=== PATIENT | male | born 1950 | race Two or more races ===

== ENCOUNTER 2020-04-25 06:27 | Inpatient (IN) | payer MEDICARE, MEDICAID ==
[~2020-04-25] VITALS: Ht 190.5 cm; Wt 82.2 kg
[2020-04-25 11:10] VITALS: BP 116/70
--- NOTE | 2020-04-25 11:10 | NUR ---
NURSE NOTES: Patient is direct admit from [place], Admitted to room 203-2 via gurney. Awake, alert and oriented x4, Mostly [place] speaking. on room air , saturation 97%, no acute distress/SOB noted. Able to make needs known, Denied pain, nausea or vomiting at this time. bus driver/monitor placed, Patient has an IV on left FA 20G patent and intact. Belonging list done, Valuables sent to Hospital safe. Patient has left lower back kalpana (Hemangioma), Picture taken, will upload. Oriented to room, call lights and visiting hours. Bed in low position and locked, Call light within reach, Encouraged to use call light when needed. Will contact MD for admission orders.
[2020-04-25] MEDS ORDERED: PANTOPRAZOLE SO40 MG ORAL (12:10)
[2020-04-25] MEDS ORDERED: FUROSEMIDE40 MG ORAL (12:10)
[2020-04-25] MEDS ORDERED: FOSAMAX70 MG ORAL (12:10)
[2020-04-25] MEDS ORDERED: METFORMIN HCL500 M1 ORAL (12:10)
[2020-04-25] MEDS ORDERED: FLOMAX0.4 MG ORAL (12:10)
[2020-04-25] MEDS ORDERED: CELLCEPT500 MG ORAL (12:10)
[2020-04-25] MEDS ORDERED: SPIRONOLACTONE100 MG ORAL (12:10)
[2020-04-25] MEDS ORDERED: MEDROL4 MG ORAL (12:10)
[2020-04-25] MEDS ORDERED: VITAMIN D210 MCG PO (12:10)
--- NOTE | 2020-04-25 12:25 | Consultation ---
History of Present Illness General Date patient seen: Apr 25, 2020 Present Illness HPI This is a very pleasant 69-year-old male who presented to outside facility complaining of 2 days abdominal pain with associated nausea and emesis. Patient was transferred to [facility] for care and management and work-up. Surgery was called to evaluate. Patient was seen patient was evaluated chart was reviewed. Patient states that he began having epigastric right upper quad abdominal pain approximately 2 days ago and while at home had associated nausea and emesis. pain cramping 6 out of 10 currently improved with narcotic pain medication. No significant prior episodes. Was diagnosed with acute cholecystitis outside facility pending reports. Medication History Scheduled Alendronate Sodium* (Fosamax*), 70 MG ORAL ONCE A WEEK, (Reported) Ergocalciferol (Vitamin D2) (Vitamin D2), 1.25 MG PO ONCE A WEEK, (Reported) Furosemide* (Lasix*), 40 MG ORAL EVERY OTHER DAY, (Reported) Metformin Hcl* (Metformin Hcl*), 500 MG ORAL DAILY, (Reported) Methylprednisolone* (Medrol*), 4 MG ORAL DAILY, (Reported) Mycophenolate Mofetil (Cellcept), 1,500 MG ORAL TWICE A DAY, (Reported) Pantoprazole* (Pantoprazole*), 40 MG ORAL DAILY, (Reported) Spironolactone* (Spironolactone*), 50 MG ORAL TWICE A DAY, (Reported) Tamsulosin HCl (Flomax), 0.4 MG ORAL DAILY, (Reported) Patient History History Provided By: Patient Healthcare decision maker Resuscitation status Advanced Directive on File Past Medical/Surgical History Past Medical/Surgical History: (1) Cholecystitis, acute Review of Systems Review of Symptoms General ROS: no weight loss or fever Psychological ROS: no depression or mood changes, no memory loss Ophthalmic ROS: no visual changes or eye irritation ENT ROS: no nasal congestion, hearing loss, dizziness Allergy and Immunology ROS: no allergic symptoms or urticaria Hematological and Lymphatic ROS: no swollen glands, unusual bleeding or bruising Endocrine ROS: no polyuria, polydipsia, weight changes, temperature intolerance Respiratory ROS: no cough, shortness of breath, or wheezing Cardiovascular ROS: no chest pain or dyspnea on exertion Gastrointestinal ROS: +abdominal pain, --bright red blood in stool. Musculoskeletal ROS: no myalgias or arthralgias Neurological ROS: no TIA or stroke symptoms Dermatological ROS: no new or changing skin lesions, rashes or pruritis Physical Exam Physical Exam General appearance: alert, cooperative, no distress, appears stated age Head: Normocephalic, without obvious abnormality, atraumatic Eyes: conjunctivae/corneas clear. PERRL, EOM's intact. Fundi benign Throat: Lips, mucosa, and tongue normal. Teeth and gums normal Neck: supple, symmetrical, trachea midline, no adenopathy, thyroid: not enlarged, symmetric, no tenderness/mass/nodules, no carotid bruit and no JVD Lungs: clear to auscultation bilaterally Heart: regular rate and rhythm, S1, S2 normal, no murmur, click, rub or gallop Abdomen: soft, non-tender. Bowel sounds normal. No masses, no organomegaly Extremities: extremities normal, atraumatic, no cyanosis or edema Pulses: 2+ and symmetric Skin: Skin color, texture, turgor normal. No rashes or lesions Neurologic: Grossly normal Assessment/Plan Problem List: (1) Cholecystitis, acute Assessment & Plan: 69-year-old male with acute cholecystitis diagnosed outside facility. Currently afebrile hemodynamic stable and improved with narcotic pain medication. On examination mild discomfort in the right upper quadrant. States he still feels the cramping but blunted with the medications. Currently no nausea or vomiting. Still pending reports have been looking to obtain. Okay for clear liquid diets given stable and patient is hungry IV fluids IV antibiotics Ultrasound ordered Labs ordered Will follow with recommendations as labs and imaging available. May potentially need cholecystectomy will monitor Thank you for let me participate in patient's care ICD Codes: K81.0 - Acute cholecystitis SNOMED: [id number] Wil Morse Apr 25, 2020 12:25
[2020-04-25] MEDS ORDERED: Milk of Magnesia 30ml Ud ORAL PRN (12:30)
[2020-04-25] MEDS ORDERED: Mylanta II UD 30ml ORAL PRN (12:30)
[2020-04-25] MEDS ORDERED: Morphine Sulfate 2mg/ml Inj(IV/IM USE ONLY) IVP PRN ×2 (12:30)
[2020-04-25] MEDS ORDERED: LORazepam 1mg tab ORAL PRN (12:30)
[2020-04-25] MEDS ORDERED: Morphine Sulfate 4mg/ml Inj (IV USE ONLY) IVP PRN (12:30)
[2020-04-25 13:09] LABS: MEAN CORPUSCULAR VOLUME 87 FL (80-99); PLATELET COUNT 163 K/UL (150-450); RED BLOOD COUNT 5.05 M/UL (4.70-6.10); RED CELL DISTRIBUTION WIDTH 15.7 % (11.6-14.8); WHITE BLOOD COUNT 12.1 K/UL (4.8-10.8)
[2020-04-25 13:23] LABS: ALANINE AMINOTRANSFERASE 279 U/L (12-78); ALBUMIN 3.4 G/DL (3.4-5.0); ALBUMIN/GLOBULIN RATIO 1.3 (1.0-2.7); ALKALINE PHOSPHATASE 130 U/L (46-116); ANION GAP 5 mmol/L (5-15); ASPARTATE AMINO TRANSFERASE 153 U/L (15-37); BILIRUBIN,TOTAL 1.8 MG/DL (0.2-1.0); BLOOD UREA NITROGEN 15 mg/dL (7-18); CALCIUM 9.3 MG/DL (8.5-10.1); CARBON DIOXIDE 31 MMOL/L (21-32); CHLORIDE 100 MMOL/L (98-107); CHOLESTEROL 150 MG/DL (< 200); CREATININE 1.2 MG/DL (0.55-1.30); HDL CHOLESTEROL 26 MG/DL (40-60); POTASSIUM 4.5 MMOL/L (3.5-5.1); SODIUM 136 MMOL/L (136-145); TRIGLYCERIDES 179 MG/DL (30-150)
[2020-04-25 13:49] LABS: BILIRUBIN,DIRECT 1.1 MG/DL (0.0-0.3)
[2020-04-25] MEDS ORDERED: Zosyn 3.375gm in NS 110ml IVPB ONE (14:00)
--- NOTE | 2020-04-25 14:12 | Diagnostic Imaging Report ---
EXAM: US Abdomen Complete CLINICAL HISTORY: ABD PAIN TECHNIQUE: Real-time ultrasound of the abdomen with image documentation. COMPARISON: None FINDINGS: Liver: Liver measures 13.3 cm. No focal lesion. No intrahepatic bile duct dilation. Gallbladder: Gallstone or sludge ball measuring up to 2.5 cm. Nonspecific mild prominence of the gallbladder wall. Sonographic Jean's sign is not reported. Common bile duct: Normal common bile duct measuring 2.6 mm. No stones. No dilation. Pancreas: Visualized portions of the pancreas are grossly unremarkable. Kidneys: Right kidney measures 11.0 cm in length. No hydronephrosis or stone. Left kidney measures 10.2 cm in length. No hydronephrosis or stone. Spleen: Spleen measures 12.1 cm. No focal lesion. Aorta: Visualized portions of the aorta are grossly unremarkable. Inferior vena cava: Visualized portions of the IVC are grossly unremarkable. Other vasculature: Patent main portal vein with normal directional flow. IMPRESSION: Gallstone or sludge ball measuring up to 2.5 cm. Nonspecific mild prominence of the gallbladder wall. Sonographic Jean's sign is not reported.
[2020-04-25] MEDS ORDERED: Hydrocortisone 100mg Inj IV SCH ×2 (14:15→16:15)
--- NOTE | 2020-04-25 15:41 | Consultation ---
History of Present Illness General Date patient seen: Apr 25, 2020 Present Illness HPI 69 years old male with hx of polymyositis on immune suppressive therapy with steroids and Celcept, COPD, BPH and hx of recent cholecystitis recently which was treated conservatively at [facility] .presented again to [facility] with same symptoms and he is transferred to [facility] [place]. Allergies: Coded Allergies: LEVOFLOXACIN (Unverified Allergy, Mild, Redness, 04/25/20) Medication History Scheduled Alendronate Sodium* (Fosamax*), 70 MG ORAL ONCE A WEEK, (Reported) Ergocalciferol (Vitamin D2) (Vitamin D2), 1.25 MG PO ONCE A WEEK, (Reported) Furosemide* (Lasix*), 40 MG ORAL EVERY OTHER DAY, (Reported) Metformin Hcl* (Metformin Hcl*), 500 MG ORAL DAILY, (Reported) Methylprednisolone* (Medrol*), 4 MG ORAL DAILY, (Reported) Mycophenolate Mofetil (Cellcept), 1,500 MG ORAL TWICE A DAY, (Reported) Pantoprazole* (Pantoprazole*), 40 MG ORAL DAILY, (Reported) Spironolactone* (Spironolactone*), 50 MG ORAL TWICE A DAY, (Reported) Tamsulosin HCl (Flomax), 0.4 MG ORAL DAILY, (Reported) Patient History Healthcare decision maker Resuscitation status Advanced Directive on File Past Medical/Surgical History Past Medical/Surgical History: (1) Diabetes mellitus (2) COPD (chronic obstructive pulmonary disease) (3) BPH (benign prostatic hyperplasia) (4) Pulmonary fibrosis Review of Systems All Other Systems: negative except mentioned in HPI Physical Exam General Appearance: WD/WN, no apparent distress Lines, tubes and drains: peripheral HEENT: normocephalic, atraumatic, anicteric Neck: non-tender, normal alignment, supple Respiratory/Chest: chest wall non-tender, lungs clear, normal breath sounds, no respiratory distress Cardiovascular/Chest: normal peripheral pulses, normal rate Abdomen: normal bowel sounds, soft Genitourinary/Rectal: normal genital exam, normal rectal exam Last 24 Hour Vital Signs Date Time Temp Pulse Resp B/P (MAP) Pulse Ox O2 Delivery O2 Flow Rate FiO2 04/25/20 12:22 Room Air 04/25/20 12:00 107 04/25/20 11:10 98.0 102 20 116/70 (85) 97 Laboratory Tests Test 04/25/20 13:00 White Blood Count 12.1 K/UL (4.8-10.8) H Red Blood Count 5.05 M/UL (4.70-6.10) Hemoglobin 14.0 G/DL (14.2-18.0) L Hematocrit 44.0 % (42.0-52.0) Mean Corpuscular Volume 87 FL (80-99) Mean Corpuscular Hemoglobin 27.7 PG (27.0-31.0) Mean Corpuscular Hemoglobin Concent 31.9 G/DL (32.0-36.0) L Red Cell Distribution Width 15.7 % (11.6-14.8) H Platelet Count 163 K/UL (150-450) Mean Platelet Volume 7.3 FL (6.5-10.1) Neutrophils (%) (Auto) % (45.0-75.0) Lymphocytes (%) (Auto) % (20.0-45.0) Monocytes (%) (Auto) % (1.0-10.0) Eosinophils (%) (Auto) % (0.0-3.0) Basophils (%) (Auto) % (0.0-2.0) Differential Total Cells Counted 100 Neutrophils % (Manual) 83 % (45-75) H Lymphocytes % (Manual) 10 % (20-45) L Monocytes % (Manual) 7 % (1-10) Eosinophils % (Manual) 0 % (0-3) Basophils % (Manual) 0 % (0-2) Band Neutrophils 0 % (0-8) Platelet Estimate Adequate Platelet Morphology Normal Red Blood Cell Morphology Normal Prothrombin Time 10.9 SEC (9.30-11.50) Prothromb Time International Ratio 1.0 (0.9-1.1) Activated Partial Thromboplast Time 26 SEC (23-33) Sodium Level 136 MMOL/L (136-145) Potassium Level 4.5 MMOL/L (3.5-5.1) Chloride Level 100 MMOL/L (98-107) Carbon Dioxide Level 31 MMOL/L (21-32) Anion Gap 5 mmol/L (5-15) Blood Urea Nitrogen 15 mg/dL (7-18) Creatinine 1.2 MG/DL (0.55-1.30) Estimat Glomerular Filtration Rate > 60 mL/min (>60) Glucose Level 105 MG/DL (74-106) Hemoglobin A1c 6.7 % (4.3-6.0) H Calcium Level 9.3 MG/DL (8.5-10.1) Total Bilirubin 1.8 MG/DL (0.2-1.0) H Direct Bilirubin 1.1 MG/DL (0.0-0.3) H Aspartate Amino Transf (AST/SGOT) 153 U/L (15-37) H Alanine Aminotransferase (ALT/SGPT) 279 U/L (12-78) H Alkaline Phosphatase 130 U/L (46-116) H Total Protein 6.0 G/DL (6.4-8.2) L Albumin 3.4 G/DL (3.4-5.0) Globulin 2.6 g/dL Albumin/Globulin Ratio 1.3 (1.0-2.7) Triglycerides Level 179 MG/DL (30-150) H Cholesterol Level 150 MG/DL (< 200) LDL Cholesterol 92 mg/dL (<100) HDL Cholesterol 26 MG/DL (40-60) L Cholesterol/HDL Ratio 5.8 (3.3-4.4) H Height (Feet): 6 Height (Inches): 3.00 Weight (Pounds): 169 Medications Current Medications Medications (Trade) Dose Ordered Sig/Renetta Route PRN Reason Start Time Stop Time Status Last Admin Dose Admin Acetaminophen (Tylenol) 650 mg Q4H PRN ORAL Temp >100.5 04/25/20 12:30 05/25/20 12:29 Al Hydroxide/Mg Hydroxide (Mylanta II) 30 ml Q6H PRN ORAL dyspepsia 04/25/20 12:30 05/25/20 12:29 Dextrose (Dextrose 50%) 25 ml Q30M PRN IV Hypoglycemia 04/25/20 12:30 07/24/20 12:29 Dextrose (Dextrose 50%) 50 ml Q30M PRN IV Hypoglycemia 04/25/20 12:30 07/24/20 12:29 Diphenhydramine HCl (Benadryl) 25 mg Q6H PRN ORAL Itching/Pruritis 04/25/20 12:30 05/25/20 12:29 Famotidine (Pepcid I.v.) 20 mg Q12HR IVP 04/25/20 21:00 05/25/20 20:59 Insulin Aspart (NovoLOG) BEFORE MEALS AND HS SUBQ 04/25/20 16:30 07/24/20 16:29 Lorazepam (Ativan) 1 mg Q4H PRN ORAL For Anxiety 04/25/20 12:30 05/02/20 12:29 Magnesium Hydroxide (Mom) 30 ml HSPRN PRN ORAL Constipation 04/25/20 12:30 05/25/20 12:29 Morphine Sulfate (Morphine Sulfate) 1 mg EVERY 3 HOURS PRN IVP Mild Pain (Pain Scale 1-3) 04/25/20 12:30 05/02/20 12:29 Morphine Sulfate (Morphine Sulfate) 2 mg EVERY 3 HOURS PRN IVP Moderate Pain (Pain Scale 4-6) 04/25/20 12:30 05/02/20 12:29 Morphine Sulfate (Morphine Sulfate) 4 mg EVERY 3 HOURS PRN IVP Severe Pain (Pain Scale 7-10) 04/25/20 12:30 05/02/20 12:29 Ondansetron HCl (Zofran) 4 mg Q6H PRN IVP Nausea & Vomiting 04/25/20 12:30 05/25/20 12:29 Piperacillin Sod/ Tazobactam Sod 3.375 gm/Sodium Chloride 110 ml @ 27.5 mls/hr EVERY 8 HOURS IVPB 04/25/20 22:00 04/30/20 21:59 Piperacillin Sod/ Tazobactam Sod 3.375 gm/Sodium Chloride 110 ml @ 27.5 mls/hr ONCE ONCE IVPB 04/25/20 14:00 04/25/20 17:59 04/25/20 14:37 Sodium Chloride 1,000 ml @ 75 mls/hr [id number] IVLG 04/25/20 13:30 05/25/20 13:29 04/25/20 13:44 Tamsulosin HCl (Flomax) 0.4 mg DAILY ORAL 04/26/20 09:00 05/26/20 08:59 Temazepam (Restoril) 15 mg HSPRN PRN ORAL Insomnia 04/25/20 21:00 05/02/20 20:59 Assessment/Plan Problem List: (1) Cholecystitis, acute ICD Codes: K81.0 - Acute cholecystitis SNOMED: 17440091 (2) Polymyositis ICD Codes: M33.20 - Polymyositis, organ involvement unspecified SNOMED: 51544354 (3) Immunosuppressed status ICD Codes: D89.9 - Disorder involving the immune mechanism, unspecified SNOMED: 56253288 (4) Pulmonary fibrosis ICD Codes: J84.10 - Pulmonary fibrosis, unspecified SNOMED: 38315464 (5) COPD (chronic obstructive pulmonary disease) ICD Codes: J44.9 - Chronic obstructive pulmonary disease, unspecified SNOMED: 63330433 (6) BPH (benign prostatic hyperplasia) ICD Codes: N40.0 - Benign prostatic hyperplasia without lower urinary tract symptoms SNOMED: 690645119 (7) Diabetes mellitus ICD Codes: E11.9 - Type 2 diabetes mellitus without complications SNOMED: 13752939 Assessment/Plan: NPO iv fluids iv abx symptomatic treatment sliding scale Rheumatology consult to evaluate pt's polymyositis. dvt prophylaxis cardiology to clear for surgery. Rudi Kitchen MD Apr 25, 2020 15:41
[2020-04-25 15:59] LABS: CREATINE KINASE 22 U/L (26-308)
[2020-04-25 16:00] VITALS: BP 95/63
[2020-04-25] MEDS: NovoLOG Insulin Flexpen SUBQ SCH ×2 (16:30→20:37)
--- NOTE | 2020-04-25 16:43 | History & Physical ---
History and Physical History & Physicial Dictated for Int Med Dr Ramos no. [id number]. Cirilo Tan MD Apr 25, 2020 16:43
--- NOTE | 2020-04-25 18:00 | History and Physical Report ---
DATE OF ADMISSION: 04/25/2020 CHIEF COMPLAINT: The patient is a 69-year-old male who presents with a chief complaint of epigastric pain, nausea, vomiting. HISTORY OF PRESENT ILLNESS: The patient was admitted to [facility] approximately three weeks ago. The patient was told that he had cholelithiasis and acute cholecystitis. The patient was treated with antibiotics at that time. The surgeon refused to perform cholecystectomy because the patient is a poor surgical risk. The patient presented again to [facility] on April 24, 2020. A CT scan of the abdomen revealed acute cholecystitis. The patient is transferred to [facility] for higher level of care. The patient admitted with cholecystitis and epigastric pain. REVIEW OF SYSTEMS: CONSTITUTIONAL: The patient denies weight loss or weight gain. The patient denies fevers or chills. HEENT: The patient denies ear or throat pain. The patient denies headache. CARDIOVASCULAR: The patient denies palpitations or chest pain. CHEST: The patient denies wheeze or shortness of breath. ABDOMINAL: The patient complains of epigastric pain as above. The patient complains of nausea vomiting. The patient denies diarrhea or constipation. GENITOURINARY: The patient denies dysuria or increased frequency of urination. NEUROMUSCULAR: The patient denies seizures or generalized weakness. PAST MEDICAL HISTORY: Significant for: 1. Diabetes type 2. 2. Pulmonary fibrosis. 3. Osteoporosis. 4. Benign prostatic hypertrophy. 5. Cholecystitis diagnosed one month ago as above. PAST SURGICAL HISTORY: Significant for: 1. Sigmoidectomy secondary to diverticulitis approximately 10 years ago. 2. Umbilical hernia repair approximately 8 years ago. 3. Esophagogastroduodenoscopy on April 22, 2020 which revealed candidiasis and esophagitis. CURRENT MEDICATIONS: 1. Fosamax 70 mg p.o. q. weekly. 2. Vitamin D2 10 mcg p.o. q weekly. 3. Fosamax. 4. Lasix 40 mg p.o. every other day. 5. Metformin 500 mg p.o. daily. 6. Medrol 4 mg p.o. daily. 7. CellCept 1500 mg p.o. twice daily. 8. Protonix 40 mg p.o. daily. 9. Spironolactone 50 mg p.o. twice daily. 10. Flomax 0.4 mg p.o. daily. ALLERGIES: To Levaquin. SOCIAL HISTORY: The patient is and lives with his family. The patient denies tobacco use. The patient denies alcohol use having quit drinking 10 years previously. PHYSICAL EXAMINATION: VITAL SIGNS: Temperature 98, respirations 20, pulse 102, blood pressure 116/70. GENERAL: The patient is well-developed and well-nourished male, in no apparent distress. HEENT: Eyes, pupils are equal and responsive to light and accommodation. Extraocular movements are intact. NECK: Supple without lymphadenopathy. CHEST: Lungs are clear to auscultation bilaterally without wheezes or rales. CARDIOVASCULAR: Regular rhythm and rate. S1 and S2 are normal without murmurs, rubs, or gallops. ABDOMEN: Soft, nondistended with decreased bowel sounds. There is pain to palpation in the epigastric region. There is no rebound or guarding noted. EXTREMITIES: Negative for clubbing, cyanosis, or edema. RECTAL/GENITAL: Not performed. NEUROLOGIC: Cranial nerves II to XII intact without focal deficits. Motor strength is 5/5 bilaterally. Deep tendon reflexes are 2+ plantar. LABORATORY AND DIAGNOSTIC DATA: Sodium 135, potassium 4.8, chloride , CO2 27, BUN 15, creatinine 1.2, glucose 223. AST elevated 249, alkaline phosphatase elevated 137, total bilirubin elevated at 4.70, ALT elevated at 323. WBC elevated at 17.6, hemoglobin 14.8, hematocrit 45.5, platelets 226,000. A CT scan of the abdomen from [facility] revealed distended gallbladder with indistinctness of the gallbladder wall consistent with acute cholecystitis. ASSESSMENT: This is a 69-year-old male. 1. Acute cholecystitis. 2. Elevated liver function tests. 3. Epigastric pain. 4. Diabetes type 2. 5. Pulmonary fibrosis. 6. Osteoporosis. 7. Benign prostatic hypertrophy. TREATMENT: 1. Cholecystitis/elevated liver function tests. A Surgery consultation has been obtained with Dr. Wil Morse. The patient may require emergent surgery secondary to acute cholecystitis. We will follow recommendations of Surgery. 2. Epigastric pain. This is secondary to cholecystitis. 3. Diabetes type 2. Continue metformin as above. A NovoLog sliding scale has been instituted. 4. Pulmonary fibrosis. A Pulmonary consultation has been obtained with Dr. Rudi Kitchen. 5. Osteoporosis. Continue Fosamax as above. 6. Benign prostatic hypertrophy. Continue Flomax as above. Cirilo Tan M.D. DR: Donal JOB#: [id number] CC:
--- NOTE | 2020-04-25 19:30 | NUR ---
NURSE NOTES: Received report from KHRIS Betancourt. Patient is asleep, alert and oriented x 3. On clear liquid diet, instructed and amenable. cardiac monitor is in placed, shows sinus tachycardia. IV site is on left forearm G-20, running fluid of Normal saline @ 75cc/hour that is patent and intact. On room air with no desaturation nor SOB reported. Safety measures are in placed, bed in lowest and locked position, side rails up x 2. Call light button and bedside table within reach, instructed to call for any assistance needed. Will continue plan of care.
--- NOTE | 2020-04-25 19:30 | NUR ---
HAND-OFF: Report given to Johanne/KHRIS. Patient in stable condition, endorsed plan of care.
[2020-04-25 20:00] VITALS: BP 102/70
[2020-04-25] MEDS: Piperacillin/Tazobactam 3.375 GM in NS 110 ML IVPB SCH (21:57)
[2020-04-26] VITALS: BP 109/65
[2020-04-26 04:00] VITALS: BP 101/53
[2020-04-26 04:19] LABS: BASOPHILS % (AUTO) 0.4 % (0.0-2.0); EOSINOPHILS % (AUTO) 0.2 % (0.0-3.0); HEMATOCRIT 39.2 % (42.0-52.0); HEMOGLOBIN 12.7 G/DL (14.2-18.0); LYMPHOCYTES % (AUTO) 8.7 % (20.0-45.0); MEAN CORPUSCULAR VOLUME 87 FL (80-99); MONOCYTES % (AUTO) 6.3 % (1.0-10.0); NEUTROPHILS % (AUTO) 84.3 % (45.0-75.0); PLATELET COUNT 165 K/UL (150-450); RED BLOOD COUNT 4.53 M/UL (4.70-6.10); RED CELL DISTRIBUTION WIDTH 15.2 % (11.6-14.8); WHITE BLOOD COUNT 7.6 K/UL (4.8-10.8)
[2020-04-26 04:33] LABS: CREATINE KINASE 19 U/L (26-308); LACTATE DEHYDROGENASE 112 U/L (81-234)
[2020-04-26 04:40] LABS: ALANINE AMINOTRANSFERASE 192 U/L (12-78); ALBUMIN 2.8 G/DL (3.4-5.0); ALBUMIN/GLOBULIN RATIO 1.1 (1.0-2.7); ALKALINE PHOSPHATASE 106 U/L (46-116); ANION GAP 4 mmol/L (5-15); ASPARTATE AMINO TRANSFERASE 79 U/L (15-37); BILIRUBIN,TOTAL 1.1 MG/DL (0.2-1.0); BLOOD UREA NITROGEN 12 mg/dL (7-18); CALCIUM 8.2 MG/DL (8.5-10.1); CARBON DIOXIDE 30 MMOL/L (21-32); CHLORIDE 107 MMOL/L (98-107); PHOSPHORUS 3.6 MG/DL (2.5-4.9); POTASSIUM 4.3 MMOL/L (3.5-5.1); SODIUM 140 MMOL/L (136-145)
[2020-04-26 05:21] LABS: BILIRUBIN,DIRECT 0.5 MG/DL (0.0-0.3)
[2020-04-26] MEDS: NovoLOG Insulin Flexpen SUBQ SCH ×4 (06:26→20:30)
[2020-04-26] MEDS: Piperacillin/Tazobactam 3.375 GM in NS 110 ML IVPB SCH ×3 (06:26→20:58)
--- NOTE | 2020-04-26 07:16 | NUR ---
NURSE NOTES: pt in bed alert and oriented x4. pt on monitoring engineer no signs of cardiac or respiratory distress at this moment. Bed is locked and in lowest position. Call light within reach. rails up x2 for safety. pt reports no pain. Will continue to monitor pt.
--- NOTE | 2020-04-26 07:18 | NUR ---
HAND-OFF: Report given to KHRIS Dia. Patient is on bed, awake in stable condition. Plan of care endorsed.
[2020-04-26 08:00] VITALS: BP 108/69
--- NOTE | 2020-04-26 08:43 | NUR ---
RADIOLOGY DEPT., CHEST X-RAY DONE.-P.DYE
[2020-04-26] MEDS: Tamsulosin 0.4mg cap ORAL SCH (09:04)
--- NOTE | 2020-04-26 11:09 | NUR ---
NURSE NOTES: per doctor Barbosa, pt will have surgery tomorrow. When pt given option to have surgery or not, pt elected to have surgery. Also ask doctor Barbosa to call daughter to give updates. She wants to be notified on any plans procedures or surgery that pt may have.
--- NOTE | 2020-04-26 11:30 | Consultation ---
DATE OF CONSULTATION: 04/26/2020 CONSULTING PHYSICIAN: Petey Marquez MD. REFERRING PHYSICIAN: Cirilo Tan MD. CHIEF COMPLAINT: Abdominal pain. HISTORY OF PRESENT ILLNESS: A very pleasant 69-year-old male presented to the hospital with main complaint of epigastric abdominal pain associated with nausea. Since admission, the patient had abdominal ultrasound which showed evidence of over 2 cm gallbladder sludge or stone. No dilated common bile duct. The patient's pain apparently today is much better. The patient was also seen by Surgery and has been evaluated for possible cholecystectomy. PAST MEDICAL HISTORY: 1. Diabetes type 2. 2. Pulmonary fibrosis. 3. Osteoporosis. 4. BPH. 5. Cholecystitis, according to the patient about a month ago. MEDICATIONS: Please see medication reconciliation list. ALLERGIES: Levaquin. PAST SURGICAL HISTORY: 1. Partial sigmoidectomy secondary to diverticulosis over 10 years ago. 2. Umbilical hernia repair. 3. Also history of recent EGD showing Sharmin esophagitis. SOCIAL HISTORY: The patient denies any tobacco usage. Denies any alcohol or drug abuse. REVIEW OF SYSTEMS: A 10-point review of systems was performed and pertinent positives in HPI. PHYSICAL EXAMINATION: VITAL SIGNS: Temperature 98.1, pulse rate 70, blood pressure 101/53, and respirations 19. HEENT: Normocephalic and atraumatic. Sclerae are anicteric. NECK: Supple. No evidence of obvious lymphadenopathy. CARDIOVASCULAR: Regular rate and rhythm. Plus S1-S2. LUNGS: Clear to auscultation bilaterally. ABDOMEN: Positive bowel sounds. Soft. Minimal tenderness to palpation in the epigastric area. No rebound. No guarding. No peritoneal sign. EXTREMITIES: No cyanosis, no clubbing, no edema. ASSESSMENT AND PLAN: This is a 69-year-old male with recent diagnosis of Sharmin esophagitis, multiple prior abdominal surgeries, admitted to the hospital with epigastric abdominal pain, which seems to be resolving. Liver enzymes are elevated about mainly transaminitis. Alkaline phosphatase has been normal. Common bile duct per ultrasound has been normal. I doubt the patient needs an ERCP at this time. Recommend following surgical recommendation for possible cholecystectomy. Continue on PPI, advance diet, and we will follow. I want to thank Dr. Tan for this kind referral. Petey Jose Juan Marquez DR: AMY JOB#: [id number] CC:
--- NOTE | 2020-04-26 11:38 | Surgery Progress Note ---
Surgery Progress Note Subjective Additional Comments feels a bit better no n/v leukocytosis resolving lfts elevated US noted Objective Last 24 Hour Vital Signs Date Time Temp Pulse Resp B/P (MAP) Pulse Ox O2 Delivery O2 Flow Rate FiO2 04/26/20 04:00 98.1 70 19 101/53 (69) 96 04/26/20 04:00 68 04/26/20 00:00 94 04/26/20 00:00 98.5 82 20 109/65 (80) 98 04/25/20 21:00 Room Air 04/25/20 20:00 84 04/25/20 20:00 98.9 88 19 102/70 (81) 96 04/25/20 17:46 99.9 04/25/20 16:00 101.5 99 20 95/63 (74) 98 04/25/20 12:22 Room Air 04/25/20 12:00 107 I&O Intake and Output 04/25/20 04/26/20 19:00 07:00 Intake Total 575 ml 1100 ml Output Total 1000 ml 1350 ml Balance -425 ml -250 ml Intake Oral 500 ml 650 ml IV Total 75 ml 450 ml Output Urine Total 1000 ml 1350 ml # Voids 3 5 Cardiovascular: RSR Respiratory: clear Abdomen: soft, flat, non-tender, present bowel sounds Extremities: no edema, no tenderness, no cyanosis Laboratory Tests Test 04/25/20 13:00 04/25/20 16:39 04/26/20 03:14 White Blood Count 12.1 K/UL (4.8-10.8) H 7.6 K/UL (4.8-10.8) Red Blood Count 5.05 M/UL (4.70-6.10) 4.53 M/UL (4.70-6.10) L Hemoglobin 14.0 G/DL (14.2-18.0) L 12.7 G/DL (14.2-18.0) L Hematocrit 44.0 % (42.0-52.0) 39.2 % (42.0-52.0) L Mean Corpuscular Volume 87 FL (80-99) 87 FL (80-99) Mean Corpuscular Hemoglobin 27.7 PG (27.0-31.0) 28.0 PG (27.0-31.0) Mean Corpuscular Hemoglobin Concent 31.9 G/DL (32.0-36.0) L 32.3 G/DL (32.0-36.0) Red Cell Distribution Width 15.7 % (11.6-14.8) H 15.2 % (11.6-14.8) H Platelet Count 163 K/UL (150-450) 165 K/UL (150-450) Mean Platelet Volume 7.3 FL (6.5-10.1) 7.2 FL (6.5-10.1) Neutrophils (%) (Auto) % (45.0-75.0) 84.3 % (45.0-75.0) H Lymphocytes (%) (Auto) % (20.0-45.0) 8.7 % (20.0-45.0) L Monocytes (%) (Auto) % (1.0-10.0) 6.3 % (1.0-10.0) Eosinophils (%) (Auto) % (0.0-3.0) 0.2 % (0.0-3.0) Basophils (%) (Auto) % (0.0-2.0) 0.4 % (0.0-2.0) Differential Total Cells Counted 100 Neutrophils % (Manual) 83 % (45-75) H Lymphocytes % (Manual) 10 % (20-45) L Monocytes % (Manual) 7 % (1-10) Eosinophils % (Manual) 0 % (0-3) Basophils % (Manual) 0 % (0-2) Band Neutrophils 0 % (0-8) Platelet Estimate Adequate Platelet Morphology Normal Red Blood Cell Morphology Normal Prothrombin Time 10.9 SEC (9.30-11.50) Prothromb Time International Ratio 1.0 (0.9-1.1) Activated Partial Thromboplast Time 26 SEC (23-33) Sodium Level 136 MMOL/L (136-145) 140 MMOL/L (136-145) Potassium Level 4.5 MMOL/L (3.5-5.1) 4.3 MMOL/L (3.5-5.1) Chloride Level 100 MMOL/L (98-107) 107 MMOL/L (98-107) Carbon Dioxide Level 31 MMOL/L (21-32) 30 MMOL/L (21-32) Anion Gap 5 mmol/L (5-15) 4 mmol/L (5-15) L Blood Urea Nitrogen 15 mg/dL (7-18) 12 mg/dL (7-18) Creatinine 1.2 MG/DL (0.55-1.30) 1.0 MG/DL (0.55-1.30) Estimat Glomerular Filtration Rate > 60 mL/min (>60) > 60 mL/min (>60) Glucose Level 105 MG/DL (74-106) 130 MG/DL (74-106) H Hemoglobin A1c 6.7 % (4.3-6.0) H Calcium Level 9.3 MG/DL (8.5-10.1) 8.2 MG/DL (8.5-10.1) L Total Bilirubin 1.8 MG/DL (0.2-1.0) H 1.1 MG/DL (0.2-1.0) H Direct Bilirubin 1.1 MG/DL (0.0-0.3) H 0.5 MG/DL (0.0-0.3) H Aspartate Amino Transf (AST/SGOT) 153 U/L (15-37) H 79 U/L (15-37) H Alanine Aminotransferase (ALT/SGPT) 279 U/L (12-78) H 192 U/L (12-78) H Alkaline Phosphatase 130 U/L (46-116) H 106 U/L (46-116) Total Creatine Kinase 22 U/L (26-308) L 19 U/L (26-308) L Total Protein 6.0 G/DL (6.4-8.2) L 5.4 G/DL (6.4-8.2) L Albumin 3.4 G/DL (3.4-5.0) 2.8 G/DL (3.4-5.0) L Globulin 2.6 g/dL 2.6 g/dL Albumin/Globulin Ratio 1.3 (1.0-2.7) 1.1 (1.0-2.7) Triglycerides Level 179 MG/DL (30-150) H Cholesterol Level 150 MG/DL (< 200) LDL Cholesterol 92 mg/dL (<100) HDL Cholesterol 26 MG/DL (40-60) L Cholesterol/HDL Ratio 5.8 (3.3-4.4) H Rheumatoid Factor Screen <10.0 IU/mL (0.0-13.9) Anti-Nuclear Antibody Screen Pending POC Whole Blood Glucose Pending Erythrocyte Sedimentation Rate 20 MM/HR (0-20) Phosphorus Level 3.6 MG/DL (2.5-4.9) Magnesium Level 2.0 MG/DL (1.8-2.4) Lactate Dehydrogenase 112 U/L (81-234) C-Reactive Protein, Quantitative 8.2 mg/dL (0.00-0.90) H Aldolase Pending Plan Problems: (1) Cholecystitis, acute Assessment & Plan: 69-year-old male with acute cholecystitis diagnosed outside facility. Currently afebrile hemodynamic stable and improved with narcotic pain medication. On examination mild discomfort in the right upper quadrant. States he still feels the cramping but blunted with the medications. Currently no nausea or vomiting. Still pending reports have been looking to obtain. Okay for clear liquid diets given stable and patient is hungry IV fluids IV antibiotics Ultrasound ordered Labs ordered Will follow with recommendations as labs and imaging available. May potentially need cholecystectomy will monitor Thank you for let me participate in patient's care discussed care plan with patient. discussed lab findings and US findings. dx cholecystitis acute after discussing surgical vs non surgical options with patient he has elected to proceed with cholecystectomy which is indicated and recommended npo p mn iv fluids consent thank you called daughter multiple times but no answer. will cont to relay patients decision with family as requested Wil Morse Apr 26, 2020 11:38
--- NOTE | 2020-04-26 11:38 | Pre-Procedure Note/Attestation ---
Pre-Procedure Note/Attestation Complete Prior to Procedure Procedure Narrative: laparoscopic cholecystectomy possible open Indications for Procedure Pre-Operative Diagnosis: acute cholecystitis Attestation I attest that I discussed the nature of the procedure; its benefits; risks and complications; and alternatives (and the risks and benefits of such alternatives ), prior to the procedure, with the patient (or the patient's legal financial sales representative). I attest that, if there was a reasonable possibility of needing a blood transfusion, the patient (or the patient's legal financial sales representative) was given the [facility] standardized written summary, pursuant to the [place] Blood Safety Act ([place] Health and Safety Code # 1645, as amended). I attest that I re-evaluated the patient just prior to the surgery and that there has been no change in the patient's H&P, except as documented below: Wil Morse Apr 26, 2020 11:38
[2020-04-26 12:00] VITALS: BP 108/70
--- NOTE | 2020-04-26 12:13 | Diagnostic Imaging Report ---
Indication: Reason For Exam: PREOP Technique: Single AP view of the chest. Comparison: None. Findings: The cardiomediastinal silhouette is within normal limits when accounting for projection and technique. There is elevation of the right hemidiaphragm.. Streaky bibasilar airspace opacities are noted. No pneumothorax or pleural effusion. Osseous structures demonstrate no acute abnormality. IMPRESSION: Streaky bibasilar airspace opacities which likely represent subsegmental atelectasis but pneumonia should be excluded clinically.
--- NOTE | 2020-04-26 12:14 | Pulmonology Progress Note ---
Subjective ROS Limited/Unobtainable: No Allergies: Coded Allergies: LEVOFLOXACIN (Unverified Allergy, Mild, Redness, 04/25/20) Objective Last 24 Hour Vital Signs Date Time Temp Pulse Resp B/P (MAP) Pulse Ox O2 Delivery O2 Flow Rate FiO2 04/26/20 09:00 Room Air 04/26/20 08:00 98.4 70 20 108/69 (82) 97 04/26/20 04:00 98.1 70 19 101/53 (69) 96 04/26/20 04:00 68 04/26/20 00:00 94 04/26/20 00:00 98.5 82 20 109/65 (80) 98 04/25/20 21:00 Room Air 04/25/20 20:00 84 04/25/20 20:00 98.9 88 19 102/70 (81) 96 04/25/20 17:46 99.9 04/25/20 16:00 101.5 99 20 95/63 (74) 98 04/25/20 12:22 Room Air Intake and Output 04/25/20 04/26/20 19:00 07:00 Intake Total 575 ml 1100 ml Output Total 1000 ml 1350 ml Balance -425 ml -250 ml Intake Oral 500 ml 650 ml IV Total 75 ml 450 ml Output Urine Total 1000 ml 1350 ml # Voids 3 5 General Appearance: no acute distress HEENT: normocephalic, atraumatic, anicteric Respiratory: chest wall non-tender, lungs clear, normal breath sounds Cardiovascular: normal peripheral pulses, normal rate, regular rhythm Abdomen: normal bowel sounds, soft, non tender, no organomegaly Genitourinary: normal external genitalia Extremities: no cyanosis Skin: no rash Neurologic: dip painter II-XII grossly normal Laboratory Tests 04/25/20 13:00: White Blood Count 12.1H, Red Blood Count 5.05, Hemoglobin 14.0L, Hematocrit 44.0 , Mean Corpuscular Volume 87, Mean Corpuscular Hemoglobin 27.7, Mean Corpuscular Hemoglobin Concent 31.9L, Red Cell Distribution Width 15.7H, Platelet Count 163, Mean Platelet Volume 7.3, Neutrophils (%) (Auto) , Lymphocytes (%) (Auto) , Monocytes (%) (Auto) , Eosinophils (%) (Auto) , Basophils (%) (Auto) , Differential Total Cells Counted 100, Neutrophils % ( Manual) 83H, Lymphocytes % (Manual) 10L, Monocytes % (Manual) 7, Eosinophils % ( Manual) 0, Basophils % (Manual) 0, Band Neutrophils 0, Platelet Estimate Adequate, Platelet Morphology Normal, Red Blood Cell Morphology Normal, Prothrombin Time 10.9, Prothromb Time International Ratio 1.0, Activated Partial Thromboplast Time 26, Sodium Level 136, Potassium Level 4.5, Chloride Level 100, Carbon Dioxide Level 31, Anion Gap 5, Blood Urea Nitrogen 15, Creatinine 1.2, Estimat Glomerular Filtration Rate > 60, Glucose Level 105, Hemoglobin A1c 6.7H, Calcium Level 9.3, Total Bilirubin 1.8H, Direct Bilirubin 1.1H, Aspartate Amino Transf (AST/SGOT) 153H, Alanine Aminotransferase (ALT/SGPT ) 279H, Alkaline Phosphatase 130H, Total Creatine Kinase 22L, Total Protein 6.0L , Albumin 3.4, Globulin 2.6, Albumin/Globulin Ratio 1.3, Triglycerides Level 179H, Cholesterol Level 150, LDL Cholesterol 92, HDL Cholesterol 26L, Cholesterol/HDL Ratio 5.8H, Rheumatoid Factor Screen <10.0, Anti-Nuclear Antibody Screen [Pending] 04/25/20 16:39: POC Whole Blood Glucose [Pending] 04/26/20 03:14: White Blood Count 7.6, Red Blood Count 4.53L, Hemoglobin 12.7L, Hematocrit 39.2L , Mean Corpuscular Volume 87, Mean Corpuscular Hemoglobin 28.0, Mean Corpuscular Hemoglobin Concent 32.3, Red Cell Distribution Width 15.2H, Platelet Count 165, Mean Platelet Volume 7.2, Neutrophils (%) (Auto) 84.3H, Lymphocytes (%) (Auto) 8.7L, Monocytes (%) (Auto) 6.3, Eosinophils (%) (Auto) 0.2, Basophils (%) (Auto) 0.4, Sodium Level 140, Potassium Level 4.3, Chloride Level 107, Carbon Dioxide Level 30, Anion Gap 4L, Blood Urea Nitrogen 12, Creatinine 1.0, Estimat Glomerular Filtration Rate > 60, Glucose Level 130H, Calcium Level 8.2L, Total Bilirubin 1.1H, Direct Bilirubin 0.5H, Aspartate Amino Transf (AST/SGOT) 79H, Alanine Aminotransferase (ALT/SGPT) 192H, Alkaline Phosphatase 106, Total Creatine Kinase 19L, Total Protein 5.4L, Albumin 2.8L, Globulin 2.6, Albumin/Globulin Ratio 1.1, Erythrocyte Sedimentation Rate 20, Phosphorus Level 3.6, Magnesium Level 2.0, Lactate Dehydrogenase 112, C- Reactive Protein, Quantitative 8.2H, Aldolase [Pending] Current Medications Medications (Trade) Dose Ordered Sig/Renetta Route PRN Reason Start Time Stop Time Status Last Admin Dose Admin Acetaminophen (Tylenol) 650 mg Q4H PRN ORAL Temp >100.5 04/25/20 12:30 05/25/20 12:29 04/25/20 17:16 Al Hydroxide/Mg Hydroxide (Mylanta II) 30 ml Q6H PRN ORAL dyspepsia 04/25/20 12:30 05/25/20 12:29 Dextrose (Dextrose 50%) 25 ml Q30M PRN IV Hypoglycemia 04/25/20 12:30 07/24/20 12:29 Dextrose (Dextrose 50%) 50 ml Q30M PRN IV Hypoglycemia 04/25/20 12:30 07/24/20 12:29 Diphenhydramine HCl (Benadryl) 25 mg Q6H PRN ORAL Itching/Pruritis 04/25/20 12:30 05/25/20 12:29 Famotidine (Pepcid I.v.) 20 mg Q12HR IVP 04/25/20 21:00 05/25/20 20:59 04/26/20 09:04 Insulin Aspart (NovoLOG) BEFORE MEALS AND HS SUBQ 04/25/20 16:30 07/24/20 16:29 04/25/20 20:37 Lorazepam (Ativan) 1 mg Q4H PRN ORAL For Anxiety 04/25/20 12:30 05/02/20 12:29 Magnesium Hydroxide (Mom) 30 ml HSPRN PRN ORAL Constipation 04/25/20 12:30 05/25/20 12:29 Morphine Sulfate (Morphine Sulfate) 1 mg EVERY 3 HOURS PRN IVP Mild Pain (Pain Scale 1-3) 04/25/20 12:30 05/02/20 12:29 Morphine Sulfate (Morphine Sulfate) 2 mg EVERY 3 HOURS PRN IVP Moderate Pain (Pain Scale 4-6) 04/25/20 12:30 05/02/20 12:29 Morphine Sulfate (Morphine Sulfate) 4 mg EVERY 3 HOURS PRN IVP Severe Pain (Pain Scale 7-10) 04/25/20 12:30 05/02/20 12:29 Ondansetron HCl (Zofran) 4 mg Q6H PRN IVP Nausea & Vomiting 04/25/20 12:30 05/25/20 12:29 Piperacillin Sod/ Tazobactam Sod 3.375 gm/Sodium Chloride 110 ml @ 27.5 mls/hr EVERY 8 HOURS IVPB 04/25/20 22:00 04/30/20 21:59 04/26/20 06:26 Sodium Chloride 1,000 ml @ 75 mls/hr [id number] IVLG 04/25/20 13:30 05/25/20 13:29 04/26/20 03:43 Tamsulosin HCl (Flomax) 0.4 mg DAILY ORAL 04/26/20 09:00 05/26/20 08:59 04/26/20 09:04 Temazepam (Restoril) 15 mg HSPRN PRN ORAL Insomnia 04/25/20 21:00 05/02/20 20:59 Assessment/Plan Problems: (1) Cholecystitis, acute (2) Polymyositis (3) Immunosuppressed status (4) Pulmonary fibrosis (5) COPD (chronic obstructive pulmonary disease) (6) BPH (benign prostatic hyperplasia) (7) Diabetes mellitus Assessment/Plan scheduled for surgery in am. NPO iv fluids iv abx symptomatic treatment sliding scale Rheumatology consult to evaluate pt's polymyositis. dvt prophylaxis cardiology to clear for surgery. ( Dr Lugo informed) Rudi Kitchen MD Apr 26, 2020 12:14
--- NOTE | 2020-04-26 12:40 | NUR ---
NURSE NOTES: pt very upset and is threatening to call administration and his daughter to complain about his late lunch. lunch accidentally was taken back to cafeteria. Tray was reordered 2 times until it finally arrived to the unit. once food came to unit and given to pt. he was complaining less.
--- NOTE | 2020-04-26 14:13 | NUR ---
NURSE NOTES: pt has been complaining and is very upset because he said he has been swabbed so many times. Pt was explained that earlier swabs were for MRSA and VRE, however, he states that the test were from [facility] and that we don't know what we are doing. Pt was educated on all test that have been done for him. Finally pt accepted to be swab but was pulling away from swab so there is no guarantees how accurate test results will be.
--- NOTE | 2020-04-26 14:34 | NUR ---
CASE MANAGEMENT:REVIEW 69 YR OLD MALE TRANSFERRED FROM [facility] ER CC: EPIGASTRIC PAIN, NAUSEA AND VOMITING SI: ACUTE CHOLECYSTITIS ELEVATED LIVER FUNCTION 101.5 99 20 95/63 98% ON RA H/H-12.7/39.2 TBILI+1.1 DBILI+0.5 IS:IV SOLUCORTEF IV ZOSYN IVF@75/HR : TO TELEMETRY PLAN; ABD US SURGICAL CONSULT COVID SWAB
[2020-04-26 16:00] VITALS: BP 92/56
--- NOTE | 2020-04-26 16:15 | Consultation ---
DATE OF CONSULTATION: 04/25/2020 RHEUMATOLOGICAL CONSULTATION CONSULTING PHYSICIAN: Eliza Callahan M.D. REASON FOR CONSULTATION: I was asked by Dr. Ramos to assist this 69-year-old patient who was transferred to this hospital from Hospital for the purpose of cholecystitis. On admission, it appears the patient had no history of polymyositis and Rheumatology consult was called. The patient is seen in his bedroom. He is awake, alert, afebrile, hemodynamically stable, and able to respond appropriately most of the question. His history of polymyositis now lasts more than 8 years. The disease is progressively chronic and he had been seen by a automotive light mechanic at a frequency of every 2 months in the past 3 years. He received medication that he does not recall the name; however, in the last 5 years, the patient did not take any medication for the polymyositis and the polymyositis did not give him any limitation in his activities of daily living. PAST MEDICAL HISTORY: The patient underwent 18 years ago abdominal surgery of the right lower quadrant, he does not recall what was the cause of the surgery, but it was not appendicitis. Medically, the patient claimed that he does not take any medications. His medications now include Benadryl, famotidine, sliding scale regular insulin with insulin aspart, Ativan, morphine sulfate injection, ondansetron 4 mg. He is on Zosyn 3.325 g IV piggyback q.6h., tamsulosin 0.4 mg daily, and temazepam 50 mg daily. FAMILY HISTORY: Cannot be obtained by the patient who is reluctant to give any information regarding his parents, brother, and sister. However, he does have 7 children, all of them in good health. None of them have connective tissue disease. SOCIAL HISTORY: He is . He was born in [place] and has been in [place] for many years. 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 HABITS: The patient smoked 1 pack a day for more than 10 years, but he discontinued smoking 10 years ago. He denies drinking and denies use of illicit drugs. REVIEW OF SYSTEMS: CARDIOVASCULAR: The patient denies any chest pain, shortness of breath, palpitations, or dizziness. PULMONARY: The patient had pulmonary fibrosis for many years and he had lived with it with [id number] limitation in walking distance and ability to perform intense activity. However, he walks without assisting device. His appetite is moderate. He does have frequent dysphagia and dyspepsia that are well controlled by famotidine and Mylanta. His bowel movements are normal. GENITOURINARY: The patient denies any dysuria, frequency, incontinence, or nocturia. He does take tamsulosin now for more than 3 years. He does not consider that he has any urinary problem and his nocturia is 1 to 2. JOINTS: The patient denies any pain, swelling, stiffness, cold extremities, photosensitivity, dry eyes, or alopecia. CENTRAL NERVOUS SYSTEM: His sleep is of good quality. He has no numbness, tingling, seizure disorder, and has no headaches. PHYSICAL EXAMINATION: VITAL SIGNS: Blood pressure is 95/63, his pulse is 99, respirations of 20, and temperature is 99.9. HEENT: Eyes were normal. Pupils were round, equal, and reactive to light. Sclerae were white. Conjunctivae were pink. Extraocular movements were normal. Temporal arteries were palpable bilaterally with no bilateral temporal wasting. Visual parra to confrontation were normal and neglect sign was negative. ENT, mucous membranes were not dehydrated. Auditory canals were clear and tympanic membranes could not be visualized. Nasal cavity was not congested. Nasal septum was intact. Soft palate was free of ulcerations. Pharynx was clear from exudate or tonsillar hypertrophy. Uvula sabra to phonation. Tongue was moist, midline, and normally papillated. NECK: Supple. There was no goiter. No mass. No lymphadenopathy. There was no JVD. No bruits. Carotid upstroke was 2+. LUNGS: Revealed decreased breath sounds in both lung parra. HEART: PMI was in fourth left intercostal space, midclavicular line. There was normal S1 and normal S2. No murmur. No arrhythmia. No S3. No S4. No pericardial rub. ABDOMEN: Soft, nontender without organomegaly. There were normal bowel sounds without bruits. There is tenderness on deep palpation to the right upper quadrant without guarding. No rebound tenderness. Bowel sounds are normal. EXTREMITIES: No cyanosis, no clubbing, and no edema. Extremities were warm. RHEUMATOLOGICAL EXAMINATION: several classic features related to the diagnosis. However, the patient does not have sign and does not have any eruption. He does have facial erythema. He does have photosensitivity with and he does not have . He is able to raise his arm horizontally to 90 degrees, however, he declined muscle strength examination . LABORATORY AND DIAGNOSTIC DATA: Hemoglobin is 14.0, hematocrit 44.0 with MCV of 87, WBC of 12.1, and platelets 163,000. His BUN and creatinine 16 and 1.2 respectively. Sodium is 136, potassium 4.5, chloride 102, CO2 is 31. His bilirubin is 1.8. His SGOT and SGPT are 153 and 279. His alkaline phosphatase is 130. His albumin is 3.4, total protein is 6.0. His cholesterol is 150. His LDL is 90. His blood sugar is 105. His abdominal ultrasound, his gallbladder has sludge. There was thickening of the gallbladder wall. Jean sign was not . No pericholecystic fluid. measured detected. IMPRESSION AND PLAN: The patient had a history of polymyositis. It is 5 years that he has not taken any medication. His muscle appeared to be wasted, especially proximal muscle in both arms and both thighs. However, current condition of the patient and polymyositis does not exclude the possibility of surgery secondary to heart function level of the patient. I will order some inflammatory markers and for this patient. Thank you Dr. Ramos for allowing me to participate in the care of this patient. Eliza Callahan M.D. DR: DHARMESH JOB#: [id number] CC:
--- NOTE | 2020-04-26 18:31 | Internal Med Progress Note ---
Subjective Date of Service: Apr 26, 2020 Physician Name Cirilo Tan Attending Physician Jose Ramos MD Current Medications Medications (Trade) Dose Ordered Sig/Renetta Route PRN Reason Start Time Stop Time Status Last Admin Dose Admin Acetaminophen (Tylenol) 650 mg Q4H PRN ORAL Temp >100.5 04/25/20 12:30 05/25/20 12:29 04/25/20 17:16 Al Hydroxide/Mg Hydroxide (Mylanta II) 30 ml Q6H PRN ORAL dyspepsia 04/25/20 12:30 05/25/20 12:29 Dextrose (Dextrose 50%) 25 ml Q30M PRN IV Hypoglycemia 04/25/20 12:30 07/24/20 12:29 Dextrose (Dextrose 50%) 50 ml Q30M PRN IV Hypoglycemia 04/25/20 12:30 07/24/20 12:29 Diphenhydramine HCl (Benadryl) 25 mg Q6H PRN ORAL Itching/Pruritis 04/25/20 12:30 05/25/20 12:29 Famotidine (Pepcid I.v.) 20 mg Q12HR IVP 04/25/20 21:00 05/25/20 20:59 04/26/20 09:04 Insulin Aspart (NovoLOG) BEFORE MEALS AND HS SUBQ 04/25/20 16:30 07/24/20 16:29 04/25/20 20:37 Lorazepam (Ativan) 1 mg Q4H PRN ORAL For Anxiety 04/25/20 12:30 05/02/20 12:29 Magnesium Hydroxide (Mom) 30 ml HSPRN PRN ORAL Constipation 04/25/20 12:30 05/25/20 12:29 Morphine Sulfate (Morphine Sulfate) 1 mg EVERY 3 HOURS PRN IVP Mild Pain (Pain Scale 1-3) 04/25/20 12:30 05/02/20 12:29 Morphine Sulfate (Morphine Sulfate) 2 mg EVERY 3 HOURS PRN IVP Moderate Pain (Pain Scale 4-6) 04/25/20 12:30 05/02/20 12:29 Morphine Sulfate (Morphine Sulfate) 4 mg EVERY 3 HOURS PRN IVP Severe Pain (Pain Scale 7-10) 04/25/20 12:30 05/02/20 12:29 Ondansetron HCl (Zofran) 4 mg Q6H PRN IVP Nausea & Vomiting 04/25/20 12:30 05/25/20 12:29 Piperacillin Sod/ Tazobactam Sod 3.375 gm/Sodium Chloride 110 ml @ 27.5 mls/hr EVERY 8 HOURS IVPB 04/25/20 22:00 04/30/20 21:59 04/26/20 15:52 Sodium Chloride 1,000 ml @ 75 mls/hr [id number] IVLG 04/25/20 13:30 05/25/20 13:29 04/26/20 15:54 Tamsulosin HCl (Flomax) 0.4 mg DAILY ORAL 04/26/20 09:00 05/26/20 08:59 04/26/20 09:04 Temazepam (Restoril) 15 mg HSPRN PRN ORAL Insomnia 04/25/20 21:00 05/02/20 20:59 Allergies: Coded Allergies: LEVOFLOXACIN (Unverified Allergy, Mild, Redness, 04/25/20) ROS Limited/Unobtainable: No Constitutional: Reports: no symptoms HEENT: Reports: no symptoms Cardiovascular: Reports: no symptoms Respiratory: Reports: no symptoms Gastrointestinal/Abdominal: Reports: no symptoms Genitourinary: Reports: no symptoms Neurologic/Psychiatric: Reports: no symptoms Subjective 69 YO M admitted with epigastric pain and elevated liver function tests. Now cholelithiasis. Cover for Int Jerad-Dr Ramos Objective Last Vital Signs Date Time Temp Pulse Resp B/P (MAP) Pulse Ox O2 Delivery O2 Flow Rate FiO2 04/26/20 16:00 87 04/26/20 16:00 98.6 20 92/56 (68) 100 04/26/20 09:00 Room Air Laboratory Tests Test 04/26/20 03:14 04/26/20 12:21 White Blood Count 7.6 K/UL (4.8-10.8) Red Blood Count 4.53 M/UL (4.70-6.10) L Hemoglobin 12.7 G/DL (14.2-18.0) L Hematocrit 39.2 % (42.0-52.0) L Mean Corpuscular Volume 87 FL (80-99) Mean Corpuscular Hemoglobin 28.0 PG (27.0-31.0) Mean Corpuscular Hemoglobin Concent 32.3 G/DL (32.0-36.0) Red Cell Distribution Width 15.2 % (11.6-14.8) H Platelet Count 165 K/UL (150-450) Mean Platelet Volume 7.2 FL (6.5-10.1) Neutrophils (%) (Auto) 84.3 % (45.0-75.0) H Lymphocytes (%) (Auto) 8.7 % (20.0-45.0) L Monocytes (%) (Auto) 6.3 % (1.0-10.0) Eosinophils (%) (Auto) 0.2 % (0.0-3.0) Basophils (%) (Auto) 0.4 % (0.0-2.0) Erythrocyte Sedimentation Rate 20 MM/HR (0-20) Sodium Level 140 MMOL/L (136-145) Potassium Level 4.3 MMOL/L (3.5-5.1) Chloride Level 107 MMOL/L (98-107) Carbon Dioxide Level 30 MMOL/L (21-32) Anion Gap 4 mmol/L (5-15) L Blood Urea Nitrogen 12 mg/dL (7-18) Creatinine 1.0 MG/DL (0.55-1.30) Estimat Glomerular Filtration Rate > 60 mL/min (>60) Glucose Level 130 MG/DL (74-106) H Calcium Level 8.2 MG/DL (8.5-10.1) L Phosphorus Level 3.6 MG/DL (2.5-4.9) Magnesium Level 2.0 MG/DL (1.8-2.4) Total Bilirubin 1.1 MG/DL (0.2-1.0) H Direct Bilirubin 0.5 MG/DL (0.0-0.3) H Aspartate Amino Transf (AST/SGOT) 79 U/L (15-37) H Alanine Aminotransferase (ALT/SGPT) 192 U/L (12-78) H Alkaline Phosphatase 106 U/L (46-116) Lactate Dehydrogenase 112 U/L (81-234) Total Creatine Kinase 19 U/L (26-308) L C-Reactive Protein, Quantitative 8.2 mg/dL (0.00-0.90) H Total Protein 5.4 G/DL (6.4-8.2) L Albumin 2.8 G/DL (3.4-5.0) L Globulin 2.6 g/dL Albumin/Globulin Ratio 1.1 (1.0-2.7) Aldolase Pending POC Whole Blood Glucose Pending Microbiology Date/Time Source Procedure Growth Status 04/26/20 14:22 Nasopharynx SARS-CoV-2 RdRp Gene Assay - Final Complete Intake and Output 04/25/20 04/26/20 19:00 07:00 Intake Total 575 ml 1100 ml Output Total 1000 ml 1350 ml Balance -425 ml -250 ml Intake Oral 500 ml 650 ml IV Total 75 ml 450 ml Output Urine Total 1000 ml 1350 ml # Voids 3 5 Objective PHYSICAL EXAMINATION: GENERAL: The patient is well-developed and well-nourished male, in no apparent distress. HEENT: Eyes, pupils are equal and responsive to light and accommodation. Extraocular movements are intact. NECK: Supple without lymphadenopathy. CHEST: Lungs are clear to auscultation bilaterally without wheezes or rales. CARDIOVASCULAR: Regular rhythm and rate. S1 and S2 are normal without murmurs, rubs, or gallops. ABDOMEN: Soft, nondistended with decreased bowel sounds. There is pain to palpation in the epigastric region. There is no rebound or guarding noted. EXTREMITIES: Negative for clubbing, cyanosis, or edema. RECTAL/GENITAL: Not performed. NEUROLOGIC: Cranial nerves II to XII intact without focal deficits. Motor strength is 5/5 bilaterally. Deep tendon reflexes are 2+ plantar. Assessment/Plan Assessment/Plan ASSESSMENT: This is a 69-year-old male. 1. Acute cholecystitis. 2. Elevated liver function tests. 3. Epigastric pain. 4. Diabetes type 2. 5. Pulmonary fibrosis. 6. Osteoporosis. 7. Benign prostatic hypertrophy. 8. H/O polymyositis TREATMENT: 1. Cholecystitis/elevated liver function tests. A Surgery consultation has been obtained with Dr. Wil Morse. The patient is scheduled for laparoscopic cholecystectomy 04/27/20 We will follow recommendations of Surgery. 2. Epigastric pain. This is secondary to cholecystitis. 3. Diabetes type 2. Continue metformin as above. A NovoLog sliding scale has been instituted. 4. Pulmonary fibrosis. A Pulmonary consultation has been obtained with Dr. Rudi Kitchen. 5. Osteoporosis. Continue Fosamax as above. 6. Benign prostatic hypertrophy. Continue Flomax as above. 7. See rheumatology note= Dr Kincaid. Cirilo Tan MD Apr 26, 2020 18:31
--- NOTE | 2020-04-26 18:43 | NUR ---
NURSE NOTES: measured pt's L calf 12.5 R calf 11.5. Pt states her calfs have been always fat and they are not hurting.
--- NOTE | 2020-04-26 19:39 | NUR ---
HAND-OFF: Report given to Joseph/rn, pt in stable condition. Endorsed plan of care.
--- NOTE | 2020-04-26 19:41 | NUR ---
NURSE NOTES: Received patient report from KHRIS Dia. Patient shows no signs of distress or pain at the time. Patient is in bed awake watching television. AOx4. Patient aware of procedure getting done tomorrow and that he will be NPO at midnight. IV intact and patent. There are no signs of infiltration or bleeding at the time. Bed is in the lowest position, call light within reach, side rails up x3. Will continue to monitor.
[2020-04-26 20:00] VITALS: BP 99/64
[2020-04-27] VITALS (15 sets, daily range): BP systolic 96–130; BP diastolic 61–95
[2020-04-27] MEDS: Piperacillin/Tazobactam 3.375 GM in NS 110 ML IVPB SCH ×3 (06:03→22:15)
[2020-04-27] MEDS: NovoLOG Insulin Flexpen SUBQ SCH ×4 (06:22→20:51)
--- NOTE | 2020-04-27 06:42 | Anethesia Preoperative Eval ---
Anesthesia Pre-op PMH/ROS General Date of Evaluation: Apr 27, 2020 Time of Evaluation: 06:01 Anesthesiologist: Guanaco ASA Score: ASA 3 Mallampati Score Class I : Soft palate, uvula, fauces, pillars visible Class II: Soft palate, uvula, fauces visible Class III: Soft palate, base of uvula visible Class IV: Only hard plate visible Mallampati Classification: Class II Surgeon: Lito Diagnosis: Abd Pain Surgical Procedure: Laparoscopic Cholecystectomy Anesthesia History: none Family History: no anesthesia problems Allergies: Coded Allergies: LEVOFLOXACIN (Unverified Allergy, Mild, Redness, 04/25/20) Medications: see eMAR Patient NPO?: Yes Past Medical History Pulmonary: Reports: other - Pulmonary Fibrosis Gastrointestinal/Genitourinary: Reports: other - BPH Endocrine: Reports: DM Musculoskeletal/Integumentary: Reports: OA, other - Weakness PM Narrative: 1. Diabetes type 2. 2. Pulmonary fibrosis. 3. Osteoporosis. 4. Benign prostatic hypertrophy. 5. Cholecystitis diagnosed one month ago as above. Anesthesia Pre-op Phys. Exam Physician Exam Last Vital Signs Date Time Temp Pulse Resp B/P (MAP) Pulse Ox O2 Delivery O2 Flow Rate FiO2 04/27/20 04:00 81 04/27/20 04:00 96.8 20 110/68 (82) 96 04/26/20 21:00 Room Air Constitutional: NAD Neurologic: CN 2-12 intact Cardiovascular: RRR Respiratory: CTA Gastrointestinal: S/NT/ND Airway Exam Mallampati Score: Class II MO: full ROM: limited Teeth: missing, intact Anesthesia Pre-op A/P Labs Labs Test 04/25/20 13:00 04/25/20 16:39 04/26/20 03:14 04/26/20 12:21 White Blood Count 12.1 K/UL (4.8-10.8) 7.6 K/UL (4.8-10.8) Red Blood Count 5.05 M/UL (4.70-6.10) 4.53 M/UL (4.70-6.10) Hemoglobin 14.0 G/DL (14.2-18.0) 12.7 G/DL (14.2-18.0) Hematocrit 44.0 % (42.0-52.0) 39.2 % (42.0-52.0) Mean Corpuscular Volume 87 FL (80-99) 87 FL (80-99) Mean Corpuscular Hemoglobin 27.7 PG (27.0-31.0) 28.0 PG (27.0-31.0) Mean Corpuscular Hemoglobin Concent 31.9 G/DL (32.0-36.0) 32.3 G/DL (32.0-36.0) Red Cell Distribution Width 15.7 % (11.6-14.8) 15.2 % (11.6-14.8) Platelet Count 163 K/UL (150-450) 165 K/UL (150-450) Mean Platelet Volume 7.3 FL (6.5-10.1) 7.2 FL (6.5-10.1) Neutrophils (%) (Auto) % (45.0-75.0) 84.3 % (45.0-75.0) Lymphocytes (%) (Auto) % (20.0-45.0) 8.7 % (20.0-45.0) Monocytes (%) (Auto) % (1.0-10.0) 6.3 % (1.0-10.0) Eosinophils (%) (Auto) % (0.0-3.0) 0.2 % (0.0-3.0) Basophils (%) (Auto) % (0.0-2.0) 0.4 % (0.0-2.0) Differential Total Cells Counted 100 Neutrophils % (Manual) 83 % (45-75) Lymphocytes % (Manual) 10 % (20-45) Monocytes % (Manual) 7 % (1-10) Eosinophils % (Manual) 0 % (0-3) Basophils % (Manual) 0 % (0-2) Band Neutrophils 0 % (0-8) Platelet Estimate Adequate Platelet Morphology Normal Red Blood Cell Morphology Normal Prothrombin Time 10.9 SEC (9.30-11.50) Prothromb Time International Ratio 1.0 (0.9-1.1) Activated Partial Thromboplast Time 26 SEC (23-33) Sodium Level 136 MMOL/L (136-145) 140 MMOL/L (136-145) Potassium Level 4.5 MMOL/L (3.5-5.1) 4.3 MMOL/L (3.5-5.1) Chloride Level 100 MMOL/L (98-107) 107 MMOL/L (98-107) Carbon Dioxide Level 31 MMOL/L (21-32) 30 MMOL/L (21-32) Anion Gap 5 mmol/L (5-15) 4 mmol/L (5-15) Blood Urea Nitrogen 15 mg/dL (7-18) 12 mg/dL (7-18) Creatinine 1.2 MG/DL (0.55-1.30) 1.0 MG/DL (0.55-1.30) Estimat Glomerular Filtration Rate > 60 mL/min (>60) > 60 mL/min (>60) Glucose Level 105 MG/DL (74-106) 130 MG/DL (74-106) Hemoglobin A1c 6.7 % (4.3-6.0) Calcium Level 9.3 MG/DL (8.5-10.1) 8.2 MG/DL (8.5-10.1) Total Bilirubin 1.8 MG/DL (0.2-1.0) 1.1 MG/DL (0.2-1.0) Direct Bilirubin 1.1 MG/DL (0.0-0.3) 0.5 MG/DL (0.0-0.3) Aspartate Amino Transf (AST/SGOT) 153 U/L (15-37) 79 U/L (15-37) Alanine Aminotransferase (ALT/SGPT) 279 U/L (12-78) 192 U/L (12-78) Alkaline Phosphatase 130 U/L (46-116) 106 U/L (46-116) Total Creatine Kinase 22 U/L (26-308) 19 U/L (26-308) Total Protein 6.0 G/DL (6.4-8.2) 5.4 G/DL (6.4-8.2) Albumin 3.4 G/DL (3.4-5.0) 2.8 G/DL (3.4-5.0) Globulin 2.6 g/dL 2.6 g/dL Albumin/Globulin Ratio 1.3 (1.0-2.7) 1.1 (1.0-2.7) Triglycerides Level 179 MG/DL (30-150) Cholesterol Level 150 MG/DL (< 200) LDL Cholesterol 92 mg/dL (<100) HDL Cholesterol 26 MG/DL (40-60) Cholesterol/HDL Ratio 5.8 (3.3-4.4) Rheumatoid Factor Screen <10.0 IU/mL (0.0-13.9) Erythrocyte Sedimentation Rate 20 MM/HR (0-20) Phosphorus Level 3.6 MG/DL (2.5-4.9) Magnesium Level 2.0 MG/DL (1.8-2.4) Lactate Dehydrogenase 112 U/L (81-234) C-Reactive Protein, Quantitative 8.2 mg/dL (0.00-0.90) Test 04/27/20 05:45 POC Whole Blood Glucose 78 MG/DL (74-106) Chemistry Test 04/26/20 12:21 04/27/20 05:45 POC Whole Blood Glucose Pending 78 MG/DL (74-106) Risk Assessment & Plan Assessment: ASA 3 Plan: GA Status Change Before Surgery: No Pre-Antibiotics Drug: Epifanio Schmidt MD Apr 27, 2020 06:42
--- NOTE | 2020-04-27 07:22 | NUR ---
HAND-OFF: Report given to KHRIS Dia. Patient shows no signs of distress or pain at the time. Endorsed plan of care.
[2020-04-27 07:34] LABS: BASOPHILS % (AUTO) 0.8 % (0.0-2.0); EOSINOPHILS % (AUTO) 1.4 % (0.0-3.0); HEMOGLOBIN 12.7 G/DL (14.2-18.0); LYMPHOCYTES % (AUTO) 18.8 % (20.0-45.0); MEAN CORPUSCULAR VOLUME 87 FL (80-99); MONOCYTES % (AUTO) 9.9 % (1.0-10.0); NEUTROPHILS % (AUTO) 69.1 % (45.0-75.0); PLATELET COUNT 148 K/UL (150-450); RED BLOOD COUNT 4.58 M/UL (4.70-6.10); RED CELL DISTRIBUTION WIDTH 15.4 % (11.6-14.8); WHITE BLOOD COUNT 5.7 K/UL (4.8-10.8)
--- NOTE | 2020-04-27 07:45 | NUR ---
NURSE NOTES: pt npo. AOx4. pt ready for surgery. Pt on supervisor tunnel heading. No signs of cardiac or respiratory distress. Blood glucose is 70. Bed locked and in lowest position. Call light within reach. pt Iv intact and able to flush. Will continue to monitor pt.
[2020-04-27 08:02] LABS: ALANINE AMINOTRANSFERASE 141 U/L (12-78); ALBUMIN 2.7 G/DL (3.4-5.0); ALKALINE PHOSPHATASE 82 U/L (46-116); ANION GAP 4 mmol/L (5-15); ASPARTATE AMINO TRANSFERASE 50 U/L (15-37); BILIRUBIN,TOTAL 0.6 MG/DL (0.2-1.0); BLOOD UREA NITROGEN 8 mg/dL (7-18); CALCIUM 8.4 MG/DL (8.5-10.1); CARBON DIOXIDE 29 MMOL/L (21-32); CHLORIDE 107 MMOL/L (98-107); CREATININE 1.1 MG/DL (0.55-1.30); POTASSIUM 4.2 MMOL/L (3.5-5.1); SODIUM 140 MMOL/L (136-145)
[2020-04-27 08:26] LABS: AMYLASE 40 U/L (25-115)
--- NOTE | 2020-04-27 08:54 | NUR ---
NURSE NOTES: made Haylee/rn aware that pt BS is now 70. Pt has been NPO since midnight.
[2020-04-27] MEDS: Tamsulosin 0.4mg cap ORAL SCH (09:00)
--- NOTE | 2020-04-27 09:00 | NUR ---
CASE MANAGEMENT: 04/27/20 IS: TO SURGERY: LAP MARKIE IV ZOSYN Q8HRS IVF@75/HR : TELEMETRY STATUS
[2020-04-27] MEDS ORDERED: NeoSporin Gu Irrig 1ml Amp IRRIG ONE (09:13)
[2020-04-27] MEDS ORDERED: Bacitracin 50000 Units Vial ONE (09:13)
--- NOTE | 2020-04-27 09:34 | General Progress Note ---
Assessment/Plan Problem List: (1) Pulmonary fibrosis ICD Codes: J84.10 - Pulmonary fibrosis, unspecified SNOMED: 63578499 (2) Polymyositis ICD Codes: M33.20 - Polymyositis, organ involvement unspecified SNOMED: 65630792 (3) BPH (benign prostatic hyperplasia) ICD Codes: N40.0 - Benign prostatic hyperplasia without lower urinary tract symptoms SNOMED: 078717210 (4) COPD (chronic obstructive pulmonary disease) ICD Codes: J44.9 - Chronic obstructive pulmonary disease, unspecified SNOMED: 60664064 (5) Diabetes mellitus ICD Codes: E11.9 - Type 2 diabetes mellitus without complications SNOMED: 11260959 (6) Cholecystitis, acute ICD Codes: K81.0 - Acute cholecystitis SNOMED: 48892332 Assessment/Plan: going for cholecystectomy will fu post op Subjective ROS Limited/Unobtainable: Yes Allergies: Coded Allergies: LEVOFLOXACIN (Unverified Allergy, Mild, Redness, 04/25/20) Objective Last 24 Hour Vital Signs Date Time Temp Pulse Resp B/P (MAP) Pulse Ox O2 Delivery O2 Flow Rate FiO2 04/27/20 08:31 Room Air 04/27/20 08:00 97.7 62 19 112/71 (85) 96 04/27/20 07:40 74 04/27/20 04:00 81 04/27/20 04:00 96.8 74 20 110/68 (82) 96 04/27/20 00:00 98.1 75 18 102/61 (75) 96 04/27/20 00:00 86 04/26/20 21:00 Room Air 04/26/20 20:00 98.1 85 19 99/64 (76) 96 04/26/20 20:00 83 04/26/20 16:00 87 04/26/20 16:00 98.6 88 20 92/56 (68) 100 04/26/20 12:00 79 04/26/20 12:00 98.6 81 20 108/70 (83) 99 Intake and Output 04/26/20 04/27/20 19:00 07:00 Intake Total 360 ml Balance 360 ml Intake Oral 360 ml # Voids 3 1 Laboratory Tests 04/26/20 12:21: POC Whole Blood Glucose [Pending] 04/27/20 05:45: POC Whole Blood Glucose 78 04/27/20 05:48: White Blood Count 5.7, Red Blood Count 4.58L, Hemoglobin 12.7L, Hematocrit 40.0L , Mean Corpuscular Volume 87, Mean Corpuscular Hemoglobin 27.8, Mean Corpuscular Hemoglobin Concent 31.8L, Red Cell Distribution Width 15.4H, Platelet Count 148L, Mean Platelet Volume 8.1, Neutrophils (%) (Auto) 69.1, Lymphocytes (%) (Auto) 18.8L, Monocytes (%) (Auto) 9.9, Eosinophils (%) (Auto) 1.4, Basophils (%) (Auto) 0.8, Prothrombin Time 10.7, Prothromb Time International Ratio 1.0, Activated Partial Thromboplast Time 27, Sodium Level 140, Potassium Level 4.2, Chloride Level 107, Carbon Dioxide Level 29, Anion Gap 4L, Blood Urea Nitrogen 8, Creatinine 1.1, Estimat Glomerular Filtration Rate > 60, Glucose Level 75, Calcium Level 8.4L, Total Bilirubin 0.6, Aspartate Amino Transf (AST/SGOT) 50H, Alanine Aminotransferase (ALT/SGPT) 141H, Alkaline Phosphatase 82, Total Protein 5.1L, Albumin 2.7L, Globulin 2.4, Amylase Level 40 , Lipase 143 Height (Feet): 6 Height (Inches): 3.00 Weight (Pounds): 169 General Appearance: alert EENT: normal ENT inspection Neck: supple Cardiovascular: normal rate Respiratory/Chest: decreased breath sounds Abdomen: normal bowel sounds, non tender, soft Extremities: non-tender Petey Marquez MD Apr 27, 2020 09:34
[2020-04-27] MEDS ORDERED: Rocuronium Bromide 50mg/5ml Inj IV ONE ×2 (09:51→11:31)
[2020-04-27] MEDS ORDERED: Iothalamate Meglumine 60% 30ML INJ ONE (09:55)
[2020-04-27] MEDS ORDERED: fentaNYL 100 mcg/2 mL IV ONE ×3 (09:59→12:50)
[2020-04-27] MEDS ORDERED: Midazolam 2mg/2ml Inj ONE (09:59)
[2020-04-27] MEDS ORDERED: LR 1000ml ONE (10:00)
[2020-04-27] MEDS ORDERED: NS Irrig 1000ml ONE (10:00)
[2020-04-27] MEDS ORDERED: Glycopyrrolate 0.2mg/ml 1ml Vial ONE (10:00)
[2020-04-27] MEDS ORDERED: Neostigmine 1mg/ml 10ml Inj ONE (10:00)
[2020-04-27] MEDS ORDERED: Sterile Water Irrig 1000ml IRRIG ONE (10:00)
--- NOTE | 2020-04-27 11:51 | Pulmonology Progress Note ---
Subjective ROS Limited/Unobtainable: Yes Interval Events: no new complains Allergies: Coded Allergies: LEVOFLOXACIN (Unverified Allergy, Mild, Redness, 04/25/20) Objective Last 24 Hour Vital Signs Date Time Temp Pulse Resp B/P (MAP) Pulse Ox O2 Delivery O2 Flow Rate FiO2 04/27/20 08:31 Room Air 04/27/20 08:00 97.7 62 19 112/71 (85) 96 04/27/20 07:40 74 04/27/20 04:00 81 04/27/20 04:00 96.8 74 20 110/68 (82) 96 04/27/20 00:00 98.1 75 18 102/61 (75) 96 04/27/20 00:00 86 04/26/20 21:00 Room Air 04/26/20 20:00 98.1 85 19 99/64 (76) 96 04/26/20 20:00 83 04/26/20 16:00 87 04/26/20 16:00 98.6 88 20 92/56 (68) 100 04/26/20 12:00 79 04/26/20 12:00 98.6 81 20 108/70 (83) 99 Intake and Output 04/26/20 04/27/20 19:00 07:00 Intake Total 360 ml Balance 360 ml Intake Oral 360 ml # Voids 3 1 General Appearance: no acute distress HEENT: normocephalic, atraumatic, anicteric Respiratory: chest wall non-tender, lungs clear, normal breath sounds Cardiovascular: normal peripheral pulses, normal rate, regular rhythm Abdomen: normal bowel sounds, soft, non tender, no organomegaly Genitourinary: normal external genitalia Extremities: no cyanosis Skin: no rash Neurologic: guest service agent II-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 Complete 04/25/20 14:00 Rectum VRE Culture - Final NO VANCOMYCIN RESISTANT ENTEROCOCCUS ... Complete Laboratory Tests 04/26/20 12:21: POC Whole Blood Glucose [Pending] 04/27/20 05:45: POC Whole Blood Glucose 78 04/27/20 05:48: White Blood Count 5.7, Red Blood Count 4.58L, Hemoglobin 12.7L, Hematocrit 40.0L , Mean Corpuscular Volume 87, Mean Corpuscular Hemoglobin 27.8, Mean Corpuscular Hemoglobin Concent 31.8L, Red Cell Distribution Width 15.4H, Platelet Count 148L, Mean Platelet Volume 8.1, Neutrophils (%) (Auto) 69.1, Lymphocytes (%) (Auto) 18.8L, Monocytes (%) (Auto) 9.9, Eosinophils (%) (Auto) 1.4, Basophils (%) (Auto) 0.8, Prothrombin Time 10.7, Prothromb Time International Ratio 1.0, Activated Partial Thromboplast Time 27, Sodium Level 140, Potassium Level 4.2, Chloride Level 107, Carbon Dioxide Level 29, Anion Gap 4L, Blood Urea Nitrogen 8, Creatinine 1.1, Estimat Glomerular Filtration Rate > 60, Glucose Level 75, Calcium Level 8.4L, Total Bilirubin 0.6, Aspartate Amino Transf (AST/SGOT) 50H, Alanine Aminotransferase (ALT/SGPT) 141H, Alkaline Phosphatase 82, Total Protein 5.1L, Albumin 2.7L, Globulin 2.4, Amylase Level 40 , Lipase 143 Current Medications Medications (Trade) Dose Ordered Sig/Renetta Route PRN Reason Start Time Stop Time Status Last Admin Dose Admin Acetaminophen (Tylenol) 650 mg Q4H PRN ORAL Temp >100.5 04/25/20 12:30 05/25/20 12:29 04/25/20 17:16 Al Hydroxide/Mg Hydroxide (Mylanta II) 30 ml Q6H PRN ORAL dyspepsia 04/25/20 12:30 05/25/20 12:29 Dextrose (Dextrose 50%) 25 ml Q30M PRN IV Hypoglycemia 04/25/20 12:30 07/24/20 12:29 Dextrose (Dextrose 50%) 50 ml Q30M PRN IV Hypoglycemia 04/25/20 12:30 07/24/20 12:29 Diphenhydramine HCl (Benadryl) 25 mg Q6H PRN ORAL Itching/Pruritis 04/25/20 12:30 05/25/20 12:29 Famotidine (Pepcid I.v.) 20 mg Q12HR IVP 04/25/20 21:00 05/25/20 20:59 04/26/20 20:34 Insulin Aspart (NovoLOG) BEFORE MEALS AND HS SUBQ 04/25/20 16:30 07/24/20 16:29 04/25/20 20:37 Lorazepam (Ativan) 1 mg Q4H PRN ORAL For Anxiety 04/25/20 12:30 05/02/20 12:29 Magnesium Hydroxide (Mom) 30 ml HSPRN PRN ORAL Constipation 04/25/20 12:30 05/25/20 12:29 Morphine Sulfate (Morphine Sulfate) 1 mg EVERY 3 HOURS PRN IVP Mild Pain (Pain Scale 1-3) 04/25/20 12:30 05/02/20 12:29 Morphine Sulfate (Morphine Sulfate) 2 mg EVERY 3 HOURS PRN IVP Moderate Pain (Pain Scale 4-6) 04/25/20 12:30 05/02/20 12:29 Morphine Sulfate (Morphine Sulfate) 4 mg EVERY 3 HOURS PRN IVP Severe Pain (Pain Scale 7-10) 04/25/20 12:30 05/02/20 12:29 Ondansetron HCl (Zofran) 4 mg Q6H PRN IVP Nausea & Vomiting 04/25/20 12:30 05/25/20 12:29 Piperacillin Sod/ Tazobactam Sod 3.375 gm/Sodium Chloride 110 ml @ 27.5 mls/hr EVERY 8 HOURS IVPB 04/25/20 22:00 04/30/20 21:59 04/27/20 06:03 Sodium Chloride 1,000 ml @ 75 mls/hr [id number] IVLG 04/25/20 13:30 05/25/20 13:29 04/27/20 06:03 Tamsulosin HCl (Flomax) 0.4 mg DAILY ORAL 04/26/20 09:00 05/26/20 08:59 04/26/20 09:04 Temazepam (Restoril) 15 mg HSPRN PRN ORAL Insomnia 04/25/20 21:00 05/02/20 20:59 Assessment/Plan Problems: (1) Cholecystitis, acute (2) Polymyositis (3) Immunosuppressed status (4) Pulmonary fibrosis (5) COPD (chronic obstructive pulmonary disease) (6) BPH (benign prostatic hyperplasia) (7) Diabetes mellitus Assessment/Plan tolerated surgery yesterday pain management f/u pathology report inflammatory markers are partially pending start diet as per GI iv fluids iv abx symptomatic treatment sliding scale dvt prophylaxis Rudi Kitchen MD Apr 27, 2020 11:51
[2020-04-27] MEDS ORDERED: Metoclopramide 10mg/2ml Inj ONE (12:14)
[2020-04-27] MEDS ORDERED: Phenylephrine 10mg/ml Vial ONE (12:14)
[2020-04-27] MEDS ORDERED: Lidocaine 1% MPF 10mg/ml 5ml ONE (12:14)
--- NOTE | 2020-04-27 13:16 | Immediate Post-Op Evaluation ---
Immediate Post-Op Evalulation Immediate Post-Op Evalulation Procedure: open cholecystectomy Date of Evaluation: Apr 27, 2020 Time of Evaluation: 13:16 IV Fluids: 1000 Estimated Blood Loss: 250 Blood Pressure Systolic: 101 Blood Pressure Diastolic: 64 Pulse Rate: 100 Respiratory Rate: 14 O2 Sat by Pulse Oximetry: 99 Temperature (Fahrenheit): 97.5 Nausea: No Vomiting: No Patient Status: awake, reacts, patent Hydration Status: adequate Drug: zosyn Given Within 1 Hr of Incision: Yes Noa Coto CRNA Apr 27, 2020 13:16
[2020-04-27] MEDS ORDERED: Metoclopramide 10mg/2ml Inj IVP PRN (13:30)
[2020-04-27] MEDS ORDERED: fentaNYL 100 mcg/2 mL IV PRN (13:30)
[2020-04-27] MEDS ORDERED: Hydromorphone 0.5mg/0.5ml inj ONE (13:37)
[2020-04-27] MEDS: Hydromorphone 0.5mg/0.5ml inj IVP PRN ×2 (13:40→14:01)
--- NOTE | 2020-04-27 13:50 | Brief Operative Note ---
Immediate Post Operative Note Operative Note Pre-op Diagnosis: acute cholecystitis Procedure: lap converted to open nelda extensive open lysis of adhesions Post-op Diagnosis: same as pre-op Surgeon: gianni morse md Anesthesiologist: cade mendoza Anesthesia: general, local Specimen: yes Complications: none Condition: stable Fluids: see records Estimated Blood Loss: volume - 250 Implant(s) used?: No Gianni Morse Apr 27, 2020 13:50
[2020-04-27] MEDS ORDERED: Morphine Sulfate 4mg/ml Inj (IV USE ONLY) IVP PRN ×2 (14:00)
[2020-04-27] MEDS ORDERED: Milk of Magnesia 30ml Ud ORAL PRN (14:00)
[2020-04-27] MEDS ORDERED: Morphine Sulfate 2mg/ml Inj(IV/IM USE ONLY) IVP PRN ×3 (14:00)
--- NOTE | 2020-04-27 15:24 | NUR ---
NURSE NOTES: pt was brought to unit in stable condition. He has no complains of pain. Food is at bed side and he will eat it later. Bed is locked and in lowest position. Call light within reach. Iv is patent and running NS.
--- NOTE | 2020-04-27 15:44 | NUR ---
NURSE NOTES: 1400, Zosyn given in OR by another nurse. Notified pharmacy
--- NOTE | 2020-04-27 15:52 | 48 Hour Post Anesthesia Eval ---
Post Anesthesia Evaluation Procedure: open cholecystectomy Date of Evaluation: Apr 27, 2020 Time of Evaluation: 15:52 Blood Pressure Systolic: 154 0: 67 Pulse Rate: 97 Respiratory Rate: 14 O2 Sat by Pulse Oximetry: 97 Airway: patent Nausea: No Vomiting: No Hydration Status: adequate Cardiopulmonary Status: stable Mental Status/LOC: patient returned to baseline Post-Anesthesia Complications: none Follow-up care needed: N/A Noa Coto CRNA Apr 27, 2020 15:52
--- NOTE | 2020-04-27 16:08 | NUR ---
NURSE NOTES: Notified doctor Lito about pt low bp of 96/65 Hr95. Per doctor ok to give morphine because it is very important to take care of his pain. Also order to increase fluids to 150ml now.
[2020-04-27] MEDS: Morphine Sulfate 2mg/ml Inj(IV/IM USE ONLY) IVP PRN ×2 (16:15→20:44)
--- NOTE | 2020-04-27 16:45 | Internal Med Progress Note ---
Subjective Date of Service: Apr 27, 2020 Physician Name Cirilo Tan Attending Physician Jose Ramos MD Current Medications Medications (Trade) Dose Ordered Sig/Renetta Route PRN Reason Start Time Stop Time Status Last Admin Dose Admin Acetaminophen (Tylenol) 650 mg Q4H PRN ORAL FEVER 04/27/20 14:00 05/27/20 13:59 Acetaminophen (Tylenol) 650 mg Q6H PRN ORAL Mild Pain (Pain Scale 1-3) 04/27/20 14:00 05/27/20 13:59 Al Hydroxide/Mg Hydroxide (Mylanta II) 30 ml Q6H PRN ORAL dyspepsia 04/25/20 12:30 05/25/20 12:29 Al Hydroxide/Mg Hydroxide (Mylanta) 15 ml Q6H PRN ORAL DYSPEPSIA 04/27/20 14:00 05/27/20 13:59 Dextrose (Dextrose 50%) 25 ml Q30M PRN IV Hypoglycemia 04/25/20 12:30 07/24/20 12:29 Dextrose (Dextrose 50%) 50 ml Q30M PRN IV Hypoglycemia 04/25/20 12:30 07/24/20 12:29 Diphenhydramine HCl (Benadryl) 25 mg Q8H PRN ORAL Itching/Pruritis 04/27/20 14:00 05/27/20 13:59 Docusate Sodium (Colace) 100 mg TWICE A DAY ORAL 04/27/20 18:00 05/27/20 17:59 Famotidine (Pepcid I.v.) 20 mg Q12HR IVP 04/25/20 21:00 05/25/20 20:59 04/26/20 20:34 Hydromorphone HCl (Dilaudid) 0.5 mg Q15M PRN IVP Severe Pain (Pain Scale 7-10) 04/27/20 13:45 04/27/20 21:00 04/27/20 14:01 Insulin Aspart (NovoLOG) BEFORE MEALS AND HS SUBQ 04/25/20 16:30 07/24/20 16:29 04/25/20 20:37 Lorazepam (Ativan) 1 mg Q4H PRN ORAL For Anxiety 04/25/20 12:30 05/02/20 12:29 Magnesium Hydroxide (Mom) 30 ml BIDPRN PRN ORAL Constipation 04/27/20 14:00 05/27/20 13:59 Morphine Sulfate (Morphine Sulfate) 1 mg Q4H PRN IVP pain scale 1-3 04/27/20 14:00 05/04/20 13:59 Morphine Sulfate (Morphine Sulfate) 2 mg Q4H PRN IVP pain scale 4-6 04/27/20 14:00 05/04/20 13:59 04/27/20 16:15 Morphine Sulfate (Morphine Sulfate) 4 mg Q4H PRN IVP pain score 7-10 04/27/20 14:00 05/04/20 13:59 Ondansetron HCl (Zofran) 4 mg Q6H PRN IVP Nausea & Vomiting 04/27/20 14:00 05/27/20 13:59 Piperacillin Sod/ Tazobactam Sod 3.375 gm/Sodium Chloride 110 ml @ 27.5 mls/hr EVERY 8 HOURS IVPB 04/25/20 22:00 04/30/20 21:59 04/27/20 06:03 Sodium Chloride 1,000 ml @ 75 mls/hr [id number] IVLG 04/25/20 13:30 05/25/20 13:29 04/27/20 06:03 Tamsulosin HCl (Flomax) 0.4 mg DAILY ORAL 04/26/20 09:00 05/26/20 08:59 04/26/20 09:04 Temazepam (RestoriL) 7.5 mg DAILYPRN PRN ORAL Insomnia 04/27/20 14:00 05/04/20 13:59 Allergies: Coded Allergies: LEVOFLOXACIN (Unverified Allergy, Mild, Redness, 04/25/20) Subjective 69 YO M admitted with epigastric pain and elevated liver function tests. Now cholelithiasis. Cover for Int Med-Dr Ramos. S/P open cholecystectomy 04/27/20 Objective Last Vital Signs Date Time Temp Pulse Resp B/P (MAP) Pulse Ox O2 Delivery O2 Flow Rate FiO2 04/27/20 16:03 97 Nasal Cannula 3.0 32 04/27/20 16:00 98.1 91 17 96/95 (95) Laboratory Tests Test 04/27/20 05:45 04/27/20 05:48 POC Whole Blood Glucose 78 MG/DL (74-106) White Blood Count 5.7 K/UL (4.8-10.8) Red Blood Count 4.58 M/UL (4.70-6.10) L Hemoglobin 12.7 G/DL (14.2-18.0) L Hematocrit 40.0 % (42.0-52.0) L Mean Corpuscular Volume 87 FL (80-99) Mean Corpuscular Hemoglobin 27.8 PG (27.0-31.0) Mean Corpuscular Hemoglobin Concent 31.8 G/DL (32.0-36.0) L Red Cell Distribution Width 15.4 % (11.6-14.8) H Platelet Count 148 K/UL (150-450) L Mean Platelet Volume 8.1 FL (6.5-10.1) Neutrophils (%) (Auto) 69.1 % (45.0-75.0) Lymphocytes (%) (Auto) 18.8 % (20.0-45.0) L Monocytes (%) (Auto) 9.9 % (1.0-10.0) Eosinophils (%) (Auto) 1.4 % (0.0-3.0) Basophils (%) (Auto) 0.8 % (0.0-2.0) Prothrombin Time 10.7 SEC (9.30-11.50) Prothromb Time International Ratio 1.0 (0.9-1.1) Activated Partial Thromboplast Time 27 SEC (23-33) Sodium Level 140 MMOL/L (136-145) Potassium Level 4.2 MMOL/L (3.5-5.1) Chloride Level 107 MMOL/L (98-107) Carbon Dioxide Level 29 MMOL/L (21-32) Anion Gap 4 mmol/L (5-15) L Blood Urea Nitrogen 8 mg/dL (7-18) Creatinine 1.1 MG/DL (0.55-1.30) Estimat Glomerular Filtration Rate > 60 mL/min (>60) Glucose Level 75 MG/DL (74-106) Calcium Level 8.4 MG/DL (8.5-10.1) L Total Bilirubin 0.6 MG/DL (0.2-1.0) Aspartate Amino Transf (AST/SGOT) 50 U/L (15-37) H Alanine Aminotransferase (ALT/SGPT) 141 U/L (12-78) H Alkaline Phosphatase 82 U/L (46-116) Total Protein 5.1 G/DL (6.4-8.2) L Albumin 2.7 G/DL (3.4-5.0) L Globulin 2.4 g/dL Amylase Level 40 U/L (25-115) Lipase 143 U/L (73-393) Microbiology Date/Time Source Procedure Growth Status 04/26/20 14:22 Nasopharynx SARS-CoV-2 RdRp Gene Assay - Final Complete 04/25/20 14:00 Nasal Nares MRSA Culture - Final NO METHICILLIN RESISTANT STAPH AUREUS... Complete 04/25/20 14:00 Rectum VRE Culture - Final NO VANCOMYCIN RESISTANT ENTEROCOCCUS ... Complete Intake and Output 04/26/20 04/27/20 19:00 07:00 Intake Total 360 ml Balance 360 ml Intake Oral 360 ml # Voids 3 1 Objective PHYSICAL EXAMINATION: GENERAL: The patient is well-developed and well-nourished male, in no apparent distress. HEENT: Eyes, pupils are equal and responsive to light and accommodation. Extraocular movements are intact. NECK: Supple without lymphadenopathy. CHEST: Lungs are clear to auscultation bilaterally without wheezes or rales. CARDIOVASCULAR: Regular rhythm and rate. S1 and S2 are normal without murmurs, rubs, or gallops. ABDOMEN: Soft, nondistended with decreased bowel sounds. There is pain to palpation in the epigastric region. There is no rebound or guarding noted. EXTREMITIES: Negative for clubbing, cyanosis, or edema. RECTAL/GENITAL: Not performed. NEUROLOGIC: Cranial nerves II to XII intact without focal deficits. Motor strength is 5/5 bilaterally. Deep tendon reflexes are 2+ plantar. Assessment/Plan Assessment/Plan ASSESSMENT: This is a 69-year-old male. 1. Acute cholecystitis. 2. Elevated liver function tests. 3. Epigastric pain. 4. Diabetes type 2. 5. Pulmonary fibrosis. 6. Osteoporosis. 7. Benign prostatic hypertrophy. 8. H/O polymyositis TREATMENT: 1. Cholecystitis/elevated liver function tests. A Surgery consultation has been obtained with Dr. Wil Morse. The patient is scheduled for S/P open cholecystectomy 04/27/20 We will follow recommendations of Surgery. 2. Epigastric pain. This is secondary to cholecystitis. 3. Diabetes type 2. Continue metformin as above. A NovoLog sliding scale has been instituted. 4. Pulmonary fibrosis. A Pulmonary consultation has been obtained with Dr. Rudi Kitchen. 5. Osteoporosis. Continue Fosamax as above. 6. Benign prostatic hypertrophy. Continue Flomax as above. 7. See rheumatology note= Dr Kincaid. Cirilo Tan MD Apr 27, 2020 16:45
--- NOTE | 2020-04-27 17:28 | Cardiology Progress Note ---
Assessment/Plan Assessment/Plan [id number] ivf ekg pain managment doing well Objective Last 24 Hour Vital Signs Date Time Temp Pulse Resp B/P (MAP) Pulse Ox O2 Delivery O2 Flow Rate FiO2 04/27/20 16:03 97 Nasal Cannula 3.0 32 04/27/20 16:00 98.1 91 17 96/95 (95) 90 04/27/20 15:52 97 14 97 04/27/20 14:40 97.9 92 17 104/67 100 Nasal Cannula 3 04/27/20 14:31 97.8 04/27/20 14:30 94 16 102/64 100 Nasal Cannula 3 04/27/20 14:15 91 15 104/66 100 Nasal Cannula 3 04/27/20 14:00 89 15 104/67 99 Nasal Cannula 3 04/27/20 13:52 88 15 101/63 99 Nasal Cannula 3 04/27/20 13:37 89 16 100/70 98 Simple Mask 6 04/27/20 13:27 93 19 103/71 96 Simple Mask 6 04/27/20 13:17 95 17 101/70 98 Simple Mask 6 04/27/20 13:16 100 14 99 04/27/20 13:12 96 17 99/67 99 Simple Mask 6 04/27/20 13:07 97.5 103 13 106/64 97 Simple Mask 6 04/27/20 08:31 Room Air 04/27/20 08:00 97.7 62 19 112/71 (85) 96 04/27/20 07:40 74 04/27/20 04:00 81 04/27/20 04:00 96.8 74 20 110/68 (82) 96 04/27/20 00:00 98.1 75 18 102/61 (75) 96 04/27/20 00:00 86 04/26/20 21:00 Room Air 04/26/20 20:00 98.1 85 19 99/64 (76) 96 04/26/20 20:00 83 Intake and Output 04/26/20 04/27/20 19:00 07:00 Intake Total 360 ml Balance 360 ml Intake Oral 360 ml # Voids 3 1 Laboratory Tests Test 04/27/20 05:45 04/27/20 05:48 04/27/20 17:24 POC Whole Blood Glucose 78 MG/DL (74-106) 125 MG/DL (74-106) H White Blood Count 5.7 K/UL (4.8-10.8) Red Blood Count 4.58 M/UL (4.70-6.10) L Hemoglobin 12.7 G/DL (14.2-18.0) L Hematocrit 40.0 % (42.0-52.0) L Mean Corpuscular Volume 87 FL (80-99) Mean Corpuscular Hemoglobin 27.8 PG (27.0-31.0) Mean Corpuscular Hemoglobin Concent 31.8 G/DL (32.0-36.0) L Red Cell Distribution Width 15.4 % (11.6-14.8) H Platelet Count 148 K/UL (150-450) L Mean Platelet Volume 8.1 FL (6.5-10.1) Neutrophils (%) (Auto) 69.1 % (45.0-75.0) Lymphocytes (%) (Auto) 18.8 % (20.0-45.0) L Monocytes (%) (Auto) 9.9 % (1.0-10.0) Eosinophils (%) (Auto) 1.4 % (0.0-3.0) Basophils (%) (Auto) 0.8 % (0.0-2.0) Prothrombin Time 10.7 SEC (9.30-11.50) Prothromb Time International Ratio 1.0 (0.9-1.1) Activated Partial Thromboplast Time 27 SEC (23-33) Sodium Level 140 MMOL/L (136-145) Potassium Level 4.2 MMOL/L (3.5-5.1) Chloride Level 107 MMOL/L (98-107) Carbon Dioxide Level 29 MMOL/L (21-32) Anion Gap 4 mmol/L (5-15) L Blood Urea Nitrogen 8 mg/dL (7-18) Creatinine 1.1 MG/DL (0.55-1.30) Estimat Glomerular Filtration Rate > 60 mL/min (>60) Glucose Level 75 MG/DL (74-106) Calcium Level 8.4 MG/DL (8.5-10.1) L Total Bilirubin 0.6 MG/DL (0.2-1.0) Aspartate Amino Transf (AST/SGOT) 50 U/L (15-37) H Alanine Aminotransferase (ALT/SGPT) 141 U/L (12-78) H Alkaline Phosphatase 82 U/L (46-116) Total Protein 5.1 G/DL (6.4-8.2) L Albumin 2.7 G/DL (3.4-5.0) L Globulin 2.4 g/dL Amylase Level 40 U/L (25-115) Lipase 143 U/L (73-393) Microbiology Date/Time Source Procedure Growth Status 04/26/20 14:22 Nasopharynx SARS-CoV-2 RdRp Gene Assay - Final Complete 04/25/20 14:00 Nasal Nares MRSA Culture - Final NO METHICILLIN RESISTANT STAPH AUREUS... Complete 04/25/20 14:00 Rectum VRE Culture - Final NO VANCOMYCIN RESISTANT ENTEROCOCCUS ... Complete Marcial Lugo MD Apr 27, 2020 17:28
[2020-04-27] MEDS: Docusate 100mg cap ORAL SCH (18:27)
--- NOTE | 2020-04-27 19:20 | NUR ---
HAND-OFF: Report given to Joseph/rn, pt resting after surgery. Surgery site is intact. Endorsed plan of care. Monitor BS BP and pain.
--- NOTE | 2020-04-27 19:41 | NUR ---
NURSE NOTES: Received patient report from KHRIS Dia. Patient shows no signs of distress at the time. He is reporting pain on surgery site. Incentive spirometer on bed side. I demonstrated how to do it and encouraged use of spirometer. Patient IV sites are intact and patent. There are no signs of erythema, infiltration, or bleeding at the time. Bed is in the lowest position, call light within reach, side rails up x3. Will continue to monitor.
--- NOTE | 2020-04-27 21:45 | Operative Note - Dictated ---
DATE OF OPERATION: 04/27/2020 PREOPERATIVE DIAGNOSIS: Acute cholecystitis. POSTOPERATIVE DIAGNOSIS: Acute cholecystitis. OPERATION PERFORMED: 1. Laparoscopic converted to open cholecystectomy. 2. Extensive open lysis of adhesions. ATTENDING SURGEON: Wil Morse MD. SDET: None. ANESTHESIOLOGIST: Noa Coto CRNA. ANESTHESIA: General SCOW DERRICK OPERATOR plus local. ESTIMATED BLOOD LOSS: 250 mL. IV FLUIDS: Please see anesthesia records. COMPLICATIONS: None. DRAINS: None. COUNTS: Sponge and needle count correct x2. WOUND CLASSIFICATION: Class 3. IMPLANTS: None. SPECIMENS: Gallbladder sent to pathology for review. ANTIBIOTICS: Patient is on scheduled IV Zosyn. INDICATIONS FOR PROCEDURE: This is a 69-year-old male who presented to [facility] after transferred from outside facility for evaluation of cholecystitis. Patient complaining of worsening right upper quadrant pain associated with nausea and emesis. In speaking to the patient and his daughter extensively over the course of few days, it was identified that patient has been having intermittent episodes of this for some time now that has been worsening and progressively worsening. Patient's daughter states that he was placed on antibiotics at home on p.o. antibiotics and within days of antibiotic therapy completion, he began to have similar symptoms and worsening again. An ultrasound was obtained identifying significant sludge in the thickened gallbladder. On examination, patient was fairly benign, but did notice some discomfort in the right upper quadrant. Labs evaluated, LFTs elevated, leukocytosis. Given all these findings, surgery was indicated and recommended. I had discussion with the patient and his family in regards to care plan. Considerations for continuation of antibiotic therapy and outpatient management versus cholecystectomy. In identifying the significant discomfort, this has been causing the patient's family and repetitive multiple hospital visits and testing being performed to identify any other etiology, they have expressed surgery is strongly desired and they would like to proceed as soon as possible. In discussing the care with the patient, identified the history and his current plan and reviewed all findings with him and discussed the indications for cholecystectomy. He had prior abdominal surgery. We discussed open versus laparoscopic surgery. Consent was obtained. Surgery was scheduled for 04/27/2020. OPERATIVE NOTE: Patient was taken to the operating room and placed on the operating table in supine position with bilateral arms out. All bony prominences well padded. SCDs were placed. Preoperative time-out taken identifying the patient, procedure, operative staff, and surgical staff. General anesthesia was induced and patient was intubated. Antibiotics were given one hour prior to cut time scheduled. The abdomen was clipped, prepped, and draped in standard surgical fashion. An umbilical incision was made using a fresh #11 blade and carried down to the fascia. Fascia was elevated, incised, and entry into the abdomen obtained using open Kraig technique. A 12 mm Kraig trocar was inserted. The abdomen was insufflated to 12 to 15 mmHg. Laparoscope was inserted. Upon insertion of the laparoscope, there were adhesions throughout the abdomen in all quadrants in all areas. Dense adhesions throughout. Some very cautious finger dissection was carried out followed by evaluation with the laparoscope and a window was identified in the right upper mid abdomen where a 5 mm midclavicular port would be standardly placed. A 5 mm trocar was inserted under direct visualization. Using laparoscopic peanuts, gentle dissection was carried out and gentle lysis of adhesions was performed in the right upper quadrant. The liver edge was identified. The omentum and colon were dissected from the anterior abdominal wall and at this time, it was clearly identified that there was inflamed distended gallbladder with significant chronic and acute inflammatory tissue with omental adhesions and bowel adhesions. Given these findings and the significant intraabdominal adhesions throughout the abdomen including the right upper quadrant from left side all way to the right, majority of bowel and omentum being to the perineum, a decision was made to convert to open surgery for the patient's safety and for the remainder of the course of the procedure given the significant distention and inflammatory tissues noted identified around the gallbladder. The abdomen was deflated. Umbilical port trocar site was removed. A right upper quadrant incision was made subcostal approximately 2 fingers below the costal margin from the midline laterally. The incision was carried down through the skin and subcutaneous tissue to the anterior rectus sheath. Anterior rectus sheath was incised and rectus muscle was divided. The posterior rectus sheath was opened. An extensive open lysis of adhesions was then performed mobilizing the colon, omentum, and small bowel away from the right upper quadrant. Gentle dissection was carried out towards the liver. There were significant adhesions around the liver. These were left alone as the liver was being retracted up towards the abdominal wall. Palpation of the gallbladder identified a thickened severely distended acute on chronic inflamed gallbladder. The hepatic flexure was noted abutting as well as omentum. Careful lysis of adhesions and dissection was carried out and gallbladder was dissected free of attached omental and bowel attachments. No complication doing so identified. The gallbladder infundibulum was then identified. Decision made to proceed with a top-down technique. The gallbladder was removed from the liver bed, which was significantly inflamed and nearly intrahepatic. With electrocautery and careful dissection down to the infundibulum, the cystic artery was identified and doubly clipped. Further dissection identified the short cystic duct. The cystic duct was doubly clipped and divided. Gallbladder was taken off the operating table and sent to pathology for review. No entry into the gallbladder was obtained during the dissection and foul-smelling dark sludge and fluid was evacuated. The cystic duct did look obstructed given these findings and no bile was regurgitating into the cystic duct, which was clearly identified. The right upper quadrant was irrigated and suctioned clean. Given the significant inflammatory reaction and dissection necessary, there was a fair amount of bleeding from the liver bed. Hemostasis was obtained with direct pressure and Surgicel as well as electrocautery. Once hemostasis was obtained, the right upper quadrant was irrigated and suctioned clean. Surgicel was placed in the liver bed after hemostasis obtained. Clips were identified and the duct and artery noted to be hemostatic and intact. At this time, we began the conclusion of our procedure. Bowel and omentum were position. The umbilical trocar site was reapproximated using [id number] 0 Vicryl suture followed by the skin using surgical joao. The right upper quadrant subcostal incision was closed in a two-layer fashion beginning with a #1 PDS in the posterior rectus sheath followed by anterior rectus sheath. The wound bed was irrigated and the skin reapproximated using surgical joao. Dressings were applied. Patient tolerated the procedure well, was extubated, and taken to postanesthetic care unit in stable condition. Discussion was held with the patient and the family in regards to operative findings and care plan. Jose Juan Martinez JOB#: [id number] CC:
--- NOTE | 2020-04-27 23:00 | Consultation ---
DATE OF CONSULTATION: 04/27/2020 CARDIOLOGY CONSULTATION CONSULTING PHYSICIAN: Marcial Lugo M.D. REFERRING PHYSICIAN: Rudi Kitchen M.D. REASON FOR CONSULTATION: Postoperative cardiac evaluation post cholecystectomy on an urgent basis. HISTORY OF PRESENT ILLNESS: This is a 69-year-old gentleman who was last seen postoperatively. The patient underwent cholecystectomy today. He has apparently had a problem with cholecystitis previously and has been treated with antibiotics, but because he was transferred to [facility] for further evaluation and possible history of cholecystectomy which he underwent today. He denies any chest pain at the present time. He does have shortness of breath, which is apparently chronic for him and he does not have any PND. Denies any palpitations. Denies any dizziness right now. PAST MEDICAL HISTORY: Positive for history of chronic liver disease, diverticulitis, pulmonary fibrosis, esophagitis and candidiasis based on EGD, umbilical hernia, diabetes mellitus, osteoporosis, and benign prostatic hypertrophy. PRIOR SURGICAL HISTORY: Sigmoid resection for diverticulitis 8 years ago and he had an endoscopy recently. ALLERGIES: He is allergic to Levaquin. SOCIAL HISTORY: Lives with the family. . No tobacco. No alcohol. No drugs. REVIEW OF SYSTEMS: GASTROINTESTINAL: At this time, he complains of abdominal pain at the site of surgery. Denies any nausea or vomiting. He has not had a bowel movement yet. He wants to drink some water. GENITOURINARY: He has a Pollard catheter in place. PULMONARY: He does have cough and shortness of breath. CARDIAC: As mentioned in HPI. PHYSICAL EXAMINATION: GENERAL: Shows to be elderly gentleman, in no respiratory distress. NECK: Supple. No jugular venous distention. LUNGS: He does have crackles noted at the bases. CARDIAC: Regular rate and rhythm. No heaves or thrills. ABDOMEN: Soft, distended, and hypoactive. EXTREMITIES: There is no edema. NEUROLOGIC: He is awake, alert, and responsive. LABORATORY VALUES: He had an echocardiogram performed yesterday. Preliminary report is showing ejection fraction 65% with mild diastolic relaxation abnormalities. No significant valvular pathology was noted. I am not able to find his EKG. Telemetry data shows sinus rhythm and his data that I searched through his chart does not have an old EKG that is available for review at this time. His blood test results; sodium 140, potassium 4.2, chloride 107, bicarb 29, BUN of 8, creatinine 1.1, and glucose of 75. Calcium is 8.4. Bilirubin 0.6. AST 50, ALT 141, and alkaline phosphatase of 82. Total protein is 5.1. Albumin is 2.7. Lipase and amylase 40 and 142 respectively. His chemistry; sodium 140, potassium 3.7, chloride 107, bicarb 30, BUN 12, creatinine 1.1, and glucose of 130. His LFTs were up to about 153 for AST and 279 for ALT, which are now better. Total cholesterol 150, LDL of 92, and HDL of 26. His white count most recently 5.7 down from 12.1, hemoglobin 12.7, and platelet count of 148,000. INR was normal when checked today with a PTT of 30. IMAGING: He had a chest x-ray performed that showed streaky basilar airspace opacities, likely represents subsegmental atelectasis. Pneumonia cannot be excluded. He did have a CT scan at the other hospital that is on 04/24/2020 showed ground-glass opacities in the lung bases in peripheral distribution. No cardiomegaly or pericardial effusion, aortic valve calcification, distended gallbladder without inflammatory changes. Rectosigmoid junction postsurgical changes. ASSESSMENT: 1. Acute cholecystitis, now status post cholecystectomy. 2. Diabetes mellitus, type 2. 3. History of pulmonary fibrosis. 4. Benign prostatic hypertrophy. 5. Osteoporosis. PLAN: This patient was seen in cardiac consultation. The patient appears to be doing relatively well postoperatively. He does not have any chest pain. His blood pressure was okay earlier today. He may need some intravenous fluids if it does drop. His saturation of 97% on 3 liters and he remains afebrile. We will follow the patient along with you. Recommendations as become necessary from cardiac point of view and EKG will be ordered. Marcial Lugo M.D. DR: LINDA JOB#: [id number] CC:
[2020-04-28] VITALS: BP 116/76
[2020-04-28] MEDS: Morphine Sulfate 2mg/ml Inj(IV/IM USE ONLY) IVP PRN ×2 (02:09→06:50)
[2020-04-28 04:00] VITALS: BP 119/77
[2020-04-28] MEDS: Piperacillin/Tazobactam 3.375 GM in NS 110 ML IVPB SCH ×3 (05:55→21:43)
[2020-04-28] MEDS: NovoLOG Insulin Flexpen SUBQ SCH ×3 (06:30→21:00)
[2020-04-28 07:25] LABS: BASOPHILS % (AUTO) 0.3 % (0.0-2.0); EOSINOPHILS % (AUTO) 0.2 % (0.0-3.0); HEMATOCRIT 37.9 % (42.0-52.0); LYMPHOCYTES % (AUTO) 6.8 % (20.0-45.0); MEAN CORPUSCULAR VOLUME 88 FL (80-99); MONOCYTES % (AUTO) 8.1 % (1.0-10.0); NEUTROPHILS % (AUTO) 84.6 % (45.0-75.0); PLATELET COUNT 167 K/UL (150-450); RED BLOOD COUNT 4.31 M/UL (4.70-6.10); RED CELL DISTRIBUTION WIDTH 15.8 % (11.6-14.8); WHITE BLOOD COUNT 11.6 K/UL (4.8-10.8)
[2020-04-28 07:26] LABS: ALANINE AMINOTRANSFERASE 120 U/L (12-78); ALBUMIN 2.6 G/DL (3.4-5.0); ALBUMIN/GLOBULIN RATIO 1.1 (1.0-2.7); ALKALINE PHOSPHATASE 65 U/L (46-116); AMYLASE 28 U/L (25-115); ANION GAP 8 mmol/L (5-15); ASPARTATE AMINO TRANSFERASE 64 U/L (15-37); BILIRUBIN,TOTAL 0.8 MG/DL (0.2-1.0); BLOOD UREA NITROGEN 7 mg/dL (7-18); CALCIUM 7.6 MG/DL (8.5-10.1); CARBON DIOXIDE 24 MMOL/L (21-32); CHLORIDE 104 MMOL/L (98-107); POTASSIUM 4.4 MMOL/L (3.5-5.1); SODIUM 136 MMOL/L (136-145)
--- NOTE | 2020-04-28 07:26 | NUR ---
HAND-OFF: Report given to KHRIS Barron. Patient shows no signs of distress at the time. Endorsed plan of care..
--- NOTE | 2020-04-28 07:40 | NUR ---
NURSE NOTES: Received pt in bed, AAO x 4. Romanian speaking. On RA. c/o of pain on RUQ 05/03 despite pain med pt got 30 min ago. IV on RFA 20g and L hand 20g noted, running NS @ 150 ml/hr and zosyn. Side rails x 2. Bed in the lowest, locked, and alarm on. Call light within reach. Will continue to monitor
--- NOTE | 2020-04-28 07:51 | General Progress Note ---
Assessment/Plan Problem List: (1) Pulmonary fibrosis ICD Codes: J84.10 - Pulmonary fibrosis, unspecified SNOMED: 79999210 (2) Polymyositis ICD Codes: M33.20 - Polymyositis, organ involvement unspecified SNOMED: 20094604 (3) BPH (benign prostatic hyperplasia) ICD Codes: N40.0 - Benign prostatic hyperplasia without lower urinary tract symptoms SNOMED: 828218619 (4) COPD (chronic obstructive pulmonary disease) ICD Codes: J44.9 - Chronic obstructive pulmonary disease, unspecified SNOMED: 32057771 (5) Diabetes mellitus ICD Codes: E11.9 - Type 2 diabetes mellitus without complications SNOMED: 68319264 (6) Cholecystitis, acute ICD Codes: K81.0 - Acute cholecystitis SNOMED: 99033321 Assessment/Plan: s/p open cholecystectomy will fu post op orderes per surg abx pain control Subjective Allergies: Coded Allergies: LEVOFLOXACIN (Unverified Allergy, Mild, Redness, 04/25/20) Objective Last 24 Hour Vital Signs Date Time Temp Pulse Resp B/P (MAP) Pulse Ox O2 Delivery O2 Flow Rate FiO2 04/28/20 04:00 96 04/28/20 04:00 98.4 101 18 119/77 (91) 95 04/28/20 02:39 98.8 04/28/20 00:00 100 04/28/20 00:00 98.8 107 19 116/76 (89) 97 04/27/20 21:00 Nasal Cannula 2.0 04/27/20 20:00 95 04/27/20 20:00 96.6 94 19 130/93 (105) 96 04/27/20 16:03 97 Nasal Cannula 3.0 32 04/27/20 16:00 94 04/27/20 16:00 98.1 91 17 96/95 (95) 90 04/27/20 15:52 97 14 97 04/27/20 14:40 97.9 92 17 104/67 100 Nasal Cannula 3 04/27/20 14:31 97.8 04/27/20 14:30 94 16 102/64 100 Nasal Cannula 3 04/27/20 14:15 91 15 104/66 100 Nasal Cannula 3 04/27/20 14:00 89 15 104/67 99 Nasal Cannula 3 04/27/20 13:52 88 15 101/63 99 Nasal Cannula 3 04/27/20 13:37 89 16 100/70 98 Simple Mask 6 04/27/20 13:27 93 19 103/71 96 Simple Mask 6 04/27/20 13:17 95 17 101/70 98 Simple Mask 6 04/27/20 13:16 100 14 99 04/27/20 13:12 96 17 99/67 99 Simple Mask 6 04/27/20 13:07 97.5 103 13 106/64 97 Simple Mask 6 04/27/20 08:31 Room Air 04/27/20 08:00 97.7 62 19 112/71 (85) 96 Intake and Output 04/27/20 04/28/20 19:00 07:00 Intake Total 1702.5 ml 1393.1 ml Output Total 850 ml Balance 852.5 ml 1393.1 ml Intake Oral 120 ml IV Total 1582.5 ml 1393.1 ml Output Urine Total 600 ml Estimated Blood Loss 250 ml # Voids 2 # Bowel Movements 1 Laboratory Tests 04/27/20 17:24: POC Whole Blood Glucose 125H 04/27/20 20:32: POC Whole Blood Glucose 122H 04/28/20 05:31: POC Whole Blood Glucose 101 04/28/20 05:34: White Blood Count 11.6#H, Red Blood Count 4.31L, Hemoglobin 12.0L, Hematocrit 37.9L, Mean Corpuscular Volume 88, Mean Corpuscular Hemoglobin 27.9, Mean Corpuscular Hemoglobin Concent 31.7L, Red Cell Distribution Width 15.8H, Platelet Count 167, Mean Platelet Volume 7.1, Neutrophils (%) (Auto) 84.6H, Lymphocytes (%) (Auto) 6.8L, Monocytes (%) (Auto) 8.1, Eosinophils (%) (Auto) 0.2, Basophils (%) (Auto) 0.3, Sodium Level 136, Potassium Level 4.4, Chloride Level 104, Carbon Dioxide Level 24, Anion Gap 8, Blood Urea Nitrogen 7, Creatinine 1.0, Estimat Glomerular Filtration Rate > 60, Glucose Level 100, Calcium Level 7.6L, Total Bilirubin 0.8, Aspartate Amino Transf (AST/SGOT) 64H, Alanine Aminotransferase (ALT/SGPT) 120H, Alkaline Phosphatase 65, Total Protein 4.9L, Albumin 2.6L, Globulin 2.3, Albumin/Globulin Ratio 1.1, Amylase Level 28, Lipase 52L Height (Feet): 6 Height (Inches): 3.00 Weight (Pounds): 181 General Appearance: alert EENT: PERRL/EOMI Neck: supple Cardiovascular: normal rate Respiratory/Chest: decreased breath sounds Pelvis: other - post surgical Extremities: non-tender Petey Marquez MD Apr 28, 2020 07:51
[2020-04-28 08:00] VITALS: BP 124/80
[2020-04-28] MEDS: Docusate 100mg cap ORAL SCH ×2 (08:38→17:42)
[2020-04-28] MEDS: Tamsulosin 0.4mg cap ORAL SCH (08:38)
--- NOTE | 2020-04-28 09:07 | Surgery Progress Note ---
Surgery Progress Note Subjective Procedure Performed lap converted to open nelda extensive open lysis of adhesions Symptoms: tolerating diet Additional Comments recovering incisional pain no n/v/f/c labs noted feels distended no flatus or BM Objective Last 24 Hour Vital Signs Date Time Temp Pulse Resp B/P (MAP) Pulse Ox O2 Delivery O2 Flow Rate FiO2 04/28/20 08:10 Nasal Cannula 2.0 04/28/20 08:00 98.1 91 20 124/80 (95) 97 04/28/20 04:00 96 04/28/20 04:00 98.4 101 18 119/77 (91) 95 04/28/20 02:39 98.8 04/28/20 00:00 100 04/28/20 00:00 98.8 107 19 116/76 (89) 97 04/27/20 21:00 Nasal Cannula 2.0 04/27/20 20:00 95 04/27/20 20:00 96.6 94 19 130/93 (105) 96 04/27/20 16:03 97 Nasal Cannula 3.0 32 04/27/20 16:00 94 04/27/20 16:00 98.1 91 17 96/95 (95) 90 04/27/20 15:52 97 14 97 04/27/20 14:40 97.9 92 17 104/67 100 Nasal Cannula 3 04/27/20 14:31 97.8 04/27/20 14:30 94 16 102/64 100 Nasal Cannula 3 04/27/20 14:15 91 15 104/66 100 Nasal Cannula 3 04/27/20 14:00 89 15 104/67 99 Nasal Cannula 3 04/27/20 13:52 88 15 101/63 99 Nasal Cannula 3 04/27/20 13:37 89 16 100/70 98 Simple Mask 6 04/27/20 13:27 93 19 103/71 96 Simple Mask 6 04/27/20 13:17 95 17 101/70 98 Simple Mask 6 04/27/20 13:16 100 14 99 04/27/20 13:12 96 17 99/67 99 Simple Mask 6 04/27/20 13:07 97.5 103 13 106/64 97 Simple Mask 6 I&O Intake and Output 04/27/20 04/28/20 19:00 07:00 Intake Total 1702.5 ml 1393.1 ml Output Total 850 ml Balance 852.5 ml 1393.1 ml Intake Oral 120 ml IV Total 1582.5 ml 1393.1 ml Output Urine Total 600 ml Estimated Blood Loss 250 ml # Voids 2 # Bowel Movements 1 Dressing: dry Wound: clean Cardiovascular: RSR Respiratory: clear, decreased breath sounds Abdomen: soft, distended, tenderness - incisional , decreased bowel sounds Extremities: no edema, no tenderness, no cyanosis Laboratory Tests Test 04/27/20 17:24 04/27/20 20:32 04/28/20 05:31 04/28/20 05:34 POC Whole Blood Glucose 125 MG/DL (74-106) H 122 MG/DL (74-106) H 101 MG/DL (74-106) White Blood Count 11.6 K/UL (4.8-10.8) #H Red Blood Count 4.31 M/UL (4.70-6.10) L Hemoglobin 12.0 G/DL (14.2-18.0) L Hematocrit 37.9 % (42.0-52.0) L Mean Corpuscular Volume 88 FL (80-99) Mean Corpuscular Hemoglobin 27.9 PG (27.0-31.0) Mean Corpuscular Hemoglobin Concent 31.7 G/DL (32.0-36.0) L Red Cell Distribution Width 15.8 % (11.6-14.8) H Platelet Count 167 K/UL (150-450) Mean Platelet Volume 7.1 FL (6.5-10.1) Neutrophils (%) (Auto) 84.6 % (45.0-75.0) H Lymphocytes (%) (Auto) 6.8 % (20.0-45.0) L Monocytes (%) (Auto) 8.1 % (1.0-10.0) Eosinophils (%) (Auto) 0.2 % (0.0-3.0) Basophils (%) (Auto) 0.3 % (0.0-2.0) Sodium Level 136 MMOL/L (136-145) Potassium Level 4.4 MMOL/L (3.5-5.1) Chloride Level 104 MMOL/L (98-107) Carbon Dioxide Level 24 MMOL/L (21-32) Anion Gap 8 mmol/L (5-15) Blood Urea Nitrogen 7 mg/dL (7-18) Creatinine 1.0 MG/DL (0.55-1.30) Estimat Glomerular Filtration Rate > 60 mL/min (>60) Glucose Level 100 MG/DL (74-106) Calcium Level 7.6 MG/DL (8.5-10.1) L Total Bilirubin 0.8 MG/DL (0.2-1.0) Aspartate Amino Transf (AST/SGOT) 64 U/L (15-37) H Alanine Aminotransferase (ALT/SGPT) 120 U/L (12-78) H Alkaline Phosphatase 65 U/L (46-116) Total Protein 4.9 G/DL (6.4-8.2) L Albumin 2.6 G/DL (3.4-5.0) L Globulin 2.3 g/dL Albumin/Globulin Ratio 1.1 (1.0-2.7) Amylase Level 28 U/L (25-115) Lipase 52 U/L (73-393) L Plan Problems: (1) Cholecystitis, acute Assessment & Plan: 69-year-old male with acute cholecystitis diagnosed outside facility. Currently afebrile hemodynamic stable and improved with narcotic pain medication. On examination mild discomfort in the right upper quadrant. States he still feels the cramping but blunted with the medications. Currently no nausea or vomiting. Still pending reports have been looking to obtain. Okay for clear liquid diets given stable and patient is hungry IV fluids IV antibiotics Ultrasound ordered Labs ordered Will follow with recommendations as labs and imaging available. May potentially need cholecystectomy will monitor Thank you for let me participate in patient's care discussed care plan with patient. discussed lab findings and US findings. dx cholecystitis acute after discussing surgical vs non surgical options with patient he has elected to proceed with cholecystectomy which is indicated and recommended npo p mn iv fluids consent thank you called daughter multiple times but no answer. will cont to relay patients decision with family as requested s/p lap converted to open cholecystectomy for acute cholecystitis. distended, inflamed gb recovering incisional pain tolerating clears needs to be ambulatory incentive spirometry cont rx labs Wil Morse Apr 28, 2020 09:07
[2020-04-28] MEDS ORDERED: Hydromorphone 0.5mg/0.5ml inj IVP PRN (09:15)
--- NOTE | 2020-04-28 09:15 | NUR ---
CASE MANAGEMENT:REVIEW 04/27/20 SI: POD #1 S/P LAP MARKIE CONVERTED TO OPEN MARKIE EXTENSIVE OPEN LYSIS OF ADHESIONS 98.1 91 20 124/80 97% ON 2L/NC IS: IVF@100/HR IV ZOSYN Q8HRS IV PEPCID Q12 COLACE PO BID IV DILAUDID Q3HRS PRN : TELEMETRY STATUS DCP: FROM HOME
--- NOTE | 2020-04-28 10:10 | NUR ---
PT EVALUATION NOTE Patient seen for initial evaluation and treatment initiated. Patient presents with generalized weakness and pain s/p cholecystectomy which impairs patient's ability to perform mobility tasks safely. Patient requires min assist for bed mobility and transfers with FWW. Patient able to take several small sideways steps, declined ambulation due to c/o pain and fatigue. Patient will benefit from skilled inpatient PT intervention to increase strength and postural stability for improved level of functional mobility and safety. Recommend discharge home with family assistance once medically cleared by MD. Patient may benefit from use of FWW for ambulation depending on patient's progress. Addendum: 04/28/20 at 1326 by ALVA VELAZQUEZ PT Amended: Links added.
[2020-04-28 12:00] VITALS: BP 118/78
[2020-04-28] MEDS ORDERED: Milk of Magnesia 30ml Ud ORAL PRN (12:00)
--- NOTE | 2020-04-28 12:12 | NUR ---
TRANSFER TO FLOOR: Patient transferred to [facility]. Report given to KHRIS Strickland. Belongings and medications given.
--- NOTE | 2020-04-28 12:15 | NUR ---
NURSE NOTES: Received patient from tele, received transfer report from [facility]. Patient is alert and oriented x4. Re-orientation given about the unit. Noted with 2 surgical dressing on abdomen with C/D/I dressing, no s/s of bleeding. All belongings accounted for. IV is intact, no s/s of infiltration. Skin is intact, IS @ bedside. Will continue plan of care.
--- NOTE | 2020-04-28 12:15 | Internal Med Progress Note ---
Subjective Date of Service: Apr 28, 2020 Physician Name Cirilo Tan Attending Physician Jose Ramos MD Current Medications Medications (Trade) Dose Ordered Sig/Renetta Route PRN Reason Start Time Stop Time Status Last Admin Dose Admin Acetaminophen (Tylenol) 650 mg Q4H PRN ORAL FEVER (T>100.5) 04/28/20 12:00 05/27/20 11:59 Al Hydroxide/Mg Hydroxide (Mylanta II) 30 ml Q6H PRN ORAL dyspepsia 04/28/20 12:30 05/25/20 12:29 Al Hydroxide/Mg Hydroxide (Mylanta) 15 ml Q6H PRN ORAL DYSPEPSIA 04/28/20 14:00 05/27/20 13:59 Dextrose (Dextrose 50%) 25 ml Q30M PRN IV Hypoglycemia 04/28/20 12:00 07/24/20 12:29 Dextrose (Dextrose 50%) 50 ml Q30M PRN IV Hypoglycemia 04/28/20 12:00 07/24/20 12:29 Diphenhydramine HCl (Benadryl) 25 mg Q8H PRN ORAL Itching/Pruritis 04/28/20 12:00 05/27/20 11:59 Docusate Sodium (Colace) 100 mg TWICE A DAY ORAL 04/28/20 18:00 05/27/20 17:59 Famotidine (Pepcid I.v.) 20 mg Q12HR IVP 04/28/20 21:00 05/25/20 20:59 Hydromorphone HCl (Dilaudid) 0.5 mg Q3H PRN IVP For Pain 04/28/20 12:15 05/05/20 09:14 Insulin Aspart (NovoLOG) BEFORE MEALS AND HS SUBQ 04/28/20 16:30 07/24/20 16:29 Lorazepam (Ativan) 1 mg Q4H PRN ORAL For Anxiety 04/28/20 12:00 05/02/20 11:59 Magnesium Hydroxide (Mom) 30 ml BIDPRN PRN ORAL Constipation 04/28/20 12:00 05/27/20 11:59 Ondansetron HCl (Zofran) 4 mg Q6H PRN IVP Nausea & Vomiting 04/28/20 12:00 05/27/20 11:59 Piperacillin Sod/ Tazobactam Sod 3.375 gm/Sodium Chloride 110 ml @ 27.5 mls/hr EVERY 8 HOURS IVPB 04/28/20 14:00 04/30/20 21:59 Sodium Chloride 1,000 ml @ 100 mls/hr Q10H IVLG 04/28/20 12:00 05/28/20 11:59 Tamsulosin HCl (Flomax) 0.4 mg DAILY ORAL 04/29/20 09:00 05/26/20 08:59 Temazepam (RestoriL) 7.5 mg HSPRN PRN ORAL Insomnia 04/28/20 14:00 05/05/20 13:59 Allergies: Coded Allergies: LEVOFLOXACIN (Unverified Allergy, Mild, Redness, 04/25/20) ROS Limited/Unobtainable: No Constitutional: Reports: no symptoms HEENT: Reports: no symptoms Cardiovascular: Reports: no symptoms Respiratory: Reports: no symptoms Gastrointestinal/Abdominal: Reports: no symptoms Genitourinary: Reports: no symptoms Neurologic/Psychiatric: Reports: no symptoms Subjective 69 YO M admitted with epigastric pain and elevated liver function tests. Now cholelithiasis. Cover for Int Med-Dr Ramos. S/P open cholecystectomy 04/27/20 Objective Last Vital Signs Date Time Temp Pulse Resp B/P (MAP) Pulse Ox O2 Delivery O2 Flow Rate FiO2 04/28/20 08:10 Nasal Cannula 2.0 04/28/20 08:00 98.1 91 20 124/80 (95) 97 04/27/20 16:03 32 Laboratory Tests Test 04/27/20 17:24 04/27/20 20:32 04/28/20 05:31 04/28/20 05:34 POC Whole Blood Glucose 125 MG/DL (74-106) H 122 MG/DL (74-106) H 101 MG/DL (74-106) White Blood Count 11.6 K/UL (4.8-10.8) #H Red Blood Count 4.31 M/UL (4.70-6.10) L Hemoglobin 12.0 G/DL (14.2-18.0) L Hematocrit 37.9 % (42.0-52.0) L Mean Corpuscular Volume 88 FL (80-99) Mean Corpuscular Hemoglobin 27.9 PG (27.0-31.0) Mean Corpuscular Hemoglobin Concent 31.7 G/DL (32.0-36.0) L Red Cell Distribution Width 15.8 % (11.6-14.8) H Platelet Count 167 K/UL (150-450) Mean Platelet Volume 7.1 FL (6.5-10.1) Neutrophils (%) (Auto) 84.6 % (45.0-75.0) H Lymphocytes (%) (Auto) 6.8 % (20.0-45.0) L Monocytes (%) (Auto) 8.1 % (1.0-10.0) Eosinophils (%) (Auto) 0.2 % (0.0-3.0) Basophils (%) (Auto) 0.3 % (0.0-2.0) Sodium Level 136 MMOL/L (136-145) Potassium Level 4.4 MMOL/L (3.5-5.1) Chloride Level 104 MMOL/L (98-107) Carbon Dioxide Level 24 MMOL/L (21-32) Anion Gap 8 mmol/L (5-15) Blood Urea Nitrogen 7 mg/dL (7-18) Creatinine 1.0 MG/DL (0.55-1.30) Estimat Glomerular Filtration Rate > 60 mL/min (>60) Glucose Level 100 MG/DL (74-106) Calcium Level 7.6 MG/DL (8.5-10.1) L Total Bilirubin 0.8 MG/DL (0.2-1.0) Aspartate Amino Transf (AST/SGOT) 64 U/L (15-37) H Alanine Aminotransferase (ALT/SGPT) 120 U/L (12-78) H Alkaline Phosphatase 65 U/L (46-116) Total Protein 4.9 G/DL (6.4-8.2) L Albumin 2.6 G/DL (3.4-5.0) L Globulin 2.3 g/dL Albumin/Globulin Ratio 1.1 (1.0-2.7) Amylase Level 28 U/L (25-115) Lipase 52 U/L (73-393) L Test 04/28/20 11:16 POC Whole Blood Glucose 133 MG/DL (74-106) H Microbiology Date/Time Source Procedure Growth Status 04/26/20 14:22 Nasopharynx SARS-CoV-2 RdRp Gene Assay - Final Complete 04/25/20 14:00 Nasal Nares MRSA Culture - Final NO METHICILLIN RESISTANT STAPH AUREUS... Complete 04/25/20 14:00 Rectum VRE Culture - Final NO VANCOMYCIN RESISTANT ENTEROCOCCUS ... Complete Intake and Output 04/27/20 04/28/20 19:00 07:00 Intake Total 1702.5 ml 1393.1 ml Output Total 850 ml Balance 852.5 ml 1393.1 ml Intake Oral 120 ml IV Total 1582.5 ml 1393.1 ml Output Urine Total 600 ml Estimated Blood Loss 250 ml # Voids 2 # Bowel Movements 1 Objective PHYSICAL EXAMINATION: GENERAL: The patient is well-developed and well-nourished male, in no apparent distress. HEENT: Eyes, pupils are equal and responsive to light and accommodation. Extraocular movements are intact. NECK: Supple without lymphadenopathy. CHEST: Lungs are clear to auscultation bilaterally without wheezes or rales. CARDIOVASCULAR: Regular rhythm and rate. S1 and S2 are normal without murmurs, rubs, or gallops. ABDOMEN: Soft, nondistended with decreased bowel sounds. There is pain to palpation in the epigastric region. There is no rebound or guarding noted. EXTREMITIES: Negative for clubbing, cyanosis, or edema. RECTAL/GENITAL: Not performed. NEUROLOGIC: Cranial nerves II to XII intact without focal deficits. Motor strength is 5/5 bilaterally. Deep tendon reflexes are 2+ plantar. Assessment/Plan Assessment/Plan ASSESSMENT: This is a 69-year-old male. 1. Acute cholecystitis. 2. Elevated liver function tests. 3. Epigastric pain. 4. Diabetes type 2. 5. Pulmonary fibrosis. 6. Osteoporosis. 7. Benign prostatic hypertrophy. 8. H/O polymyositis TREATMENT: 1. Cholecystitis/elevated liver function tests. A Surgery consultation has been obtained with Dr. Wil Morse. The patient is scheduled for S/P open cholecystectomy 04/27/20 We will follow recommendations of Surgery. 2. Epigastric pain. This is secondary to cholecystitis. 3. Diabetes type 2. Continue metformin as above. A NovoLog sliding scale has been instituted. 4. Pulmonary fibrosis. A Pulmonary consultation has been obtained with Dr. Rudi Kitchen. 5. Osteoporosis. Continue Fosamax as above. 6. Benign prostatic hypertrophy. Continue Flomax as above. 7. See rheumatology note= Dr Kincaid. Cirilo Tan MD Apr 28, 2020 12:15
[2020-04-28] MEDS ORDERED: Mylanta II UD 30ml ORAL PRN (12:30)
--- NOTE | 2020-04-28 13:05 | Pulmonology Progress Note ---
Subjective ROS Limited/Unobtainable: No Interval Events: no new complains Allergies: Coded Allergies: LEVOFLOXACIN (Unverified Allergy, Mild, Redness, 04/25/20) Objective Last 24 Hour Vital Signs Date Time Temp Pulse Resp B/P (MAP) Pulse Ox O2 Delivery O2 Flow Rate FiO2 04/28/20 08:10 Nasal Cannula 2.0 04/28/20 08:00 98.1 91 20 124/80 (95) 97 04/28/20 08:00 97 04/28/20 04:00 96 04/28/20 04:00 98.4 101 18 119/77 (91) 95 04/28/20 02:39 98.8 04/28/20 00:00 100 04/28/20 00:00 98.8 107 19 116/76 (89) 97 04/27/20 21:00 Nasal Cannula 2.0 04/27/20 20:00 95 04/27/20 20:00 96.6 94 19 130/93 (105) 96 04/27/20 16:03 97 Nasal Cannula 3.0 32 04/27/20 16:00 94 04/27/20 16:00 98.1 91 17 96/95 (95) 90 04/27/20 15:52 97 14 97 04/27/20 14:40 97.9 92 17 104/67 100 Nasal Cannula 3 04/27/20 14:31 97.8 04/27/20 14:30 94 16 102/64 100 Nasal Cannula 3 04/27/20 14:15 91 15 104/66 100 Nasal Cannula 3 04/27/20 14:00 89 15 104/67 99 Nasal Cannula 3 04/27/20 13:52 88 15 101/63 99 Nasal Cannula 3 04/27/20 13:37 89 16 100/70 98 Simple Mask 6 04/27/20 13:27 93 19 103/71 96 Simple Mask 6 04/27/20 13:17 95 17 101/70 98 Simple Mask 6 04/27/20 13:16 100 14 99 04/27/20 13:12 96 17 99/67 99 Simple Mask 6 04/27/20 13:07 97.5 103 13 106/64 97 Simple Mask 6 Intake and Output 04/27/20 04/28/20 19:01 07:01 Intake Total 1702.5 ml 1393.1 ml Output Total 850 ml Balance 852.5 ml 1393.1 ml Intake Oral 120 ml IV Total 1582.5 ml 1393.1 ml Output Urine Total 600 ml Estimated Blood Loss 250 ml # Voids 2 # Bowel Movements 1 General Appearance: no acute distress HEENT: normocephalic, atraumatic, anicteric Respiratory: chest wall non-tender, lungs clear, normal breath sounds Cardiovascular: normal peripheral pulses, normal rate, regular rhythm Abdomen: normal bowel sounds, soft, non tender, no organomegaly Genitourinary: normal external genitalia Extremities: no cyanosis Skin: no rash Neurologic: 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 Complete 04/25/20 14:00 Rectum VRE Culture - Final NO VANCOMYCIN RESISTANT ENTEROCOCCUS ... Complete Laboratory Tests 04/27/20 17:24: POC Whole Blood Glucose 125H 04/27/20 20:32: POC Whole Blood Glucose 122H 04/28/20 05:31: POC Whole Blood Glucose 101 04/28/20 05:34: White Blood Count 11.6#H, Red Blood Count 4.31L, Hemoglobin 12.0L, Hematocrit 37.9L, Mean Corpuscular Volume 88, Mean Corpuscular Hemoglobin 27.9, Mean Corpuscular Hemoglobin Concent 31.7L, Red Cell Distribution Width 15.8H, Platelet Count 167, Mean Platelet Volume 7.1, Neutrophils (%) (Auto) 84.6H, Lymphocytes (%) (Auto) 6.8L, Monocytes (%) (Auto) 8.1, Eosinophils (%) (Auto) 0.2, Basophils (%) (Auto) 0.3, Sodium Level 136, Potassium Level 4.4, Chloride Level 104, Carbon Dioxide Level 24, Anion Gap 8, Blood Urea Nitrogen 7, Creatinine 1.0, Estimat Glomerular Filtration Rate > 60, Glucose Level 100, Calcium Level 7.6L, Total Bilirubin 0.8, Aspartate Amino Transf (AST/SGOT) 64H, Alanine Aminotransferase (ALT/SGPT) 120H, Alkaline Phosphatase 65, Total Protein 4.9L, Albumin 2.6L, Globulin 2.3, Albumin/Globulin Ratio 1.1, Amylase Level 28, Lipase 52L 04/28/20 11:16: POC Whole Blood Glucose 133H Current Medications Medications (Trade) Dose Ordered Sig/Renetta Route PRN Reason Start Time Stop Time Status Last Admin Dose Admin Acetaminophen (Tylenol) 650 mg Q4H PRN ORAL FEVER (T>100.5) 04/28/20 12:00 05/27/20 11:59 Al Hydroxide/Mg Hydroxide (Mylanta II) 30 ml Q6H PRN ORAL dyspepsia 04/28/20 12:30 05/25/20 12:29 Al Hydroxide/Mg Hydroxide (Mylanta) 15 ml Q6H PRN ORAL DYSPEPSIA 04/28/20 14:00 05/27/20 13:59 Dextrose (Dextrose 50%) 25 ml Q30M PRN IV Hypoglycemia 04/28/20 12:00 07/24/20 12:29 Dextrose (Dextrose 50%) 50 ml Q30M PRN IV Hypoglycemia 04/28/20 12:00 07/24/20 12:29 Diphenhydramine HCl (Benadryl) 25 mg Q8H PRN ORAL Itching/Pruritis 04/28/20 12:00 05/27/20 11:59 Docusate Sodium (Colace) 100 mg TWICE A DAY ORAL 04/28/20 18:00 05/27/20 17:59 Famotidine (Pepcid I.v.) 20 mg Q12HR IVP 04/28/20 21:00 05/25/20 20:59 Hydromorphone HCl (Dilaudid) 0.5 mg Q3H PRN IVP For Pain 04/28/20 12:15 05/05/20 09:14 Insulin Aspart (NovoLOG) BEFORE MEALS AND HS SUBQ 04/28/20 16:30 07/24/20 16:29 Lorazepam (Ativan) 1 mg Q4H PRN ORAL For Anxiety 04/28/20 12:00 05/02/20 11:59 Magnesium Hydroxide (Mom) 30 ml BIDPRN PRN ORAL Constipation 04/28/20 12:00 05/27/20 11:59 Ondansetron HCl (Zofran) 4 mg Q6H PRN IVP Nausea & Vomiting 04/28/20 12:00 05/27/20 11:59 Piperacillin Sod/ Tazobactam Sod 3.375 gm/Sodium Chloride 110 ml @ 27.5 mls/hr EVERY 8 HOURS IVPB 04/28/20 14:00 04/30/20 21:59 Sodium Chloride 1,000 ml @ 100 mls/hr Q10H IVLG 04/28/20 12:00 05/28/20 11:59 Tamsulosin HCl (Flomax) 0.4 mg DAILY ORAL 04/29/20 09:00 05/26/20 08:59 Temazepam (RestoriL) 7.5 mg HSPRN PRN ORAL Insomnia 04/28/20 14:00 05/05/20 13:59 Assessment/Plan Problems: (1) Cholecystitis, acute (2) Polymyositis (3) Immunosuppressed status (4) Pulmonary fibrosis (5) COPD (chronic obstructive pulmonary disease) (6) BPH (benign prostatic hyperplasia) (7) Diabetes mellitus Assessment/Plan doing better tolerated surgery the day before yesterday pain management f/u pathology report inflammatory markers are partially pending start diet as per GI iv fluids iv abx symptomatic treatment sliding scale dvt prophylaxis Rudi Kitchen MD Apr 28, 2020 13:05
[2020-04-28] MEDS: Hydromorphone 0.5mg/0.5ml inj IVP PRN ×3 (14:46→21:40)
[2020-04-28 16:00] VITALS: BP 111/69
--- NOTE | 2020-04-28 17:48 | NUR ---
HAND-OFF: Report given to Roshan plan of care. Addendum: 04/28/20 at 1928 by MDAINA CORTÉS RN endorsed
--- NOTE | 2020-04-28 19:37 | NUR ---
NURSE NOTES: Patient in bed, with complaint of moderate pain on surgical area, was medicated for pain prior change of shift. IV access on the left hand. Call light in reach. Bed in lowest, lock engaged and alarm on. Will continue plan of care.
[2020-04-28 20:00] VITALS: BP 103/66
[2020-04-29] VITALS: BP 118/60
[2020-04-29] MEDS: Hydromorphone 0.5mg/0.5ml inj IVP PRN ×7 (01:43→21:02)
[2020-04-29 04:00] VITALS: BP 122/74
[2020-04-29] MEDS: NovoLOG Insulin Flexpen SUBQ SCH ×4 (05:20→21:00)
[2020-04-29] MEDS: Piperacillin/Tazobactam 3.375 GM in NS 110 ML IVPB SCH ×3 (05:23→21:17)
[2020-04-29 06:19] LABS: BASOPHILS % (AUTO) 0.5 % (0.0-2.0); EOSINOPHILS % (AUTO) 0.8 % (0.0-3.0); HEMATOCRIT 36.2 % (42.0-52.0); HEMOGLOBIN 11.6 G/DL (14.2-18.0); LYMPHOCYTES % (AUTO) 8.9 % (20.0-45.0); MEAN CORPUSCULAR VOLUME 87 FL (80-99); MONOCYTES % (AUTO) 8.8 % (1.0-10.0); NEUTROPHILS % (AUTO) 81.1 % (45.0-75.0); PLATELET COUNT 183 K/UL (150-450); RED BLOOD COUNT 4.15 M/UL (4.70-6.10); RED CELL DISTRIBUTION WIDTH 15.8 % (11.6-14.8); WHITE BLOOD COUNT 10.9 K/UL (4.8-10.8)
[2020-04-29 06:35] LABS: ANION GAP 4 mmol/L (5-15); BLOOD UREA NITROGEN 5 mg/dL (7-18); CALCIUM 7.7 MG/DL (8.5-10.1); CARBON DIOXIDE 27 MMOL/L (21-32); CHLORIDE 105 MMOL/L (98-107); CREATININE 0.9 MG/DL (0.55-1.30); POTASSIUM 3.6 MMOL/L (3.5-5.1); SODIUM 136 MMOL/L (136-145)
--- NOTE | 2020-04-29 07:00 | General Progress Note ---
Assessment/Plan Problem List: (1) Pulmonary fibrosis ICD Codes: J84.10 - Pulmonary fibrosis, unspecified SNOMED: 18199452 (2) Polymyositis ICD Codes: M33.20 - Polymyositis, organ involvement unspecified SNOMED: 32964645 (3) BPH (benign prostatic hyperplasia) ICD Codes: N40.0 - Benign prostatic hyperplasia without lower urinary tract symptoms SNOMED: 612148871 (4) COPD (chronic obstructive pulmonary disease) ICD Codes: J44.9 - Chronic obstructive pulmonary disease, unspecified SNOMED: 49175615 (5) Diabetes mellitus ICD Codes: E11.9 - Type 2 diabetes mellitus without complications SNOMED: 35870377 (6) Cholecystitis, acute ICD Codes: K81.0 - Acute cholecystitis SNOMED: 67678136 Assessment/Plan: s/p open cholecystectomy will fu post op orderers per surg abx pain control Subjective ROS Limited/Unobtainable: Yes Allergies: Coded Allergies: LEVOFLOXACIN (Unverified Allergy, Mild, Redness, 04/25/20) Objective Last 24 Hour Vital Signs Date Time Temp Pulse Resp B/P (MAP) Pulse Ox O2 Delivery O2 Flow Rate FiO2 04/29/20 05:41 98.6 04/29/20 04:00 99.0 105 19 122/74 (90) 98 04/29/20 00:00 98.6 84 19 118/60 (79) 98 04/28/20 21:40 98 Nasal Cannula 3.0 32 04/28/20 21:00 Nasal Cannula 2.0 04/28/20 20:00 99.9 92 20 103/66 (78) 99 04/28/20 16:00 97.3 92 18 111/69 (83) 99 04/28/20 12:00 98.1 96 20 118/78 (91) 97 04/28/20 08:10 Nasal Cannula 2.0 04/28/20 08:00 98.1 91 20 124/80 (95) 97 04/28/20 08:00 97 Intake and Output 04/28/20 04/29/20 19:00 07:00 Intake Total 1307.5 ml 1110.0 ml Output Total 800 ml Balance 507.5 ml 1110.0 ml Intake Oral 1080 ml IV Total 227.5 ml 1110.0 ml Output Urine Total 800 ml # Voids 1 Laboratory Tests 04/28/20 11:16: POC Whole Blood Glucose 133H 04/29/20 06:00: White Blood Count 10.9H, Red Blood Count 4.15L, Hemoglobin 11.6L, Hematocrit 36.2L, Mean Corpuscular Volume 87, Mean Corpuscular Hemoglobin 28.0, Mean Corpuscular Hemoglobin Concent 32.1, Red Cell Distribution Width 15.8H, Platelet Count 183, Mean Platelet Volume 6.3L, Neutrophils (%) (Auto) 81.1H, Lymphocytes (%) (Auto) 8.9L, Monocytes (%) (Auto) 8.8, Eosinophils (%) (Auto) 0.8, Basophils (%) (Auto) 0.5, Sodium Level 136, Potassium Level 3.6, Chloride Level 105, Carbon Dioxide Level 27, Anion Gap 4L, Blood Urea Nitrogen 5L, Creatinine 0.9, Estimat Glomerular Filtration Rate > 60, Glucose Level 108H, Calcium Level 7.7L Height (Feet): 6 Height (Inches): 3.00 Weight (Pounds): 181 General Appearance: alert EENT: normal ENT inspection Neck: supple Cardiovascular: normal rate Respiratory/Chest: decreased breath sounds Abdomen: other - post surgical Extremities: non-tender Petey Marquez MD Apr 29, 2020 06:59
--- NOTE | 2020-04-29 07:39 | NUR ---
HAND-OFF: Report given to KHRIS Albarran.
--- NOTE | 2020-04-29 07:40 | NUR ---
NURSE NOTES: Report received from Greg PINEDO. Patient seen on rounds, AxOx4, not in distress, pt c/o pain on abdominal surgical site rated 8/10. Nurse reports last given IV Dilaudid at 0511. Educated pt on next pain med administration at 0811 and patient verbalized understanding. Dressings on lower and mid abdomen are dry and intact with no signs of bleeding, discharge or erythema surrounding site. Abdomen is protuberant and slightly distended. PIV on left hand and right forearm patent and intact. Bed low and locked, siderails up x2, call light placed within reach and instructed to call nurse for assistance. Will continue to monitor.
[2020-04-29 08:00] VITALS: BP 103/59
[2020-04-29] MEDS: Tamsulosin 0.4mg cap ORAL SCH (08:03)
[2020-04-29] MEDS: Docusate 100mg cap ORAL SCH ×2 (08:03→17:28)
[2020-04-29 12:00] VITALS: BP 115/81
--- NOTE | 2020-04-29 14:16 | Pulmonology Progress Note ---
Subjective ROS Limited/Unobtainable: Yes Interval Events: no new complains Allergies: Coded Allergies: LEVOFLOXACIN (Unverified Allergy, Mild, Redness, 04/25/20) Objective Last 24 Hour Vital Signs Date Time Temp Pulse Resp B/P (MAP) Pulse Ox O2 Delivery O2 Flow Rate FiO2 04/29/20 12:00 96.6 103 20 115/81 (92) 94 04/29/20 09:02 96 Nasal Cannula 3.0 32 04/29/20 09:00 Nasal Cannula 2.0 04/29/20 08:00 97.3 110 20 103/59 (74) 95 04/29/20 05:41 98.6 04/29/20 04:00 99.0 105 19 122/74 (90) 98 04/29/20 00:00 98.6 84 19 118/60 (79) 98 04/28/20 21:40 98 Nasal Cannula 3.0 32 04/28/20 21:00 Nasal Cannula 2.0 04/28/20 20:00 99.9 92 20 103/66 (78) 99 04/28/20 16:00 97.3 92 18 111/69 (83) 99 Intake and Output 04/28/20 04/29/20 19:00 07:00 Intake Total 1307.5 ml 1110.0 ml Output Total 800 ml Balance 507.5 ml 1110.0 ml Intake Oral 1080 ml IV Total 227.5 ml 1110.0 ml Output Urine Total 800 ml # Voids 1 General Appearance: no acute distress HEENT: normocephalic, atraumatic, anicteric Respiratory: chest wall non-tender, lungs clear, normal breath sounds Cardiovascular: normal peripheral pulses, normal rate, regular rhythm Abdomen: normal bowel sounds, soft, non tender, no organomegaly Genitourinary: normal external genitalia Extremities: no cyanosis Skin: no rash Neurologic: radiology transporter II-XII grossly normal Microbiology Date/Time Source Procedure Growth Status 04/26/20 14:22 Nasopharynx SARS-CoV-2 RdRp Gene Assay - Final Complete Laboratory Tests 04/28/20 16:44: POC Whole Blood Glucose 109H 04/29/20 06:00: White Blood Count 10.9H, Red Blood Count 4.15L, Hemoglobin 11.6L, Hematocrit 36.2L, Mean Corpuscular Volume 87, Mean Corpuscular Hemoglobin 28.0, Mean Corpuscular Hemoglobin Concent 32.1, Red Cell Distribution Width 15.8H, Platelet Count 183, Mean Platelet Volume 6.3L, Neutrophils (%) (Auto) 81.1H, Lymphocytes (%) (Auto) 8.9L, Monocytes (%) (Auto) 8.8, Eosinophils (%) (Auto) 0.8, Basophils (%) (Auto) 0.5, Sodium Level 136, Potassium Level 3.6, Chloride Level 105, Carbon Dioxide Level 27, Anion Gap 4L, Blood Urea Nitrogen 5L, Creatinine 0.9, Estimat Glomerular Filtration Rate > 60, Glucose Level 108H, Calcium Level 7.7L Current Medications Medications (Trade) Dose Ordered Sig/Renetta Route PRN Reason Start Time Stop Time Status Last Admin Dose Admin Acetaminophen (Tylenol) 650 mg Q4H PRN ORAL FEVER (T>100.5) 04/28/20 12:00 05/27/20 11:59 Al Hydroxide/Mg Hydroxide (Mylanta II) 30 ml Q6H PRN ORAL dyspepsia 04/28/20 12:30 05/25/20 12:29 Al Hydroxide/Mg Hydroxide (Mylanta) 15 ml Q6H PRN ORAL DYSPEPSIA 04/28/20 14:00 05/27/20 13:59 Dextrose (Dextrose 50%) 25 ml Q30M PRN IV Hypoglycemia 04/28/20 12:00 07/24/20 12:29 Dextrose (Dextrose 50%) 50 ml Q30M PRN IV Hypoglycemia 04/28/20 12:00 07/24/20 12:29 Diphenhydramine HCl (Benadryl) 25 mg Q8H PRN ORAL Itching/Pruritis 04/28/20 12:00 05/27/20 11:59 Docusate Sodium (Colace) 100 mg TWICE A DAY ORAL 04/28/20 18:00 05/27/20 17:59 04/29/20 08:03 Famotidine (Pepcid I.v.) 20 mg Q12HR IVP 04/28/20 21:00 05/25/20 20:59 04/29/20 08:02 Hydromorphone HCl (Dilaudid) 0.5 mg Q3H PRN IVP For Pain 04/28/20 12:15 05/05/20 09:14 04/29/20 11:08 Insulin Aspart (NovoLOG) BEFORE MEALS AND HS SUBQ 04/28/20 16:30 07/24/20 16:29 Lorazepam (Ativan) 1 mg Q4H PRN ORAL For Anxiety 04/28/20 12:00 05/02/20 11:59 Magnesium Hydroxide (Mom) 30 ml BIDPRN PRN ORAL Constipation 04/28/20 12:00 05/27/20 11:59 Ondansetron HCl (Zofran) 4 mg Q6H PRN IVP Nausea & Vomiting 04/28/20 12:00 05/27/20 11:59 04/29/20 06:57 Piperacillin Sod/ Tazobactam Sod 3.375 gm/Sodium Chloride 110 ml @ 27.5 mls/hr EVERY 8 HOURS IVPB 04/28/20 14:00 05/02/20 13:59 04/29/20 05:23 Sodium Chloride 1,000 ml @ 100 mls/hr Q10H IVLG 04/28/20 12:00 05/28/20 11:59 04/29/20 05:15 Tamsulosin HCl (Flomax) 0.4 mg DAILY ORAL 04/29/20 09:00 05/26/20 08:59 04/29/20 08:03 Temazepam (RestoriL) 7.5 mg HSPRN PRN ORAL Insomnia 04/28/20 14:00 05/05/20 13:59 Assessment/Plan Problems: (1) Cholecystitis, acute (2) Polymyositis (3) Immunosuppressed status (4) Pulmonary fibrosis (5) COPD (chronic obstructive pulmonary disease) (6) BPH (benign prostatic hyperplasia) (7) Diabetes mellitus Assessment/Plan no new complains doing better tolerated surgery the day before yesterday pain management f/u pathology report inflammatory markers are partially pending start diet as per GI iv fluids iv abx symptomatic treatment sliding scale dvt prophylaxis Rudi Kitchen MD Apr 29, 2020 14:16
--- NOTE | 2020-04-29 15:55 | NUR ---
NURSE NOTES: Daughter notified me that pt was taking the ff home meds: Cellcept 1500mg BID and Medrol 4mg QD for his polymyocitis. Wanted to clarify if medications were being resumed here at hospital. Patient also confirmed that he was taking these medications at home. Dr. Callahan (Rheumatology) made aware, asked to consult covering MD Dr. Jain. Received orders from Dr. Alejandra to resume both medications. Orders noted and carried out. Daughter made aware.
[2020-04-29 16:00] VITALS: BP 152/89
--- NOTE | 2020-04-29 17:25 | Internal Med Progress Note ---
Subjective Date of Service: Apr 29, 2020 Physician Name BritneyCirilo Attending Physician Jose Ramos MD Current Medications Medications (Trade) Dose Ordered Sig/Renetta Route PRN Reason Start Time Stop Time Status Last Admin Dose Admin Acetaminophen (Tylenol) 650 mg Q4H PRN ORAL FEVER (T>100.5) 04/28/20 12:00 05/27/20 11:59 Al Hydroxide/Mg Hydroxide (Mylanta II) 30 ml Q6H PRN ORAL dyspepsia 04/28/20 12:30 05/25/20 12:29 Al Hydroxide/Mg Hydroxide (Mylanta) 15 ml Q6H PRN ORAL DYSPEPSIA 04/28/20 14:00 05/27/20 13:59 Dextrose (Dextrose 50%) 25 ml Q30M PRN IV Hypoglycemia 04/28/20 12:00 07/24/20 12:29 Dextrose (Dextrose 50%) 50 ml Q30M PRN IV Hypoglycemia 04/28/20 12:00 07/24/20 12:29 Diphenhydramine HCl (Benadryl) 25 mg Q8H PRN ORAL Itching/Pruritis 04/28/20 12:00 05/27/20 11:59 Docusate Sodium (Colace) 100 mg TWICE A DAY ORAL 04/28/20 18:00 05/27/20 17:59 04/29/20 08:03 Famotidine (Pepcid I.v.) 20 mg Q12HR IVP 04/28/20 21:00 05/25/20 20:59 04/29/20 08:02 Hydromorphone HCl (Dilaudid) 0.5 mg Q3H PRN IVP For Pain 04/28/20 12:15 05/05/20 09:14 04/29/20 15:12 Insulin Aspart (NovoLOG) BEFORE MEALS AND HS SUBQ 04/28/20 16:30 07/24/20 16:29 Lorazepam (Ativan) 1 mg Q4H PRN ORAL For Anxiety 04/28/20 12:00 05/02/20 11:59 Magnesium Hydroxide (Mom) 30 ml BIDPRN PRN ORAL Constipation 04/28/20 12:00 05/27/20 11:59 Methylprednisolone (Medrol) 4 mg DAILY ORAL 04/29/20 15:15 05/29/20 15:14 04/29/20 15:48 Mycophenolate Mofetil (Cellcept) 1,500 mg TWICE A DAY ORAL 04/29/20 18:00 07/28/20 17:59 Ondansetron HCl (Zofran) 4 mg Q6H PRN IVP Nausea & Vomiting 04/28/20 12:00 05/27/20 11:59 04/29/20 16:03 Piperacillin Sod/ Tazobactam Sod 3.375 gm/Sodium Chloride 110 ml @ 27.5 mls/hr EVERY 8 HOURS IVPB 04/28/20 14:00 05/02/20 13:59 04/29/20 14:00 Sodium Chloride 1,000 ml @ 100 mls/hr Q10H IVLG 04/28/20 12:00 05/28/20 11:59 04/29/20 05:15 Tamsulosin HCl (Flomax) 0.4 mg DAILY ORAL 04/29/20 09:00 05/26/20 08:59 04/29/20 08:03 Temazepam (RestoriL) 7.5 mg HSPRN PRN ORAL Insomnia 04/28/20 14:00 05/05/20 13:59 Allergies: Coded Allergies: LEVOFLOXACIN (Unverified Allergy, Mild, Redness, 04/25/20) ROS Limited/Unobtainable: No Constitutional: Reports: no symptoms HEENT: Reports: no symptoms Cardiovascular: Reports: no symptoms Respiratory: Reports: no symptoms Gastrointestinal/Abdominal: Reports: abdominal pain Genitourinary: Reports: no symptoms Neurologic/Psychiatric: Reports: no symptoms Subjective 69 YO M admitted with epigastric pain and elevated liver function tests. Now cholelithiasis. Cover for Int Med-Dr Ramos. S/P open cholecystectomy 04/27/20 Objective Last Vital Signs Date Time Temp Pulse Resp B/P (MAP) Pulse Ox O2 Delivery O2 Flow Rate FiO2 04/29/20 16:00 96.8 113 20 152/89 (110) 95 04/29/20 09:02 Nasal Cannula 3.0 32 Laboratory Tests Test 04/29/20 06:00 White Blood Count 10.9 K/UL (4.8-10.8) H Red Blood Count 4.15 M/UL (4.70-6.10) L Hemoglobin 11.6 G/DL (14.2-18.0) L Hematocrit 36.2 % (42.0-52.0) L Mean Corpuscular Volume 87 FL (80-99) Mean Corpuscular Hemoglobin 28.0 PG (27.0-31.0) Mean Corpuscular Hemoglobin Concent 32.1 G/DL (32.0-36.0) Red Cell Distribution Width 15.8 % (11.6-14.8) H Platelet Count 183 K/UL (150-450) Mean Platelet Volume 6.3 FL (6.5-10.1) L Neutrophils (%) (Auto) 81.1 % (45.0-75.0) H Lymphocytes (%) (Auto) 8.9 % (20.0-45.0) L Monocytes (%) (Auto) 8.8 % (1.0-10.0) Eosinophils (%) (Auto) 0.8 % (0.0-3.0) Basophils (%) (Auto) 0.5 % (0.0-2.0) Sodium Level 136 MMOL/L (136-145) Potassium Level 3.6 MMOL/L (3.5-5.1) Chloride Level 105 MMOL/L (98-107) Carbon Dioxide Level 27 MMOL/L (21-32) Anion Gap 4 mmol/L (5-15) L Blood Urea Nitrogen 5 mg/dL (7-18) L Creatinine 0.9 MG/DL (0.55-1.30) Estimat Glomerular Filtration Rate > 60 mL/min (>60) Glucose Level 108 MG/DL (74-106) H Calcium Level 7.7 MG/DL (8.5-10.1) L Intake and Output 04/28/20 04/29/20 19:00 07:00 Intake Total 1307.5 ml 1110.0 ml Output Total 800 ml Balance 507.5 ml 1110.0 ml Intake Oral 1080 ml IV Total 227.5 ml 1110.0 ml Output Urine Total 800 ml # Voids 1 Objective PHYSICAL EXAMINATION: GENERAL: The patient is well-developed and well-nourished male, in no apparent distress. HEENT: Eyes, pupils are equal and responsive to light and accommodation. Extraocular movements are intact. NECK: Supple without lymphadenopathy. CHEST: Lungs are clear to auscultation bilaterally without wheezes or rales. CARDIOVASCULAR: Regular rhythm and rate. S1 and S2 are normal without murmurs, rubs, or gallops. ABDOMEN: Soft, nondistended with decreased bowel sounds. There is pain to palpation in the epigastric region. There is no rebound or guarding noted. EXTREMITIES: Negative for clubbing, cyanosis, or edema. RECTAL/GENITAL: Not performed. NEUROLOGIC: Cranial nerves II to XII intact without focal deficits. Motor strength is 5/5 bilaterally. Deep tendon reflexes are 2+ plantar. Assessment/Plan Assessment/Plan ASSESSMENT: This is a 69-year-old male. 1. Acute cholecystitis. 2. Elevated liver function tests. 3. Epigastric pain. 4. Diabetes type 2. 5. Pulmonary fibrosis. 6. Osteoporosis. 7. Benign prostatic hypertrophy. 8. H/O polymyositis TREATMENT: 1. Cholecystitis/elevated liver function tests. A Surgery consultation has been obtained with Dr. Wil Morse. S/P open cholecystectomy 04/27/20 We will follow recommendations of Surgery. 2. Epigastric pain. This is secondary to cholecystitis. 3. Diabetes type 2. Continue metformin as above. A NovoLog sliding scale has been instituted. 4. Pulmonary fibrosis. A Pulmonary consultation has been obtained with Dr. Rudi Kitchen. 5. Osteoporosis. Continue Fosamax as above. 6. Benign prostatic hypertrophy. Continue Flomax as above. 7. See rheumatology note= Dr Kincaid. 8. Tolerating clear liquid diet Cirilo Tan MD Apr 29, 2020 17:25
[2020-04-29] MEDS: Mycophenolate 250mg cap ORAL SCH (17:28)
--- NOTE | 2020-04-29 17:54 | Surgery Progress Note ---
Surgery Progress Note Subjective Procedure Performed lap converted to open nelda extensive open lysis of adhesions Additional Comments still with pain but improving no n/v/f/c Objective Last 24 Hour Vital Signs Date Time Temp Pulse Resp B/P (MAP) Pulse Ox O2 Delivery O2 Flow Rate FiO2 04/29/20 16:00 96.8 113 20 152/89 (110) 95 04/29/20 12:00 96.6 103 20 115/81 (92) 94 04/29/20 09:02 96 Nasal Cannula 3.0 32 04/29/20 09:00 Nasal Cannula 2.0 04/29/20 08:00 97.3 110 20 103/59 (74) 95 04/29/20 05:41 98.6 04/29/20 04:00 99.0 105 19 122/74 (90) 98 04/29/20 00:00 98.6 84 19 118/60 (79) 98 04/28/20 21:40 98 Nasal Cannula 3.0 32 04/28/20 21:00 Nasal Cannula 2.0 04/28/20 20:00 99.9 92 20 103/66 (78) 99 I&O Intake and Output 04/28/20 04/29/20 19:00 07:00 Intake Total 1307.5 ml 1110.0 ml Output Total 800 ml Balance 507.5 ml 1110.0 ml Intake Oral 1080 ml IV Total 227.5 ml 1110.0 ml Output Urine Total 800 ml # Voids 1 Cardiovascular: RSR Respiratory: clear, decreased breath sounds Abdomen: soft, distended, tenderness, present bowel sounds Extremities: no edema, no tenderness, no cyanosis Laboratory Tests Test 04/29/20 06:00 White Blood Count 10.9 K/UL (4.8-10.8) H Red Blood Count 4.15 M/UL (4.70-6.10) L Hemoglobin 11.6 G/DL (14.2-18.0) L Hematocrit 36.2 % (42.0-52.0) L Mean Corpuscular Volume 87 FL (80-99) Mean Corpuscular Hemoglobin 28.0 PG (27.0-31.0) Mean Corpuscular Hemoglobin Concent 32.1 G/DL (32.0-36.0) Red Cell Distribution Width 15.8 % (11.6-14.8) H Platelet Count 183 K/UL (150-450) Mean Platelet Volume 6.3 FL (6.5-10.1) L Neutrophils (%) (Auto) 81.1 % (45.0-75.0) H Lymphocytes (%) (Auto) 8.9 % (20.0-45.0) L Monocytes (%) (Auto) 8.8 % (1.0-10.0) Eosinophils (%) (Auto) 0.8 % (0.0-3.0) Basophils (%) (Auto) 0.5 % (0.0-2.0) Sodium Level 136 MMOL/L (136-145) Potassium Level 3.6 MMOL/L (3.5-5.1) Chloride Level 105 MMOL/L (98-107) Carbon Dioxide Level 27 MMOL/L (21-32) Anion Gap 4 mmol/L (5-15) L Blood Urea Nitrogen 5 mg/dL (7-18) L Creatinine 0.9 MG/DL (0.55-1.30) Estimat Glomerular Filtration Rate > 60 mL/min (>60) Glucose Level 108 MG/DL (74-106) H Calcium Level 7.7 MG/DL (8.5-10.1) L Plan Problems: (1) Cholecystitis, acute Assessment & Plan: 69-year-old male with acute cholecystitis diagnosed outside facility. Currently afebrile hemodynamic stable and improved with narcotic pain medication. On examination mild discomfort in the right upper quadrant. States he still feels the cramping but blunted with the medications. Currently no nausea or vomiting. Still pending reports have been looking to obtain. Okay for clear liquid diets given stable and patient is hungry IV fluids IV antibiotics Ultrasound ordered Labs ordered Will follow with recommendations as labs and imaging available. May potentially need cholecystectomy will monitor Thank you for let me participate in patient's care discussed care plan with patient. discussed lab findings and US findings. dx cholecystitis acute after discussing surgical vs non surgical options with patient he has elected to proceed with cholecystectomy which is indicated and recommended npo p mn iv fluids consent thank you called daughter multiple times but no answer. will cont to relay patients decision with family as requested s/p lap converted to open cholecystectomy for acute cholecystitis. distended, inflamed gb recovering incisional pain tolerating clears needs to be ambulatory incentive spirometry cont rx labs Wil Morse Apr 29, 2020 17:54
--- NOTE | 2020-04-29 19:14 | NUR ---
HAND-OFF: Report given to KHRIS Brown.
--- NOTE | 2020-04-29 19:20 | NUR ---
NURSE NOTES: RECEIVED PATIENT FROM KHRIS PARKER. PATIENT IS AWAKE, AAOX4, SWEDISH SPEAKER, ON NC 2L, NO RESPIRATORY DISTRESS NOTED. PATIENT C/O 10/10 ABDOMEN PAIN. WILL FOLLOW UP WITH PRN PAIN MEDICATION. ABDOMEN IS ROUND, LARGE AND FIRM UPON ASSESSMENT. SURGICAL BRAYDEN NOTED ON UPPER AND LOWER ABDOMEN. SURGICAL SITE OPEN TO AIR, BRAYDEN INTACT AND DRY, NO S/S OF INFECTION. PIV ON LEFT HAND 20G AND RIGHT FA 20G INTACT AND PATENT, LEFT HAND PIV RUNNING NS @100ML/HR. BED IS LOCKED AND LOW, BED ALARMS ACTIVE, SIDE RAILS UPX2, AND CALL LIGHT IS WITHIN REACH. WILL CONTINUE TO MONITOR.
[2020-04-29 20:00] VITALS: BP 126/76
[2020-04-29] MEDS: LORazepam 1mg tab ORAL PRN (22:27)
[2020-04-29] MEDS ORDERED: Morphine Sulfate 2mg/ml Inj(IV/IM USE ONLY) IVP PRN (23:15)
[2020-04-30] VITALS (7 sets, daily range): BP systolic 123–151; BP diastolic 75–96
--- NOTE | 2020-04-30 01:44 | NUR ---
NURSE NOTES: PATIENT HAD AN EPISODE OF NAUSEA AND VOMITING. MODERATE AMOUNT OF EMESIS NOTED. PRN ZOFRAN 4MG GIVEN. PATIENT ALSO C/O 10/10 PAIN IN ABDOMEN. RN CONTACTED DR. SARAH AND RECEIVED NEW ORDERS. PRN MORPHINE 4MG WAS GIVEN. PATIENT IS NOW RESTING IN BED COMFORTABLY. WILL CONTINUE TO MONITOR.
--- NOTE | 2020-04-30 03:05 | NUR ---
HAND-OFF: Report given to KHRIS Perez. Patient is in stable condition. Endorsed POC.
[2020-04-30] MEDS: Piperacillin/Tazobactam 3.375 GM in NS 110 ML IVPB SCH ×3 (05:14→20:21)
[2020-04-30] MEDS: NovoLOG Insulin Flexpen SUBQ SCH ×4 (06:09→20:23)
[2020-04-30 06:28] LABS: HEMOGLOBIN 10.8 G/DL (14.2-18.0); MEAN CORPUSCULAR VOLUME 89 FL (80-99); PLATELET COUNT 191 K/UL (150-450); RED BLOOD COUNT 3.81 M/UL (4.70-6.10); WHITE BLOOD COUNT 14.2 K/UL (4.8-10.8)
[2020-04-30 06:44] LABS: ALANINE AMINOTRANSFERASE 78 U/L (12-78); ALBUMIN 2.2 G/DL (3.4-5.0); ALBUMIN/GLOBULIN RATIO 0.7 (1.0-2.7); ALKALINE PHOSPHATASE 57 U/L (46-116); ANION GAP 8 mmol/L (5-15); ASPARTATE AMINO TRANSFERASE 37 U/L (15-37); BILIRUBIN,TOTAL 0.9 MG/DL (0.2-1.0); BLOOD UREA NITROGEN 7 mg/dL (7-18); CALCIUM 7.6 MG/DL (8.5-10.1); CARBON DIOXIDE 24 MMOL/L (21-32); CHLORIDE 105 MMOL/L (98-107); CREATININE 0.8 MG/DL (0.55-1.30); POTASSIUM 3.6 MMOL/L (3.5-5.1); SODIUM 137 MMOL/L (136-145)
--- NOTE | 2020-04-30 07:24 | NUR ---
NURSE HAND-OFF: Important Events on Shift: Patient Status: Diet: Pending Orders: Pending Results/Labs: Pending MD notification: Latest Vital Signs: Temperature 98.6 , Pulse 102 , B/P 123 /75 , Respiratory Rate 18 , O2 SAT 96 , Nasal Cannula, O2 Flow Rate 2.0 . Vital Sign Comment: Latest Ulrich Fall Score: 35 Fall Risk: Medium Risk Safety Measures: Call light Within Reach, Bed Alarm Zone 1, Side Rails Side Rails x2, Bed position Low and Locked. Fall Precautions: Patient Fall Education Report given to Mendy Dukes.
--- NOTE | 2020-04-30 07:35 | NUR ---
NURSE NOTES: Received report from KHRIS Perez. Patient A&Ox4, mostly Divehi speaking. On nasal cannula 2L/min. IV left hand intact, patent, and infusing IV fluids and IV right forearm patent and saline locked. No signs of distress. Bed in lowest position with call light in reach. Will continue with plan of care.
[2020-04-30] MEDS: Morphine Sulfate 4mg/ml Inj (IV USE ONLY) IVP PRN ×3 (08:00→19:05)
[2020-04-30] MEDS: Mycophenolate 250mg cap ORAL SCH ×2 (08:30→17:48)
[2020-04-30] MEDS: Docusate 100mg cap ORAL SCH ×2 (08:30→17:48)
[2020-04-30] MEDS: Tamsulosin 0.4mg cap ORAL SCH (08:30)
--- NOTE | 2020-04-30 09:26 | General Progress Note ---
Assessment/Plan Problem List: (1) Pulmonary fibrosis ICD Codes: J84.10 - Pulmonary fibrosis, unspecified SNOMED: 44538118 (2) Polymyositis ICD Codes: M33.20 - Polymyositis, organ involvement unspecified SNOMED: 32614250 (3) BPH (benign prostatic hyperplasia) ICD Codes: N40.0 - Benign prostatic hyperplasia without lower urinary tract symptoms SNOMED: 253945404 (4) COPD (chronic obstructive pulmonary disease) ICD Codes: J44.9 - Chronic obstructive pulmonary disease, unspecified SNOMED: 34306688 (5) Diabetes mellitus ICD Codes: E11.9 - Type 2 diabetes mellitus without complications SNOMED: 63366714 (6) Cholecystitis, acute ICD Codes: K81.0 - Acute cholecystitis SNOMED: 12405028 Assessment/Plan: s/p open cholecystectomy will fu post op orderers per surg>>>on clears zofran prn abx pain control Subjective ROS Limited/Unobtainable: Yes Allergies: Coded Allergies: LEVOFLOXACIN (Unverified Allergy, Mild, Redness, 04/25/20) Subjective c/o nausea c/o abd pain Objective Last 24 Hour Vital Signs Date Time Temp Pulse Resp B/P (MAP) Pulse Ox O2 Delivery O2 Flow Rate FiO2 04/30/20 08:47 Nasal Cannula 2.0 04/30/20 08:00 97.0 102 20 135/86 (102) 98 04/30/20 04:00 98.6 102 18 123/75 (91) 96 04/30/20 00:00 98.3 111 20 148/81 (103) 93 04/29/20 21:00 Nasal Cannula 2.0 04/29/20 20:22 97 Nasal Cannula 2.0 28 04/29/20 20:00 98.3 108 20 126/76 (93) 94 04/29/20 16:00 96.8 113 20 152/89 (110) 95 04/29/20 12:00 96.6 103 20 115/81 (92) 94 Intake and Output 04/29/20 04/30/20 19:00 07:00 Intake Total 500 ml 737.5 ml Output Total 300 ml Balance 500 ml 437.5 ml Intake Oral 400 ml IV Total 100 ml 737.5 ml Output Urine Total 300 ml # Voids 2 Laboratory Tests 04/30/20 05:10: White Blood Count 14.2H, Red Blood Count 3.81L, Hemoglobin 10.8L, Hematocrit 34.0L, Mean Corpuscular Volume 89, Mean Corpuscular Hemoglobin 28.2, Mean Corpuscular Hemoglobin Concent 31.6L, Red Cell Distribution Width 16.0H, Platelet Count 191, Mean Platelet Volume 6.8, Neutrophils (%) (Auto) , Lymphocytes (%) (Auto) , Monocytes (%) (Auto) , Eosinophils (%) (Auto) , Basophils (%) (Auto) , Sodium Level 137, Potassium Level 3.6, Chloride Level 105 , Carbon Dioxide Level 24, Anion Gap 8, Blood Urea Nitrogen 7, Creatinine 0.8, Estimat Glomerular Filtration Rate > 60, Glucose Level 126H, Calcium Level 7.6L , Total Bilirubin 0.9, Aspartate Amino Transf (AST/SGOT) 37, Alanine Aminotransferase (ALT/SGPT) 78, Alkaline Phosphatase 57, Total Protein 5.4L, Albumin 2.2L, Globulin 3.2, Albumin/Globulin Ratio 0.7L Height (Feet): 6 Height (Inches): 3.00 Weight (Pounds): 181 General Appearance: alert EENT: normal ENT inspection Neck: supple Cardiovascular: normal rate Respiratory/Chest: decreased breath sounds Abdomen: other - post surgical Extremities: non-tender Petey Marquez MD Apr 30, 2020 09:26
--- NOTE | 2020-04-30 13:47 | Pulmonology Progress Note ---
Subjective ROS Limited/Unobtainable: Yes Interval Events: no new complains Constitutional: Reports: no symptoms HEENT: Repors: no symptoms Respiratory: Reports: no symptoms Allergies: Coded Allergies: LEVOFLOXACIN (Unverified Allergy, Mild, Redness, 04/25/20) Objective Last 24 Hour Vital Signs Date Time Temp Pulse Resp B/P (MAP) Pulse Ox O2 Delivery O2 Flow Rate FiO2 04/30/20 08:47 Nasal Cannula 2.0 04/30/20 08:00 97.0 102 20 135/86 (102) 98 04/30/20 04:00 98.6 102 18 123/75 (91) 96 04/30/20 00:00 98.3 111 20 148/81 (103) 93 04/29/20 21:00 Nasal Cannula 2.0 04/29/20 20:22 97 Nasal Cannula 2.0 28 04/29/20 20:00 98.3 108 20 126/76 (93) 94 04/29/20 16:00 96.8 113 20 152/89 (110) 95 Intake and Output 04/29/20 04/30/20 19:00 07:00 Intake Total 500 ml 737.5 ml Output Total 300 ml Balance 500 ml 437.5 ml Intake Oral 400 ml IV Total 100 ml 737.5 ml Output Urine Total 300 ml # Voids 2 General Appearance: no acute distress HEENT: normocephalic, atraumatic, anicteric Respiratory: chest wall non-tender, lungs clear, normal breath sounds Cardiovascular: normal peripheral pulses, normal rate, regular rhythm Abdomen: normal bowel sounds, soft, non tender, no organomegaly Genitourinary: normal external genitalia Extremities: no cyanosis Skin: no rash 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 grossly normal Laboratory Tests 04/30/20 05:10: White Blood Count 14.2H, Red Blood Count 3.81L, Hemoglobin 10.8L, Hematocrit 34.0L, Mean Corpuscular Volume 89, Mean Corpuscular Hemoglobin 28.2, Mean Corpuscular Hemoglobin Concent 31.6L, Red Cell Distribution Width 16.0H, Platelet Count 191, Mean Platelet Volume 6.8, Neutrophils (%) (Auto) , Lymphocytes (%) (Auto) , Monocytes (%) (Auto) , Eosinophils (%) (Auto) , Basophils (%) (Auto) , Sodium Level 137, Potassium Level 3.6, Chloride Level 105 , Carbon Dioxide Level 24, Anion Gap 8, Blood Urea Nitrogen 7, Creatinine 0.8, Estimat Glomerular Filtration Rate > 60, Glucose Level 126H, Calcium Level 7.6L , Total Bilirubin 0.9, Aspartate Amino Transf (AST/SGOT) 37, Alanine Aminotransferase (ALT/SGPT) 78, Alkaline Phosphatase 57, Total Protein 5.4L, Albumin 2.2L, Globulin 3.2, Albumin/Globulin Ratio 0.7L Current Medications Medications (Trade) Dose Ordered Sig/Renetta Route PRN Reason Start Time Stop Time Status Last Admin Dose Admin Acetaminophen (Tylenol) 650 mg Q4H PRN ORAL FEVER (T>100.5) 04/28/20 12:00 05/27/20 11:59 Al Hydroxide/Mg Hydroxide (Mylanta II) 30 ml Q6H PRN ORAL dyspepsia 04/28/20 12:30 05/25/20 12:29 Al Hydroxide/Mg Hydroxide (Mylanta) 15 ml Q6H PRN ORAL DYSPEPSIA 04/28/20 14:00 05/27/20 13:59 Dextrose (Dextrose 50%) 25 ml Q30M PRN IV Hypoglycemia 04/28/20 12:00 07/24/20 12:29 Dextrose (Dextrose 50%) 50 ml Q30M PRN IV Hypoglycemia 04/28/20 12:00 07/24/20 12:29 Diphenhydramine HCl (Benadryl) 25 mg Q8H PRN ORAL Itching/Pruritis 04/28/20 12:00 05/27/20 11:59 Docusate Sodium (Colace) 100 mg TWICE A DAY ORAL 04/28/20 18:00 05/27/20 17:59 04/30/20 08:30 Famotidine (Pepcid I.v.) 20 mg Q12HR IVP 04/28/20 21:00 05/25/20 20:59 04/30/20 08:30 Hydromorphone HCl (Dilaudid) 0.5 mg Q3H PRN IVP For Pain 04/28/20 12:15 05/05/20 09:14 04/29/20 21:02 Insulin Aspart (NovoLOG) BEFORE MEALS AND HS SUBQ 04/28/20 16:30 07/24/20 16:29 Lorazepam (Ativan) 1 mg Q4H PRN ORAL For Anxiety 04/28/20 12:00 05/02/20 11:59 04/29/20 22:27 Magnesium Hydroxide (Mom) 30 ml BIDPRN PRN ORAL Constipation 04/28/20 12:00 05/27/20 11:59 Methylprednisolone (Medrol) 4 mg DAILY ORAL 04/29/20 15:15 05/29/20 15:14 04/30/20 08:30 Morphine Sulfate (Morphine Sulfate) 2 mg Q4H PRN IVP Moderate Pain (Pain Scale 4-6) 04/29/20 23:15 05/06/20 23:14 Morphine Sulfate (Morphine Sulfate) 4 mg Q4H PRN IVP Severe Pain (Pain Scale 7-10) 04/29/20 23:15 05/06/20 23:14 04/30/20 08:00 Mycophenolate Mofetil (Cellcept) 1,500 mg TWICE A DAY ORAL 04/29/20 18:00 07/28/20 17:59 04/30/20 08:30 Ondansetron HCl (Zofran) 4 mg Q6H PRN IVP Nausea & Vomiting 04/28/20 12:00 05/27/20 11:59 04/29/20 22:27 Piperacillin Sod/ Tazobactam Sod 3.375 gm/Sodium Chloride 110 ml @ 27.5 mls/hr EVERY 8 HOURS IVPB 04/28/20 14:00 05/02/20 13:59 04/30/20 05:14 Sodium Chloride 1,000 ml @ 100 mls/hr Q10H IVLG 04/28/20 12:00 05/28/20 11:59 04/30/20 12:50 Tamsulosin HCl (Flomax) 0.4 mg DAILY ORAL 04/29/20 09:00 05/26/20 08:59 04/30/20 08:30 Temazepam (RestoriL) 7.5 mg HSPRN PRN ORAL Insomnia 04/28/20 14:00 05/05/20 13:59 Assessment/Plan Problems: (1) Cholecystitis, acute (2) Polymyositis (3) Immunosuppressed status (4) Pulmonary fibrosis (5) COPD (chronic obstructive pulmonary disease) (6) BPH (benign prostatic hyperplasia) (7) Diabetes mellitus Assessment/Plan doing better tolerated surgery the day before yesterday pain management f/u pathology report iv fluids iv abx symptomatic treatment sliding scale dvt prophylaxis Rudi Kitchen MD Apr 30, 2020 13:47
--- NOTE | 2020-04-30 14:46 | NUR ---
CASE MANAGEMENT:REVIEW SI;POD #3 OPEN CHOLECYSTITIS 98.6 111 20 151/96 93% 2L NC WBC 14.2 H/H 10.8/34.0 CA 7.6 ALB 2.2 IS;MORPHINE IV MEDROL PO BID FLOMAX PO PEPCID IV Q12 ZOSYN IV Q8 IVF NS @ 100 ML/HR MED SURG STATUS DCP;FROM HOME
--- NOTE | 2020-04-30 15:00 | General Progress Note ---
Progress Note Progress Note doing better today pain improved passing flatus tolerating diet son and at bedside. discussed care plan no n/v/f/c tachy but improving labs noted wound c/d/i -adv diet activity as tolerated d/c planning as improves Wil Morse Apr 30, 2020 15:00
[2020-04-30] MEDS ORDERED: Morphine Sulfate 2mg/ml Inj(IV/IM USE ONLY) IVP PRN (15:15)
--- NOTE | 2020-04-30 19:33 | Internal Med Progress Note ---
Subjective Physician Name Jose Ramos Attending Physician Jose Ramos MD Current Medications Medications (Trade) Dose Ordered Sig/Renetta Route PRN Reason Start Time Stop Time Status Last Admin Dose Admin Acetaminophen (Tylenol) 650 mg Q4H PRN ORAL FEVER (T>100.5) 04/28/20 12:00 05/27/20 11:59 Acetaminophen/ Hydrocodone Bitart ([place] 5/325) 1 tab Q4H PRN ORAL Moderate Pain (Pain Scale 4-6) 04/30/20 15:03 05/07/20 15:02 Al Hydroxide/Mg Hydroxide (Mylanta II) 30 ml Q6H PRN ORAL dyspepsia 04/28/20 12:30 05/25/20 12:29 Al Hydroxide/Mg Hydroxide (Mylanta) 15 ml Q6H PRN ORAL DYSPEPSIA 04/28/20 14:00 05/27/20 13:59 Dextrose (Dextrose 50%) 25 ml Q30M PRN IV Hypoglycemia 04/28/20 12:00 07/24/20 12:29 Dextrose (Dextrose 50%) 50 ml Q30M PRN IV Hypoglycemia 04/28/20 12:00 07/24/20 12:29 Diphenhydramine HCl (Benadryl) 25 mg Q8H PRN ORAL Itching/Pruritis 04/28/20 12:00 05/27/20 11:59 Docusate Sodium (Colace) 100 mg TWICE A DAY ORAL 04/30/20 18:00 05/30/20 17:59 04/30/20 17:48 Famotidine (Pepcid I.v.) 20 mg Q12HR IVP 04/28/20 21:00 05/25/20 20:59 04/30/20 08:30 Hydromorphone HCl (Dilaudid) 0.5 mg Q3H PRN IVP For Pain 04/28/20 12:15 05/05/20 09:14 04/29/20 21:02 Insulin Aspart (NovoLOG) BEFORE MEALS AND HS SUBQ 04/28/20 16:30 07/24/20 16:29 Lorazepam (Ativan) 1 mg Q4H PRN ORAL For Anxiety 04/28/20 12:00 05/02/20 11:59 04/29/20 22:27 Magnesium Hydroxide (Mom) 30 ml BIDPRN PRN ORAL Constipation 04/28/20 12:00 05/27/20 11:59 Methylprednisolone (Medrol) 4 mg DAILY ORAL 04/29/20 15:15 05/29/20 15:14 04/30/20 08:30 Morphine Sulfate (Morphine Sulfate) 2 mg Q4H PRN IVP Moderate Pain (Pain Scale 4-6) 04/30/20 15:15 05/06/20 23:14 Morphine Sulfate (Morphine Sulfate) 4 mg Q4H PRN IVP Severe Pain (Pain Scale 7-10) 04/29/20 23:15 05/06/20 23:14 04/30/20 14:49 Mycophenolate Mofetil (Cellcept) 1,500 mg TWICE A DAY ORAL 04/29/20 18:00 07/28/20 17:59 04/30/20 17:48 Ondansetron HCl (Zofran) 4 mg Q6H PRN IVP Nausea & Vomiting 04/28/20 12:00 05/27/20 11:59 04/29/20 22:27 Piperacillin Sod/ Tazobactam Sod 3.375 gm/Sodium Chloride 110 ml @ 27.5 mls/hr EVERY 8 HOURS IVPB 04/28/20 14:00 05/02/20 13:59 04/30/20 14:48 Tamsulosin HCl (Flomax) 0.4 mg DAILY ORAL 04/29/20 09:00 05/26/20 08:59 04/30/20 08:30 Temazepam (RestoriL) 7.5 mg HSPRN PRN ORAL Insomnia 04/28/20 14:00 05/05/20 13:59 Allergies: Coded Allergies: LEVOFLOXACIN (Unverified Allergy, Mild, Redness, 04/25/20) Subjective alert, awake, responsive, denies any chest pain or shortness of breath, complaining about abdominal distention. elevated WBC: 14.2. Objective Last Vital Signs Date Time Temp Pulse Resp B/P (MAP) Pulse Ox O2 Delivery O2 Flow Rate FiO2 04/30/20 16:00 97.3 101 20 138/86 (103) 98 04/30/20 08:47 Nasal Cannula 2.0 04/29/20 20:22 28 Laboratory Tests Test 04/30/20 05:10 White Blood Count 14.2 K/UL (4.8-10.8) H Red Blood Count 3.81 M/UL (4.70-6.10) L Hemoglobin 10.8 G/DL (14.2-18.0) L Hematocrit 34.0 % (42.0-52.0) L Mean Corpuscular Volume 89 FL (80-99) Mean Corpuscular Hemoglobin 28.2 PG (27.0-31.0) Mean Corpuscular Hemoglobin Concent 31.6 G/DL (32.0-36.0) L Red Cell Distribution Width 16.0 % (11.6-14.8) H Platelet Count 191 K/UL (150-450) Mean Platelet Volume 6.8 FL (6.5-10.1) Neutrophils (%) (Auto) % (45.0-75.0) Lymphocytes (%) (Auto) % (20.0-45.0) Monocytes (%) (Auto) % (1.0-10.0) Eosinophils (%) (Auto) % (0.0-3.0) Basophils (%) (Auto) % (0.0-2.0) Sodium Level 137 MMOL/L (136-145) Potassium Level 3.6 MMOL/L (3.5-5.1) Chloride Level 105 MMOL/L (98-107) Carbon Dioxide Level 24 MMOL/L (21-32) Anion Gap 8 mmol/L (5-15) Blood Urea Nitrogen 7 mg/dL (7-18) Creatinine 0.8 MG/DL (0.55-1.30) Estimat Glomerular Filtration Rate > 60 mL/min (>60) Glucose Level 126 MG/DL (74-106) H Calcium Level 7.6 MG/DL (8.5-10.1) L Total Bilirubin 0.9 MG/DL (0.2-1.0) Aspartate Amino Transf (AST/SGOT) 37 U/L (15-37) Alanine Aminotransferase (ALT/SGPT) 78 U/L (12-78) Alkaline Phosphatase 57 U/L (46-116) Total Protein 5.4 G/DL (6.4-8.2) L Albumin 2.2 G/DL (3.4-5.0) L Globulin 3.2 g/dL Albumin/Globulin Ratio 0.7 (1.0-2.7) L Intake and Output 04/29/20 04/30/20 19:00 07:00 Intake Total 500 ml 737.5 ml Output Total 300 ml Balance 500 ml 437.5 ml Intake Oral 400 ml IV Total 100 ml 737.5 ml Output Urine Total 300 ml # Voids 2 Objective General: No acute distress, awake and alert HEENT: NCAT, sclera anicteric, PERRL, EOMI. Neck: Supple, no significant jugular venous distention, Lungs: Fair inspiratory effort, clear to auscultation bilaterally, no Wheeze or Rales. Heart: Regular rate and rhythm, normal S1/S2, no murmurs/gallops Abdomen: soft, nontender, obesity, abdominal distention with hypoactive bowel sounds. Surgical incision intact. / Rectal: Refused and deferred. Extremities: No Cyanosis , clubbing or edema. Neuro: A&O x 3, Able to move all extremities Skin: warm, no rashes or lesions Psych: Normal mood and affect Assessment/Plan Assessment/Plan ASSESSMENT: This is a 69-year-old male. 1. Acute cholecystitis. 2. Elevated liver function tests. 3. Epigastric pain. 4. Diabetes type 2. 5. Pulmonary fibrosis. 6. Osteoporosis. 7. Benign prostatic hypertrophy. 8. H/O polymyositis TREATMENT: 1. Cholecystitis/elevated liver function tests. A Surgery consultation has been obtained with Dr. Wil Morse. S/P open cholecystectomy 04/27/20 We will follow recommendations of Surgery. 2. Epigastric pain. This is secondary to cholecystitis. 3. Diabetes type 2. Continue metformin as above. A NovoLog sliding scale has been instituted. 4. Pulmonary fibrosis. A Pulmonary consultation has been obtained with Dr. Rudi Kitchen. 5. Osteoporosis. Continue Fosamax as above. 6. Benign prostatic hypertrophy. Continue Flomax as above. 7. See rheumatology note= Dr Kincaid. 8. advance diet as tolerated. antibiotics: Zosyn. Follow-up with laboratory in the morning. Jose Vallejo MD Apr 30, 2020 19:33
--- NOTE | 2020-04-30 19:40 | NUR ---
HAND-OFF: Report given to KHRIS Caba (JoJo). Patient stable, endorsed plan of care.
--- NOTE | 2020-04-30 20:41 | NUR ---
NURSE NOTES: Received patient awake, alert, verbal, Belarusian speaking, resting in bed, comfortable.
[2020-05-01] MEDS: Morphine Sulfate 4mg/ml Inj (IV USE ONLY) IVP PRN ×2 (01:41→05:57)
[2020-05-01] MEDS: LORazepam 1mg tab ORAL PRN (01:41)
[2020-05-01 04:00] VITALS: BP 125/77
[2020-05-01] MEDS: Piperacillin/Tazobactam 3.375 GM in NS 110 ML IVPB SCH ×3 (04:56→21:45)
[2020-05-01] MEDS: NovoLOG Insulin Flexpen SUBQ SCH ×4 (06:14→21:00)
[2020-05-01 06:24] LABS: BASOPHILS % (AUTO) 0.6 % (0.0-2.0); EOSINOPHILS % (AUTO) 1.8 % (0.0-3.0); HEMOGLOBIN 10.7 G/DL (14.2-18.0); LYMPHOCYTES % (AUTO) 8.5 % (20.0-45.0); MEAN CORPUSCULAR VOLUME 87 FL (80-99); MONOCYTES % (AUTO) 6.7 % (1.0-10.0); NEUTROPHILS % (AUTO) 82.5 % (45.0-75.0); PLATELET COUNT 231 K/UL (150-450); RED BLOOD COUNT 3.89 M/UL (4.70-6.10); RED CELL DISTRIBUTION WIDTH 15.6 % (11.6-14.8); WHITE BLOOD COUNT 11.2 K/UL (4.8-10.8)
[2020-05-01 07:04] LABS: ALANINE AMINOTRANSFERASE 75 U/L (12-78); ALBUMIN 2.4 G/DL (3.4-5.0); ALBUMIN/GLOBULIN RATIO 0.6 (1.0-2.7); ALKALINE PHOSPHATASE 68 U/L (46-116); ANION GAP 5 mmol/L (5-15); ASPARTATE AMINO TRANSFERASE 36 U/L (15-37); BILIRUBIN,TOTAL 0.6 MG/DL (0.2-1.0); BLOOD UREA NITROGEN 5 mg/dL (7-18); CALCIUM 8.1 MG/DL (8.5-10.1); CARBON DIOXIDE 29 MMOL/L (21-32); CHLORIDE 106 MMOL/L (98-107); CREATININE 0.9 MG/DL (0.55-1.30); POTASSIUM 3.9 MMOL/L (3.5-5.1); SODIUM 140 MMOL/L (136-145)
--- NOTE | 2020-05-01 07:09 | NUR ---
HAND-OFF: Report given to Yadira Hong RN/ Debbie Angel RN.
[2020-05-01 08:00] VITALS: BP 147/93
--- NOTE | 2020-05-01 08:00 | NUR ---
NURSE NOTES: Report received from KHRIS Novak. Patient seen lying in bed with HOB elevated. Alert, awake, and oriented x4. Greek speaking. No s/sx of SOB/Distress. Incentive spirometer at bedside, encouraged patient to use accordingly. No c/o any pain or gi/gu discomfort at this time. IV site located on L Hand gauge 22 saline lock and R Hand gauge 20 PIV. Both IV sites inplace and intact. Asymptomatic, no s/sx of swelling, warmth, or redness. Post op site seen on RUQ and navel with joao inplace no signs of any redness, swelling or infection noted. Call light placed within reach, bed placed on lowest and locked position. Will continue to monitor.
--- NOTE | 2020-05-01 08:26 | General Progress Note ---
Assessment/Plan Problem List: (1) Pulmonary fibrosis ICD Codes: J84.10 - Pulmonary fibrosis, unspecified SNOMED: 74625786 (2) Polymyositis ICD Codes: M33.20 - Polymyositis, organ involvement unspecified SNOMED: 33908832 (3) BPH (benign prostatic hyperplasia) ICD Codes: N40.0 - Benign prostatic hyperplasia without lower urinary tract symptoms SNOMED: 140351046 (4) COPD (chronic obstructive pulmonary disease) ICD Codes: J44.9 - Chronic obstructive pulmonary disease, unspecified SNOMED: 14041052 (5) Diabetes mellitus ICD Codes: E11.9 - Type 2 diabetes mellitus without complications SNOMED: 38643122 (6) Cholecystitis, acute ICD Codes: K81.0 - Acute cholecystitis SNOMED: 56313231 Assessment/Plan: s/p open cholecystectomy will fu post op orderers per surg zofran prn abx pain control Subjective ROS Limited/Unobtainable: Yes Allergies: Coded Allergies: LEVOFLOXACIN (Unverified Allergy, Mild, Redness, 04/25/20) Subjective c/o nausea c/o abd pain Objective Last 24 Hour Vital Signs Date Time Temp Pulse Resp B/P (MAP) Pulse Ox O2 Delivery O2 Flow Rate FiO2 05/01/20 08:00 98.2 100 20 147/93 (111) 94 05/01/20 06:39 98.2 05/01/20 04:00 98.2 87 18 125/77 (93) 92 04/30/20 21:08 Nasal Cannula 2.0 04/30/20 20:00 97.7 98 18 125/76 (92) 97 04/30/20 16:00 97.3 101 20 138/86 (103) 98 04/30/20 13:58 99 137/84 (101) 04/30/20 12:00 97.5 100 20 151/96 (114) 99 04/30/20 08:47 Nasal Cannula 2.0 Intake and Output 04/30/20 05/01/20 19:00 07:00 Intake Total 725.0 ml Output Total 800 ml Balance -800 ml 725.0 ml Intake Oral 560 ml IV Total 165.0 ml Output Urine Total 800 ml # Voids 4 Laboratory Tests 05/01/20 05:45: White Blood Count 11.2H, Red Blood Count 3.89L, Hemoglobin 10.7L, Hematocrit 34.0L, Mean Corpuscular Volume 87, Mean Corpuscular Hemoglobin 27.6, Mean Corpuscular Hemoglobin Concent 31.6L, Red Cell Distribution Width 15.6H, Platelet Count 231, Mean Platelet Volume 6.5, Neutrophils (%) (Auto) 82.5H, Lymphocytes (%) (Auto) 8.5L, Monocytes (%) (Auto) 6.7, Eosinophils (%) (Auto) 1.8, Basophils (%) (Auto) 0.6, Sodium Level 140, Potassium Level 3.9, Chloride Level 106, Carbon Dioxide Level 29, Anion Gap 5, Blood Urea Nitrogen 5L, Creatinine 0.9, Estimat Glomerular Filtration Rate > 60, Glucose Level 122H, Calcium Level 8.1L, Total Bilirubin 0.6, Aspartate Amino Transf (AST/SGOT) 36, Alanine Aminotransferase (ALT/SGPT) 75, Alkaline Phosphatase 68, Total Protein 6.1L, Albumin 2.4L, Globulin 3.7, Albumin/Globulin Ratio 0.6L Height (Feet): 6 Height (Inches): 3.00 Weight (Pounds): 181 General Appearance: alert EENT: normal ENT inspection Neck: supple Cardiovascular: normal rate Respiratory/Chest: decreased breath sounds Abdomen: normal bowel sounds, non tender, soft Extremities: non-tender Petey Marquez MD May 01, 2020 08:26
--- NOTE | 2020-05-01 08:52 | NUR ---
Spectacle Truer: Patient left unit for ABD xray with stable condition via w/c. IV on right fore arm intact.
--- NOTE | 2020-05-01 09:01 | NUR ---
RADIOLOGY DEPT., ABDOMEN X-RAY DONE.-P.DYE
[2020-05-01] MEDS: Docusate 100mg cap ORAL SCH ×2 (09:09→17:27)
[2020-05-01] MEDS: Mycophenolate 250mg cap ORAL SCH ×2 (09:10→17:27)
[2020-05-01] MEDS: Tamsulosin 0.4mg cap ORAL SCH (09:10)
--- NOTE | 2020-05-01 09:28 | Diagnostic Imaging Report ---
EXAM: XR Abdomen, 1 View CLINICAL HISTORY: CONSTIPATION TECHNIQUE: Frontal supine view of the abdomen/pelvis. COMPARISON: No relevant prior studies available. FINDINGS: Skin joao and surgical clips noted in the right abdomen. Significant increased fecal burden in the right colon. Gaseous distention of remainder of the colon. No sagar small bowel obstruction. Suboptimal evaluation for free air on this supine radiograph. Generalized osteopenia and degenerative changes in the lumbar spine. IMPRESSION: Increased fecal burden in the right colon with gaseous distention of remainder of the colon.
--- NOTE | 2020-05-01 10:48 | Surgery Progress Note ---
Surgery Progress Note Subjective Procedure Performed lap converted to open nelda extensive open lysis of adhesions Additional Comments improving passing flatus ambulatory tolerating diet pain improved wounds c/d/i plan d/c home rx written diet as tolerate outpatient follow up given staple removal in office instructions given thank you Objective Last 24 Hour Vital Signs Date Time Temp Pulse Resp B/P (MAP) Pulse Ox O2 Delivery O2 Flow Rate FiO2 05/01/20 09:00 Nasal Cannula 2.0 05/01/20 08:00 98.2 100 20 147/93 (111) 94 05/01/20 06:39 98.2 05/01/20 04:00 98.2 87 18 125/77 (93) 92 04/30/20 21:08 Nasal Cannula 2.0 04/30/20 20:00 97.7 98 18 125/76 (92) 97 04/30/20 16:00 97.3 101 20 138/86 (103) 98 04/30/20 13:58 99 137/84 (101) 04/30/20 12:00 97.5 100 20 151/96 (114) 99 I&O Intake and Output 04/30/20 05/01/20 19:00 07:00 Intake Total 725.0 ml Output Total 800 ml Balance -800 ml 725.0 ml Intake Oral 560 ml IV Total 165.0 ml Output Urine Total 800 ml # Voids 4 Laboratory Tests Test 05/01/20 05:45 White Blood Count 11.2 K/UL (4.8-10.8) H Red Blood Count 3.89 M/UL (4.70-6.10) L Hemoglobin 10.7 G/DL (14.2-18.0) L Hematocrit 34.0 % (42.0-52.0) L Mean Corpuscular Volume 87 FL (80-99) Mean Corpuscular Hemoglobin 27.6 PG (27.0-31.0) Mean Corpuscular Hemoglobin Concent 31.6 G/DL (32.0-36.0) L Red Cell Distribution Width 15.6 % (11.6-14.8) H Platelet Count 231 K/UL (150-450) Mean Platelet Volume 6.5 FL (6.5-10.1) Neutrophils (%) (Auto) 82.5 % (45.0-75.0) H Lymphocytes (%) (Auto) 8.5 % (20.0-45.0) L Monocytes (%) (Auto) 6.7 % (1.0-10.0) Eosinophils (%) (Auto) 1.8 % (0.0-3.0) Basophils (%) (Auto) 0.6 % (0.0-2.0) Sodium Level 140 MMOL/L (136-145) Potassium Level 3.9 MMOL/L (3.5-5.1) Chloride Level 106 MMOL/L (98-107) Carbon Dioxide Level 29 MMOL/L (21-32) Anion Gap 5 mmol/L (5-15) Blood Urea Nitrogen 5 mg/dL (7-18) L Creatinine 0.9 MG/DL (0.55-1.30) Estimat Glomerular Filtration Rate > 60 mL/min (>60) Glucose Level 122 MG/DL (74-106) H Calcium Level 8.1 MG/DL (8.5-10.1) L Total Bilirubin 0.6 MG/DL (0.2-1.0) Aspartate Amino Transf (AST/SGOT) 36 U/L (15-37) Alanine Aminotransferase (ALT/SGPT) 75 U/L (12-78) Alkaline Phosphatase 68 U/L (46-116) Total Protein 6.1 G/DL (6.4-8.2) L Albumin 2.4 G/DL (3.4-5.0) L Globulin 3.7 g/dL Albumin/Globulin Ratio 0.6 (1.0-2.7) L Plan Problems: (1) Cholecystitis, acute Assessment & Plan: 69-year-old male with acute cholecystitis diagnosed outside facility. Currently afebrile hemodynamic stable and improved with narcotic pain medication. On examination mild discomfort in the right upper quadrant. States he still feels the cramping but blunted with the medications. Currently no nausea or vomiting. Still pending reports have been looking to obtain. Okay for clear liquid diets given stable and patient is hungry IV fluids IV antibiotics Ultrasound ordered Labs ordered Will follow with recommendations as labs and imaging available. May potentially need cholecystectomy will monitor Thank you for let me participate in patient's care discussed care plan with patient. discussed lab findings and US findings. dx cholecystitis acute after discussing surgical vs non surgical options with patient he has elected to proceed with cholecystectomy which is indicated and recommended npo p mn iv fluids consent thank you called daughter multiple times but no answer. will cont to relay patients decision with family as requested s/p lap converted to open cholecystectomy for acute cholecystitis. distended, inflamed gb recovering incisional pain tolerating clears needs to be ambulatory incentive spirometry cont rx labs Wil Morse May 01, 2020 10:48
--- NOTE | 2020-05-01 11:15 | NUR ---
Cut Out Press Operator: New prescription upon discharge available in chart by Dr. morse. f/u appointment on 05/05/20@[address] Morse.
--- NOTE | 2020-05-01 11:39 | NUR ---
NURSE NOTES: patient was cleared for discharge by . notified Dr. Garcia. is aware.
[2020-05-01 12:00] VITALS: BP 137/93
[2020-05-01] MEDS: HYDROcodone/Acetamin 5/325 tab ORAL PRN (12:33)
--- NOTE | 2020-05-01 14:43 | Internal Med Progress Note ---
Subjective Date of Service: May 01, 2020 Physician Name BritneyCirilo Attending Physician Jose Ramos MD Current Medications Medications (Trade) Dose Ordered Sig/Renetta Route PRN Reason Start Time Stop Time Status Last Admin Dose Admin Acetaminophen (Tylenol) 650 mg Q4H PRN ORAL FEVER (T>100.5) 04/28/20 12:00 05/27/20 11:59 Acetaminophen/ Hydrocodone Bitart ([place] 5/325) 1 tab Q4H PRN ORAL Moderate Pain (Pain Scale 4-6) 04/30/20 15:03 05/07/20 15:02 05/01/20 12:33 Al Hydroxide/Mg Hydroxide (Mylanta II) 30 ml Q6H PRN ORAL dyspepsia 04/28/20 12:30 05/25/20 12:29 Al Hydroxide/Mg Hydroxide (Mylanta) 15 ml Q6H PRN ORAL DYSPEPSIA 04/28/20 14:00 05/27/20 13:59 Dextrose (Dextrose 50%) 25 ml Q30M PRN IV Hypoglycemia 04/28/20 12:00 07/24/20 12:29 Dextrose (Dextrose 50%) 50 ml Q30M PRN IV Hypoglycemia 04/28/20 12:00 07/24/20 12:29 Diphenhydramine HCl (Benadryl) 25 mg Q8H PRN ORAL Itching/Pruritis 04/28/20 12:00 05/27/20 11:59 Docusate Sodium (Colace) 100 mg TWICE A DAY ORAL 04/30/20 18:00 05/30/20 17:59 05/01/20 09:09 Insulin Aspart (NovoLOG) BEFORE MEALS AND HS SUBQ 04/28/20 16:30 07/24/20 16:29 04/30/20 20:23 Magnesium Hydroxide (Mom) 30 ml BIDPRN PRN ORAL Constipation 04/28/20 12:00 05/27/20 11:59 05/01/20 09:55 Methylprednisolone (Medrol) 4 mg DAILY ORAL 04/29/20 15:15 05/29/20 15:14 05/01/20 09:09 Mycophenolate Mofetil (Cellcept) 1,500 mg TWICE A DAY ORAL 04/29/20 18:00 07/28/20 17:59 05/01/20 09:10 Ondansetron HCl (Zofran) 4 mg Q6H PRN IVP Nausea & Vomiting 04/28/20 12:00 05/27/20 11:59 04/29/20 22:27 Piperacillin Sod/ Tazobactam Sod 3.375 gm/Sodium Chloride 110 ml @ 27.5 mls/hr EVERY 8 HOURS IVPB 04/28/20 14:00 05/02/20 13:59 05/01/20 13:57 Tamsulosin HCl (Flomax) 0.4 mg DAILY ORAL 04/29/20 09:00 05/26/20 08:59 05/01/20 09:10 Temazepam (RestoriL) 7.5 mg HSPRN PRN ORAL Insomnia 04/28/20 14:00 05/05/20 13:59 Allergies: Coded Allergies: LEVOFLOXACIN (Unverified Allergy, Mild, Redness, 04/25/20) ROS Limited/Unobtainable: No Constitutional: Reports: no symptoms HEENT: Reports: no symptoms Cardiovascular: Reports: no symptoms Respiratory: Reports: no symptoms Gastrointestinal/Abdominal: Reports: no symptoms Genitourinary: Reports: no symptoms Neurologic/Psychiatric: Reports: no symptoms Subjective 69 YO M admitted with epigastric pain and elevated liver function tests. Now cholelithiasis. Cover for Int Med-Dr Ramos. S/P open cholecystectomy 04/27/20 Objective Last Vital Signs Date Time Temp Pulse Resp B/P (MAP) Pulse Ox O2 Delivery O2 Flow Rate FiO2 05/01/20 12:00 96.8 88 22 137/93 (108) 100 05/01/20 09:00 Nasal Cannula 2.0 04/29/20 20:22 28 Laboratory Tests Test 05/01/20 05:45 White Blood Count 11.2 K/UL (4.8-10.8) H Red Blood Count 3.89 M/UL (4.70-6.10) L Hemoglobin 10.7 G/DL (14.2-18.0) L Hematocrit 34.0 % (42.0-52.0) L Mean Corpuscular Volume 87 FL (80-99) Mean Corpuscular Hemoglobin 27.6 PG (27.0-31.0) Mean Corpuscular Hemoglobin Concent 31.6 G/DL (32.0-36.0) L Red Cell Distribution Width 15.6 % (11.6-14.8) H Platelet Count 231 K/UL (150-450) Mean Platelet Volume 6.5 FL (6.5-10.1) Neutrophils (%) (Auto) 82.5 % (45.0-75.0) H Lymphocytes (%) (Auto) 8.5 % (20.0-45.0) L Monocytes (%) (Auto) 6.7 % (1.0-10.0) Eosinophils (%) (Auto) 1.8 % (0.0-3.0) Basophils (%) (Auto) 0.6 % (0.0-2.0) Sodium Level 140 MMOL/L (136-145) Potassium Level 3.9 MMOL/L (3.5-5.1) Chloride Level 106 MMOL/L (98-107) Carbon Dioxide Level 29 MMOL/L (21-32) Anion Gap 5 mmol/L (5-15) Blood Urea Nitrogen 5 mg/dL (7-18) L Creatinine 0.9 MG/DL (0.55-1.30) Estimat Glomerular Filtration Rate > 60 mL/min (>60) Glucose Level 122 MG/DL (74-106) H Calcium Level 8.1 MG/DL (8.5-10.1) L Total Bilirubin 0.6 MG/DL (0.2-1.0) Aspartate Amino Transf (AST/SGOT) 36 U/L (15-37) Alanine Aminotransferase (ALT/SGPT) 75 U/L (12-78) Alkaline Phosphatase 68 U/L (46-116) Total Protein 6.1 G/DL (6.4-8.2) L Albumin 2.4 G/DL (3.4-5.0) L Globulin 3.7 g/dL Albumin/Globulin Ratio 0.6 (1.0-2.7) L Intake and Output 04/30/20 05/01/20 19:00 07:00 Intake Total 725.0 ml Output Total 800 ml Balance -800 ml 725.0 ml Intake Oral 560 ml IV Total 165.0 ml Output Urine Total 800 ml # Voids 4 Objective PHYSICAL EXAMINATION: GENERAL: The patient is well-developed and well-nourished male, in no apparent distress. HEENT: Eyes, pupils are equal and responsive to light and accommodation. Extraocular movements are intact. NECK: Supple without lymphadenopathy. CHEST: Lungs are clear to auscultation bilaterally without wheezes or rales. CARDIOVASCULAR: Regular rhythm and rate. S1 and S2 are normal without murmurs, rubs, or gallops. ABDOMEN: Soft, nondistended with decreased bowel sounds. There is pain to palpation in the epigastric region. There is no rebound or guarding noted. EXTREMITIES: Negative for clubbing, cyanosis, or edema. RECTAL/GENITAL: Not performed. NEUROLOGIC: Cranial nerves II to XII intact without focal deficits. Motor strength is 5/5 bilaterally. Deep tendon reflexes are 2+ plantar. Assessment/Plan Assessment/Plan ASSESSMENT: This is a 69-year-old male. 1. Acute cholecystitis. 2. Elevated liver function tests. 3. Epigastric pain. 4. Diabetes type 2. 5. Pulmonary fibrosis. 6. Osteoporosis. 7. Benign prostatic hypertrophy. 8. H/O polymyositis TREATMENT: 1. Cholecystitis/elevated liver function tests. A Surgery consultation has been obtained with Dr. Wil Morse. S/P open cholecystectomy 04/27/20 We will follow recommendations of Surgery. 2. Epigastric pain. This is secondary to cholecystitis. 3. Diabetes type 2. Continue metformin as above. A NovoLog sliding scale has been instituted. 4. Pulmonary fibrosis. A Pulmonary consultation has been obtained with Dr. Rudi Kitchen. 5. Osteoporosis. Continue Fosamax as above. 6. Benign prostatic hypertrophy. Continue Flomax as above. 7. See rheumatology note= Dr Kincaid. 8. Tolerating regular 9. Discharge home today Cirilo Tan MD May 01, 2020 14:43
--- NOTE | 2020-05-01 15:16 | NUR ---
Cigar Packing Examiner: Patient waked hallway with PT
[2020-05-01 16:00] VITALS: BP 124/80
--- NOTE | 2020-05-01 17:54 | Pulmonology Progress Note ---
Subjective ROS Limited/Unobtainable: No Interval Events: no new complains Constitutional: Reports: no symptoms HEENT: Repors: no symptoms Respiratory: Reports: no symptoms Allergies: Coded Allergies: LEVOFLOXACIN (Unverified Allergy, Mild, Redness, 04/25/20) Objective Last 24 Hour Vital Signs Date Time Temp Pulse Resp B/P (MAP) Pulse Ox O2 Delivery O2 Flow Rate FiO2 05/01/20 16:00 97.9 94 20 124/80 (95) 95 05/01/20 12:00 96.8 88 22 137/93 (108) 100 05/01/20 09:00 Nasal Cannula 2.0 05/01/20 08:00 98.2 100 20 147/93 (111) 94 05/01/20 06:39 98.2 05/01/20 04:00 98.2 87 18 125/77 (93) 92 04/30/20 21:08 Nasal Cannula 2.0 04/30/20 20:00 97.7 98 18 125/76 (92) 97 Intake and Output 04/30/20 05/01/20 19:00 07:00 Intake Total 725.0 ml Output Total 800 ml Balance -800 ml 725.0 ml Intake Oral 560 ml IV Total 165.0 ml Output Urine Total 800 ml # Voids 4 General Appearance: no acute distress HEENT: normocephalic, atraumatic, anicteric Respiratory: chest wall non-tender, lungs clear, normal breath sounds Cardiovascular: normal peripheral pulses, normal rate, regular rhythm Abdomen: normal bowel sounds, soft, non tender, no organomegaly Genitourinary: normal external genitalia Extremities: no cyanosis Skin: no rash Neurologic: claim approver II-XII grossly normal Laboratory Tests 05/01/20 05:45: White Blood Count 11.2H, Red Blood Count 3.89L, Hemoglobin 10.7L, Hematocrit 34.0L, Mean Corpuscular Volume 87, Mean Corpuscular Hemoglobin 27.6, Mean Corpuscular Hemoglobin Concent 31.6L, Red Cell Distribution Width 15.6H, Platelet Count 231, Mean Platelet Volume 6.5, Neutrophils (%) (Auto) 82.5H, Lymphocytes (%) (Auto) 8.5L, Monocytes (%) (Auto) 6.7, Eosinophils (%) (Auto) 1.8, Basophils (%) (Auto) 0.6, Sodium Level 140, Potassium Level 3.9, Chloride Level 106, Carbon Dioxide Level 29, Anion Gap 5, Blood Urea Nitrogen 5L, Creatinine 0.9, Estimat Glomerular Filtration Rate > 60, Glucose Level 122H, Calcium Level 8.1L, Total Bilirubin 0.6, Aspartate Amino Transf (AST/SGOT) 36, Alanine Aminotransferase (ALT/SGPT) 75, Alkaline Phosphatase 68, Total Protein 6.1L, Albumin 2.4L, Globulin 3.7, Albumin/Globulin Ratio 0.6L Current Medications Medications (Trade) Dose Ordered Sig/Renetta Route PRN Reason Start Time Stop Time Status Last Admin Dose Admin Acetaminophen (Tylenol) 650 mg Q4H PRN ORAL FEVER (T>100.5) 04/28/20 12:00 05/27/20 11:59 Acetaminophen/ Hydrocodone Bitart ([place] 5/325) 1 tab Q4H PRN ORAL Moderate Pain (Pain Scale 4-6) 04/30/20 15:03 05/07/20 15:02 05/01/20 12:33 Al Hydroxide/Mg Hydroxide (Mylanta II) 30 ml Q6H PRN ORAL dyspepsia 04/28/20 12:30 05/25/20 12:29 Al Hydroxide/Mg Hydroxide (Mylanta) 15 ml Q6H PRN ORAL DYSPEPSIA 04/28/20 14:00 05/27/20 13:59 Dextrose (Dextrose 50%) 25 ml Q30M PRN IV Hypoglycemia 04/28/20 12:00 07/24/20 12:29 Dextrose (Dextrose 50%) 50 ml Q30M PRN IV Hypoglycemia 04/28/20 12:00 07/24/20 12:29 Diphenhydramine HCl (Benadryl) 25 mg Q8H PRN ORAL Itching/Pruritis 04/28/20 12:00 05/27/20 11:59 Docusate Sodium (Colace) 100 mg TWICE A DAY ORAL 04/30/20 18:00 05/30/20 17:59 05/01/20 17:27 Insulin Aspart (NovoLOG) BEFORE MEALS AND HS SUBQ 04/28/20 16:30 07/24/20 16:29 05/01/20 16:38 Magnesium Hydroxide (Mom) 30 ml BIDPRN PRN ORAL Constipation 04/28/20 12:00 05/27/20 11:59 05/01/20 09:55 Methylprednisolone (Medrol) 4 mg DAILY ORAL 04/29/20 15:15 05/29/20 15:14 05/01/20 09:09 Mycophenolate Mofetil (Cellcept) 1,500 mg TWICE A DAY ORAL 04/29/20 18:00 07/28/20 17:59 05/01/20 17:27 Ondansetron HCl (Zofran) 4 mg Q6H PRN IVP Nausea & Vomiting 04/28/20 12:00 05/27/20 11:59 04/29/20 22:27 Piperacillin Sod/ Tazobactam Sod 3.375 gm/Sodium Chloride 110 ml @ 27.5 mls/hr EVERY 8 HOURS IVPB 04/28/20 14:00 05/02/20 13:59 05/01/20 13:57 Tamsulosin HCl (Flomax) 0.4 mg DAILY ORAL 04/29/20 09:00 05/26/20 08:59 05/01/20 09:10 Temazepam (RestoriL) 7.5 mg HSPRN PRN ORAL Insomnia 04/28/20 14:00 05/05/20 13:59 Assessment/Plan Problems: (1) Cholecystitis, acute (2) Polymyositis (3) Immunosuppressed status (4) Pulmonary fibrosis (5) COPD (chronic obstructive pulmonary disease) (6) BPH (benign prostatic hyperplasia) (7) Diabetes mellitus Assessment/Plan start PT doing better tolerated surgery the day before yesterday pain management f/u pathology report iv fluids iv abx symptomatic treatment sliding scale dvt prophylaxis Rudi Kitchen MD May 01, 2020 17:53
--- NOTE | 2020-05-01 19:15 | NUR ---
NURSE NOTES: Received report from Yadira PINEDO and Debbie PINEDO.
--- NOTE | 2020-05-01 19:23 | NUR ---
NURSE HAND-OFF: Important Events on Shift:clearance for d/c from Dr. Morse, per Dr Kitchen observe safe gait before discharge Patient Status: stable Diet: regular Pending Orders: n/a Pending Results/Labs:n/a Pending MD notification:n/a Latest Vital Signs: Temperature 97.9 , Pulse 94 , B/P 124 /80 , Respiratory Rate 20 , O2 SAT 97 , Nasal Cannula, O2 Flow Rate 2.0 . Vital Sign Comment: stable Latest Ulrich Fall Score: 35 Fall Risk: Medium Risk Safety Measures: Call light Within Reach, Bed Alarm Zone 1, Side Rails Side Rails x2, Bed position Low and Locked. Fall Precautions: Patient Fall Education Report given to KHRIS Summers .
[2020-05-01 20:00] VITALS: BP 129/87
[2020-05-02] VITALS: BP 129/73
[2020-05-02] MEDS: HYDROcodone/Acetamin 5/325 tab ORAL PRN ×3 (00:42→14:07)
[2020-05-02 04:00] VITALS: BP 125/80
--- NOTE | 2020-05-02 06:21 | NUR ---
Pt. remained alert and oriented. Slept at longer intervals. Complained of post op, relieved by prn meds given. On continued ivatb therapy of Zosyn, without a/r noted. Voiding freely. BS checked, within range. Dressing on post op site, dry and intact. Will continue to monitor.
[2020-05-02] MEDS: NovoLOG Insulin Flexpen SUBQ SCH ×4 (06:30→21:00)
[2020-05-02] MEDS: Piperacillin/Tazobactam 3.375 GM in NS 110 ML IVPB SCH ×3 (06:53→21:31)
--- NOTE | 2020-05-02 07:32 | NUR ---
Endorsed to Yadira PINEDO and Debbie PINEDO.
--- NOTE | 2020-05-02 07:44 | NUR ---
Printer Machine: received report from KristopherRN. patient in bed,A&Ox 4, verbally responsive. no respiratory distress noted on 2L via NC. mild discomfort on right abd area. IV on RFA running zosyn. encouraged to use IS while awake. no isolation. need assist with FWW for ambulation. fall risk. yellow socks on. bed in the lowest position and locked. call light within reach. sign on door. will continue to provide plan of care.
[2020-05-02 08:00] VITALS: BP 117/74
[2020-05-02] MEDS: Docusate 100mg cap ORAL SCH ×2 (08:06→18:01)
[2020-05-02] MEDS: Tamsulosin 0.4mg cap ORAL SCH (08:06)
[2020-05-02] MEDS: Mycophenolate 250mg cap ORAL SCH ×2 (08:07→18:02)
--- NOTE | 2020-05-02 08:33 | General Progress Note ---
Assessment/Plan Problem List: (1) Pulmonary fibrosis ICD Codes: J84.10 - Pulmonary fibrosis, unspecified SNOMED: 39133585 (2) Polymyositis ICD Codes: M33.20 - Polymyositis, organ involvement unspecified SNOMED: 95922257 (3) BPH (benign prostatic hyperplasia) ICD Codes: N40.0 - Benign prostatic hyperplasia without lower urinary tract symptoms SNOMED: 086818834 (4) COPD (chronic obstructive pulmonary disease) ICD Codes: J44.9 - Chronic obstructive pulmonary disease, unspecified SNOMED: 09074303 (5) Diabetes mellitus ICD Codes: E11.9 - Type 2 diabetes mellitus without complications SNOMED: 37692630 (6) Cholecystitis, acute ICD Codes: K81.0 - Acute cholecystitis SNOMED: 85499822 Assessment/Plan: s/p open cholecystectomy will fu post op orderers per surg zofran prn abx pain control pend possible dc Subjective ROS Limited/Unobtainable: No Allergies: Coded Allergies: LEVOFLOXACIN (Unverified Allergy, Mild, Redness, 04/25/20) Subjective c/o nausea c/o abd pain Objective Last 24 Hour Vital Signs Date Time Temp Pulse Resp B/P (MAP) Pulse Ox O2 Delivery O2 Flow Rate FiO2 05/02/20 08:00 97.5 87 19 117/74 (88) 99 05/02/20 05:10 97.3 05/02/20 04:05 97.4 05/02/20 04:00 97.5 94 22 125/80 (95) 95 05/02/20 00:00 98.1 82 20 129/73 (91) 96 05/01/20 21:00 Nasal Cannula 2.0 05/01/20 20:00 97.7 98 24 129/87 (101) 100 05/01/20 19:14 97 Nasal Cannula 2.0 28 05/01/20 16:00 97.9 94 20 124/80 (95) 95 05/01/20 12:00 96.8 88 22 137/93 (108) 100 05/01/20 09:00 Nasal Cannula 2.0 Intake and Output 05/01/20 05/02/20 19:00 07:00 Intake Total 1600 ml 470.0 ml Output Total 1300 ml Balance 300 ml 470.0 ml Intake Oral 1600 ml IV Total 110.0 ml Other 360 ml Output Urine Total 1300 ml # Voids 4 Height (Feet): 6 Height (Inches): 3.00 Weight (Pounds): 181 General Appearance: alert EENT: normal ENT inspection Neck: normal alignment Cardiovascular: normal rate Respiratory/Chest: decreased breath sounds Abdomen: hypoactive bowel sounds Extremities: non-tender Petey Marquez MD May 02, 2020 08:33
[2020-05-02 12:00] VITALS: BP 132/73
--- NOTE | 2020-05-02 12:20 | NUR ---
Patient is cleared from PT standpoint recommended to be d/c with front wheel walker. Notified Dr. Imtiaz MD is aware.
--- NOTE | 2020-05-02 12:25 | NUR ---
RD ASSESSMENT & RECOMMENDATIONS SEE CARE ACTIVITY FOR COMPLETE ASSESSMENT DAILY ESTIMATED NEEDS: Needs based on DM, surgery 82kg 25-30 kcals/kg 7545-7227 total kcals 1-1.5 g protein/kg 82-123 g total protein 25-30 mL/kg 5972-6973 total fluid mLs NUTRITION DIAGNOSIS: Altered nutrition related lab values r/t DM as evidenced by A1C 6.7. CURRENT DIET: Now Regular PO DIET RECOMMENDATIONS: CCHO MED/ SOFT DIET ADDITIONAL RECOMMENDATIONS: 1) Bowel regimen 2) Prune juice w/ meals, TID 3) Obtain a standing weight as able 4) Monitor tolerance to diet
--- NOTE | 2020-05-02 15:35 | Internal Med Progress Note ---
Subjective Date of Service: May 02, 2020 Physician Name BritneyCirilo Attending Physician Jose Ramos MD Current Medications Medications (Trade) Dose Ordered Sig/Renetta Route PRN Reason Start Time Stop Time Status Last Admin Dose Admin Acetaminophen (Tylenol) 650 mg Q4H PRN ORAL FEVER (T>100.5) 04/28/20 12:00 05/27/20 11:59 05/02/20 03:35 Acetaminophen (Tylenol) 650 mg Q4H PRN ORAL Mild Pain (Pain Scale 1-3) 05/02/20 14:30 06/01/20 14:29 Acetaminophen/ Hydrocodone Bitart ([place] 5/325) 1 tab Q4H PRN ORAL Moderate Pain (Pain Scale 4-6) 04/30/20 15:03 05/07/20 15:02 05/02/20 14:07 Al Hydroxide/Mg Hydroxide (Mylanta II) 30 ml Q6H PRN ORAL dyspepsia 04/28/20 12:30 05/25/20 12:29 Al Hydroxide/Mg Hydroxide (Mylanta) 15 ml Q6H PRN ORAL DYSPEPSIA 04/28/20 14:00 05/27/20 13:59 Bisacodyl (Dulcolax) 10 mg DAILYPRN PRN RECTAL Constipation 05/02/20 14:30 07/31/20 14:29 05/02/20 15:10 Dextrose (Dextrose 50%) 25 ml Q30M PRN IV Hypoglycemia 04/28/20 12:00 07/24/20 12:29 Dextrose (Dextrose 50%) 50 ml Q30M PRN IV Hypoglycemia 04/28/20 12:00 07/24/20 12:29 Diclofenac Sodium (Voltaren gel) 1 applic QID TOPIC 05/02/20 18:00 07/31/20 17:59 Diphenhydramine HCl (Benadryl) 25 mg Q8H PRN ORAL Itching/Pruritis 04/28/20 12:00 05/27/20 11:59 Docusate Sodium (Colace) 100 mg TWICE A DAY ORAL 04/30/20 18:00 05/30/20 17:59 05/02/20 08:06 Insulin Aspart (NovoLOG) BEFORE MEALS AND HS SUBQ 04/28/20 16:30 07/24/20 16:29 05/01/20 16:38 Magnesium Hydroxide (Mom) 30 ml BIDPRN PRN ORAL Constipation 04/28/20 12:00 05/27/20 11:59 05/01/20 09:55 Methylprednisolone (Medrol) 4 mg DAILY ORAL 04/29/20 15:15 05/29/20 15:14 05/02/20 08:06 Mycophenolate Mofetil (Cellcept) 1,500 mg TWICE A DAY ORAL 04/29/20 18:00 07/28/20 17:59 05/02/20 08:07 Ondansetron HCl (Zofran) 4 mg Q6H PRN IVP Nausea & Vomiting 04/28/20 12:00 05/27/20 11:59 04/29/20 22:27 Piperacillin Sod/ Tazobactam Sod 3.375 gm/Sodium Chloride 110 ml @ 27.5 mls/hr EVERY 8 HOURS IVPB 05/02/20 15:30 05/03/20 15:29 Tamsulosin HCl (Flomax) 0.4 mg DAILY ORAL 04/29/20 09:00 05/26/20 08:59 05/02/20 08:06 Temazepam (RestoriL) 7.5 mg HSPRN PRN ORAL Insomnia 04/28/20 14:00 05/05/20 13:59 Allergies: Coded Allergies: LEVOFLOXACIN (Unverified Allergy, Mild, Redness, 04/25/20) ROS Limited/Unobtainable: No Constitutional: Reports: no symptoms HEENT: Reports: no symptoms Cardiovascular: Reports: no symptoms Respiratory: Reports: no symptoms Gastrointestinal/Abdominal: Reports: abdomen distended, constipated Genitourinary: Reports: no symptoms Neurologic/Psychiatric: Reports: no symptoms Subjective 69 YO M admitted with epigastric pain and elevated liver function tests. Now cholelithiasis. Cover for Int Jerad-Dr Ramos. S/P open cholecystectomy 04/27/20. C/O constipation Objective Last Vital Signs Date Time Temp Pulse Resp B/P (MAP) Pulse Ox O2 Delivery O2 Flow Rate FiO2 05/02/20 12:00 97.2 99 18 132/73 (92) 92 05/02/20 09:00 Nasal Cannula 2.0 05/01/20 19:14 28 Laboratory Tests Test 05/01/20 16:15 05/02/20 06:17 05/02/20 11:35 POC Whole Blood Glucose 155 MG/DL (74-106) H 108 MG/DL (74-106) H 124 MG/DL (74-106) H Intake and Output 05/01/20 05/02/20 19:00 07:00 Intake Total 1600 ml 470.0 ml Output Total 1300 ml Balance 300 ml 470.0 ml Intake Oral 1600 ml IV Total 110.0 ml Other 360 ml Output Urine Total 1300 ml # Voids 4 Objective PHYSICAL EXAMINATION: GENERAL: The patient is well-developed and well-nourished male, in no apparent distress. HEENT: Eyes, pupils are equal and responsive to light and accommodation. Extraocular movements are intact. NECK: Supple without lymphadenopathy. CHEST: Lungs are clear to auscultation bilaterally without wheezes or rales. CARDIOVASCULAR: Regular rhythm and rate. S1 and S2 are normal without murmurs, rubs, or gallops. ABDOMEN: Soft, nondistended with decreased bowel sounds. There is pain to palpation in the epigastric region. There is no rebound or guarding noted. EXTREMITIES: Negative for clubbing, cyanosis, or edema. RECTAL/GENITAL: Not performed. NEUROLOGIC: Cranial nerves II to XII intact without focal deficits. Motor strength is 5/5 bilaterally. Deep tendon reflexes are 2+ plantar. Assessment/Plan Assessment/Plan ASSESSMENT: This is a 69-year-old male. 1. Acute cholecystitis. 2. Elevated liver function tests. 3. Epigastric pain. 4. Diabetes type 2. 5. Pulmonary fibrosis. 6. Osteoporosis. 7. Benign prostatic hypertrophy. 8. H/O polymyositis 9. Constipation TREATMENT: 1. Cholecystitis/elevated liver function tests. A Surgery consultation has been obtained with Dr. Wil Morse. S/P open cholecystectomy 04/27/20 We will follow recommendations of Surgery. 2. Epigastric pain. This is secondary to cholecystitis. 3. Diabetes type 2. Continue metformin as above. A NovoLog sliding scale has been instituted. 4. Pulmonary fibrosis. A Pulmonary consultation has been obtained with Dr. Rudi Kitchen. 5. Osteoporosis. Continue Fosamax as above. 6. Benign prostatic hypertrophy. Continue Flomax as above. 7. See rheumatology note= Dr Kincaid. 8. Tolerating regular 9. Dulcolax suppository Cirilo Tan MD May 02, 2020 15:35
[2020-05-02 16:30] VITALS: BP 138/65
[2020-05-02] MEDS: Diclofenac 1% Gel 100gm TOPIC SCH ×2 (18:02→21:00)
--- NOTE | 2020-05-02 18:52 | Pulmonology Progress Note ---
Subjective ROS Limited/Unobtainable: No Interval Events: no new complains Constitutional: Reports: no symptoms HEENT: Repors: no symptoms Respiratory: Reports: no symptoms Allergies: Coded Allergies: LEVOFLOXACIN (Unverified Allergy, Mild, Redness, 04/25/20) All Systems: reviewed and negative except above Objective Last 24 Hour Vital Signs Date Time Temp Pulse Resp B/P (MAP) Pulse Ox O2 Delivery O2 Flow Rate FiO2 05/02/20 16:30 97.7 84 18 138/65 (89) 100 05/02/20 12:00 97.2 99 18 132/73 (92) 92 05/02/20 09:00 Nasal Cannula 2.0 05/02/20 08:00 97.5 87 19 117/74 (88) 99 05/02/20 05:10 97.3 05/02/20 04:05 97.4 05/02/20 04:00 97.5 94 22 125/80 (95) 95 05/02/20 00:00 98.1 82 20 129/73 (91) 96 05/01/20 21:00 Nasal Cannula 2.0 05/01/20 20:00 97.7 98 24 129/87 (101) 100 05/01/20 19:14 97 Nasal Cannula 2.0 28 Intake and Output 05/01/20 05/02/20 19:00 07:00 Intake Total 1600 ml 470.0 ml Output Total 1300 ml Balance 300 ml 470.0 ml Intake Oral 1600 ml IV Total 110.0 ml Other 360 ml Output Urine Total 1300 ml # Voids 4 General Appearance: no acute distress HEENT: normocephalic, atraumatic, anicteric Respiratory: chest wall non-tender, lungs clear, normal breath sounds Cardiovascular: normal peripheral pulses, normal rate, regular rhythm Abdomen: normal bowel sounds, soft, non tender, no organomegaly Genitourinary: normal external genitalia Extremities: no cyanosis Skin: no rash Neurologic: performance instructor II-XII grossly normal Laboratory Tests 05/02/20 06:17: POC Whole Blood Glucose 108H 05/02/20 11:35: POC Whole Blood Glucose 124H Current Medications Medications (Trade) Dose Ordered Sig/Renetta Route PRN Reason Start Time Stop Time Status Last Admin Dose Admin Acetaminophen (Tylenol) 650 mg Q4H PRN ORAL FEVER (T>100.5) 04/28/20 12:00 05/27/20 11:59 05/02/20 03:35 Acetaminophen (Tylenol) 650 mg Q4H PRN ORAL Mild Pain (Pain Scale 1-3) 05/02/20 14:30 06/01/20 14:29 Acetaminophen/ Hydrocodone Bitart ([place] 5/325) 1 tab Q4H PRN ORAL Moderate Pain (Pain Scale 4-6) 04/30/20 15:03 05/07/20 15:02 05/02/20 14:07 Al Hydroxide/Mg Hydroxide (Mylanta II) 30 ml Q6H PRN ORAL dyspepsia 04/28/20 12:30 05/25/20 12:29 Al Hydroxide/Mg Hydroxide (Mylanta) 15 ml Q6H PRN ORAL DYSPEPSIA 04/28/20 14:00 05/27/20 13:59 Bisacodyl (Dulcolax) 10 mg DAILYPRN PRN RECTAL Constipation 05/02/20 14:30 07/31/20 14:29 05/02/20 15:10 Dextrose (Dextrose 50%) 25 ml Q30M PRN IV Hypoglycemia 04/28/20 12:00 07/24/20 12:29 Dextrose (Dextrose 50%) 50 ml Q30M PRN IV Hypoglycemia 04/28/20 12:00 07/24/20 12:29 Diclofenac Sodium (Voltaren gel) 1 applic QID TOPIC 05/02/20 18:00 07/31/20 17:59 05/02/20 18:02 Diphenhydramine HCl (Benadryl) 25 mg Q8H PRN ORAL Itching/Pruritis 04/28/20 12:00 05/27/20 11:59 Docusate Sodium (Colace) 100 mg TWICE A DAY ORAL 04/30/20 18:00 05/30/20 17:59 05/02/20 18:01 Insulin Aspart (NovoLOG) BEFORE MEALS AND HS SUBQ 04/28/20 16:30 07/24/20 16:29 05/01/20 16:38 Magnesium Hydroxide (Mom) 30 ml BIDPRN PRN ORAL Constipation 04/28/20 12:00 05/27/20 11:59 05/01/20 09:55 Methylprednisolone (Medrol) 4 mg DAILY ORAL 04/29/20 15:15 05/29/20 15:14 05/02/20 08:06 Mycophenolate Mofetil (Cellcept) 1,500 mg TWICE A DAY ORAL 04/29/20 18:00 07/28/20 17:59 05/02/20 18:02 Ondansetron HCl (Zofran) 4 mg Q6H PRN IVP Nausea & Vomiting 04/28/20 12:00 05/27/20 11:59 04/29/20 22:27 Piperacillin Sod/ Tazobactam Sod 3.375 gm/Sodium Chloride 110 ml @ 27.5 mls/hr EVERY 8 HOURS IVPB 05/02/20 15:30 05/03/20 15:29 05/02/20 16:15 Tamsulosin HCl (Flomax) 0.4 mg DAILY ORAL 04/29/20 09:00 05/26/20 08:59 05/02/20 08:06 Temazepam (RestoriL) 7.5 mg HSPRN PRN ORAL Insomnia 04/28/20 14:00 05/05/20 13:59 Assessment/Plan Problems: (1) Cholecystitis, acute (2) Polymyositis (3) Immunosuppressed status (4) Pulmonary fibrosis (5) COPD (chronic obstructive pulmonary disease) (6) BPH (benign prostatic hyperplasia) (7) Diabetes mellitus Assessment/Plan wbc lower constipated today PT note reviewed doing better tolerated surgery the day before yesterday pain management f/u pathology report iv fluids iv abx symptomatic treatment sliding scale dvt prophylaxis Rudi Kitchen MD May 02, 2020 18:52
--- NOTE | 2020-05-02 19:10 | NUR ---
NURSE NOTES: Received pt. from Yadira PINEDO and Debbie PINEDO.
--- NOTE | 2020-05-02 19:22 | NUR ---
NURSE HAND-OFF: Important Events on Shift:clearance from PT to be d/c with front wheel walker Patient Status: stable Diet: regular Pending Orders: n/a Pending Results/Labs:n/a Pending MD notification:n/a Latest Vital Signs: Temperature 97.7 , Pulse 84 , B/P 138 /65 , Respiratory Rate 18 , O2 SAT 100 , Nasal Cannula, O2 Flow Rate 2.0 . Vital Sign Comment: stable Latest Ulrich Fall Score: 35 Fall Risk: Medium Risk Safety Measures: Call light Within Reach, Bed Alarm Zone 1, Side Rails Side Rails x2, Bed position Low and Locked. Fall Precautions: Patient Fall Education Report given to KHRIS Summers.
[2020-05-02 20:00] VITALS: BP 149/90
--- NOTE | 2020-05-02 20:13 | NUR ---
NURSE NOTES: Received pt. up on the side of the bed, with bed in it's lowest position, alarmed and locked. No sob noted. Denies any pain at this time. With dressing in the abdomen, dry and intact. With call light within reach. Will continue to monitor.
[2020-05-03] VITALS: BP 136/75
[2020-05-03] MEDS: HYDROcodone/Acetamin 5/325 tab ORAL PRN ×2 (00:14→09:18)
[2020-05-03 04:00] VITALS: BP 142/77
[2020-05-03] MEDS: Piperacillin/Tazobactam 3.375 GM in NS 110 ML IVPB SCH (05:14)
[2020-05-03] MEDS: NovoLOG Insulin Flexpen SUBQ SCH ×2 (06:25→11:30)
--- NOTE | 2020-05-03 06:52 | General Progress Note ---
Assessment/Plan Problem List: (1) Pulmonary fibrosis ICD Codes: J84.10 - Pulmonary fibrosis, unspecified SNOMED: 04284887 (2) Polymyositis ICD Codes: M33.20 - Polymyositis, organ involvement unspecified SNOMED: 19959633 (3) BPH (benign prostatic hyperplasia) ICD Codes: N40.0 - Benign prostatic hyperplasia without lower urinary tract symptoms SNOMED: 221343428 (4) COPD (chronic obstructive pulmonary disease) ICD Codes: J44.9 - Chronic obstructive pulmonary disease, unspecified SNOMED: 80460659 (5) Diabetes mellitus ICD Codes: E11.9 - Type 2 diabetes mellitus without complications SNOMED: 34787792 (6) Cholecystitis, acute ICD Codes: K81.0 - Acute cholecystitis SNOMED: 25864802 Assessment/Plan: s/p open cholecystectomy will fu post op orderers per surg zofran prn abx pain control add miralax cont colace and dulcolax pend possible dc Subjective ROS Limited/Unobtainable: Yes Allergies: Coded Allergies: LEVOFLOXACIN (Unverified Allergy, Mild, Redness, 04/25/20) Subjective c/o nausea c/o abd pain Objective Last 24 Hour Vital Signs Date Time Temp Pulse Resp B/P (MAP) Pulse Ox O2 Delivery O2 Flow Rate FiO2 05/03/20 04:00 97.7 83 20 142/77 (98) 96 05/03/20 00:44 98.2 05/03/20 00:00 97.7 83 20 136/75 (95) 97 05/02/20 21:00 Nasal Cannula 2.0 05/02/20 20:00 96.3 88 20 149/90 (109) 98 05/02/20 16:30 97.7 84 18 138/65 (89) 100 05/02/20 12:00 97.2 99 18 132/73 (92) 92 05/02/20 09:00 Nasal Cannula 2.0 05/02/20 08:00 97.5 87 19 117/74 (88) 99 Intake and Output 05/02/20 05/03/20 19:00 07:00 Intake Total 895.0 ml 1637.5 ml Output Total 1200 ml Balance 895.0 ml 437.5 ml Intake Oral 840 ml IV Total 55.0 ml 137.5 ml Other 1500 ml Other 1200 ml # Voids 4 5 Laboratory Tests 05/02/20 11:35: POC Whole Blood Glucose 124H Height (Feet): 6 Height (Inches): 3.00 Weight (Pounds): 181 General Appearance: alert EENT: normal ENT inspection Neck: normal alignment Cardiovascular: normal rate Respiratory/Chest: lungs clear Abdomen: hypoactive bowel sounds, tender Extremities: non-tender Petey Marquez MD May 03, 2020 06:52
--- NOTE | 2020-05-03 07:10 | NUR ---
NURSE NOTES: Received report from KHRIS Summers. Pt received lying in semi-cotto's position in hospital bed. AAO x 4, ate all his breakfast, reports having BM last night 05/02/20. On RA in no apparent distress. Uses O2 at 2LPM PRN for comfort with pain. No c/o pain at this time. Pt is continent x 2 with bathroom privileges needing x1 assistance with ambulation to bathroom d/t unsteady gait. Last BS 103, no coverage. R abdomen with joao s/p sx on 04/27. pIV to R hand 20 g. Bed in lowest position, call light within reach. Patient is planned for DC back home today. Will continue POC.
--- NOTE | 2020-05-03 07:20 | NUR ---
HAND-OFF: Report given to Demetri PINEDO.
[2020-05-03 08:00] VITALS: BP 157/78
[2020-05-03 08:37] LABS: BASOPHILS % (AUTO) 0.7 % (0.0-2.0); EOSINOPHILS % (AUTO) 2.3 % (0.0-3.0); HEMATOCRIT 31.1 % (42.0-52.0); LYMPHOCYTES % (AUTO) 12.3 % (20.0-45.0); MEAN CORPUSCULAR VOLUME 87 FL (80-99); MONOCYTES % (AUTO) 6.5 % (1.0-10.0); NEUTROPHILS % (AUTO) 78.2 % (45.0-75.0); PLATELET COUNT 232 K/UL (150-450); RED BLOOD COUNT 3.58 M/UL (4.70-6.10); RED CELL DISTRIBUTION WIDTH 15.4 % (11.6-14.8); WHITE BLOOD COUNT 7.9 K/UL (4.8-10.8)
[2020-05-03] MEDS: Docusate 100mg cap ORAL SCH (08:49)
[2020-05-03] MEDS: Diclofenac 1% Gel 100gm TOPIC SCH ×2 (08:49→13:00)
[2020-05-03] MEDS: Tamsulosin 0.4mg cap ORAL SCH (08:49)
--- NOTE | 2020-05-03 08:50 | NUR ---
NURSE NOTES: S/w pharmacy re 0900 dose of Cellcept. Per Pharmacy, pending delivery. Awaiting delivery of medication for administration.
[2020-05-03 09:20] LABS: ALANINE AMINOTRANSFERASE 50 U/L (12-78); ALBUMIN 2.3 G/DL (3.4-5.0); ALKALINE PHOSPHATASE 56 U/L (46-116); ANION GAP 5 mmol/L (5-15); ASPARTATE AMINO TRANSFERASE 26 U/L (15-37); BILIRUBIN,TOTAL 0.4 MG/DL (0.2-1.0); BLOOD UREA NITROGEN 8 mg/dL (7-18); CALCIUM 8.4 MG/DL (8.5-10.1); CARBON DIOXIDE 33 MMOL/L (21-32); CHLORIDE 105 MMOL/L (98-107); CREATININE 0.7 MG/DL (0.55-1.30); POTASSIUM 3.8 MMOL/L (3.5-5.1); SODIUM 143 MMOL/L (136-145)
--- NOTE | 2020-05-03 11:24 | NUR ---
NURSE NOTES: Pt's daughter, Shell, expressed concern re patient's joao looking like they are coming off and abdominal area. Dr. Morse saw patient and s/w Shell at bedside and provided education on patient's healing process. [place] remain intact per Dr. Morse and recommended in 1 more week. Pt is planned for DC today, FWW order received from Dr. Morse, called CM and LVM re new order for FWW. Awaiting response.
[2020-05-03 12:00] VITALS: BP 135/93
--- NOTE | 2020-05-03 12:04 | NUR ---
DISCHARGE PLANNING REPORT GIVEN TO DR WEIR. INFORMED PATIENT CLEAR FOR DC BY SURGERY. GAVE TO/RB. NOTED AND CARRIED OUT. CHARGE NURSE EDUARDO GUADARRAMA.
--- NOTE | 2020-05-03 13:35 | NUR ---
NURSE NOTES: Pt DC'd to home in stable condition, AAO x 4, ambulatory with use of FWW, DC'd with FWW from [facility].pt is on RA in no apparent distress. Pt has O2 at home which he uses intermittently per dtr. Incisions to abdomen clean and joao are intact. Pt's medication from pharmacy provided back to patient as well as his wallet kept in safe. Reconciled belongings and patient signed belongings list. Rx from Dr. Morse provided to patient along with card with f/u appointment scheduled for 05/05/20 at 1000. pIV removed with site with no s/s of infection. Education provided re disease process and s/s to report to MD i.e. s/s of infection or incision separation by Dr. Morse. Dtr, Shell, at bedside verbalized understanding of instructions provided and explained to patient in [place]. Assisted pt in w/c down to lobby for Shell to provide transportation for patient to go home.
--- NOTE | 2020-05-03 14:17 | Surgery Progress Note ---
Surgery Progress Note Subjective Procedure Performed lap converted to open nelda extensive open lysis of adhesions Additional Comments improved went over care plan upon d/c with daughter at bedside all questions answered anticipate follow up in office for check up and joao removal Objective Last 24 Hour Vital Signs Date Time Temp Pulse Resp B/P (MAP) Pulse Ox O2 Delivery O2 Flow Rate FiO2 05/03/20 12:00 97.9 90 18 135/93 (107) 96 05/03/20 09:00 Nasal Cannula 2.0 05/03/20 08:00 97.2 87 18 157/78 (104) 95 05/03/20 04:00 97.7 83 20 142/77 (98) 96 05/03/20 00:44 98.2 05/03/20 00:00 97.7 83 20 136/75 (95) 97 05/02/20 21:00 Nasal Cannula 2.0 05/02/20 20:00 96.3 88 20 149/90 (109) 98 05/02/20 16:30 97.7 84 18 138/65 (89) 100 I&O Intake and Output 05/02/20 05/03/20 19:00 07:00 Intake Total 895.0 ml 1637.5 ml Output Total 1200 ml Balance 895.0 ml 437.5 ml Intake Oral 840 ml IV Total 55.0 ml 137.5 ml Other 1500 ml Other 1200 ml # Voids 4 5 Laboratory Tests Test 05/03/20 07:20 White Blood Count 7.9 K/UL (4.8-10.8) Red Blood Count 3.58 M/UL (4.70-6.10) L Hemoglobin 10.0 G/DL (14.2-18.0) L Hematocrit 31.1 % (42.0-52.0) L Mean Corpuscular Volume 87 FL (80-99) Mean Corpuscular Hemoglobin 27.9 PG (27.0-31.0) Mean Corpuscular Hemoglobin Concent 32.1 G/DL (32.0-36.0) Red Cell Distribution Width 15.4 % (11.6-14.8) H Platelet Count 232 K/UL (150-450) Mean Platelet Volume 6.1 FL (6.5-10.1) L Neutrophils (%) (Auto) 78.2 % (45.0-75.0) H Lymphocytes (%) (Auto) 12.3 % (20.0-45.0) L Monocytes (%) (Auto) 6.5 % (1.0-10.0) Eosinophils (%) (Auto) 2.3 % (0.0-3.0) Basophils (%) (Auto) 0.7 % (0.0-2.0) Erythrocyte Sedimentation Rate 83 MM/HR (0-20) H Sodium Level 143 MMOL/L (136-145) Potassium Level 3.8 MMOL/L (3.5-5.1) Chloride Level 105 MMOL/L (98-107) Carbon Dioxide Level 33 MMOL/L (21-32) H Anion Gap 5 mmol/L (5-15) Blood Urea Nitrogen 8 mg/dL (7-18) Creatinine 0.7 MG/DL (0.55-1.30) Estimat Glomerular Filtration Rate > 60 mL/min (>60) Glucose Level 96 MG/DL (74-106) Calcium Level 8.4 MG/DL (8.5-10.1) L Phosphorus Level 2.0 MG/DL (2.5-4.9) L Magnesium Level 1.9 MG/DL (1.8-2.4) Total Bilirubin 0.4 MG/DL (0.2-1.0) Aspartate Amino Transf (AST/SGOT) 26 U/L (15-37) Alanine Aminotransferase (ALT/SGPT) 50 U/L (12-78) Alkaline Phosphatase 56 U/L (46-116) C-Reactive Protein, Quantitative 5.4 mg/dL (0.00-0.90) H Total Protein 4.7 G/DL (6.4-8.2) L Albumin 2.3 G/DL (3.4-5.0) L Globulin 2.4 g/dL Albumin/Globulin Ratio 1.0 (1.0-2.7) Plan Problems: (1) Cholecystitis, acute Assessment & Plan: 69-year-old male with acute cholecystitis diagnosed outside facility. Currently afebrile hemodynamic stable and improved with narcotic pain medication. On examination mild discomfort in the right upper quadrant. States he still feels the cramping but blunted with the medications. Currently no nausea or vomiting. Still pending reports have been looking to obtain. Okay for clear liquid diets given stable and patient is hungry IV fluids IV antibiotics Ultrasound ordered Labs ordered Will follow with recommendations as labs and imaging available. May potentially need cholecystectomy will monitor Thank you for let me participate in patient's care discussed care plan with patient. discussed lab findings and US findings. dx cholecystitis acute after discussing surgical vs non surgical options with patient he has elected to proceed with cholecystectomy which is indicated and recommended npo p mn iv fluids consent thank you called daughter multiple times but no answer. will cont to relay patients decision with family as requested s/p lap converted to open cholecystectomy for acute cholecystitis. distended, inflamed gb recovering incisional pain tolerating clears needs to be ambulatory incentive spirometry cont rx labs Wil Morse May 03, 2020 14:17
[2020-05-03] MEDS ORDERED: Miralax 17gm pkt ORAL SCH (21:00)
--- NOTE | 2020-05-04 12:22 | Discharge Summary ---
Discharge Summary Discharge Summary _ DATE OF ADMISSION: 04/25/2020 DATE OF DISCHARGE: 05/03/2020 DISCHARGED BY: Dr. Ramos REASON FOR ADMISSION: 69 years old male with past medical history of polymyositis, on immunosuppressive therapy with steroids and CellCept, diabetes mellitus type 2 , pulmonary fibrosis, BPH, cholecystitis, diagnosed about a month ago, osteoporosis, presented with a complaint of epigastric pain with associated nausea and vomiting. Patient was hospitalized about 3 weeks ago at [facility] and was told that he had cholelithiasis and acute cholecystitis. At that time patient was treated with antibiotics. The surgeon declined to perform cholecystectomy at that time because the patient was a poor surgical candidate. Patient presented again to [facility] on April 24, [address] scan of the abdomen revealed acute cholecystitis . Patient subsequently was transferred to [facility] to higher level of care. Patient admitted with cholecystitis and epigastric pain. CONSULTANTS: fur dyer Dr. Lugo pulmonary Dr. Kitchen GI specialist Dr. Marquez surgery Dr. Morse language asst Dr. Ji [facility]SE: Patient admitted to medical surgical floor. Patient was kept n.p.o. , on IV fluids and empiric antibiotics. Surgeon and GI followed. Inshore Undersea Warfare Officer closely followed given history of pulmonary fibrosis. Pain management was addressed. Antiemetic provided as needed. Abdominal ultrasound revealed gallstones or sludge ball measuring up to 2.5 cm. Mild prominence of the gallbladder wall. Sonographic Jean sign was not reported. Patient has leukocytosis WBC 12.1, elevated LFTs: AST 153 , ALT 279, total bilirubin 1.8, direct bilirubin 1.1 Chest x-ray revealed streaky bibasilar airspace opacity, likely representing subsegmental atelectasis , but pneumonia should be excluded clinically. Supplemental oxygen provided and titrated to keep pulse oximetry above 92% , pulmonary toilet was on standby as needed. Patient initially was on simple mask, but then was able to be weaned down to nasal cannula. Rapid COVID-19 was negative. DVT prophylaxis provided. Echocardiogram revealed preserved ejection fraction of 65% with mild left ventricular hypertrophy. No evidence of pericardial effusion. Right ventricular systolic pressure of 17. CT scan of the chest at another hospital on 04/24 showed ground-glass opacity in the lung bases and peripheral distribution , no cardiomegaly ,no pericardial effusion . Aortic valve calcification and distended gallbladder without inflammatory changes noted. Criminal Investigative Agent seen patient for polymyositis. KYM screen was negative, rheumatoid factor less than 10 . ESR 20 and CRP 8.2. Patient apparently was not taking any medication for the last 5 years. Patient appeared to have muscle wasting , especially proximal muscle in both arms and thighs , however per language asst current condition and polymyositis did not exclude the possibility of surgery. Patient subsequently undergone on 04/27 laparoscopic ,converted to open cholecystectomy with extensive open lysis of adhesion. Patient tolerated procedure well . Pathology report revealed acute and chronic cholecystitis with cholesterolosis, no evidence of malignancy. Preschool Teacher'S Assistant seen patient postoperatively. Patient was doing relatively well postoperatively : no chest pain , blood pressure remained stable Pain management was addressed . Patient initially was kept n.p.o. Supportive care provided. As bowel function returned, patient slowly started on diet and was advanced as tolerated. Antiemetic provided as needed. LFT trended down and returned to normal. Blood sugar was managed with sliding scale of insulin DVT and GI prophylaxis provided Bowel regimen instituted. Flomax continued. Steroids and CellCept continued. Pain was controlled. Patient clinically stabilized and was ready for discharge home with home health services. FINAL DIAGNOSES: Acute cholecystitis Status post laparoscopic, converted to open , cholecystectomy with extensive open lysis of adhesion Polymyositis Immunosuppressed status Elevated LFT Epigastric pain Diabetes mellitus type 2 Pulmonary fibrosis COPD BPH Osteoporosis DISCHARGE MEDICATIONS: See Medication Reconciliation list. DISCHARGE INSTRUCTIONS: Patient was discharged home with home health services. Follow-up with primary care provider in 1 week. I have been assigned to dictate discharge summary for this account. I was not involved in the patient's management. Idania Paul NP May 04, 2020 12:21
== END 2020-05-03 13:57 | disposition home or self-care (01) | DRG 415 ==
LOC: 2E 11:05 → 4E 04-28 11:33
DX: K81.0 Acute cholecystitis (principal); M33.20 Polymyositis, organ involvement unspecified; J84.10 Pulmonary fibrosis, unspecified; E11.9 Type 2 diabetes mellitus without complications; M81.0 Age-related osteoporosis without current pathological fracture; N40.0 Benign prostatic hyperplasia without lower urinary tract symptoms; J44.9 Chronic obstructive pulmonary disease, unspecified; K59.00 Constipation, unspecified; K66.0 Peritoneal adhesions (postprocedural) (postinfection); Z53.31 Laparoscopic surgical procedure converted to open procedure; Z20.828 Contact with and (suspected) exposure to other viral communicable diseases
CPT/HCPCS: 36415; 71045; 74018; 76700; 80048; 80053; 80061; 82085; 82150; 82248; 82550; 82962; 83036; 83615; 83690; 83735; 84100; 85007; 85025; 85610; 85651; 85730; 86039; 86140; 86431; 86850; 86900; 86901; 87081; 93005; 93306; 94003; 94150; J1815; J2250; J2370; J2405; J2710; J2765; J7030; U0002

== ENCOUNTER 2020-05-10 19:29 | Inpatient (IN) | payer MEDICARE, MEDICAID ==
[~2020-05-10] VITALS: Ht 185.4 cm; Wt 83.1 kg
[~2020-05-10 19:29] MED LIST: CELLCEPT500 MG ORAL; FLOMAX0.4 MG ORAL; FOSAMAX70 MG ORAL; FUROSEMIDE40 MG ORAL; MEDROL4 MG ORAL; METFORMIN HCL500 M1 ORAL; PANTOPRAZOLE SO40 MG ORAL; SPIRONOLACTONE100 MG ORAL; VITAMIN D210 MCG PO
[2020-05-10 19:45] VITALS: BP 99/68
--- NOTE | 2020-05-10 19:48 | Emergency Room Report ---
History of Present Illness General Chief Complaint: To Be Triaged Source: Patient, Family Member Present Illness HPI Patient is post cholecystectomy discharge May 03. He did well for several days but over the last 4 days has been having increased abdominal pain. He is been unable to keep down his medications for the last 2 days. He is also had fevers. There is no diarrhea or constipation. No vomiting or blood. He reports the pain as 6/10 is very stoic. The pain is constant nonradiating. No sore throat, chest pain, palpitations, diarrhea, dysuria, shortness of breath , joint pain, rashes, depression, anxiety, visual changes, dizziness, headache. Patient discharge diagnoses: Acute cholecystitis Status post laparoscopic, converted to open , cholecystectomy with extensive open lysis of adhesion Polymyositis Immunosuppressed status Elevated LFT Epigastric pain Diabetes mellitus type 2 Pulmonary fibrosis COPD BPH Osteoporosis Allergies: Coded Allergies: LEVOFLOXACIN (Unverified Allergy, Mild, Redness, 04/25/20) COVID-19 Screening Contact w/high risk pt: No Experienced COVID-19 symptoms?: No Patient History Past Medical History: see triage record Past Surgical History: nelda Social History: Denies: smoking Social History Narrative With his daughter Reviewed Nursing Documentation: PMH: Agreed; PSxH: Agreed Nursing Documentation-PMH Hx Diabetes: Yes Hx Gastrointestinal Problems: Yes Physical Exam Gastrointestinal: guarding, rebound, tenderness, other - RUQ joao Procedures Critical Care Time Critical Care Time Total Critical Care Time: 30 min bedside evaluation and treatment excludes procedures (EKG). Reason for critical care: acute abdomen, immune suppressed, discussion with surgeon Possible complications: hypotension, hypertension, NV, shock, arrhythmias, metabolic acidosis, end organ damage, respiratory failure. Interventions: Fluid resuscitation, antibiotics, analgesia, consultation with surgeon, discussion with family and patient Course: Patient 10 days postoperative open cholecystectomy with abdominal pain and vomiting pain and vomiting. Peritoneal signs present. Fluid resuscitation begun. Antibiotics begun covering abdominal organisms. Hydrocortisone given for possibility of immune suppression chronically taking Medrol. Discussion with family of plan for admission. CT scan reviewed. Discussion with radiologist who suggested perforation. 10. Discussion with surgeon in detail. Repeat evaluation with some improvement but still peritoneal signs. Vital signs stable. Admit to hospital and consideration of either operation for drainage of abscess via interventional radiology. Consultations: nursing staff, EMS, family, surgeon, radiologist Performed by: Dr. Ulloa Tolerated well condition = serious Medical Decision Making Diagnostic Impression: Primary Impression: Abdominal pain Qualified Codes: R10.84 - Generalized abdominal pain Additional Impressions: Postoperative abscess Immunosuppressed status COPD (chronic obstructive pulmonary disease) Qualified Codes: J44.9 - Chronic obstructive pulmonary disease, unspecified Polymyositis Pulmonary fibrosis ER Course Patient post open cholecystectomy with abdominal pain and vomiting. Differential includes retained stone, abscess, perforation, hemorrhage, sepsis amongst others. Patient at high risk as he is taking steroids. Evaluation with EKG, chest x-ray and CT of the abdomen as well as labs. Fluid resuscitation begun and antibiotics ordered. Analgesics ordered in addition. Solu-cortef given as unable to take Medrol. Patient placed on ekg monitor. Discussed plan with family members. EKG no injury. Chest x-ray no free fluid but underlying lung disease present. Labs with leukocytosis. CMP with elevated transaminase and bilirubin. CT scan as below. Discussed with radiologist who suggests that there is a large abscess and and in addition to that there may be free fluid from perforation. Discussed in detail with Dr. Morse. Will assess to see if needs to go to OR or have intervention by interventional radiology. Discussed findings with patient who understands the plan. Patient admitted to the hospital serious condition. Laboratory Tests Test 05/10/20 19:45 05/10/20 20:52 White Blood Count 20.1 K/UL (4.8-10.8) H Red Blood Count 3.87 M/UL (4.70-6.10) L Hemoglobin 11.2 G/DL (14.2-18.0) L Hematocrit 34.0 % (42.0-52.0) L Mean Corpuscular Volume 88 FL (80-99) Mean Corpuscular Hemoglobin 28.8 PG (27.0-31.0) Mean Corpuscular Hemoglobin Concent 32.8 G/DL (32.0-36.0) Red Cell Distribution Width 16.9 % (11.6-14.8) H Platelet Count 397 K/UL (150-450) Mean Platelet Volume 6.7 FL (6.5-10.1) Neutrophils (%) (Auto) 89.1 % (45.0-75.0) H Lymphocytes (%) (Auto) 3.5 % (20.0-45.0) L Monocytes (%) (Auto) 6.4 % (1.0-10.0) Eosinophils (%) (Auto) 0.2 % (0.0-3.0) Basophils (%) (Auto) 0.8 % (0.0-2.0) Prothrombin Time 12.2 SEC (9.30-11.50) H Prothrombin Time INR 1.1 (0.9-1.1) Activated Partial Thromboplast Time 34 SEC (23-33) H Sodium Level 134 MMOL/L (136-145) L Potassium Level 4.0 MMOL/L (3.5-5.1) Chloride Level 99 MMOL/L (98-107) Carbon Dioxide Level 25 MMOL/L (21-32) Anion Gap 10 mmol/L (5-15) Blood Urea Nitrogen 10 mg/dL (7-18) Creatinine 0.9 MG/DL (0.55-1.30) Estimated Glomerular Filtration Rate > 60 mL/min (>60) Glucose Level 139 MG/DL (74-106) H Lactic Acid Level 1.60 mmol/L (0.4-2.0) Calcium Level 8.8 MG/DL (8.5-10.1) Magnesium Level 2.0 MG/DL (1.8-2.4) Total Bilirubin 3.9 MG/DL (0.2-1.0) H Direct Bilirubin 3.3 MG/DL (0.0-0.3) H Aspartate Amino Transferase (AST) 70 U/L (15-37) H Alanine Aminotransferase (ALT) 78 U/L (12-78) Alkaline Phosphatase 172 U/L (46-116) H Total Creatine Kinase 11 U/L (26-308) L Troponin I 0.000 ng/mL (0.000-0.056) Pro-B-Type Natriuretic Peptide 370 pg/mL (0-125) H Total Protein 6.6 G/DL (6.4-8.2) Albumin 2.6 G/DL (3.4-5.0) L Globulin 4.0 g/dL Albumin/Globulin Ratio 0.6 (1.0-2.7) L Lipase 787 U/L (73-393) H Urine Color Yellow Urine Appearance Slightly cloudy Urine pH 6.0 (4.5-8.0) Urine Specific [place] 1.015 (1.005-1.035) Urine Protein Negative (NEGATIVE) Urine Glucose (UA) Negative (NEGATIVE) Urine Ketones Negative (NEGATIVE) Urine Blood Negative (NEGATIVE) Urine Nitrite Negative (NEGATIVE) Urine Bilirubin Negative (NEGATIVE) Urine Urobilinogen Normal MG/DL (0.0-1.0) Urine Leukocyte Esterase Negative (NEGATIVE) EKG Diagnostic Results Rate: tachycardiac Rhythm: NSR ST Segments: no acute changes - [place] deviation/ Rhythm Strip Diag. Results EP Interpretation: yes Rhythm: no PVC's, no ectopy, other - Sinus tachycardia 110 Chest X-Ray Diagnostic Results Chest X-Ray Diagnostic Results : Chest X-Ray Ordered: Yes # of Views/Limited/Complete: 1 View Indication: Other EP Interpretation: Yes Interpretation: no consolidation, no effusion, no pneumothorax, other - fibrosis Impression: Other Electronically Signed by: Electronically signed by Sumeet Ulloa MD CT/MRI/US Diagnostic Results CT/MRI/US Diagnostic Results : Impression 1. Massive gallbladder fossa abscess, potentially representing contained an infected bile leak versus postoperative abscess formation measures 10 x 14 x 9.5 cm. 2. Small pneumoperitoneum anterior to the liver, this is probably due to the recent postoperative setting. Operative staple line across the right upper quadrant. 3. Cholecystectomy with postoperative CBD prominence 1.3 cm, potentially due to reservoir effect. No obstructing lesion seen. 4. If clinically desired, consider MRI abdomen without and with IV contrast as well as with MRCP sequences to further characterize biliary ductal prominence. 5. Central mesentery focal ill-defined 2 cm soft tissue nodularity with adjacent calcification axial series 4 image 81 is of uncertain significance, but could represent scarring from prior operative intervention, sequela of carcinoid metastatic to the mesentery, or tiny focus of mesenteric desmoid. 6. Recommend outpatient dedicated CT chest without IV contrast to further characterize pulmonary findings suggestive of interstitial lung disease, potentially NSIP subtype. 7. Gastric antrum mild wall thickening could be incidental and represent peristalsis or could represent gastritis in the proper context. 8. Scattered nonloculated additional peritoneal fluid seen along the greater curvature of the stomach. 9. Prostatomegaly 5.6 cm transverse. Laboratory Tests Test 05/10/20 19:45 05/10/20 20:52 White Blood Count 20.1 K/UL (4.8-10.8) H Red Blood Count 3.87 M/UL (4.70-6.10) L Hemoglobin 11.2 G/DL (14.2-18.0) L Hematocrit 34.0 % (42.0-52.0) L Mean Corpuscular Volume 88 FL (80-99) Mean Corpuscular Hemoglobin 28.8 PG (27.0-31.0) Mean Corpuscular Hemoglobin Concent 32.8 G/DL (32.0-36.0) Red Cell Distribution Width 16.9 % (11.6-14.8) H Platelet Count 397 K/UL (150-450) Mean Platelet Volume 6.7 FL (6.5-10.1) Neutrophils (%) (Auto) 89.1 % (45.0-75.0) H Lymphocytes (%) (Auto) 3.5 % (20.0-45.0) L Monocytes (%) (Auto) 6.4 % (1.0-10.0) Eosinophils (%) (Auto) 0.2 % (0.0-3.0) Basophils (%) (Auto) 0.8 % (0.0-2.0) Prothrombin Time 12.2 SEC (9.30-11.50) H Prothrombin Time INR 1.1 (0.9-1.1) Activated Partial Thromboplast Time 34 SEC (23-33) H Sodium Level 134 MMOL/L (136-145) L Potassium Level 4.0 MMOL/L (3.5-5.1) Chloride Level 99 MMOL/L (98-107) Carbon Dioxide Level 25 MMOL/L (21-32) Anion Gap 10 mmol/L (5-15) Blood Urea Nitrogen 10 mg/dL (7-18) Creatinine 0.9 MG/DL (0.55-1.30) Estimated Glomerular Filtration Rate > 60 mL/min (>60) Glucose Level 139 MG/DL (74-106) H Lactic Acid Level 1.60 mmol/L (0.4-2.0) Calcium Level 8.8 MG/DL (8.5-10.1) Magnesium Level 2.0 MG/DL (1.8-2.4) Total Bilirubin 3.9 MG/DL (0.2-1.0) H Direct Bilirubin 3.3 MG/DL (0.0-0.3) H Aspartate Amino Transferase (AST) 70 U/L (15-37) H Alanine Aminotransferase (ALT) 78 U/L (12-78) Alkaline Phosphatase 172 U/L (46-116) H Total Creatine Kinase 11 U/L (26-308) L Troponin I 0.000 ng/mL (0.000-0.056) Pro-B-Type Natriuretic Peptide 370 pg/mL (0-125) H Total Protein 6.6 G/DL (6.4-8.2) Albumin 2.6 G/DL (3.4-5.0) L Globulin 4.0 g/dL Albumin/Globulin Ratio 0.6 (1.0-2.7) L Lipase 787 U/L (73-393) H Urine Color Yellow Urine Appearance Slightly cloudy Urine pH 6.0 (4.5-8.0) Urine Specific [place] 1.015 (1.005-1.035) Urine Protein Negative (NEGATIVE) Urine Glucose (UA) Negative (NEGATIVE) Urine Ketones Negative (NEGATIVE) Urine Blood Negative (NEGATIVE) Urine Nitrite Negative (NEGATIVE) Urine Bilirubin Negative (NEGATIVE) Urine Urobilinogen Normal MG/DL (0.0-1.0) Urine Leukocyte Esterase Negative (NEGATIVE) Status: improved Disposition: ADMITTED INPATIENT Condition: Serious Sumeet Ulloa MD May 10, 2020 19:48
[2020-05-10] MEDS ORDERED: DOCUSATE SODIU100 MG ORAL (19:58)
[2020-05-10] MEDS ORDERED: HYDROCODON-ACE1 EA18 PO (19:58)
[2020-05-10] MEDS ORDERED: Morphine Sulfate 4mg/ml Inj (IV USE ONLY) IVP ONE (20:00)
[2020-05-10] MEDS ORDERED: Hydrocortisone 100mg Inj IV ONE (20:00)
[2020-05-10] MEDS ORDERED: Cefepime HCl 2 GM in NS 110 ML IV ONE (20:00)
[2020-05-10] MEDS ORDERED: Omnipaque-300 100ml vial INJ PRN (20:00)
[2020-05-10] MEDS ORDERED: Vancomycin 1 GM in NS 275 ML IV ONE (20:00)
[2020-05-10 20:19] LABS: HEMOGLOBIN 11.2 G/DL (14.2-18.0); MEAN CORPUSCULAR VOLUME 88 FL (80-99); NEUTROPHILS % (AUTO) 89.1 % (45.0-75.0); PLATELET COUNT 397 K/UL (150-450); RED BLOOD COUNT 3.87 M/UL (4.70-6.10); RED CELL DISTRIBUTION WIDTH 16.9 % (11.6-14.8); WHITE BLOOD COUNT 20.1 K/UL (4.8-10.8)
[2020-05-10 20:20] LABS: BASOPHILS % (AUTO) 0.8 % (0.0-2.0); EOSINOPHILS % (AUTO) 0.2 % (0.0-3.0); LYMPHOCYTES % (AUTO) 3.5 % (20.0-45.0); MONOCYTES % (AUTO) 6.4 % (1.0-10.0)
[2020-05-10 20:23] LABS: INR 1.1 (0.9-1.1)
[2020-05-10 20:27] LABS: ANION GAP 10 mmol/L (5-15); BLOOD UREA NITROGEN 10 mg/dL (7-18); CALCIUM 8.8 MG/DL (8.5-10.1); CARBON DIOXIDE 25 MMOL/L (21-32); CHLORIDE 99 MMOL/L (98-107); CREATININE 0.9 MG/DL (0.55-1.30); SODIUM 134 MMOL/L (136-145)
--- NOTE | 2020-05-10 20:28 | Diagnostic Imaging Report ---
EXAM: XR Chest, 1 View CLINICAL HISTORY: ABD PAIN TECHNIQUE: Frontal view of the chest. COMPARISON: 11/25/2019 FINDINGS: Lungs: Low lung volumes with bronchovascular crowding. No consolidation, pleural effusion, or pneumothorax. Pleural space: See above. Heart: Unremarkable. No cardiomegaly. Mediastinum: Unremarkable. Bones/joints: No acute abnormality IMPRESSION: 1. Low lung volumes with bronchovascular crowding. 2. Otherwise no acute cardiopulmonary disease. 3. If there is further concern, recommend additional imaging such as CT.
[2020-05-10 20:40] LABS: ALANINE AMINOTRANSFERASE 78 U/L (12-78); ALBUMIN 2.6 G/DL (3.4-5.0); ALBUMIN/GLOBULIN RATIO 0.6 (1.0-2.7); ALKALINE PHOSPHATASE 172 U/L (46-116); ASPARTATE AMINO TRANSFERASE 70 U/L (15-37); BILIRUBIN,TOTAL 3.9 MG/DL (0.2-1.0); CREATINE KINASE 11 U/L (26-308)
[2020-05-10 20:41] LABS: BILIRUBIN,DIRECT 3.3 MG/DL (0.0-0.3)
[2020-05-10 21:32] LABS: APPEARANCE,URINE SLIGHTLY CLOUDY; COLOR,URINE YELLOW
[2020-05-10 21:41] LABS: BILIRUBIN, URINE NEGATIVE (NEGATIVE); GLUCOSE, URINE (UA) NEGATIVE (NEGATIVE); KETONES,URINE NEGATIVE (NEGATIVE); NITRITE,URINE NEGATIVE (NEGATIVE); PROTEIN,URINE NEGATIVE (NEGATIVE); UROBILINOGEN,URINE NORMAL MG/DL (0.0-1.0)
[2020-05-10 21:42] LABS: LEUKOCYTE ESTERASE ,URINE NEGATIVE (NEGATIVE)
--- NOTE | 2020-05-10 22:28 | Diagnostic Imaging Report ---
EXAM: CT Abdomen and Pelvis With Intravenous Contrast CLINICAL HISTORY: ABD PAIN TECHNIQUE: Axial computed tomography images of the abdomen and pelvis with intravenous contrast. CTDI is 7.3 mGy and DLP is 463 mGy-cm. One or more of the following dose reduction techniques were used: automated exposure control, adjustment of the mA and/or kV according to patient size, use of iterative reconstruction technique. Coronal and sagittal reformatted images were created and reviewed. COMPARISON: Abdomen ultrasound 04/25/2020 FINDINGS: Lung bases: Groundglass ill-defined attenuation and mosaic attenuation in the lung bases more pronounced on the right with clear, distinct subpleural line and traction bronchiectasis in the bases. This is nonspecific but suggests interstitial lung disease such as NSIP. ABDOMEN: Liver: Unremarkable. No mass. Gallbladder and bile ducts: Cholecystectomy with postoperative CBD prominence 1.3 cm, potentially due to reservoir effect. No obstructing lesion seen. Pancreas: Unremarkable. No mass. No ductal dilation. Spleen: Unremarkable. No splenomegaly. Adrenals: Unremarkable. No mass. Kidneys and ureters: Unremarkable. No solid mass. No hydronephrosis. Stomach and bowel: Gastric antrum mild wall thickening could be incidental and represent peristalsis or could represent gastritis in the proper context. Rectal operative findings. Likely benign calcification near the cecum and the mesentery of uncertain significance. No obstruction. PELVIS: Appendix: No findings to suggest acute appendicitis. Bladder: Unremarkable. No mass. Reproductive: Prostatomegaly 5.6 cm transverse. ABDOMEN and PELVIS: Intraperitoneal space: Massive gallbladder fossa abscess, potentially representing contained an infected bile leak versus postoperative abscess formation measures 10 x 14 x 9.5 cm. Small pneumoperitoneum anterior to the liver, this is probably due to the recent postoperative setting. Scattered nonloculated additional peritoneal fluid seen along the greater curvature of the stomach. Central mesentery focal ill-defined 2 cm soft tissue nodularity with adjacent calcification axial series 4 image 81 is of uncertain significance, but could represent scarring from prior operative intervention, sequela of carcinoid metastatic to the mesentery, or tiny focus of mesenteric desmoid. Bones/joints: Bilateral L5 spondylolysis with grade 1 anterolisthesis. No acute fracture. No dislocation. Soft tissues: Operative staple line across the right upper quadrant. Vasculature: Unremarkable. No abdominal aortic aneurysm. Lymph nodes: Unremarkable. No enlarged lymph nodes. IMPRESSION: 1. Massive gallbladder fossa abscess, potentially representing contained an infected bile leak versus postoperative abscess formation measures 10 x 14 x 9.5 cm. 2. Small pneumoperitoneum anterior to the liver, this is probably due to the recent postoperative setting. Operative staple line across the right upper quadrant. 3. Cholecystectomy with postoperative CBD prominence 1.3 cm, potentially due to reservoir effect. No obstructing lesion seen. 4. If clinically desired, consider MRI abdomen without and with IV contrast as well as with MRCP sequences to further characterize biliary ductal prominence. 5. Central mesentery focal ill-defined 2 cm soft tissue nodularity with adjacent calcification axial series 4 image 81 is of uncertain significance, but could represent scarring from prior operative intervention, sequela of carcinoid metastatic to the mesentery, or tiny focus of mesenteric desmoid. 6. Recommend outpatient dedicated CT chest without IV contrast to further characterize pulmonary findings suggestive of interstitial lung disease, potentially NSIP subtype. 7. Gastric antrum mild wall thickening could be incidental and represent peristalsis or could represent gastritis in the proper context. 8. Scattered nonloculated additional peritoneal fluid seen along the greater curvature of the stomach. 9. Prostatomegaly 5.6 cm transverse. <MYCVCSECTION> Communications: 05/10/20 22:17 Call Doctor Regarding Other, called Dr CORNELL on 05/10 22: 17 (-07:00)
[2020-05-10 23:00] VITALS: BP 121/75
[2020-05-11] MEDS ORDERED: Heparin 5000 units/ml inj SUBQ SCH (00:15)
[2020-05-11] MEDS ORDERED: Milk of Magnesia 30ml Ud ORAL PRN (00:15)
[2020-05-11] MEDS ORDERED: Mylanta II UD 30ml ORAL PRN (00:15)
[2020-05-11] MEDS ORDERED: Morphine Sulfate 2mg/ml Inj(IV/IM USE ONLY) IVP PRN (00:15)
[2020-05-11 04:00] VITALS: BP 122/79
[2020-05-11] MEDS: Hydrocortisone 100mg Inj IV SCH ×3 (04:07→20:41)
[2020-05-11] MEDS: NovoLOG Insulin Flexpen SUBQ SCH ×3 (05:50→18:53)
[2020-05-11] MEDS ORDERED: Piperacillin/Tazobactam 3.375 GM in NS 110 ML IVPB SCH (06:00)
[2020-05-11 06:57] LABS: HEMATOCRIT 31.9 % (42.0-52.0); MEAN CORPUSCULAR VOLUME 88 FL (80-99); PLATELET COUNT 358 K/UL (150-450); RED BLOOD COUNT 3.63 M/UL (4.70-6.10); WHITE BLOOD COUNT 17.1 K/UL (4.8-10.8)
[2020-05-11 07:35] LABS: ALANINE AMINOTRANSFERASE 61 U/L (12-78); ALBUMIN 2.2 G/DL (3.4-5.0); ALBUMIN/GLOBULIN RATIO 0.6 (1.0-2.7); ALKALINE PHOSPHATASE 141 U/L (46-116); ANION GAP 10 mmol/L (5-15); ASPARTATE AMINO TRANSFERASE 41 U/L (15-37); BLOOD UREA NITROGEN 10 mg/dL (7-18); CALCIUM 7.7 MG/DL (8.5-10.1); CARBON DIOXIDE 25 MMOL/L (21-32); CHLORIDE 105 MMOL/L (98-107); CREATININE 0.8 MG/DL (0.55-1.30); PHOSPHORUS 2.4 MG/DL (2.5-4.9); POTASSIUM 4.4 MMOL/L (3.5-5.1); SODIUM 140 MMOL/L (136-145)
[2020-05-11 08:00] VITALS: BP 127/71
[2020-05-11 08:17] LABS: INR 1.1 (0.9-1.1)
[2020-05-11] MEDS: Piperacillin/Tazobactam 3.375 GM in NS 110 ML IVPB SCH ×2 (09:21→18:11)
[2020-05-11] MEDS ORDERED: Sodium Bicarbonate 4% 2.4meq/5ml vial IV PRN (09:30)
[2020-05-11] MEDS ORDERED: Lidocaine 1% Plain 30 ml INJ SCH (09:30)
[2020-05-11 12:00] VITALS: BP 106/64
--- NOTE | 2020-05-11 13:05 | Consultation ---
History of Present Illness General Date patient seen: May 11, 2020 Chief Complaint: Abdominal Pain Present Illness HPI 69 years old male with hx of polymyositis NOT on immune suppressive therapy, COPD, BPH and hx of recent cholecystitis underwent cholecystectomy two weeks ago at [place] presented to [facility] with CC of nausea, vomiting, fever. He had a CT of abdomen in [facility] showing abscess in the gall bladder fossa. He is admitted for further evaluation. Allergies: Coded Allergies: LEVOFLOXACIN (Unverified Allergy, Mild, Redness, 04/25/20) Medication History Scheduled Alendronate Sodium* (Fosamax*), 70 MG ORAL ONCE A WEEK, (Reported) Docusate Sodium* (Docusate Sodium*), 100 MG ORAL DAILY, (Reported) Ergocalciferol (Vitamin D2) (Vitamin D2), 1.25 MG PO ONCE A WEEK, (Reported) Furosemide* (Lasix*), 40 MG ORAL EVERY OTHER DAY, (Reported) Metformin Hcl* (Metformin Hcl*), 500 MG ORAL DAILY, (Reported) Methylprednisolone* (Medrol*), 4 MG ORAL DAILY, (Reported) Mycophenolate Mofetil (Cellcept), 1,500 MG ORAL TWICE A DAY, (Reported) Pantoprazole* (Pantoprazole*), 40 MG ORAL DAILY, (Reported) Spironolactone* (Spironolactone*), 50 MG ORAL TWICE A DAY, (Reported) Tamsulosin HCl (Flomax), 0.4 MG ORAL DAILY, (Reported) Miscellaneous Medications Hydrocodone Bit/Acetaminophen (Hydrocodon-Acetaminophen 5-300), 1 EACH PO, ( Reported) Patient History Healthcare decision maker Resuscitation status Advanced Directive on File Past Medical/Surgical History Past Medical/Surgical History: (1) Polymyositis (2) Pulmonary fibrosis (3) BPH (benign prostatic hyperplasia) (4) COPD (chronic obstructive pulmonary disease) (5) Diabetes mellitus (6) Cholecystitis, acute Physical Exam General Appearance: WD/WN, no apparent distress Lines, tubes and drains: peripheral HEENT: normocephalic, atraumatic Neck: non-tender, normal alignment Cardiovascular/Chest: normal peripheral pulses, regularly irregular Genitourinary/Rectal: normal genital exam Extremities: normal range of motion Skin Exam: normal pigmentation 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 Last 24 Hour Vital Signs Date Time Temp Pulse Resp B/P (MAP) Pulse Ox O2 Delivery O2 Flow Rate FiO2 05/11/20 12:00 93 05/11/20 12:00 97.5 92 18 106/64 (78) 98 05/11/20 09:00 Room Air 05/11/20 08:00 97.9 94 20 127/71 (89) 99 05/11/20 08:00 94 05/11/20 04:00 78 05/11/20 04:00 97.5 84 19 122/79 (93) 98 05/11/20 01:23 Room Air 05/10/20 23:34 88 05/10/20 23:00 97.5 94 20 121/75 (90) 98 05/10/20 22:55 98.6 96 24 118/65 96 Room Air 05/10/20 20:29 98.6 05/10/20 19:51 98.6 115 20 94/80 (85) 98 Room Air 05/10/20 19:45 110 22 Room Air 05/10/20 19:45 98.6 110 26 99/68 98 Room Air Intake and Output 05/10/20 05/11/20 19:00 07:00 Intake Total 1908.6 ml Balance 1908.6 ml Intake Oral 0 ml IV Total 1908.6 ml # Voids 3 Laboratory Tests Test 05/10/20 19:45 05/10/20 20:52 05/11/20 06:37 White Blood Count 20.1 K/UL (4.8-10.8) H 17.1 K/UL (4.8-10.8) H Red Blood Count 3.87 M/UL (4.70-6.10) L 3.63 M/UL (4.70-6.10) L Hemoglobin 11.2 G/DL (14.2-18.0) L 10.0 G/DL (14.2-18.0) L Hematocrit 34.0 % (42.0-52.0) L 31.9 % (42.0-52.0) L Mean Corpuscular Volume 88 FL (80-99) 88 FL (80-99) Mean Corpuscular Hemoglobin 28.8 PG (27.0-31.0) 27.6 PG (27.0-31.0) Mean Corpuscular Hemoglobin Concent 32.8 G/DL (32.0-36.0) 31.4 G/DL (32.0-36.0) L Red Cell Distribution Width 16.9 % (11.6-14.8) H 16.0 % (11.6-14.8) H Platelet Count 397 K/UL (150-450) 358 K/UL (150-450) Mean Platelet Volume 6.7 FL (6.5-10.1) 5.9 FL (6.5-10.1) L Neutrophils (%) (Auto) 89.1 % (45.0-75.0) H % (45.0-75.0) Lymphocytes (%) (Auto) 3.5 % (20.0-45.0) L % (20.0-45.0) Monocytes (%) (Auto) 6.4 % (1.0-10.0) % (1.0-10.0) Eosinophils (%) (Auto) 0.2 % (0.0-3.0) % (0.0-3.0) Basophils (%) (Auto) 0.8 % (0.0-2.0) % (0.0-2.0) Prothrombin Time 12.2 SEC (9.30-11.50) H 12.4 SEC (9.30-11.50) H Prothromb Time International Ratio 1.1 (0.9-1.1) 1.1 (0.9-1.1) Activated Partial Thromboplast Time 34 SEC (23-33) H 36 SEC (23-33) H Sodium Level 134 MMOL/L (136-145) L 140 MMOL/L (136-145) Potassium Level 4.0 MMOL/L (3.5-5.1) 4.4 MMOL/L (3.5-5.1) Chloride Level 99 MMOL/L (98-107) 105 MMOL/L (98-107) Carbon Dioxide Level 25 MMOL/L (21-32) 25 MMOL/L (21-32) Anion Gap 10 mmol/L (5-15) 10 mmol/L (5-15) Blood Urea Nitrogen 10 mg/dL (7-18) 10 mg/dL (7-18) Creatinine 0.9 MG/DL (0.55-1.30) 0.8 MG/DL (0.55-1.30) Estimat Glomerular Filtration Rate > 60 mL/min (>60) > 60 mL/min (>60) Glucose Level 139 MG/DL (74-106) H 142 MG/DL (74-106) H Lactic Acid Level 1.60 mmol/L (0.4-2.0) Calcium Level 8.8 MG/DL (8.5-10.1) 7.7 MG/DL (8.5-10.1) L Magnesium Level 2.0 MG/DL (1.8-2.4) 2.1 MG/DL (1.8-2.4) Total Bilirubin 3.9 MG/DL (0.2-1.0) H 1.0 MG/DL (0.2-1.0) Direct Bilirubin 3.3 MG/DL (0.0-0.3) H Aspartate Amino Transf (AST/SGOT) 70 U/L (15-37) H 41 U/L (15-37) H Alanine Aminotransferase (ALT/SGPT) 78 U/L (12-78) 61 U/L (12-78) Alkaline Phosphatase 172 U/L (46-116) H 141 U/L (46-116) H Total Creatine Kinase 11 U/L (26-308) L Troponin I 0.000 ng/mL (0.000-0.056) Pro-B-Type Natriuretic Peptide 370 pg/mL (0-125) H Total Protein 6.6 G/DL (6.4-8.2) 5.9 G/DL (6.4-8.2) L Albumin 2.6 G/DL (3.4-5.0) L 2.2 G/DL (3.4-5.0) L Globulin 4.0 g/dL 3.7 g/dL Albumin/Globulin Ratio 0.6 (1.0-2.7) L 0.6 (1.0-2.7) L Lipase 787 U/L (73-393) H Urine Color Yellow Urine Appearance Slightly cloudy Urine pH 6.0 (4.5-8.0) Urine Specific [place] 1.015 (1.005-1.035) Urine Protein Negative (NEGATIVE) Urine Glucose (UA) Negative (NEGATIVE) Urine Ketones Negative (NEGATIVE) Urine Blood Negative (NEGATIVE) Urine Nitrite Negative (NEGATIVE) Urine Bilirubin Negative (NEGATIVE) Urine Urobilinogen Normal MG/DL (0.0-1.0) Urine Leukocyte Esterase Negative (NEGATIVE) Differential Total Cells Counted 100 Neutrophils % (Manual) 92 % (45-75) H Lymphocytes % (Manual) 4 % (20-45) L Monocytes % (Manual) 4 % (1-10) Eosinophils % (Manual) 0 % (0-3) Basophils % (Manual) 0 % (0-2) Band Neutrophils 0 % (0-8) Platelet Estimate Adequate Platelet Morphology Normal Hypochromasia 1+ Anisocytosis 1+ Phosphorus Level 2.4 MG/DL (2.5-4.9) L Height (Feet): 6 Height (Inches): 1.00 Weight (Pounds): 165 Medications Current Medications Medications (Trade) Dose Ordered Sig/Renetta Route PRN Reason Start Time Stop Time Status Last Admin Dose Admin Acetaminophen (Tylenol) 650 mg Q4H PRN ORAL Temp >100.5 05/11/20 00:15 06/10/20 00:14 Al Hydroxide/Mg Hydroxide (Mylanta II) 30 ml Q6H PRN ORAL dyspepsia 05/11/20 00:15 06/10/20 00:14 Dextrose (Dextrose 50%) 25 ml Q30M PRN IV Hypoglycemia 05/11/20 01:00 08/09/20 00:59 Dextrose (Dextrose 50%) 50 ml Q30M PRN IV Hypoglycemia 05/11/20 01:00 08/09/20 00:59 Diphenhydramine HCl (Benadryl) 25 mg Q6H PRN ORAL Itching/Pruritis 05/11/20 00:15 06/10/20 00:14 Famotidine (Pepcid I.v.) 20 mg Q12H IVP 05/11/20 00:30 06/10/20 00:29 05/11/20 01:09 Hydrocortisone (Solu-CORTEF) 50 mg Q8H IV 05/11/20 04:00 08/09/20 03:59 05/11/20 04:07 Insulin Aspart (NovoLOG) EVERY 6 HOURS SUBQ 05/11/20 06:00 08/09/20 05:59 Iohexol (OMNIPAQUE-300 100ml) 100 ml NOW PRN INJ Radiology Procedure 05/10/20 20:00 05/12/20 19:48 Lidocaine HCl (Xylocaine 1% 30ml) 30 ml ONCE INJ 05/11/20 09:30 05/11/20 23:59 Magnesium Hydroxide (Mom) 30 ml HSPRN PRN ORAL Constipation 05/11/20 00:15 06/10/20 00:14 Morphine Sulfate (Morphine Sulfate) 1 mg Q3H PRN IVP For Pain 05/11/20 00:15 05/18/20 00:14 Morphine Sulfate (Morphine Sulfate) 2 mg Q3H PRN IVP Moderate Pain (Pain Scale 4-6) 05/11/20 00:15 05/18/20 00:14 Morphine Sulfate (Morphine Sulfate) 4 mg Q3H PRN IVP Severe Pain (Pain Scale 7-10) 05/11/20 00:15 05/18/20 00:14 Ondansetron HCl (Zofran) 4 mg Q4H PRN IVP Nausea & Vomiting 05/11/20 00:15 06/10/20 00:14 Piperacillin Sod/ Tazobactam Sod 3.375 gm/Sodium Chloride 110 ml @ 27.5 mls/hr Q8H IVPB 05/11/20 08:00 05/18/20 07:59 05/11/20 09:21 Sodium Bicarbonate (Sodium Bicarbonate 4%) 1 ml NOW PRN IV Radiology Procedure 05/11/20 09:30 05/13/20 09:22 Sodium Chloride 1,000 ml @ 75 mls/hr [id number] IV 05/11/20 00:15 06/10/20 00:14 05/11/20 01:09 Temazepam (Restoril) 15 mg HSPRN PRN ORAL Insomnia 05/11/20 00:15 05/18/20 00:14 Assessment/Plan Problem List: (1) Postoperative abscess ICD Codes: T81.49XA - Infection following a procedure, other surgical site, initial encounter SNOMED: 425238673, 330661410 (2) Abdominal pain ICD Codes: R10.9 - Unspecified abdominal pain SNOMED: 59411357 Qualifiers: Qualified Codes: R10.84 - Generalized abdominal pain (3) COPD (chronic obstructive pulmonary disease) ICD Codes: J44.9 - Chronic obstructive pulmonary disease, unspecified SNOMED: 41577327 (4) Pulmonary fibrosis ICD Codes: J84.10 - Pulmonary fibrosis, unspecified SNOMED: 99593371 (5) Polymyositis ICD Codes: M33.20 - Polymyositis, organ involvement unspecified SNOMED: 66061938 (6) BPH (benign prostatic hyperplasia) ICD Codes: N40.0 - Benign prostatic hyperplasia without lower urinary tract symptoms SNOMED: 429471739 (7) Diabetes mellitus ICD Codes: E11.9 - Type 2 diabetes mellitus without complications SNOMED: 70150602 Assessment/Plan: NPO IV fluids surgical evaluatin check wbc continue abx sliding scale Rudi Kitchen MD May 11, 2020 13:05
--- NOTE | 2020-05-11 14:07 | Consultation ---
History of Present Illness General Date patient seen: May 11, 2020 Reason for Hospitalization: Abdominal Pain Present Illness HPI 69 year old male well known to me from recent admission and surgery s/p lap converted to open nelda for acute on chronic infected cholecystitis. recovered well post op and discharged in stable condition. was doing well at home and I have been keeping in contact with daughter with plans for follow up this coming wed in the office. states he was well the first few days at home but then began to developed discomfort abdominal, nausea, emesis and recent fevers. was taking tylenol without significant improvement. came in for evaluation and noted to have leukocytosis and CT with gallbladder fossa bile leak vs abscess. Allergies: Coded Allergies: LEVOFLOXACIN (Unverified Allergy, Mild, Redness, 04/25/20) COVID-19 Screening Contact w/high risk pt: No Experienced COVID-19 symptoms?: No Medication History Scheduled Alendronate Sodium* (Fosamax*), 70 MG ORAL ONCE A WEEK, (Reported) Docusate Sodium* (Docusate Sodium*), 100 MG ORAL DAILY, (Reported) Ergocalciferol (Vitamin D2) (Vitamin D2), 1.25 MG PO ONCE A WEEK, (Reported) Furosemide* (Lasix*), 40 MG ORAL EVERY OTHER DAY, (Reported) Metformin Hcl* (Metformin Hcl*), 500 MG ORAL DAILY, (Reported) Methylprednisolone* (Medrol*), 4 MG ORAL DAILY, (Reported) Mycophenolate Mofetil (Cellcept), 1,500 MG ORAL TWICE A DAY, (Reported) Pantoprazole* (Pantoprazole*), 40 MG ORAL DAILY, (Reported) Spironolactone* (Spironolactone*), 50 MG ORAL TWICE A DAY, (Reported) Tamsulosin HCl (Flomax), 0.4 MG ORAL DAILY, (Reported) Miscellaneous Medications Hydrocodone Bit/Acetaminophen (Hydrocodon-Acetaminophen 5-300), 1 EACH PO, ( Reported) Patient History History Provided By: Patient, Medical Record, PMD Healthcare decision maker Resuscitation status Advanced Directive on File Past Medical/Surgical History Past Medical/Surgical History: (1) Postoperative abscess (2) Abdominal pain (3) Immunosuppressed status (4) Cholecystitis, acute (5) Diabetes mellitus (6) COPD (chronic obstructive pulmonary disease) (7) BPH (benign prostatic hyperplasia) (8) Pulmonary fibrosis (9) Polymyositis Review of Systems Review of Symptoms General ROS: no weight loss + fever Psychological ROS: no depression or mood changes, no memory loss Ophthalmic ROS: no visual changes or eye irritation ENT ROS: no nasal congestion, hearing loss, dizziness Allergy and Immunology ROS: no allergic symptoms or urticaria Hematological and Lymphatic ROS: no swollen glands, unusual bleeding or bruising Endocrine ROS: no polyuria, polydipsia, weight changes, temperature intolerance Respiratory ROS: no cough, shortness of breath, or wheezing Cardiovascular ROS: no chest pain or dyspnea on exertion Gastrointestinal ROS: ++s abdominal pain,no bright red blood in stool. Musculoskeletal ROS: no myalgias or arthralgias Neurological ROS: no TIA or stroke symptoms Dermatological ROS: no new or changing skin lesions, rashes or pruritis Physical Exam Physical Exam General appearance: alert, cooperative, no distress, appears stated age Head: Normocephalic, without obvious abnormality, atraumatic Eyes: conjunctivae/corneas clear. PERRL, EOM's intact. Fundi benign Throat: Lips, mucosa, and tongue normal. Teeth and gums normal Neck: supple, symmetrical, trachea midline, no adenopathy, thyroid: not enlarged, symmetric, no tenderness/mass/nodules, no carotid bruit and no JVD Lungs: clear to auscultation bilaterally Heart: regular rate and rhythm, S1, S2 normal, no murmur, click, rub or gallop Abdomen: soft, non-tender. Bowel sounds normal. No masses, no organomegaly wound c/d/i with joao in tact Extremities: extremities normal, atraumatic, no cyanosis or edema Pulses: 2+ and symmetric Skin: Skin color, texture, turgor normal. No rashes or lesions Neurologic: Grossly normal Last 24 Hour Vital Signs Date Time Temp Pulse Resp B/P (MAP) Pulse Ox O2 Delivery O2 Flow Rate FiO2 05/11/20 12:00 93 05/11/20 12:00 97.5 92 18 106/64 (78) 98 05/11/20 09:00 Room Air 05/11/20 08:00 97.9 94 20 127/71 (89) 99 05/11/20 08:00 94 05/11/20 04:00 78 05/11/20 04:00 97.5 84 19 122/79 (93) 98 05/11/20 01:23 Room Air 05/10/20 23:34 88 05/10/20 23:00 97.5 94 20 121/75 (90) 98 05/10/20 22:55 98.6 96 24 118/65 96 Room Air 05/10/20 20:29 98.6 05/10/20 19:51 98.6 115 20 94/80 (85) 98 Room Air 05/10/20 19:45 110 22 Room Air 05/10/20 19:45 98.6 110 26 99/68 98 Room Air Intake and Output 05/10/20 05/11/20 19:00 07:00 Intake Total 1908.6 ml Balance 1908.6 ml Intake Oral 0 ml IV Total 1908.6 ml # Voids 3 Laboratory Tests Test 05/10/20 19:45 05/10/20 20:52 05/11/20 06:37 White Blood Count 20.1 K/UL (4.8-10.8) H 17.1 K/UL (4.8-10.8) H Red Blood Count 3.87 M/UL (4.70-6.10) L 3.63 M/UL (4.70-6.10) L Hemoglobin 11.2 G/DL (14.2-18.0) L 10.0 G/DL (14.2-18.0) L Hematocrit 34.0 % (42.0-52.0) L 31.9 % (42.0-52.0) L Mean Corpuscular Volume 88 FL (80-99) 88 FL (80-99) Mean Corpuscular Hemoglobin 28.8 PG (27.0-31.0) 27.6 PG (27.0-31.0) Mean Corpuscular Hemoglobin Concent 32.8 G/DL (32.0-36.0) 31.4 G/DL (32.0-36.0) L Red Cell Distribution Width 16.9 % (11.6-14.8) H 16.0 % (11.6-14.8) H Platelet Count 397 K/UL (150-450) 358 K/UL (150-450) Mean Platelet Volume 6.7 FL (6.5-10.1) 5.9 FL (6.5-10.1) L Neutrophils (%) (Auto) 89.1 % (45.0-75.0) H % (45.0-75.0) Lymphocytes (%) (Auto) 3.5 % (20.0-45.0) L % (20.0-45.0) Monocytes (%) (Auto) 6.4 % (1.0-10.0) % (1.0-10.0) Eosinophils (%) (Auto) 0.2 % (0.0-3.0) % (0.0-3.0) Basophils (%) (Auto) 0.8 % (0.0-2.0) % (0.0-2.0) Prothrombin Time 12.2 SEC (9.30-11.50) H 12.4 SEC (9.30-11.50) H Prothromb Time International Ratio 1.1 (0.9-1.1) 1.1 (0.9-1.1) Activated Partial Thromboplast Time 34 SEC (23-33) H 36 SEC (23-33) H Sodium Level 134 MMOL/L (136-145) L 140 MMOL/L (136-145) Potassium Level 4.0 MMOL/L (3.5-5.1) 4.4 MMOL/L (3.5-5.1) Chloride Level 99 MMOL/L (98-107) 105 MMOL/L (98-107) Carbon Dioxide Level 25 MMOL/L (21-32) 25 MMOL/L (21-32) Anion Gap 10 mmol/L (5-15) 10 mmol/L (5-15) Blood Urea Nitrogen 10 mg/dL (7-18) 10 mg/dL (7-18) Creatinine 0.9 MG/DL (0.55-1.30) 0.8 MG/DL (0.55-1.30) Estimat Glomerular Filtration Rate > 60 mL/min (>60) > 60 mL/min (>60) Glucose Level 139 MG/DL (74-106) H 142 MG/DL (74-106) H Lactic Acid Level 1.60 mmol/L (0.4-2.0) Calcium Level 8.8 MG/DL (8.5-10.1) 7.7 MG/DL (8.5-10.1) L Magnesium Level 2.0 MG/DL (1.8-2.4) 2.1 MG/DL (1.8-2.4) Total Bilirubin 3.9 MG/DL (0.2-1.0) H 1.0 MG/DL (0.2-1.0) Direct Bilirubin 3.3 MG/DL (0.0-0.3) H Aspartate Amino Transf (AST/SGOT) 70 U/L (15-37) H 41 U/L (15-37) H Alanine Aminotransferase (ALT/SGPT) 78 U/L (12-78) 61 U/L (12-78) Alkaline Phosphatase 172 U/L (46-116) H 141 U/L (46-116) H Total Creatine Kinase 11 U/L (26-308) L Troponin I 0.000 ng/mL (0.000-0.056) Pro-B-Type Natriuretic Peptide 370 pg/mL (0-125) H Total Protein 6.6 G/DL (6.4-8.2) 5.9 G/DL (6.4-8.2) L Albumin 2.6 G/DL (3.4-5.0) L 2.2 G/DL (3.4-5.0) L Globulin 4.0 g/dL 3.7 g/dL Albumin/Globulin Ratio 0.6 (1.0-2.7) L 0.6 (1.0-2.7) L Lipase 787 U/L (73-393) H Urine Color Yellow Urine Appearance Slightly cloudy Urine pH 6.0 (4.5-8.0) Urine Specific [place] 1.015 (1.005-1.035) Urine Protein Negative (NEGATIVE) Urine Glucose (UA) Negative (NEGATIVE) Urine Ketones Negative (NEGATIVE) Urine Blood Negative (NEGATIVE) Urine Nitrite Negative (NEGATIVE) Urine Bilirubin Negative (NEGATIVE) Urine Urobilinogen Normal MG/DL (0.0-1.0) Urine Leukocyte Esterase Negative (NEGATIVE) Differential Total Cells Counted 100 Neutrophils % (Manual) 92 % (45-75) H Lymphocytes % (Manual) 4 % (20-45) L Monocytes % (Manual) 4 % (1-10) Eosinophils % (Manual) 0 % (0-3) Basophils % (Manual) 0 % (0-2) Band Neutrophils 0 % (0-8) Platelet Estimate Adequate Platelet Morphology Normal Hypochromasia 1+ Anisocytosis 1+ Phosphorus Level 2.4 MG/DL (2.5-4.9) L Height (Feet): 6 Height (Inches): 1.00 Weight (Pounds): 165 Medications Current Medications Medications (Trade) Dose Ordered Sig/Renetta Route PRN Reason Start Time Stop Time Status Last Admin Dose Admin Acetaminophen (Tylenol) 650 mg Q4H PRN ORAL Temp >100.5 05/11/20 00:15 06/10/20 00:14 Al Hydroxide/Mg Hydroxide (Mylanta II) 30 ml Q6H PRN ORAL dyspepsia 05/11/20 00:15 06/10/20 00:14 Dextrose (Dextrose 50%) 25 ml Q30M PRN IV Hypoglycemia 05/11/20 01:00 08/09/20 00:59 Dextrose (Dextrose 50%) 50 ml Q30M PRN IV Hypoglycemia 05/11/20 01:00 08/09/20 00:59 Diphenhydramine HCl (Benadryl) 25 mg Q6H PRN ORAL Itching/Pruritis 05/11/20 00:15 06/10/20 00:14 Famotidine (Pepcid I.v.) 20 mg Q12H IVP 05/11/20 00:30 06/10/20 00:29 05/11/20 13:54 Hydrocortisone (Solu-CORTEF) 50 mg Q8H IV 05/11/20 04:00 08/09/20 03:59 05/11/20 13:53 Insulin Aspart (NovoLOG) EVERY 6 HOURS SUBQ 05/11/20 06:00 08/09/20 05:59 Iohexol (OMNIPAQUE-300 100ml) 100 ml NOW PRN INJ Radiology Procedure 05/10/20 20:00 05/12/20 19:48 Lidocaine HCl (Xylocaine 1% 30ml) 30 ml ONCE INJ 05/11/20 09:30 05/11/20 23:59 Magnesium Hydroxide (Mom) 30 ml HSPRN PRN ORAL Constipation 05/11/20 00:15 06/10/20 00:14 Morphine Sulfate (Morphine Sulfate) 1 mg Q3H PRN IVP For Pain 05/11/20 00:15 05/18/20 00:14 Morphine Sulfate (Morphine Sulfate) 2 mg Q3H PRN IVP Moderate Pain (Pain Scale 4-6) 05/11/20 00:15 05/18/20 00:14 Morphine Sulfate (Morphine Sulfate) 4 mg Q3H PRN IVP Severe Pain (Pain Scale 7-10) 05/11/20 00:15 05/18/20 00:14 Ondansetron HCl (Zofran) 4 mg Q4H PRN IVP Nausea & Vomiting 05/11/20 00:15 06/10/20 00:14 Piperacillin Sod/ Tazobactam Sod 3.375 gm/Sodium Chloride 110 ml @ 27.5 mls/hr Q8H IVPB 05/11/20 08:00 05/18/20 07:59 05/11/20 09:21 Sodium Bicarbonate (Sodium Bicarbonate 4%) 1 ml NOW PRN IV Radiology Procedure 05/11/20 09:30 05/13/20 09:22 Sodium Chloride 1,000 ml @ 75 mls/hr [id number] IV 05/11/20 00:15 06/10/20 00:14 05/11/20 13:54 Temazepam (Restoril) 15 mg HSPRN PRN ORAL Insomnia 05/11/20 00:15 05/18/20 00:14 Assessment/Plan Problem List: (1) Postoperative abscess Assessment & Plan: 69 M post operative intrabdominal abscess vs bile leak biloma currently afebrile, HD stable exam with wound c/d/i. mild discomfort RUQ leukocytosis trending down on abx t bili nml now npo iv fluids iv abx CT guided drainage of GB fossa fluid collection eval biloma vs abscess. thank you will follow with recs ICD Codes: T81.49XA - Infection following a procedure, other surgical site, initial encounter SNOMED: 697995103, 346405473 (2) Abdominal pain Assessment & Plan: ABDOMEN: Liver: Unremarkable. No mass. Gallbladder and bile ducts: Cholecystectomy with postoperative CBD prominence 1.3 cm, potentially due to reservoir effect. No obstructing lesion seen. Pancreas: Unremarkable. No mass. No ductal dilation. Spleen: Unremarkable. No splenomegaly. Adrenals: Unremarkable. No mass. Kidneys and ureters: Unremarkable. No solid mass. No hydronephrosis. Stomach and bowel: Gastric antrum mild wall thickening could be incidental and represent peristalsis or could represent gastritis in the proper context. Rectal operative findings. Likely benign calcification near the cecum and the mesentery of uncertain significance. No obstruction. PELVIS: Appendix: No findings to suggest acute appendicitis. Bladder: Unremarkable. No mass. Reproductive: Prostatomegaly 5.6 cm transverse. ABDOMEN and PELVIS: Intraperitoneal space: Massive gallbladder fossa abscess, potentially representing contained an infected bile leak versus postoperative abscess formation measures 10 x 14 x 9.5 cm. Small pneumoperitoneum anterior to the liver, this is probably due to the recent postoperative setting. Scattered nonloculated additional peritoneal fluid seen along the greater curvature of the stomach. Central mesentery focal ill-defined 2 cm soft tissue nodularity with adjacent calcification axial series 4 image 81 is of uncertain significance, but could represent scarring from prior operative intervention, sequela of carcinoid metastatic to the mesentery, or tiny focus of mesenteric desmoid. Bones/joints: Bilateral L5 spondylolysis with grade 1 anterolisthesis. No acute fracture. No dislocation. Soft tissues: Operative staple line across the right upper quadrant. Vasculature: Unremarkable. No abdominal aortic aneurysm. Lymph nodes: Unremarkable. No enlarged lymph nodes. IMPRESSION: 1. Massive gallbladder fossa abscess, potentially representing contained an infected bile leak versus postoperative abscess formation measures 10 x 14 x 9.5 cm. 2. Small pneumoperitoneum anterior to the liver, this is probably due to the recent postoperative setting. Operative staple line across the right upper quadrant. 3. Cholecystectomy with postoperative CBD prominence 1.3 cm, potentially due to reservoir effect. No obstructing lesion seen. 4. If clinically desired, consider MRI abdomen without and with IV contrast as well as with MRCP sequences to further characterize biliary ductal prominence. 5. Central mesentery focal ill-defined 2 cm soft tissue nodularity with adjacent calcification axial series 4 image 81 is of uncertain significance, but could represent scarring from prior operative intervention, sequela of carcinoid metastatic to the mesentery, or tiny focus of mesenteric desmoid. 6. Recommend outpatient dedicated CT chest without IV contrast to further characterize pulmonary findings suggestive of interstitial lung disease, potentially NSIP subtype. 7. Gastric antrum mild wall thickening could be incidental and represent peristalsis or could represent gastritis in the proper context. 8. Scattered nonloculated additional peritoneal fluid seen along the greater curvature of the stomach. 9. Prostatomegaly 5.6 cm transverse. ICD Codes: R10.9 - Unspecified abdominal pain SNOMED: 91259903 Qualifiers: Qualified Codes: R10.84 - Generalized abdominal pain (3) Immunosuppressed status ICD Codes: D89.9 - Disorder involving the immune mechanism, unspecified SNOMED: 79791199 (4) Cholecystitis, acute ICD Codes: K81.0 - Acute cholecystitis SNOMED: 92077993 (5) Diabetes mellitus ICD Codes: E11.9 - Type 2 diabetes mellitus without complications SNOMED: 58178839 (6) COPD (chronic obstructive pulmonary disease) ICD Codes: J44.9 - Chronic obstructive pulmonary disease, unspecified SNOMED: 17236606 (7) BPH (benign prostatic hyperplasia) ICD Codes: N40.0 - Benign prostatic hyperplasia without lower urinary tract symptoms SNOMED: 149562129 (8) Pulmonary fibrosis ICD Codes: J84.10 - Pulmonary fibrosis, unspecified SNOMED: 90521790 (9) Polymyositis ICD Codes: M33.20 - Polymyositis, organ involvement unspecified SNOMED: [id number] Wil Morse May 11, 2020 14:06
[2020-05-11 16:00] VITALS: BP 121/67
--- NOTE | 2020-05-11 17:52 | History & Physical ---
History and Physical History & Physicial Dictated for Int Med-Dr Ramos no. [id number] Cirilo Tan MD May 11, 2020 17:51
--- NOTE | 2020-05-11 19:15 | History and Physical Report ---
DATE OF ADMISSION: 05/10/2020 CHIEF COMPLAINT: The patient is a 69-year-old male who presents with a chief complaint of abdominal pain, nausea, and vomiting. HISTORY OF PRESENT ILLNESS: The patient was admitted to [facility] from April 25, 2020 to May 03, 2020. The patient is status post laparoscopic, converted to open cholecystectomy on April 27, 2020. The patient was discharged home on May 03, 2020. The patient presented to emergency room complaining of a 4-day history of increasing abdominal pain. The patient also has had nausea and vomiting for the last two days. The patient denies fevers. The patient denies diarrhea or constipation. The patient is admitted with nausea and vomiting postoperatively to rule out obstruction. REVIEW OF SYSTEMS: CONSTITUTIONAL: The patient denies weight loss or gain. The patient denies fevers or chills. HEENT: The patient denies ear to throat pain. The patient denies headache. CARDIOVASCULAR: The patient denies palpitations or chest pain. CHEST: The patient denies wheeze or shortness of breath. ABDOMEN: The patient complains of nausea and vomiting as above. The patient complains of epigastric pain. The patient denies diarrhea or constipation. GENITOURINARY: The patient denies dysuria or increased frequency of urination. NEUROMUSCULAR: The patient denies seizures or generalized weakness. PAST MEDICAL HISTORY: Significant for: 1. Diabetes type 2. 2. Pulmonary fibrosis. 3. Osteoporosis. 4. Benign prostatic hypertrophy. 5. Cholecystitis as described above. PAST SURGICAL HISTORY: Significant for: 1. Sigmoidectomy secondary to diverticulitis in 2009. 2. Open cholecystectomy on May 03, 2020 at [facility]. 3. Umbilical hernia repair approximately 8 years ago. 4. Esophagogastroduodenoscopy on April 22, 2020. CURRENT MEDICATIONS: 1. Fosamax 70 mg p.o. weekly. 2. Docusate 100 mg p.o. daily. 3. Vitamin D2, 1.25 mg p.o. weekly. 4. Lasix 40 mg p.o. every other day. 5. [place] 5/325 mg 1 tab p.o. q.4h. p.r.n. 6. Metformin 500 mg p.o. daily. 7. Medrol 4 mg p.o. daily. 8. CellCept 1500 mg p.o. twice daily. 9. Pantoprazole 40 mg p.o. daily. 10. Spironolactone 50 mg p.o. twice daily. 11. Tamsulosin 0.4 mg p.o. daily. ALLERGIES: Levaquin. SOCIAL HISTORY: The patient is and lives with his family. The patient denies tobacco use. The patient denies alcohol use having quit drinking 10 years ago. PHYSICAL EXAMINATION: VITAL SIGNS: Temperature 98.6, respirations 22, blood pressure 99/68, pulse 110. GENERAL: The patient is well-developed, well-nourished male, in no apparent distress. HEENT: Eyes, pupils are equal and responsive to light and accommodation. Extraocular movements are intact. NECK: Supple without lymphadenopathy. CHEST: Lungs are clear to auscultation bilaterally without wheezes or rales. CARDIOVASCULAR: Regular rhythm and rate. S1-S2 are normal without murmurs, rubs, or gallops. ABDOMEN: Soft, tender to palpation in the epigastric region, nondistended with decreased bowel sounds. No evidence of hepatosplenomegaly. Currently no rebound or guarding noted. EXTREMITIES: Negative for clubbing, cyanosis, or edema. RECTAL/GENITAL: Not performed. NEUROLOGIC: Cranial nerves II through XII are grossly intact without focal deficits. Motor strength is 5/5 bilaterally. Deep tendon reflexes are 2+, plantar. LABORATORY STUDIES: WBC 28.1, hemoglobin 11.2, hematocrit 34.0, platelets 397,000. Sodium 134, potassium 4.0, chloride 99, CO2 25, BUN 10, creatinine 0.9, glucose 139, total bilirubin 3.9, direct bilirubin 3.3. AST elevated at 70, alk phos elevated at 172, BNP elevated at 370, lipase elevated at 787. CT scan of the abdomen revealed a 10 x 14 x 9.5 cm gallbladder fossa abscess. ASSESSMENT: This is a 69-year-old male. 1. Abdominal pain. 2. Nausea with vomiting. 3. Gallbladder fossa abscess. 4. Postoperative state. 5. Diabetes type 2. 6. Pulmonary fibrosis. 7. Osteoporosis. TREATMENT: 1. Abdominal pain/nausea/vomiting/gallbladder fossa abscess. A general surgery consultation has been obtained with Dr. Morse. The patient has been placed empirically on intravenous Zosyn. The patient may require CT-guided drainage versus open drainage of the abscess. We will follow recommendations of General Surgery. 2. Diabetes type 2. NovoLog sliding scale has been instituted. 3. Pulmonary fibrosis. 4. Osteoporosis. Cirilo Tan M.D. DR: CHACHA JOB#: [id number] CC:
[2020-05-11 20:00] VITALS: BP 121/75
[2020-05-12] VITALS (8 sets, daily range): BP systolic 110–152; BP diastolic 64–97
[2020-05-12] MEDS: Piperacillin/Tazobactam 3.375 GM in NS 110 ML IVPB SCH ×3 (00:41→16:39)
[2020-05-12] MEDS: Hydrocortisone 100mg Inj IV SCH ×3 (03:47→20:00)
[2020-05-12] MEDS: Morphine Sulfate 2mg/ml Inj(IV/IM USE ONLY) IVP PRN (04:04)
[2020-05-12] MEDS: NovoLOG Insulin Flexpen SUBQ SCH ×4 (06:00→18:00)
--- NOTE | 2020-05-12 06:33 | Diagnostic Imaging Report ---
Indication: Abdominal pain, follow-up of abnormal findings demonstrated on recent CT scan Technique: Axial single shot fast spin echo breath hold, coronal single shot fast spin-echo breath hold, axial T2 FRFSE fat-saturated, 2-D thick slab MRCP, axial 2-D FIESTA fat-saturated, axial 3-D dual echo breath-hold, precontrast axial and postcontrast axial and coronal water weighted axial LAVA FLEX images of the abdomen Comparison: Reference made to abdomen on the CT scan dated 05/10/2020 Findings: The gallbladder has been removed. As demonstrated on recent CT scan, there is a large fluid collection within the gallbladder fossa. This measures 8 x 12 x 7.3 cm. Also demonstrated on recent CT scan, this appears to be mostly surrounded by liver parenchyma, but the inferior and anterior borders are not. The lesion demonstrates predominantly fluid signal on all sequences, but there are is some non fluid signal material demonstrated within it, corresponding to what appears to be an area of debris and gas within the collection on CT scan. There is also some debris layering dependently. There is questionably demonstrated a cystic duct remnant. No definite communication of the collection with the biliary tree is demonstrated. There is an extension of the collection which appears to be in proximity with the duodenal wall. There is no definite associated contrast enhancement. Some filling defects seen within the common bile duct may reflect gas bubbles the extrahepatic ducts are dilated, common bile duct measuring up to 12 mm in diameter. No definite downstream obstructive lesion is demonstrated. There is also mild central intrahepatic biliary ductal dilatation. A small amount of free fluid is seen over the dome of the liver and surrounding the upper spleen and the gastric fundus. The pancreatic duct is mildly prominent, otherwise unremarkable. The spleen, adrenals, right kidney are unremarkable. A cyst is seen in the lower pole of the left kidney. The visualized upper pelvic viscera are unremarkable. Impression: 8 x 12 x 7.3 cm fluid collection in the gallbladder fossa, indenting or extending into the liver, also described on recent CT scan. Given history of recent cholecystectomy, most likely a biloma. Gas bubbles are more evident on prior CT scan, could be residual air from the prior surgical exposure or could indicate infection with a gas-forming organism and therefore a superinfected biloma. No definite communication with the biliary tree Extrahepatic ductal dilatation, without definite downstream obstructive lesion, may be related to age and postcholecystectomy state. Filling defects within the downstream common bile duct probably represent gas bubbles or debris, but small calculi as etiology of this finding also possible Small amount of free intraperitoneal fluid, presumably related to the above or residual from prior surgery. Incidental findings as noted
[2020-05-12 07:27] LABS: HEMATOCRIT 32.9 % (42.0-52.0); HEMOGLOBIN 10.4 G/DL (14.2-18.0); MEAN CORPUSCULAR VOLUME 87 FL (80-99); PLATELET COUNT 452 K/UL (150-450); RED BLOOD COUNT 3.78 M/UL (4.70-6.10); RED CELL DISTRIBUTION WIDTH 16.3 % (11.6-14.8); WHITE BLOOD COUNT 18.5 K/UL (4.8-10.8)
[2020-05-12 07:42] LABS: ALANINE AMINOTRANSFERASE 58 U/L (12-78); ALBUMIN 2.4 G/DL (3.4-5.0); ALBUMIN/GLOBULIN RATIO 0.6 (1.0-2.7); ALKALINE PHOSPHATASE 139 U/L (46-116); ANION GAP 9 mmol/L (5-15); ASPARTATE AMINO TRANSFERASE 32 U/L (15-37); BILIRUBIN,TOTAL 1.4 MG/DL (0.2-1.0); BLOOD UREA NITROGEN 11 mg/dL (7-18); CALCIUM 7.9 MG/DL (8.5-10.1); CARBON DIOXIDE 25 MMOL/L (21-32); CHLORIDE 106 MMOL/L (98-107); CREATININE 0.9 MG/DL (0.55-1.30); POTASSIUM 4.1 MMOL/L (3.5-5.1); SODIUM 140 MMOL/L (136-145)
[2020-05-12 07:49] LABS: BILIRUBIN,DIRECT 0.9 MG/DL (0.0-0.3)
[2020-05-12 08:24] LABS: AMYLASE 592 U/L (25-115)
[2020-05-12] MEDS: Morphine Sulfate 4mg/ml Inj (IV USE ONLY) IVP PRN ×2 (08:45→20:01)
--- NOTE | 2020-05-12 12:20 | Internal Med Progress Note ---
Subjective Date of Service: May 12, 2020 Physician Name Cirilo Tan Attending Physician Jose Ramos MD Current Medications Medications (Trade) Dose Ordered Sig/Renetta Route PRN Reason Start Time Stop Time Status Last Admin Dose Admin Acetaminophen (Tylenol) 650 mg Q4H PRN ORAL Temp >100.5 05/11/20 00:15 06/10/20 00:14 Al Hydroxide/Mg Hydroxide (Mylanta II) 30 ml Q6H PRN ORAL dyspepsia 05/11/20 00:15 06/10/20 00:14 Dextrose (Dextrose 50%) 25 ml Q30M PRN IV Hypoglycemia 05/11/20 01:00 08/09/20 00:59 Dextrose (Dextrose 50%) 50 ml Q30M PRN IV Hypoglycemia 05/11/20 01:00 08/09/20 00:59 Diphenhydramine HCl (Benadryl) 25 mg Q6H PRN ORAL Itching/Pruritis 05/11/20 00:15 06/10/20 00:14 Famotidine (Pepcid I.v.) 20 mg Q12H IVP 05/11/20 00:30 06/10/20 00:29 05/12/20 00:40 Hydrocortisone (Solu-CORTEF) 50 mg Q8H IV 05/11/20 04:00 08/09/20 03:59 05/12/20 03:47 Insulin Aspart (NovoLOG) EVERY 6 HOURS SUBQ 05/11/20 06:00 08/09/20 05:59 05/11/20 18:53 Iohexol (OMNIPAQUE-300 100ml) 100 ml NOW PRN INJ Radiology Procedure 05/10/20 20:00 05/12/20 19:48 Magnesium Hydroxide (Mom) 30 ml HSPRN PRN ORAL Constipation 05/11/20 00:15 06/10/20 00:14 Morphine Sulfate (Morphine Sulfate) 1 mg Q3H PRN IVP For Pain 05/11/20 00:15 05/18/20 00:14 Morphine Sulfate (Morphine Sulfate) 2 mg Q3H PRN IVP Moderate Pain (Pain Scale 4-6) 05/11/20 00:15 05/18/20 00:14 05/12/20 04:04 Morphine Sulfate (Morphine Sulfate) 4 mg Q3H PRN IVP Severe Pain (Pain Scale 7-10) 05/11/20 00:15 05/18/20 00:14 05/12/20 08:45 Ondansetron HCl (Zofran) 4 mg Q4H PRN IVP Nausea & Vomiting 05/11/20 00:15 06/10/20 00:14 Piperacillin Sod/ Tazobactam Sod 3.375 gm/Sodium Chloride 110 ml @ 27.5 mls/hr Q8H IVPB 05/11/20 08:00 05/18/20 07:59 05/12/20 08:45 Sodium Bicarbonate (Sodium Bicarbonate 4%) 1 ml NOW PRN IV Radiology Procedure 05/11/20 09:30 05/13/20 09:22 Sodium Chloride 1,000 ml @ 75 mls/hr [id number] IV 05/11/20 00:15 06/10/20 00:14 05/12/20 02:55 Temazepam (Restoril) 15 mg HSPRN PRN ORAL Insomnia 05/11/20 00:15 05/18/20 00:14 Allergies: Coded Allergies: LEVOFLOXACIN (Unverified Allergy, Mild, Redness, 04/25/20) ROS Limited/Unobtainable: No Constitutional: Reports: no symptoms HEENT: Reports: no symptoms Cardiovascular: Reports: no symptoms Respiratory: Reports: no symptoms Gastrointestinal/Abdominal: Reports: abdominal pain, nausea, vomiting Genitourinary: Reports: no symptoms Neurologic/Psychiatric: Reports: no symptoms Subjective 69 YO M admitted with abdominal pain, nausea and vomiting. Now post op abscess and pancreatitis. Covr for Int Jerad-Dr. Ramos Objective Last Vital Signs Date Time Temp Pulse Resp B/P (MAP) Pulse Ox O2 Delivery O2 Flow Rate FiO2 05/12/20 09:00 Room Air 05/12/20 08:00 98.1 90 19 152/89 (110) 98 Laboratory Tests Test 05/12/20 05:53 05/12/20 06:25 POC Whole Blood Glucose 146 MG/DL (74-106) H White Blood Count 18.5 K/UL (4.8-10.8) H Red Blood Count 3.78 M/UL (4.70-6.10) L Hemoglobin 10.4 G/DL (14.2-18.0) L Hematocrit 32.9 % (42.0-52.0) L Mean Corpuscular Volume 87 FL (80-99) Mean Corpuscular Hemoglobin 27.5 PG (27.0-31.0) Mean Corpuscular Hemoglobin Concent 31.6 G/DL (32.0-36.0) L Red Cell Distribution Width 16.3 % (11.6-14.8) H Platelet Count 452 K/UL (150-450) H Mean Platelet Volume 6.7 FL (6.5-10.1) Neutrophils (%) (Auto) % (45.0-75.0) Lymphocytes (%) (Auto) % (20.0-45.0) Monocytes (%) (Auto) % (1.0-10.0) Eosinophils (%) (Auto) % (0.0-3.0) Basophils (%) (Auto) % (0.0-2.0) Differential Total Cells Counted 100 Neutrophils % (Manual) 94 % (45-75) H Lymphocytes % (Manual) 3 % (20-45) L Monocytes % (Manual) 3 % (1-10) Eosinophils % (Manual) 0 % (0-3) Basophils % (Manual) 0 % (0-2) Band Neutrophils 0 % (0-8) Platelet Estimate Increased H Platelet Morphology Normal Hypochromasia 1+ Anisocytosis 1+ Erythrocyte Sedimentation Rate 109 MM/HR (0-20) H Sodium Level 140 MMOL/L (136-145) Potassium Level 4.1 MMOL/L (3.5-5.1) Chloride Level 106 MMOL/L (98-107) Carbon Dioxide Level 25 MMOL/L (21-32) Anion Gap 9 mmol/L (5-15) Blood Urea Nitrogen 11 mg/dL (7-18) Creatinine 0.9 MG/DL (0.55-1.30) Estimat Glomerular Filtration Rate > 60 mL/min (>60) Glucose Level 139 MG/DL (74-106) H Calcium Level 7.9 MG/DL (8.5-10.1) L Total Bilirubin 1.4 MG/DL (0.2-1.0) H Direct Bilirubin 0.9 MG/DL (0.0-0.3) H Aspartate Amino Transf (AST/SGOT) 32 U/L (15-37) Alanine Aminotransferase (ALT/SGPT) 58 U/L (12-78) Alkaline Phosphatase 139 U/L (46-116) H C-Reactive Protein, Quantitative 16.3 mg/dL (0.00-0.90) H Pro-B-Type Natriuretic Peptide 649 pg/mL (0-125) H Total Protein 6.1 G/DL (6.4-8.2) L Albumin 2.4 G/DL (3.4-5.0) L Globulin 3.7 g/dL Albumin/Globulin Ratio 0.6 (1.0-2.7) L Amylase Level 592 U/L (25-115) *H Lipase > 2000 U/L (73-393) H Microbiology Date/Time Source Procedure Growth Status 05/10/20 20:00 Blood Blood Culture - Preliminary NO GROWTH AFTER 24 HOURS Resulted 05/10/20 19:45 Blood Blood Culture - Preliminary NO GROWTH AFTER 24 HOURS Resulted Intake and Output 05/11/20 05/12/20 19:00 07:00 Intake Total 240 ml 200 ml Output Total 450 ml Balance -210 ml 200 ml Intake Oral 240 ml 200 ml Output Urine Total 450 ml Objective PHYSICAL EXAMINATION: GENERAL: The patient is well-developed, well-nourished male, in no apparent distress. HEENT: Eyes, pupils are equal and responsive to light and accommodation. Extraocular movements are intact. NECK: Supple without lymphadenopathy. CHEST: Lungs are clear to auscultation bilaterally without wheezes or rales. CARDIOVASCULAR: Regular rhythm and rate. S1-S2 are normal without murmurs, rubs, or gallops. ABDOMEN: Soft, tender to palpation in the epigastric region, nondistended with decreased bowel sounds. No evidence of hepatosplenomegaly. No rebound or guarding noted. EXTREMITIES: Negative for clubbing, cyanosis, or edema. RECTAL/GENITAL: Not performed. NEUROLOGIC: Cranial nerves II through XII are grossly intact without focal deficits. Motor strength is 5/5 bilaterally. Deep tendon reflexes are 2+, plantar. Assessment/Plan Assessment/Plan ASSESSMENT: This is a 69-year-old male. 1. Abdominal pain. 2. Nausea with vomiting. 3. Gallbladder fossa abscess. 4. Postoperative state. 5. Diabetes type 2. 6. Pulmonary fibrosis. 7. Osteoporosis. 8. Post Operative Abscess 9. Acute pancreatitis TREATMENT: 1. Abdominal pain/nausea/vomiting/gallbladder fossa abscess. A general surgery consultation has been obtained with Dr. Morse. The patient has been placed empirically on intravenous Zosyn. The patient may require CT-guided drainage versus open drainage of the abscess. We will follow recommendations of General Surgery. 2. Diabetes type 2. NovoLog sliding scale has been instituted. 3. Pulmonary fibrosis. 4. Osteoporosis. 5. Pancreatitis-GI=Cirilo Headley MD May 12, 2020 12:20
--- NOTE | 2020-05-12 12:56 | Pulmonology Progress Note ---
Subjective ROS Limited/Unobtainable: No Constitutional: Reports: no symptoms HEENT: Repors: no symptoms Allergies: Coded Allergies: LEVOFLOXACIN (Unverified Allergy, Mild, Redness, 04/25/20) Objective Last 24 Hour Vital Signs Date Time Temp Pulse Resp B/P (MAP) Pulse Ox O2 Delivery O2 Flow Rate FiO2 05/12/20 09:00 Room Air 05/12/20 08:00 98.1 90 19 152/89 (110) 98 05/12/20 08:00 90 05/12/20 04:00 92 05/12/20 04:00 97.6 70 18 116/68 (84) 98 05/12/20 00:00 90 05/12/20 00:00 97.6 82 17 110/64 (79) 99 05/11/20 21:00 Room Air 05/11/20 20:00 82 05/11/20 20:00 98.0 83 18 121/75 (90) 99 05/11/20 16:00 92 05/11/20 16:00 98.0 93 20 121/67 (85) 95 Intake and Output 05/11/20 05/12/20 19:00 07:00 Intake Total 240 ml 200 ml Output Total 450 ml Balance -210 ml 200 ml Intake Oral 240 ml 200 ml Output Urine Total 450 ml General Appearance: WD/WN HEENT: normocephalic, atraumatic Respiratory: chest wall non-tender, lungs clear Cardiovascular: normal peripheral pulses, normal rate Abdomen: normal bowel sounds, soft, non tender Extremities: no cyanosis Skin: no lesions Neurologic: intramural director II-XII grossly normal Microbiology Date/Time Source Procedure Growth Status 05/10/20 20:00 Blood Blood Culture - Preliminary NO GROWTH AFTER 24 HOURS Resulted 05/10/20 19:45 Blood Blood Culture - Preliminary NO GROWTH AFTER 24 HOURS Resulted Laboratory Tests 05/12/20 05:53: POC Whole Blood Glucose 146H 05/12/20 06:25: White Blood Count 18.5H, Red Blood Count 3.78L, Hemoglobin 10.4L, Hematocrit 32.9L, Mean Corpuscular Volume 87, Mean Corpuscular Hemoglobin 27.5, Mean Corpuscular Hemoglobin Concent 31.6L, Red Cell Distribution Width 16.3H, Platelet Count 452H, Mean Platelet Volume 6.7, Neutrophils (%) (Auto) , Lymphocytes (%) (Auto) , Monocytes (%) (Auto) , Eosinophils (%) (Auto) , Basophils (%) (Auto) , Differential Total Cells Counted 100, Neutrophils % ( Manual) 94H, Lymphocytes % (Manual) 3L, Monocytes % (Manual) 3, Eosinophils % ( Manual) 0, Basophils % (Manual) 0, Band Neutrophils 0, Platelet Estimate IncreasedH, Platelet Morphology Normal, Hypochromasia 1+, Anisocytosis 1+, Erythrocyte Sedimentation Rate 109H, Sodium Level 140, Potassium Level 4.1, Chloride Level 106, Carbon Dioxide Level 25, Anion Gap 9, Blood Urea Nitrogen 11 , Creatinine 0.9, Estimat Glomerular Filtration Rate > 60, Glucose Level 139H, Calcium Level 7.9L, Total Bilirubin 1.4H, Direct Bilirubin 0.9H, Aspartate Amino Transf (AST/SGOT) 32, Alanine Aminotransferase (ALT/SGPT) 58, Alkaline Phosphatase 139H, C-Reactive Protein, Quantitative 16.3H, Pro-B-Type Natriuretic Peptide 649H, Total Protein 6.1L, Albumin 2.4L, Globulin 3.7, Albumin/Globulin Ratio 0.6L, Amylase Level 592*H, Lipase > 2000H 05/12/20 12:50: POC Whole Blood Glucose 123H Current Medications Medications (Trade) Dose Ordered Sig/Renetta Route PRN Reason Start Time Stop Time Status Last Admin Dose Admin Acetaminophen (Tylenol) 650 mg Q4H PRN ORAL Temp >100.5 05/11/20 00:15 06/10/20 00:14 Al Hydroxide/Mg Hydroxide (Mylanta II) 30 ml Q6H PRN ORAL dyspepsia 05/11/20 00:15 06/10/20 00:14 Dextrose (Dextrose 50%) 25 ml Q30M PRN IV Hypoglycemia 05/11/20 01:00 08/09/20 00:59 Dextrose (Dextrose 50%) 50 ml Q30M PRN IV Hypoglycemia 05/11/20 01:00 08/09/20 00:59 Diphenhydramine HCl (Benadryl) 25 mg Q6H PRN ORAL Itching/Pruritis 05/11/20 00:15 06/10/20 00:14 Famotidine (Pepcid I.v.) 20 mg Q12H IVP 05/11/20 00:30 06/10/20 00:29 05/12/20 00:40 Hydrocortisone (Solu-CORTEF) 50 mg Q8H IV 05/11/20 04:00 08/09/20 03:59 05/12/20 03:47 Insulin Aspart (NovoLOG) EVERY 6 HOURS SUBQ 05/11/20 06:00 08/09/20 05:59 05/11/20 18:53 Iohexol (OMNIPAQUE-300 100ml) 100 ml NOW PRN INJ Radiology Procedure 05/10/20 20:00 05/12/20 19:48 Magnesium Hydroxide (Mom) 30 ml HSPRN PRN ORAL Constipation 05/11/20 00:15 06/10/20 00:14 Morphine Sulfate (Morphine Sulfate) 1 mg Q3H PRN IVP For Pain 05/11/20 00:15 05/18/20 00:14 Morphine Sulfate (Morphine Sulfate) 2 mg Q3H PRN IVP Moderate Pain (Pain Scale 4-6) 05/11/20 00:15 05/18/20 00:14 05/12/20 04:04 Morphine Sulfate (Morphine Sulfate) 4 mg Q3H PRN IVP Severe Pain (Pain Scale 7-10) 05/11/20 00:15 05/18/20 00:14 05/12/20 08:45 Ondansetron HCl (Zofran) 4 mg Q4H PRN IVP Nausea & Vomiting 05/11/20 00:15 06/10/20 00:14 Piperacillin Sod/ Tazobactam Sod 3.375 gm/Sodium Chloride 110 ml @ 27.5 mls/hr Q8H IVPB 05/11/20 08:00 05/18/20 07:59 05/12/20 08:45 Sodium Bicarbonate (Sodium Bicarbonate 4%) 1 ml NOW PRN IV Radiology Procedure 05/11/20 09:30 05/13/20 09:22 Sodium Chloride 1,000 ml @ 75 mls/hr [id number] IV 05/11/20 00:15 06/10/20 00:14 05/12/20 02:55 Temazepam (Restoril) 15 mg HSPRN PRN ORAL Insomnia 05/11/20 00:15 05/18/20 00:14 Assessment/Plan Problems: (1) Postoperative abscess (2) Abdominal pain (3) COPD (chronic obstructive pulmonary disease) (4) Pulmonary fibrosis (5) Polymyositis (6) BPH (benign prostatic hyperplasia) (7) Diabetes mellitus Assessment/Plan iv abx surgical f/u check cultures respiratory treatment symptomatic treatment Rudi Kitchen MD May 12, 2020 12:56
[2020-05-12] MEDS ORDERED: Lidocaine 1% Plain 30 ml INJ SCH (13:30)
--- NOTE | 2020-05-12 14:51 | Pre-Procedure Note/Attestation ---
Pre-Procedure Note/Attestation Complete Prior to Procedure Planned Procedure: not applicable Procedure Narrative: US guided biloma drainage Indications for Procedure Pre-Operative Diagnosis: biloma Attestation I attest that I discussed the nature of the procedure; its benefits; risks and complications; and alternatives (and the risks and benefits of such alternatives ), prior to the procedure, with the patient (or the patient's legal assistance representative). I attest that, if there was a reasonable possibility of needing a blood transfusion, the patient (or the patient's legal assistance representative) was given the [facility] standardized written summary, pursuant to the Oskar Zak Blood Safety Act ([place] Health and Safety Code # 1645, as amended). I attest that I re-evaluated the patient just prior to the surgery and that there has been no change in the patient's H&P, except as documented below: Irineo Blanc MD May 12, 2020 14:51
--- NOTE | 2020-05-12 14:54 | Brief Operative Note ---
Immediate Post Operative Note Operative Note Pre-op Diagnosis: biloma Procedure: US guided aspiration and drainage Post-op Diagnosis: same as pre-op Surgeon: Floyd Blanc Anesthesia: local Specimen: yes - 150 ml dark cloudy bile Complications: none Condition: stable Fluids: none Drains: other - 8 F pigtail Implant(s) used?: No Irineo Blanc MD May 12, 2020 14:54
--- NOTE | 2020-05-12 16:16 | Surgery Progress Note ---
Surgery Progress Note Subjective Additional Comments drain completed MRI noted. Objective Last 24 Hour Vital Signs Date Time Temp Pulse Resp B/P (MAP) Pulse Ox O2 Delivery O2 Flow Rate FiO2 05/12/20 14:36 89 23 05/12/20 14:02 89 23 05/12/20 12:00 90 05/12/20 12:00 98.2 90 19 130/69 (89) 98 05/12/20 09:00 Room Air 05/12/20 08:00 98.1 90 19 152/89 (110) 98 05/12/20 08:00 90 05/12/20 04:00 92 05/12/20 04:00 97.6 70 18 116/68 (84) 98 05/12/20 00:00 90 05/12/20 00:00 97.6 82 17 110/64 (79) 99 05/11/20 21:00 Room Air 05/11/20 20:00 82 05/11/20 20:00 98.0 83 18 121/75 (90) 99 I&O Intake and Output 05/11/20 05/12/20 19:00 07:00 Intake Total 240 ml 200 ml Output Total 450 ml Balance -210 ml 200 ml Intake Oral 240 ml 200 ml Output Urine Total 450 ml Dressing: dry Wound: clean Cardiovascular: RSR Respiratory: clear Abdomen: soft, non-tender, present bowel sounds, non-distended Extremities: no edema, no tenderness, no cyanosis Laboratory Tests Test 05/12/20 05:53 05/12/20 06:25 05/12/20 12:50 POC Whole Blood Glucose 146 MG/DL (74-106) H 123 MG/DL (74-106) H White Blood Count 18.5 K/UL (4.8-10.8) H Red Blood Count 3.78 M/UL (4.70-6.10) L Hemoglobin 10.4 G/DL (14.2-18.0) L Hematocrit 32.9 % (42.0-52.0) L Mean Corpuscular Volume 87 FL (80-99) Mean Corpuscular Hemoglobin 27.5 PG (27.0-31.0) Mean Corpuscular Hemoglobin Concent 31.6 G/DL (32.0-36.0) L Red Cell Distribution Width 16.3 % (11.6-14.8) H Platelet Count 452 K/UL (150-450) H Mean Platelet Volume 6.7 FL (6.5-10.1) Neutrophils (%) (Auto) % (45.0-75.0) Lymphocytes (%) (Auto) % (20.0-45.0) Monocytes (%) (Auto) % (1.0-10.0) Eosinophils (%) (Auto) % (0.0-3.0) Basophils (%) (Auto) % (0.0-2.0) Differential Total Cells Counted 100 Neutrophils % (Manual) 94 % (45-75) H Lymphocytes % (Manual) 3 % (20-45) L Monocytes % (Manual) 3 % (1-10) Eosinophils % (Manual) 0 % (0-3) Basophils % (Manual) 0 % (0-2) Band Neutrophils 0 % (0-8) Platelet Estimate Increased H Platelet Morphology Normal Hypochromasia 1+ Anisocytosis 1+ Erythrocyte Sedimentation Rate 109 MM/HR (0-20) H Sodium Level 140 MMOL/L (136-145) Potassium Level 4.1 MMOL/L (3.5-5.1) Chloride Level 106 MMOL/L (98-107) Carbon Dioxide Level 25 MMOL/L (21-32) Anion Gap 9 mmol/L (5-15) Blood Urea Nitrogen 11 mg/dL (7-18) Creatinine 0.9 MG/DL (0.55-1.30) Estimat Glomerular Filtration Rate > 60 mL/min (>60) Glucose Level 139 MG/DL (74-106) H Calcium Level 7.9 MG/DL (8.5-10.1) L Total Bilirubin 1.4 MG/DL (0.2-1.0) H Direct Bilirubin 0.9 MG/DL (0.0-0.3) H Aspartate Amino Transf (AST/SGOT) 32 U/L (15-37) Alanine Aminotransferase (ALT/SGPT) 58 U/L (12-78) Alkaline Phosphatase 139 U/L (46-116) H C-Reactive Protein, Quantitative 16.3 mg/dL (0.00-0.90) H Pro-B-Type Natriuretic Peptide 649 pg/mL (0-125) H Total Protein 6.1 G/DL (6.4-8.2) L Albumin 2.4 G/DL (3.4-5.0) L Globulin 3.7 g/dL Albumin/Globulin Ratio 0.6 (1.0-2.7) L Amylase Level 592 U/L (25-115) *H Lipase > 2000 U/L (73-393) H Plan Problems: (1) Postoperative abscess Assessment & Plan: 69 M post operative intrabdominal abscess vs bile leak biloma currently afebrile, HD stable exam with wound c/d/i. mild discomfort RUQ leukocytosis trending down on abx t bili nml now npo iv fluids iv abx CT guided drainage of GB fossa fluid collection eval biloma vs abscess. thank you will follow with recs MRI noted. area of debris with air likely the Surgicel placed in surgery. remaining fluid collection. Drain completed. output seems like liquefactive hematoma? potential superimposed infection? pending micro no sagar pus. no bowel contents. potential debris with bile? cont drain okay for diet discussed with daughter The gallbladder has been removed. As demonstrated on recent CT scan, there is a large fluid collection within the gallbladder fossa. This measures 8 x 12 x 7.3 cm. Also demonstrated on recent CT scan, this appears to be mostly surrounded by liver parenchyma, but the inferior and anterior borders are not. The lesion demonstrates predominantly fluid signal on all sequences, but there are is some non fluid signal material demonstrated within it, corresponding to what appears to be an area of debris and gas within the collection on CT scan. There is also some debris layering dependently. There is questionably demonstrated a cystic duct remnant. No definite communication of the collection with the biliary tree is demonstrated. There is an extension of the collection which appears to be in proximity with the duodenal wall. There is no definite associated contrast enhancement. Some filling defects seen within the common bile duct may reflect gas bubbles the extrahepatic ducts are dilated, common bile duct measuring up to 12 mm in diameter. No definite downstream obstructive lesion is demonstrated. There is also mild central intrahepatic biliary ductal dilatation. A small amount of free fluid is seen over the dome of the liver and surrounding the upper spleen and the gastric fundus. The pancreatic duct is mildly prominent, otherwise unremarkable. The spleen, adrenals, right kidney are unremarkable. A cyst is seen in the lower pole of the left kidney. The visualized upper pelvic viscera are unremarkable. Impression: 8 x 12 x 7.3 cm fluid collection in the gallbladder fossa, indenting or extending into the liver, also described on recent CT scan. Given history of recent cholecystectomy, most likely a biloma. Gas bubbles are more evident on prior CT scan, could be residual air from the prior surgical exposure or could indicate infection with a gas-forming organism and therefore a superinfected biloma. No definite communication with the biliary tree Extrahepatic ductal dilatation, without definite downstream obstructive lesion, may be related to age and postcholecystectomy state. Filling defects within the downstream common bile duct probably represent gas bubbles or debris, but small calculi as etiology of this finding also possible Small amount of free intraperitoneal fluid, presumably related to the above or residual from prior surgery. (2) Abdominal pain Assessment & Plan: ABDOMEN: Liver: Unremarkable. No mass. Gallbladder and bile ducts: Cholecystectomy with postoperative CBD prominence 1.3 cm, potentially due to reservoir effect. No obstructing lesion seen. Pancreas: Unremarkable. No mass. No ductal dilation. Spleen: Unremarkable. No splenomegaly. Adrenals: Unremarkable. No mass. Kidneys and ureters: Unremarkable. No solid mass. No hydronephrosis. Stomach and bowel: Gastric antrum mild wall thickening could be incidental and represent peristalsis or could represent gastritis in the proper context. Rectal operative findings. Likely benign calcification near the cecum and the mesentery of uncertain significance. No obstruction. PELVIS: Appendix: No findings to suggest acute appendicitis. Bladder: Unremarkable. No mass. Reproductive: Prostatomegaly 5.6 cm transverse. ABDOMEN and PELVIS: Intraperitoneal space: Massive gallbladder fossa abscess, potentially representing contained an infected bile leak versus postoperative abscess formation measures 10 x 14 x 9.5 cm. Small pneumoperitoneum anterior to the liver, this is probably due to the recent postoperative setting. Scattered nonloculated additional peritoneal fluid seen along the greater curvature of the stomach. Central mesentery focal ill-defined 2 cm soft tissue nodularity with adjacent calcification axial series 4 image 81 is of uncertain significance, but could represent scarring from prior operative intervention, sequela of carcinoid metastatic to the mesentery, or tiny focus of mesenteric desmoid. Bones/joints: Bilateral L5 spondylolysis with grade 1 anterolisthesis. No acute fracture. No dislocation. Soft tissues: Operative staple line across the right upper quadrant. Vasculature: Unremarkable. No abdominal aortic aneurysm. Lymph nodes: Unremarkable. No enlarged lymph nodes. IMPRESSION: 1. Massive gallbladder fossa abscess, potentially representing contained an infected bile leak versus postoperative abscess formation measures 10 x 14 x 9.5 cm. 2. Small pneumoperitoneum anterior to the liver, this is probably due to the recent postoperative setting. Operative staple line across the right upper quadrant. 3. Cholecystectomy with postoperative CBD prominence 1.3 cm, potentially due to reservoir effect. No obstructing lesion seen. 4. If clinically desired, consider MRI abdomen without and with IV contrast as well as with MRCP sequences to further characterize biliary ductal prominence. 5. Central mesentery focal ill-defined 2 cm soft tissue nodularity with adjacent calcification axial series 4 image 81 is of uncertain significance, but could represent scarring from prior operative intervention, sequela of carcinoid metastatic to the mesentery, or tiny focus of mesenteric desmoid. 6. Recommend outpatient dedicated CT chest without IV contrast to further characterize pulmonary findings suggestive of interstitial lung disease, potentially NSIP subtype. 7. Gastric antrum mild wall thickening could be incidental and represent peristalsis or could represent gastritis in the proper context. 8. Scattered nonloculated additional peritoneal fluid seen along the greater curvature of the stomach. 9. Prostatomegaly 5.6 cm transverse. (3) Immunosuppressed status (4) Cholecystitis, acute (5) Diabetes mellitus (6) COPD (chronic obstructive pulmonary disease) (7) BPH (benign prostatic hyperplasia) (8) Pulmonary fibrosis (9) Polymyositis Wil Morse May 12, 2020 16:16
--- NOTE | 2020-05-12 17:51 | Diagnostic Imaging Report ---
Indication: Fluid collection in the gallbladder fossa in patient status post cholecystectomy Technique: Prior imaging studies reviewed. Informed consent obtained prior to commencement of the procedure. Sterile prepping and draping. Local anesthesia functional lidocaine. Under real-time ultrasound guidance, the gallbladder fossa collection was accessed using 21-gauge needle. Passage 0.018 guidewire, insertion [place] 6 [place] introducer assembly. The dilator and stiffener were removed. 0.035 guidewire is inserted, over which was inserted 8.5 [place] pigtail drainage catheter. Pigtail was formed. Catheter fixed to the skin. A specimen was sent to the lab. Total of 150 mL of cloudy dark bilious appearing material aspirated. The patient tolerated the procedure well, without immediate complication. Comparison: Reference made to MRI abdomen 05/11/2020, CT abdomen pelvis 05/10/2020 Findings: Intraprocedural images document needle and wire placement within the target fluid collection Impression: Successful placement of 8.5 [place] drainage catheter for drainage of gallbladder fossa presumed postoperative biloma
--- NOTE | 2020-05-12 18:00 | Consultation ---
DATE OF CONSULTATION: 05/12/2020 CONSULTING PHYSICIAN: Petey Marquez MD. CHIEF COMPLAINT: Abdominal pain. HISTORY OF PRESENT ILLNESS: This is a 69-year-old male who recently had a cholecystectomy came back to the hospital with abdominal pain. CT and MRI showed evidence of large fluid collection at the gallbladder fossa with common bile duct dilatation. Also, he patient showed evidence of pancreatitis based on laboratories. So, GI consult requested for evaluation. PAST MEDICAL HISTORY: 1. Chronic liver disease. 2. Diverticulitis. 3. Pulmonary fibrosis. 4. History of Sharmin esophagitis. 5. History of umbilical hernia. 6. Diabetes. 7. Osteoporosis. 8. BPH. ALLERGIES: No known drug allergies. MEDICATIONS: Please see medication reconciliation list. SOCIAL HISTORY: Patient denies any tobacco, alcohol, or drug abuse. PAST SURGICAL HISTORY: History of sigmoid resection for diverticulitis many years ago. Also had a cholecystectomy this month in this hospital. REVIEW OF SYSTEMS: A 10-point review of systems was performed and pertinent positives in HPI. PHYSICAL EXAMINATION: VITAL SIGNS: Temperature is 98.1, pulse 90, respirations 19, blood pressure is 152/89. HEENT: Normocephalic, atraumatic. Sclerae anicteric. NECK: Supple. No evidence of obvious lymphadenopathy. CARDIOVASCULAR: Regular rate and rhythm. Plus S1-S2. LUNGS: Decreased breath sounds bilaterally based on supine exam. ABDOMEN: Mildly distended. Bowel sounds are hypoactive and distant. There is tenderness to palpation in the right upper quadrant. EXTREMITIES: No cyanosis, no clubbing, no edema. LABORATORY DATA: White count is 18,000, hemoglobin 10, hematocrit 32, platelets of 452. ASSESSMENT AND PLAN: This is a 69-year-old male with post cholecystectomy, now with fluid collection, questionable abscess, questionable bile leak at the gallbladder fossa in addition with pancreatitis and dilated common bile duct. Plan, after reviewing the chart and imaging studies after discussion with the surgeon, plan is to drain this right upper quadrant fluid. If it is positive, then it is most probably an abscess and needs treatment and drainage. If it is a bile, then we are going to monitor to see if the drainage goes down. Otherwise, the patient might need an ERCP. We will follow closely and make further recommendation as we go along. Petey Jose Juan Marquez DR: DARRELL JOB#: [id number] CC:
[2020-05-13] VITALS: BP 102/60
[2020-05-13] MEDS: Piperacillin/Tazobactam 3.375 GM in NS 110 ML IVPB SCH ×3 (00:06→16:01)
[2020-05-13] MEDS: Morphine Sulfate 4mg/ml Inj (IV USE ONLY) IVP PRN ×2 (00:09→04:14)
[2020-05-13 04:00] VITALS: BP 110/64
[2020-05-13] MEDS: Hydrocortisone 100mg Inj IV SCH ×3 (04:15→20:38)
[2020-05-13] MEDS: NovoLOG Insulin Flexpen SUBQ SCH ×4 (05:29→17:43)
[2020-05-13 07:35] LABS: HEMATOCRIT 28.2 % (42.0-52.0); MEAN CORPUSCULAR VOLUME 87 FL (80-99); PLATELET COUNT 394 K/UL (150-450); RED BLOOD COUNT 3.23 M/UL (4.70-6.10); WHITE BLOOD COUNT 12.4 K/UL (4.8-10.8)
[2020-05-13 07:37] LABS: ALANINE AMINOTRANSFERASE 41 U/L (12-78); ALBUMIN/GLOBULIN RATIO 0.6 (1.0-2.7); ALKALINE PHOSPHATASE 101 U/L (46-116); ANION GAP 8 mmol/L (5-15); ASPARTATE AMINO TRANSFERASE 25 U/L (15-37); BILIRUBIN,TOTAL 0.5 MG/DL (0.2-1.0); BLOOD UREA NITROGEN 8 mg/dL (7-18); CALCIUM 6.9 MG/DL (8.5-10.1); CARBON DIOXIDE 26 MMOL/L (21-32); CHLORIDE 108 MMOL/L (98-107); CREATININE 0.7 MG/DL (0.55-1.30); POTASSIUM 3.5 MMOL/L (3.5-5.1); SODIUM 142 MMOL/L (136-145)
[2020-05-13 08:00] VITALS: BP 118/75
--- NOTE | 2020-05-13 11:00 | General Progress Note ---
Assessment/Plan Assessment/Plan: 1. Chronic liver disease. 2. Diverticulitis. 3. Pulmonary fibrosis. 4. History of Sharmin esophagitis. 5. History of umbilical hernia. 6. Diabetes. 7. Osteoporosis. 8. BPH. 9. RUQ abscess vs biloma s/p drainage d/w surg will order HIDA scan Subjective ROS Limited/Unobtainable: Yes Allergies: Coded Allergies: LEVOFLOXACIN (Unverified Allergy, Mild, Redness, 04/25/20) Objective Last 24 Hour Vital Signs Date Time Temp Pulse Resp B/P (MAP) Pulse Ox O2 Delivery O2 Flow Rate FiO2 05/13/20 08:56 Room Air 05/13/20 08:00 97.7 81 20 118/75 (89) 94 05/13/20 08:00 86 05/13/20 04:00 97.7 81 17 110/64 (79) 94 05/13/20 04:00 80 05/13/20 00:00 97.7 78 18 102/60 (74) 97 05/13/20 00:00 74 05/12/20 21:00 Room Air 05/12/20 20:00 87 05/12/20 20:00 97.9 89 17 112/66 (81) 96 05/12/20 16:00 98.8 86 20 144/88 (106) 97 05/12/20 16:00 86 05/12/20 14:36 89 23 05/12/20 14:02 89 23 05/12/20 12:00 90 05/12/20 12:00 98.2 90 19 130/69 (89) 98 Intake and Output 05/12/20 05/13/20 19:00 07:00 Intake Total 275 ml 1425 ml Output Total 820 ml Balance 275 ml 605 ml Intake Oral 600 ml IV Total 75 ml 825 ml Other 200 ml Output Urine Total 420 ml Drainage Total 400 ml # Voids 3 Laboratory Tests 05/12/20 12:50: POC Whole Blood Glucose 123H 05/12/20 17:04: POC Whole Blood Glucose 128H 05/13/20 00:08: POC Whole Blood Glucose 133H 05/13/20 05:28: POC Whole Blood Glucose 118H 05/13/20 06:15: White Blood Count 12.4H, Red Blood Count 3.23L, Hemoglobin 9.0L, Hematocrit 28.2L, Mean Corpuscular Volume 87, Mean Corpuscular Hemoglobin 27.9, Mean Corpuscular Hemoglobin Concent 31.9L, Red Cell Distribution Width 18.0H, Platelet Count 394, Mean Platelet Volume 6.3L, Neutrophils (%) (Auto) , Lymphocytes (%) (Auto) , Monocytes (%) (Auto) , Eosinophils (%) (Auto) , Basophils (%) (Auto) , Differential Total Cells Counted 100, Neutrophils % ( Manual) 90H, Lymphocytes % (Manual) 9L, Monocytes % (Manual) 1, Eosinophils % ( Manual) 0, Basophils % (Manual) 0, Band Neutrophils 0, Platelet Estimate Adequate, Platelet Morphology Normal, Hypochromasia 1+, Anisocytosis 1+, Sodium Level 142, Potassium Level 3.5, Chloride Level 108H, Carbon Dioxide Level 26, Anion Gap 8, Blood Urea Nitrogen 8, Creatinine 0.7, Estimat Glomerular Filtration Rate > 60, Glucose Level 117H, Calcium Level 6.9L, Total Bilirubin 0.5, Aspartate Amino Transf (AST/SGOT) 25, Alanine Aminotransferase (ALT/SGPT) 41, Alkaline Phosphatase 101, Total Protein 5.1L, Albumin 2.0L, Globulin 3.1, Albumin/Globulin Ratio 0.6L, Amylase Level 37, Lipase 114 Height (Feet): 6 Height (Inches): 1.00 Weight (Pounds): 179 General Appearance: no apparent distress EENT: normal ENT inspection Neck: supple Cardiovascular: normal rate Respiratory/Chest: decreased breath sounds Abdomen: hypoactive bowel sounds Extremities: non-tender Petey Marquez MD May 13, 2020 11:00
--- NOTE | 2020-05-13 11:24 | Pulmonology Progress Note ---
Subjective ROS Limited/Unobtainable: Yes Constitutional: Reports: no symptoms HEENT: Repors: no symptoms Allergies: Coded Allergies: LEVOFLOXACIN (Unverified Allergy, Mild, Redness, 04/25/20) Objective Last 24 Hour Vital Signs Date Time Temp Pulse Resp B/P (MAP) Pulse Ox O2 Delivery O2 Flow Rate FiO2 05/13/20 08:56 Room Air 05/13/20 08:00 97.7 81 20 118/75 (89) 94 05/13/20 08:00 86 05/13/20 04:00 97.7 81 17 110/64 (79) 94 05/13/20 04:00 80 05/13/20 00:00 97.7 78 18 102/60 (74) 97 05/13/20 00:00 74 05/12/20 21:00 Room Air 05/12/20 20:00 87 05/12/20 20:00 97.9 89 17 112/66 (81) 96 05/12/20 16:00 98.8 86 20 144/88 (106) 97 05/12/20 16:00 86 05/12/20 14:36 89 23 05/12/20 14:02 89 23 05/12/20 12:00 90 05/12/20 12:00 98.2 90 19 130/69 (89) 98 Intake and Output 05/12/20 05/13/20 19:00 07:00 Intake Total 275 ml 1425 ml Output Total 820 ml Balance 275 ml 605 ml Intake Oral 600 ml IV Total 75 ml 825 ml Other 200 ml Output Urine Total 420 ml Drainage Total 400 ml # Voids 3 General Appearance: WD/WN HEENT: normocephalic, atraumatic Respiratory: chest wall non-tender, lungs clear Cardiovascular: normal peripheral pulses, normal rate Abdomen: normal bowel sounds, soft, non tender Extremities: no cyanosis Skin: no lesions Neurologic: escalator mechanic II-XII grossly normal Microbiology Date/Time Source Procedure Growth Status 05/10/20 20:00 Blood Blood Culture - Preliminary NO GROWTH AFTER 48 HOURS Resulted 05/10/20 19:45 Blood Blood Culture - Preliminary NO GROWTH AFTER 48 HOURS Resulted 05/10/20 21:56 Nasal Nares MRSA Culture - Final NO METHICILLIN RESISTANT STAPH AUREUS... Complete 05/10/20 21:56 Rectum - Final NO CARBAPENEM-RESISTANT ENTEROBACTERI... Complete 05/10/20 21:56 Rectum VRE Culture - Final Enterococcus Faecalis - Vre Complete Laboratory Tests 05/12/20 12:50: POC Whole Blood Glucose 123H 05/12/20 17:04: POC Whole Blood Glucose 128H 05/13/20 00:08: POC Whole Blood Glucose 133H 05/13/20 05:28: POC Whole Blood Glucose 118H 05/13/20 06:15: White Blood Count 12.4H, Red Blood Count 3.23L, Hemoglobin 9.0L, Hematocrit 28.2L, Mean Corpuscular Volume 87, Mean Corpuscular Hemoglobin 27.9, Mean Corpuscular Hemoglobin Concent 31.9L, Red Cell Distribution Width 18.0H, Platelet Count 394, Mean Platelet Volume 6.3L, Neutrophils (%) (Auto) , Lymphocytes (%) (Auto) , Monocytes (%) (Auto) , Eosinophils (%) (Auto) , Basophils (%) (Auto) , Differential Total Cells Counted 100, Neutrophils % ( Manual) 90H, Lymphocytes % (Manual) 9L, Monocytes % (Manual) 1, Eosinophils % ( Manual) 0, Basophils % (Manual) 0, Band Neutrophils 0, Platelet Estimate Adequate, Platelet Morphology Normal, Hypochromasia 1+, Anisocytosis 1+, Sodium Level 142, Potassium Level 3.5, Chloride Level 108H, Carbon Dioxide Level 26, Anion Gap 8, Blood Urea Nitrogen 8, Creatinine 0.7, Estimat Glomerular Filtration Rate > 60, Glucose Level 117H, Calcium Level 6.9L, Total Bilirubin 0.5, Aspartate Amino Transf (AST/SGOT) 25, Alanine Aminotransferase (ALT/SGPT) 41, Alkaline Phosphatase 101, Total Protein 5.1L, Albumin 2.0L, Globulin 3.1, Albumin/Globulin Ratio 0.6L, Amylase Level 37, Lipase 114 Current Medications Medications (Trade) Dose Ordered Sig/Renetta Route PRN Reason Start Time Stop Time Status Last Admin Dose Admin Acetaminophen (Tylenol) 650 mg Q4H PRN ORAL Temp >100.5 05/11/20 00:15 06/10/20 00:14 Al Hydroxide/Mg Hydroxide (Mylanta II) 30 ml Q6H PRN ORAL dyspepsia 05/11/20 00:15 06/10/20 00:14 Dextrose (Dextrose 50%) 25 ml Q30M PRN IV Hypoglycemia 05/11/20 01:00 08/09/20 00:59 Dextrose (Dextrose 50%) 50 ml Q30M PRN IV Hypoglycemia 05/11/20 01:00 08/09/20 00:59 Diphenhydramine HCl (Benadryl) 25 mg Q6H PRN ORAL Itching/Pruritis 05/11/20 00:15 06/10/20 00:14 Famotidine (Pepcid I.v.) 20 mg Q12H IVP 05/11/20 00:30 06/10/20 00:29 05/13/20 00:13 Hydrocortisone (Solu-CORTEF) 50 mg Q8H IV 05/11/20 04:00 08/09/20 03:59 05/13/20 04:15 Insulin Aspart (NovoLOG) EVERY 6 HOURS SUBQ 05/11/20 06:00 08/09/20 05:59 05/11/20 18:53 Magnesium Hydroxide (Mom) 30 ml HSPRN PRN ORAL Constipation 05/11/20 00:15 06/10/20 00:14 Morphine Sulfate (Morphine Sulfate) 1 mg Q3H PRN IVP For Pain 05/11/20 00:15 05/18/20 00:14 Morphine Sulfate (Morphine Sulfate) 2 mg Q3H PRN IVP Moderate Pain (Pain Scale 4-6) 05/11/20 00:15 05/18/20 00:14 05/12/20 04:04 Morphine Sulfate (Morphine Sulfate) 4 mg Q3H PRN IVP Severe Pain (Pain Scale 7-10) 05/11/20 00:15 05/18/20 00:14 05/13/20 04:14 Ondansetron HCl (Zofran) 4 mg Q4H PRN IVP Nausea & Vomiting 05/11/20 00:15 06/10/20 00:14 Piperacillin Sod/ Tazobactam Sod 3.375 gm/Sodium Chloride 110 ml @ 27.5 mls/hr Q8H IVPB 05/11/20 08:00 05/18/20 07:59 05/13/20 08:06 Sodium Chloride 1,000 ml @ 75 mls/hr [id number] IV 05/11/20 00:15 06/10/20 00:14 05/13/20 06:10 Temazepam (Restoril) 15 mg HSPRN PRN ORAL Insomnia 05/11/20 00:15 05/18/20 00:14 Assessment/Plan Problems: (1) Postoperative abscess (2) Abdominal pain (3) COPD (chronic obstructive pulmonary disease) (4) Pulmonary fibrosis (5) Polymyositis (6) BPH (benign prostatic hyperplasia) (7) Diabetes mellitus Assessment/Plan drained 700 cc from the catheter gallbladder fossa did physical therapy iv abx surgical f/u check cultures respiratory treatment symptomatic treatment Rudi Kitchen MD May 13, 2020 11:24
[2020-05-13 12:00] VITALS: BP 123/76
[2020-05-13] MEDS: Morphine Sulfate 2mg/ml Inj(IV/IM USE ONLY) IVP PRN ×2 (14:08→20:38)
--- NOTE | 2020-05-13 14:27 | Diagnostic Imaging Report ---
EXAM: NM Hepatobiliary w/ delays TECHNIQUE: A HIDA scan is performed using 6.5 mCi of technetium 99 Choletec. Images are obtained dynamically for 60 minutes. CLINICAL HISTORY: Abdominal pain. Status post cholecystectomy. Status post drainage catheter for gallbladder fossa fluid collection. Evaluate for biloma. COMPARISON: None FINDINGS: There is appropriate homogeneous uptake of tracer in the liver. Early activity excreted into the biliary system is noted at 15 minute. There is accumulation of tracer activity noted in the gallbladder fossa starting at 25 minutes with studies subsequent increase in intensity forming a ovoid collection in the gallbladder fossa. Findings consistent with a biloma. IMPRESSION: BILOMA COLLECTION IN THE GALLBLADDER FOSSA .
[2020-05-13 16:00] VITALS: BP 132/84
--- NOTE | 2020-05-13 16:15 | Surgery Progress Note ---
Surgery Progress Note Subjective Additional Comments leukocytosis improved labs noted exam stable comfortable no n/v/f/c good output from drain HIDA ordered and cystic duct leak noted discussed with GI plan for ercp and stent discussed with daughter and patient joao removed Objective Last 24 Hour Vital Signs Date Time Temp Pulse Resp B/P (MAP) Pulse Ox O2 Delivery O2 Flow Rate FiO2 05/13/20 15:00 97.7 05/13/20 12:00 74 05/13/20 12:00 97.7 72 20 123/76 (92) 98 05/13/20 08:56 Room Air 05/13/20 08:00 97.7 81 20 118/75 (89) 94 05/13/20 08:00 86 05/13/20 04:00 97.7 81 17 110/64 (79) 94 05/13/20 04:00 80 05/13/20 00:00 97.7 78 18 102/60 (74) 97 05/13/20 00:00 74 05/12/20 21:00 Room Air 05/12/20 20:00 87 05/12/20 20:00 97.9 89 17 112/66 (81) 96 I&O Intake and Output 05/12/20 05/13/20 19:00 07:00 Intake Total 275 ml 1425 ml Output Total 820 ml Balance 275 ml 605 ml Intake Oral 600 ml IV Total 75 ml 825 ml Other 200 ml Output Urine Total 420 ml Drainage Total 400 ml # Voids 3 Dressing: dry Wound: clean Cardiovascular: RSR Respiratory: clear Abdomen: soft, non-tender, present bowel sounds Extremities: no tenderness, no cyanosis Laboratory Tests Test 05/12/20 17:04 05/13/20 00:08 05/13/20 05:28 05/13/20 06:15 POC Whole Blood Glucose 128 MG/DL (74-106) H 133 MG/DL (74-106) H 118 MG/DL (74-106) H White Blood Count 12.4 K/UL (4.8-10.8) H Red Blood Count 3.23 M/UL (4.70-6.10) L Hemoglobin 9.0 G/DL (14.2-18.0) L Hematocrit 28.2 % (42.0-52.0) L Mean Corpuscular Volume 87 FL (80-99) Mean Corpuscular Hemoglobin 27.9 PG (27.0-31.0) Mean Corpuscular Hemoglobin Concent 31.9 G/DL (32.0-36.0) L Red Cell Distribution Width 18.0 % (11.6-14.8) H Platelet Count 394 K/UL (150-450) Mean Platelet Volume 6.3 FL (6.5-10.1) L Neutrophils (%) (Auto) % (45.0-75.0) Lymphocytes (%) (Auto) % (20.0-45.0) Monocytes (%) (Auto) % (1.0-10.0) Eosinophils (%) (Auto) % (0.0-3.0) Basophils (%) (Auto) % (0.0-2.0) Differential Total Cells Counted 100 Neutrophils % (Manual) 90 % (45-75) H Lymphocytes % (Manual) 9 % (20-45) L Monocytes % (Manual) 1 % (1-10) Eosinophils % (Manual) 0 % (0-3) Basophils % (Manual) 0 % (0-2) Band Neutrophils 0 % (0-8) Platelet Estimate Adequate Platelet Morphology Normal Hypochromasia 1+ Anisocytosis 1+ Sodium Level 142 MMOL/L (136-145) Potassium Level 3.5 MMOL/L (3.5-5.1) Chloride Level 108 MMOL/L (98-107) H Carbon Dioxide Level 26 MMOL/L (21-32) Anion Gap 8 mmol/L (5-15) Blood Urea Nitrogen 8 mg/dL (7-18) Creatinine 0.7 MG/DL (0.55-1.30) Estimat Glomerular Filtration Rate > 60 mL/min (>60) Glucose Level 117 MG/DL (74-106) H Calcium Level 6.9 MG/DL (8.5-10.1) L Total Bilirubin 0.5 MG/DL (0.2-1.0) Aspartate Amino Transf (AST/SGOT) 25 U/L (15-37) Alanine Aminotransferase (ALT/SGPT) 41 U/L (12-78) Alkaline Phosphatase 101 U/L (46-116) Total Protein 5.1 G/DL (6.4-8.2) L Albumin 2.0 G/DL (3.4-5.0) L Globulin 3.1 g/dL Albumin/Globulin Ratio 0.6 (1.0-2.7) L Amylase Level 37 U/L (25-115) Lipase 114 U/L (73-393) Test 05/13/20 16:06 POC Whole Blood Glucose 152 MG/DL (74-106) H Plan Problems: (1) Postoperative abscess Assessment & Plan: 69 M post operative intrabdominal abscess vs bile leak biloma currently afebrile, HD stable exam with wound c/d/i. mild discomfort RUQ leukocytosis trending down on abx t bili nml now npo iv fluids iv abx CT guided drainage of GB fossa fluid collection eval biloma vs abscess. thank you will follow with recs MRI noted. area of debris with air likely the Surgicel placed in surgery. remaining fluid collection. Drain completed. output seems like liquefactive hematoma? potential superimposed infection? pending micro no sagar pus. no bowel contents. potential debris with bile? cont drain okay for diet discussed with daughter The gallbladder has been removed. As demonstrated on recent CT scan, there is a large fluid collection within the gallbladder fossa. This measures 8 x 12 x 7.3 cm. Also demonstrated on recent CT scan, this appears to be mostly surrounded by liver parenchyma, but the inferior and anterior borders are not. The lesion demonstrates predominantly fluid signal on all sequences, but there are is some non fluid signal material demonstrated within it, corresponding to what appears to be an area of debris and gas within the collection on CT scan. There is also some debris layering dependently. There is questionably demonstrated a cystic duct remnant. No definite communication of the collection with the biliary tree is demonstrated. There is an extension of the collection which appears to be in proximity with the duodenal wall. There is no definite associated contrast enhancement. Some filling defects seen within the common bile duct may reflect gas bubbles the extrahepatic ducts are dilated, common bile duct measuring up to 12 mm in diameter. No definite downstream obstructive lesion is demonstrated. There is also mild central intrahepatic biliary ductal dilatation. A small amount of free fluid is seen over the dome of the liver and surrounding the upper spleen and the gastric fundus. The pancreatic duct is mildly prominent, otherwise unremarkable. The spleen, adrenals, right kidney are unremarkable. A cyst is seen in the lower pole of the left kidney. The visualized upper pelvic viscera are unremarkable. Impression: 8 x 12 x 7.3 cm fluid collection in the gallbladder fossa, indenting or extending into the liver, also described on recent CT scan. Given history of recent cholecystectomy, most likely a biloma. Gas bubbles are more evident on prior CT scan, could be residual air from the prior surgical exposure or could indicate infection with a gas-forming organism and therefore a superinfected biloma. No definite communication with the biliary tree Extrahepatic ductal dilatation, without definite downstream obstructive lesion, may be related to age and postcholecystectomy state. Filling defects within the downstream common bile duct probably represent gas bubbles or debris, but small calculi as etiology of this finding also possible Small amount of free intraperitoneal fluid, presumably related to the above or residual from prior surgery. (2) Abdominal pain Assessment & Plan: ABDOMEN: Liver: Unremarkable. No mass. Gallbladder and bile ducts: Cholecystectomy with postoperative CBD prominence 1.3 cm, potentially due to reservoir effect. No obstructing lesion seen. Pancreas: Unremarkable. No mass. No ductal dilation. Spleen: Unremarkable. No splenomegaly. Adrenals: Unremarkable. No mass. Kidneys and ureters: Unremarkable. No solid mass. No hydronephrosis. Stomach and bowel: Gastric antrum mild wall thickening could be incidental and represent peristalsis or could represent gastritis in the proper context. Rectal operative findings. Likely benign calcification near the cecum and the mesentery of uncertain significance. No obstruction. PELVIS: Appendix: No findings to suggest acute appendicitis. Bladder: Unremarkable. No mass. Reproductive: Prostatomegaly 5.6 cm transverse. ABDOMEN and PELVIS: Intraperitoneal space: Massive gallbladder fossa abscess, potentially representing contained an infected bile leak versus postoperative abscess formation measures 10 x 14 x 9.5 cm. Small pneumoperitoneum anterior to the liver, this is probably due to the recent postoperative setting. Scattered nonloculated additional peritoneal fluid seen along the greater curvature of the stomach. Central mesentery focal ill-defined 2 cm soft tissue nodularity with adjacent calcification axial series 4 image 81 is of uncertain significance, but could represent scarring from prior operative intervention, sequela of carcinoid metastatic to the mesentery, or tiny focus of mesenteric desmoid. Bones/joints: Bilateral L5 spondylolysis with grade 1 anterolisthesis. No acute fracture. No dislocation. Soft tissues: Operative staple line across the right upper quadrant. Vasculature: Unremarkable. No abdominal aortic aneurysm. Lymph nodes: Unremarkable. No enlarged lymph nodes. IMPRESSION: 1. Massive gallbladder fossa abscess, potentially representing contained an infected bile leak versus postoperative abscess formation measures 10 x 14 x 9.5 cm. 2. Small pneumoperitoneum anterior to the liver, this is probably due to the recent postoperative setting. Operative staple line across the right upper quadrant. 3. Cholecystectomy with postoperative CBD prominence 1.3 cm, potentially due to reservoir effect. No obstructing lesion seen. 4. If clinically desired, consider MRI abdomen without and with IV contrast as well as with MRCP sequences to further characterize biliary ductal prominence. 5. Central mesentery focal ill-defined 2 cm soft tissue nodularity with adjacent calcification axial series 4 image 81 is of uncertain significance, but could represent scarring from prior operative intervention, sequela of carcinoid metastatic to the mesentery, or tiny focus of mesenteric desmoid. 6. Recommend outpatient dedicated CT chest without IV contrast to further characterize pulmonary findings suggestive of interstitial lung disease, potentially NSIP subtype. 7. Gastric antrum mild wall thickening could be incidental and represent peristalsis or could represent gastritis in the proper context. 8. Scattered nonloculated additional peritoneal fluid seen along the greater curvature of the stomach. 9. Prostatomegaly 5.6 cm transverse. (3) Immunosuppressed status (4) Cholecystitis, acute (5) Diabetes mellitus (6) COPD (chronic obstructive pulmonary disease) (7) BPH (benign prostatic hyperplasia) (8) Pulmonary fibrosis (9) Polymyositis Wil Morse May 13, 2020 16:15
--- NOTE | 2020-05-13 16:55 | Internal Med Progress Note ---
Subjective Date of Service: May 13, 2020 Physician Name Tan,Cirilo Attending Physician Jose Ramos MD Current Medications Medications (Trade) Dose Ordered Sig/Renetta Route PRN Reason Start Time Stop Time Status Last Admin Dose Admin Acetaminophen (Tylenol) 650 mg Q4H PRN ORAL Temp >100.5 05/11/20 00:15 06/10/20 00:14 Al Hydroxide/Mg Hydroxide (Mylanta II) 30 ml Q6H PRN ORAL dyspepsia 05/11/20 00:15 06/10/20 00:14 Dextrose (Dextrose 50%) 25 ml Q30M PRN IV Hypoglycemia 05/11/20 01:00 08/09/20 00:59 Dextrose (Dextrose 50%) 50 ml Q30M PRN IV Hypoglycemia 05/11/20 01:00 08/09/20 00:59 Diphenhydramine HCl (Benadryl) 25 mg Q6H PRN ORAL Itching/Pruritis 05/11/20 00:15 06/10/20 00:14 Famotidine (Pepcid I.v.) 20 mg Q12H IVP 05/11/20 00:30 06/10/20 00:29 05/13/20 14:06 Hydrocortisone (Solu-CORTEF) 50 mg Q8H IV 05/11/20 04:00 08/09/20 03:59 05/13/20 11:48 Insulin Aspart (NovoLOG) EVERY 6 HOURS SUBQ 05/11/20 06:00 08/09/20 05:59 05/11/20 18:53 Magnesium Hydroxide (Mom) 30 ml HSPRN PRN ORAL Constipation 05/11/20 00:15 06/10/20 00:14 Morphine Sulfate (Morphine Sulfate) 1 mg Q3H PRN IVP For Pain 05/11/20 00:15 05/18/20 00:14 Morphine Sulfate (Morphine Sulfate) 2 mg Q3H PRN IVP Moderate Pain (Pain Scale 4-6) 05/11/20 00:15 05/18/20 00:14 05/13/20 14:08 Morphine Sulfate (Morphine Sulfate) 4 mg Q3H PRN IVP Severe Pain (Pain Scale 7-10) 05/11/20 00:15 05/18/20 00:14 05/13/20 04:14 Ondansetron HCl (Zofran) 4 mg Q4H PRN IVP Nausea & Vomiting 05/11/20 00:15 06/10/20 00:14 Piperacillin Sod/ Tazobactam Sod 3.375 gm/Sodium Chloride 110 ml @ 27.5 mls/hr Q8H IVPB 05/11/20 08:00 05/18/20 07:59 05/13/20 16:01 Sodium Chloride 1,000 ml @ 75 mls/hr [id number] IV 05/11/20 00:15 06/10/20 00:14 05/13/20 06:10 Temazepam (Restoril) 15 mg HSPRN PRN ORAL Insomnia 05/11/20 00:15 05/18/20 00:14 Allergies: Coded Allergies: LEVOFLOXACIN (Unverified Allergy, Mild, Redness, 04/25/20) ROS Limited/Unobtainable: No Constitutional: Reports: no symptoms HEENT: Reports: no symptoms Cardiovascular: Reports: no symptoms Respiratory: Reports: no symptoms Gastrointestinal/Abdominal: Reports: abdominal pain Genitourinary: Reports: no symptoms Neurologic/Psychiatric: Reports: no symptoms Subjective 69 YO M admitted with abdominal pain, nausea and vomiting. Now post op cystic duct leak. S/P ultrasound guided drain placement 05/12/20. Await ERCP for stent placement. Cover for Int Jerad-Dr. Ramos Objective Last Vital Signs Date Time Temp Pulse Resp B/P (MAP) Pulse Ox O2 Delivery O2 Flow Rate FiO2 05/13/20 16:00 97.9 72 20 132/84 (100) 98 05/13/20 08:56 Room Air Laboratory Tests Test 05/12/20 17:04 05/13/20 00:08 05/13/20 05:28 05/13/20 06:15 POC Whole Blood Glucose 128 MG/DL (74-106) H 133 MG/DL (74-106) H 118 MG/DL (74-106) H White Blood Count 12.4 K/UL (4.8-10.8) H Red Blood Count 3.23 M/UL (4.70-6.10) L Hemoglobin 9.0 G/DL (14.2-18.0) L Hematocrit 28.2 % (42.0-52.0) L Mean Corpuscular Volume 87 FL (80-99) Mean Corpuscular Hemoglobin 27.9 PG (27.0-31.0) Mean Corpuscular Hemoglobin Concent 31.9 G/DL (32.0-36.0) L Red Cell Distribution Width 18.0 % (11.6-14.8) H Platelet Count 394 K/UL (150-450) Mean Platelet Volume 6.3 FL (6.5-10.1) L Neutrophils (%) (Auto) % (45.0-75.0) Lymphocytes (%) (Auto) % (20.0-45.0) Monocytes (%) (Auto) % (1.0-10.0) Eosinophils (%) (Auto) % (0.0-3.0) Basophils (%) (Auto) % (0.0-2.0) Differential Total Cells Counted 100 Neutrophils % (Manual) 90 % (45-75) H Lymphocytes % (Manual) 9 % (20-45) L Monocytes % (Manual) 1 % (1-10) Eosinophils % (Manual) 0 % (0-3) Basophils % (Manual) 0 % (0-2) Band Neutrophils 0 % (0-8) Platelet Estimate Adequate Platelet Morphology Normal Hypochromasia 1+ Anisocytosis 1+ Sodium Level 142 MMOL/L (136-145) Potassium Level 3.5 MMOL/L (3.5-5.1) Chloride Level 108 MMOL/L (98-107) H Carbon Dioxide Level 26 MMOL/L (21-32) Anion Gap 8 mmol/L (5-15) Blood Urea Nitrogen 8 mg/dL (7-18) Creatinine 0.7 MG/DL (0.55-1.30) Estimat Glomerular Filtration Rate > 60 mL/min (>60) Glucose Level 117 MG/DL (74-106) H Calcium Level 6.9 MG/DL (8.5-10.1) L Total Bilirubin 0.5 MG/DL (0.2-1.0) Aspartate Amino Transf (AST/SGOT) 25 U/L (15-37) Alanine Aminotransferase (ALT/SGPT) 41 U/L (12-78) Alkaline Phosphatase 101 U/L (46-116) Total Protein 5.1 G/DL (6.4-8.2) L Albumin 2.0 G/DL (3.4-5.0) L Globulin 3.1 g/dL Albumin/Globulin Ratio 0.6 (1.0-2.7) L Amylase Level 37 U/L (25-115) Lipase 114 U/L (73-393) Test 05/13/20 16:06 POC Whole Blood Glucose 152 MG/DL (74-106) H Microbiology Date/Time Source Procedure Growth Status 05/10/20 20:00 Blood Blood Culture - Preliminary NO GROWTH AFTER 48 HOURS Resulted 05/10/20 19:45 Blood Blood Culture - Preliminary NO GROWTH AFTER 48 HOURS Resulted 05/10/20 21:56 Nasal Nares MRSA Culture - Final NO METHICILLIN RESISTANT STAPH AUREUS... Complete 05/10/20 21:56 Rectum - Final NO CARBAPENEM-RESISTANT ENTEROBACTERI... Complete 05/10/20 21:56 Rectum VRE Culture - Final Enterococcus Faecalis - Vre Complete Intake and Output 05/12/20 05/13/20 19:00 07:00 Intake Total 275 ml 1425 ml Output Total 820 ml Balance 275 ml 605 ml Intake Oral 600 ml IV Total 75 ml 825 ml Other 200 ml Output Urine Total 420 ml Drainage Total 400 ml # Voids 3 Objective PHYSICAL EXAMINATION: GENERAL: The patient is well-developed, well-nourished male, in no apparent distress. HEENT: Eyes, pupils are equal and responsive to light and accommodation. Extraocular movements are intact. NECK: Supple without lymphadenopathy. CHEST: Lungs are clear to auscultation bilaterally without wheezes or rales. CARDIOVASCULAR: Regular rhythm and rate. S1-S2 are normal without murmurs, rubs, or gallops. ABDOMEN: Soft, tender to palpation in the epigastric region, nondistended with decreased bowel sounds. No evidence of hepatosplenomegaly. No rebound or guarding noted. EXTREMITIES: Negative for clubbing, cyanosis, or edema. RECTAL/GENITAL: Not performed. NEUROLOGIC: Cranial nerves II through XII are grossly intact without focal deficits. Motor strength is 5/5 bilaterally. Deep tendon reflexes are 2+, plantar. Assessment/Plan Assessment/Plan ASSESSMENT: This is a 69-year-old male. 1. Abdominal pain. 2. Nausea with vomiting. 3. Cystic duct leak 4. Postoperative state. 5. Diabetes type 2. 6. Pulmonary fibrosis. 7. Osteoporosis. 8. Post Operative Abscess 9. Acute pancreatitis TREATMENT: 1. Abdominal pain/nausea/vomiting/gallbladder fossa abscess. A general surgery consultation has been obtained with Dr. Morse. The patient has been placed empirically on intravenous Zosyn. The patient may require CT-guided drainage versus open drainage of the abscess. We will follow recommendations of General Surgery. 2. Diabetes type 2. NovoLog sliding scale has been instituted. 3. Pulmonary fibrosis. 4. Osteoporosis. 5. Pancreatitis-GI=Dr Marquez 6. S/P ultrasound guided drain placement 7. Await ERCP Cirilo Tan MD May 13, 2020 16:55
[2020-05-13 20:00] VITALS: BP 125/73
--- NOTE | 2020-05-13 20:05 | Cardiology Progress Note ---
Assessment/Plan Assessment/Plan [id number] Objective Last 24 Hour Vital Signs Date Time Temp Pulse Resp B/P (MAP) Pulse Ox O2 Delivery O2 Flow Rate FiO2 05/13/20 16:00 97.9 72 20 132/84 (100) 98 05/13/20 16:00 63 05/13/20 15:00 97.7 05/13/20 12:00 74 05/13/20 12:00 97.7 72 20 123/76 (92) 98 05/13/20 08:56 Room Air 05/13/20 08:00 97.7 81 20 118/75 (89) 94 05/13/20 08:00 86 05/13/20 04:00 97.7 81 17 110/64 (79) 94 05/13/20 04:00 80 05/13/20 00:00 97.7 78 18 102/60 (74) 97 05/13/20 00:00 74 05/12/20 21:00 Room Air Intake and Output 05/12/20 05/13/20 19:00 07:00 Intake Total 275 ml 1425 ml Output Total 820 ml Balance 275 ml 605 ml Intake Oral 600 ml IV Total 75 ml 825 ml Other 200 ml Output Urine Total 420 ml Drainage Total 400 ml # Voids 3 Laboratory Tests Test 05/13/20 00:08 05/13/20 05:28 05/13/20 06:15 05/13/20 16:06 POC Whole Blood Glucose 133 MG/DL (74-106) H 118 MG/DL (74-106) H 152 MG/DL (74-106) H White Blood Count 12.4 K/UL (4.8-10.8) H Red Blood Count 3.23 M/UL (4.70-6.10) L Hemoglobin 9.0 G/DL (14.2-18.0) L Hematocrit 28.2 % (42.0-52.0) L Mean Corpuscular Volume 87 FL (80-99) Mean Corpuscular Hemoglobin 27.9 PG (27.0-31.0) Mean Corpuscular Hemoglobin Concent 31.9 G/DL (32.0-36.0) L Red Cell Distribution Width 18.0 % (11.6-14.8) H Platelet Count 394 K/UL (150-450) Mean Platelet Volume 6.3 FL (6.5-10.1) L Neutrophils (%) (Auto) % (45.0-75.0) Lymphocytes (%) (Auto) % (20.0-45.0) Monocytes (%) (Auto) % (1.0-10.0) Eosinophils (%) (Auto) % (0.0-3.0) Basophils (%) (Auto) % (0.0-2.0) Differential Total Cells Counted 100 Neutrophils % (Manual) 90 % (45-75) H Lymphocytes % (Manual) 9 % (20-45) L Monocytes % (Manual) 1 % (1-10) Eosinophils % (Manual) 0 % (0-3) Basophils % (Manual) 0 % (0-2) Band Neutrophils 0 % (0-8) Platelet Estimate Adequate Platelet Morphology Normal Hypochromasia 1+ Anisocytosis 1+ Sodium Level 142 MMOL/L (136-145) Potassium Level 3.5 MMOL/L (3.5-5.1) Chloride Level 108 MMOL/L (98-107) H Carbon Dioxide Level 26 MMOL/L (21-32) Anion Gap 8 mmol/L (5-15) Blood Urea Nitrogen 8 mg/dL (7-18) Creatinine 0.7 MG/DL (0.55-1.30) Estimat Glomerular Filtration Rate > 60 mL/min (>60) Glucose Level 117 MG/DL (74-106) H Calcium Level 6.9 MG/DL (8.5-10.1) L Total Bilirubin 0.5 MG/DL (0.2-1.0) Aspartate Amino Transf (AST/SGOT) 25 U/L (15-37) Alanine Aminotransferase (ALT/SGPT) 41 U/L (12-78) Alkaline Phosphatase 101 U/L (46-116) Total Protein 5.1 G/DL (6.4-8.2) L Albumin 2.0 G/DL (3.4-5.0) L Globulin 3.1 g/dL Albumin/Globulin Ratio 0.6 (1.0-2.7) L Amylase Level 37 U/L (25-115) Lipase 114 U/L (73-393) Test 05/13/20 17:38 POC Whole Blood Glucose Pending Microbiology Date/Time Source Procedure Growth Status 05/13/20 16:38 Nasopharynx SARS-CoV-2 RdRp Gene Assay - Final Complete 05/10/20 21:56 Nasal Nares MRSA Culture - Final NO METHICILLIN RESISTANT STAPH AUREUS... Complete 05/10/20 21:56 Rectum - Final NO CARBAPENEM-RESISTANT ENTEROBACTERI... Complete 05/10/20 21:56 Rectum VRE Culture - Final Enterococcus Faecalis - Vre Complete Marcial Lugo MD May 13, 2020 20:05
--- NOTE | 2020-05-13 21:30 | Consultation ---
DATE OF CONSULTATION: 05/13/2020 CARDIOLOGY CONSULTATION CONSULTING PHYSICIAN: Marcial Lugo MD. REFERRING PHYSICIAN: Rudi Kitchen MD. REASON FOR REFERRAL: AV block. HISTORY OF PRESENT ILLNESS: This is an elderly gentleman who is known to me from prior hospitalization. The patient had a cholecystectomy , he tolerated well. Apparently came into the hospital because of pain and was diagnosed with a possible abscess. He has been here in the hospital, been doing relatively well. He is improved. Episode of AV block was documented by one of the telemetry staff and therefore this consultation requested. On questioning, the patient denies any chest pain. Denies any shortness of breath. Denies any PND. Denies any dizziness on standing. Denies any palpitations. No syncope. No near syncope was noted by the patient. PAST MEDICAL HISTORY: Positive for history of cholecystitis status post laparoscopic converted to open cholecystectomy with extensive abdominal lysis of adhesion, history of polymyositis not on immunosuppressive therapy apparently immunosuppressive status, abnormal liver function tests. Has had diabetes mellitus, pulmonary fibrosis, COPD, benign prostatic hypertrophy, osteoporosis, esophagitis, candidiasis, umbilical hernia, benign prostatic hypertrophy, history of chronic liver disease, diverticulitis as well. PAST SURGICAL HISTORY: Resection of diverticulitis approximately 8 years ago, cholecystectomy, endoscopy. ALLERGIES: To Levaquin. SOCIAL HISTORY: Lives with family. . No tobacco. No alcohol. No drugs. REVIEW OF SYSTEMS: GASTROINTESTINAL: Abdominal pain. No nausea or vomiting. No diarrhea or constipation. No black or bloody stools. GENITOURINARY: No discomfort on urination or blood in the urine. PULMONARY: Denies any coughing or wheezing. CONSTITUTIONAL: Denies any fevers or chills or night sweats. He is able to ambulate in the room earlier today. PHYSICAL EXAMINATION: GENERAL: Shows to be elderly gentleman, in no respiratory distress. NECK: Supple. No jugular venous distention. LUNGS: Clear to auscultation and percussion. CARDIAC: Showed regular rate and rhythm. No heaves, thrills, gallops, or rubs are noted. ABDOMEN: Soft, nontender. Positive bowel sounds. There is surgical scar. Drain on the right side. EXTREMITIES: No edema. NEUROLOGICAL: Awake, alert, responsive. LABORATORY DATA: Laboratory values, white count of 12.4 down from 20.1, hemoglobin 9 down from 11.2, and platelet count of 394. Sedimentation rate of 109. Sodium 142, potassium 3.5, chloride 108, bicarb 28, BUN of 8, creatinine 0.7, glucose of 116, blood sugar between 117 to 152, calcium 6.9, and albumin of 2.0. Liver function tests are otherwise unremarkable. Amylase and lipase are normal. Coags, INR 1.1 and PTT of 36. Urinalysis is fairly unremarkable. IMAGING: A HIDA scan was performed today showed a biloma collection in the gallbladder fossa and an MRI of the abdomen was recently performed showing 8 x 12 x 7.3 mL of fluid collection in gallbladder fossa indenting to or extending into the liver. Extrahepatic ductal dilatation being noted. COVID SARS was negative. The patient had an EKG that showed at the time of his admission on 05/10/2020 sinus tachycardia with leftward axis with delayed R-wave progression, left anterior fascicular block, and some nonspecific ST-segment changes. Telemetry shows sinus rhythm. There is a segment that is concerned about AV block. It is actually artifact. I do not see any evidence of heart block. His heart rates are still well preserved. First-degree AV block is not felt to be present nor is second-degree AV block. Telemetry data completely reviewed. No evidence of other abnormalities being noted on the telemetry strips. ASSESSMENT AND PLAN: 1. Gallbladder fossa fluid collection and a possibility of biloma. 2. Bronchiectasis/pulmonary fibrosis. 3. Diabetes mellitus. 4. History of benign prostatic hypertrophy. 5. History of osteoporosis. Dr. Kitchen, this patient was seen in cardiac consultation. AV block is not confirmed on review of the records. Patient is in sinus rhythm with normal QRS duration and normal MT interval. No significant evidence of cardiac symptoms at this time. His blood pressure appears to be relatively normal at 132/84 with heart rate of 63 and temperature 97.9. He will be monitored for few more days, otherwise I see no indication at this time of any further cardiac intervention being necessary. I will follow the patient along with you. Marcial Lugo M.D. DR: IVELISSE/IVELISSE JOB#: [id number] CC:
[2020-05-14] VITALS (10 sets, daily range): BP systolic 124–147; BP diastolic 72–98
[2020-05-14] MEDS: Piperacillin/Tazobactam 3.375 GM in NS 110 ML IVPB SCH ×3 (00:35→16:18)
[2020-05-14] MEDS: Hydrocortisone 100mg Inj IV SCH ×3 (04:11→20:44)
[2020-05-14] MEDS: NovoLOG Insulin Flexpen SUBQ SCH ×4 (06:00→17:44)
[2020-05-14 07:20] LABS: HEMATOCRIT 29.3 % (42.0-52.0); HEMOGLOBIN 9.1 G/DL (14.2-18.0); MEAN CORPUSCULAR VOLUME 87 FL (80-99); PLATELET COUNT 407 K/UL (150-450); RED BLOOD COUNT 3.37 M/UL (4.70-6.10); RED CELL DISTRIBUTION WIDTH 16.5 % (11.6-14.8); WHITE BLOOD COUNT 10.7 K/UL (4.8-10.8)
[2020-05-14 07:37] LABS: ALANINE AMINOTRANSFERASE 36 U/L (12-78); ALBUMIN 1.9 G/DL (3.4-5.0); ALBUMIN/GLOBULIN RATIO 0.6 (1.0-2.7); ALKALINE PHOSPHATASE 102 U/L (46-116); AMYLASE 27 U/L (25-115); ANION GAP 3 mmol/L (5-15); ASPARTATE AMINO TRANSFERASE 22 U/L (15-37); BILIRUBIN,TOTAL 0.5 MG/DL (0.2-1.0); BLOOD UREA NITROGEN 8 mg/dL (7-18); CALCIUM 7.4 MG/DL (8.5-10.1); CARBON DIOXIDE 28 MMOL/L (21-32); CHLORIDE 110 MMOL/L (98-107); CREATININE 0.7 MG/DL (0.55-1.30); PHOSPHORUS 1.6 MG/DL (2.5-4.9); POTASSIUM 4.2 MMOL/L (3.5-5.1); SODIUM 141 MMOL/L (136-145)
[2020-05-14] MEDS ORDERED: Iothalamate Meglumine 60% 30ML INJ ONE ×2 (10:37→12:50)
[2020-05-14] MEDS ORDERED: fentaNYL 100 mcg/2 mL IV ONE (11:15)
[2020-05-14] MEDS ORDERED: Lidocaine 1% MPF 10mg/ml 5ml ONE (11:15)
[2020-05-14] MEDS ORDERED: Midazolam 2mg/2ml Inj ONE (11:15)
--- NOTE | 2020-05-14 12:07 | Pre-Procedure Note/Attestation ---
Pre-Procedure Note/Attestation Complete Prior to Procedure Planned Procedure: not applicable Procedure Narrative: ercp Indications for Procedure Pre-Operative Diagnosis: bile leak Attestation I attest that I discussed the nature of the procedure; its benefits; risks and complications; and alternatives (and the risks and benefits of such alternatives ), prior to the procedure, with the patient (or the patient's legal billing representative). I attest that, if there was a reasonable possibility of needing a blood transfusion, the patient (or the patient's legal billing representative) was given the [facility] standardized written summary, pursuant to the Oskar Barwick Blood Safety Act ([place] Health and Safety Code # 1645, as amended). I attest that I re-evaluated the patient just prior to the surgery and that there has been no change in the patient's H&P, except as documented below: Petey Marquez MD May 14, 2020 12:07
[2020-05-14] MEDS ORDERED: NS 500ML IVPB ONE (12:25)
[2020-05-14] MEDS ORDERED: Succinylcholine 20mg/ml 10ml vial ONE (12:30)
[2020-05-14] MEDS ORDERED: LR 1000ml ONE (12:30)
--- NOTE | 2020-05-14 12:33 | Internal Med Progress Note ---
Subjective Date of Service: May 14, 2020 Physician Name TanCirilo Attending Physician Jose Ramos MD Current Medications Medications (Trade) Dose Ordered Sig/Renetta Route PRN Reason Start Time Stop Time Status Last Admin Dose Admin Acetaminophen (Tylenol) 650 mg Q4H PRN ORAL Temp >100.5 05/11/20 00:15 06/10/20 00:14 Al Hydroxide/Mg Hydroxide (Mylanta II) 30 ml Q6H PRN ORAL dyspepsia 05/11/20 00:15 06/10/20 00:14 Dextrose (Dextrose 50%) 25 ml Q30M PRN IV Hypoglycemia 05/11/20 01:00 08/09/20 00:59 Dextrose (Dextrose 50%) 50 ml Q30M PRN IV Hypoglycemia 05/11/20 01:00 08/09/20 00:59 Diphenhydramine HCl (Benadryl) 25 mg Q6H PRN ORAL Itching/Pruritis 05/11/20 00:15 06/10/20 00:14 Famotidine (Pepcid I.v.) 20 mg Q12H IVP 05/11/20 00:30 06/10/20 00:29 05/14/20 00:35 Hydrocortisone (Solu-CORTEF) 50 mg Q8H IV 05/11/20 04:00 08/09/20 03:59 05/14/20 04:11 Insulin Aspart (NovoLOG) EVERY 6 HOURS SUBQ 05/11/20 06:00 08/09/20 05:59 05/13/20 17:43 Magnesium Hydroxide (Mom) 30 ml HSPRN PRN ORAL Constipation 05/11/20 00:15 06/10/20 00:14 Morphine Sulfate (Morphine Sulfate) 1 mg Q3H PRN IVP For Pain 05/11/20 00:15 05/18/20 00:14 Morphine Sulfate (Morphine Sulfate) 2 mg Q3H PRN IVP Moderate Pain (Pain Scale 4-6) 05/11/20 00:15 05/18/20 00:14 05/13/20 20:38 Morphine Sulfate (Morphine Sulfate) 4 mg Q3H PRN IVP Severe Pain (Pain Scale 7-10) 05/11/20 00:15 05/18/20 00:14 05/13/20 04:14 Ondansetron HCl (Zofran) 4 mg Q4H PRN IVP Nausea & Vomiting 05/11/20 00:15 06/10/20 00:14 Piperacillin Sod/ Tazobactam Sod 3.375 gm/Sodium Chloride 110 ml @ 27.5 mls/hr Q8H IVPB 05/11/20 08:00 05/18/20 07:59 05/14/20 08:26 Sodium Chloride 1,000 ml @ 75 mls/hr [id number] IV 05/11/20 00:15 06/10/20 00:14 05/14/20 08:27 Temazepam (Restoril) 15 mg HSPRN PRN ORAL Insomnia 05/11/20 00:15 05/18/20 00:14 Allergies: Coded Allergies: LEVOFLOXACIN (Unverified Allergy, Mild, Redness, 04/25/20) ROS Limited/Unobtainable: No Constitutional: Reports: no symptoms HEENT: Reports: no symptoms Cardiovascular: Reports: no symptoms Respiratory: Reports: no symptoms Gastrointestinal/Abdominal: Reports: no symptoms Genitourinary: Reports: no symptoms Neurologic/Psychiatric: Reports: no symptoms Subjective 69 YO M admitted with abdominal pain, nausea and vomiting. Now post op cystic duct leak. S/P ultrasound guided drain placement 05/12/20. ERCP for stent placement scheduled today 05/14/20. Cover for [facility] Sdea Ramos Objective Last Vital Signs Date Time Temp Pulse Resp B/P (MAP) Pulse Ox O2 Delivery O2 Flow Rate FiO2 05/14/20 12:00 98.2 82 18 142/72 (95) 96 05/14/20 09:00 Room Air Laboratory Tests Test 05/13/20 16:06 05/13/20 17:38 05/13/20 20:23 05/14/20 06:39 POC Whole Blood Glucose 152 MG/DL (74-106) H Pending 137 MG/DL (74-106) H White Blood Count 10.7 K/UL (4.8-10.8) Red Blood Count 3.37 M/UL (4.70-6.10) L Hemoglobin 9.1 G/DL (14.2-18.0) L Hematocrit 29.3 % (42.0-52.0) L Mean Corpuscular Volume 87 FL (80-99) Mean Corpuscular Hemoglobin 27.1 PG (27.0-31.0) Mean Corpuscular Hemoglobin Concent 31.1 G/DL (32.0-36.0) L Red Cell Distribution Width 16.5 % (11.6-14.8) H Platelet Count 407 K/UL (150-450) Mean Platelet Volume 6.0 FL (6.5-10.1) L Neutrophils (%) (Auto) % (45.0-75.0) Lymphocytes (%) (Auto) % (20.0-45.0) Monocytes (%) (Auto) % (1.0-10.0) Eosinophils (%) (Auto) % (0.0-3.0) Basophils (%) (Auto) % (0.0-2.0) Differential Total Cells Counted 100 Neutrophils % (Manual) 90 % (45-75) H Lymphocytes % (Manual) 9 % (20-45) L Monocytes % (Manual) 0 % (1-10) L Eosinophils % (Manual) 0 % (0-3) Basophils % (Manual) 0 % (0-2) Band Neutrophils 1 % (0-8) Platelet Estimate Adequate Platelet Morphology Normal Hypochromasia 1+ Anisocytosis 1+ Erythrocyte Sedimentation Rate 79 MM/HR (0-20) H Sodium Level 141 MMOL/L (136-145) Potassium Level 4.2 MMOL/L (3.5-5.1) Chloride Level 110 MMOL/L (98-107) H Carbon Dioxide Level 28 MMOL/L (21-32) Anion Gap 3 mmol/L (5-15) L Blood Urea Nitrogen 8 mg/dL (7-18) Creatinine 0.7 MG/DL (0.55-1.30) Estimat Glomerular Filtration Rate > 60 mL/min (>60) Glucose Level 129 MG/DL (74-106) H Calcium Level 7.4 MG/DL (8.5-10.1) L Phosphorus Level 1.6 MG/DL (2.5-4.9) L Magnesium Level 2.5 MG/DL (1.8-2.4) H Total Bilirubin 0.5 MG/DL (0.2-1.0) Aspartate Amino Transf (AST/SGOT) 22 U/L (15-37) Alanine Aminotransferase (ALT/SGPT) 36 U/L (12-78) Alkaline Phosphatase 102 U/L (46-116) C-Reactive Protein, Quantitative 6.1 mg/dL (0.00-0.90) H Total Protein 4.9 G/DL (6.4-8.2) L Albumin 1.9 G/DL (3.4-5.0) L Globulin 3.0 g/dL Albumin/Globulin Ratio 0.6 (1.0-2.7) L Amylase Level 27 U/L (25-115) Lipase 117 U/L (73-393) Microbiology Date/Time Source Procedure Growth Status 05/13/20 16:38 Nasopharynx SARS-CoV-2 RdRp Gene Assay - Final Complete Intake and Output 05/13/20 05/14/20 19:00 07:00 Output Total 450 ml Balance -450 ml Drainage Total 450 ml # Voids 4 3 Objective PHYSICAL EXAMINATION: GENERAL: The patient is well-developed, well-nourished male, in no apparent distress. HEENT: Eyes, pupils are equal and responsive to light and accommodation. Extraocular movements are intact. NECK: Supple without lymphadenopathy. CHEST: Lungs are clear to auscultation bilaterally without wheezes or rales. CARDIOVASCULAR: Regular rhythm and rate. S1-S2 are normal without murmurs, rubs, or gallops. ABDOMEN: Soft, tender to palpation in the epigastric region, nondistended with decreased bowel sounds. No evidence of hepatosplenomegaly. No rebound or guarding noted. EXTREMITIES: Negative for clubbing, cyanosis, or edema. RECTAL/GENITAL: Not performed. NEUROLOGIC: Cranial nerves II through XII are grossly intact without focal deficits. Motor strength is 5/5 bilaterally. Deep tendon reflexes are 2+, plantar. Assessment/Plan Assessment/Plan ASSESSMENT: This is a 69-year-old male. 1. Abdominal pain. 2. Nausea with vomiting. 3. Cystic duct leak 4. Postoperative state. 5. Diabetes type 2. 6. Pulmonary fibrosis. 7. Osteoporosis. 8. Post Operative Abscess 9. Acute pancreatitis TREATMENT: 1. Abdominal pain/nausea/vomiting/gallbladder fossa abscess. A general surgery consultation has been obtained with Dr. Morse. The patient has been placed empirically on intravenous Zosyn. The patient may require CT-guided drainage versus open drainage of the abscess. We will follow recommendations of General Surgery. 2. Diabetes type 2. NovoLog sliding scale has been instituted. 3. Pulmonary fibrosis. 4. Osteoporosis. 5. Pancreatitis-GI=Dr Marquez 6. S/P ultrasound guided drain placement 7. ERCPwith stent placement today 05/14/20 Cirilo Tan MD May 14, 2020 12:33
--- NOTE | 2020-05-14 13:23 | Immediate Post-Op Evaluation ---
Immediate Post-Op Evalulation Immediate Post-Op Evalulation Procedure: ERCP Date of Evaluation: May 14, 2020 Time of Evaluation: 13:22 IV Fluids: 800 Blood Pressure Systolic: 144 Blood Pressure Diastolic: 60 Pulse Rate: 90 Respiratory Rate: 14 O2 Sat by Pulse Oximetry: 100 Temperature (Fahrenheit): 97.6 Nausea: No Vomiting: No Complications none Patient Status: awake, reacts, patent Hydration Status: adequate Drug: none Noa Coto CRNA May 14, 2020 13:23
--- NOTE | 2020-05-14 13:26 | Anethesia Preoperative Eval ---
Anesthesia Pre-op PMH/ROS General Date of Evaluation: May 14, 2020 Time of Evaluation: 12:30 Anesthesiologist: ary ASA Score: ASA 3 Mallampati Score Class I : Soft palate, uvula, fauces, pillars visible Class II: Soft palate, uvula, fauces visible Class III: Soft palate, base of uvula visible Class IV: Only hard plate visible Mallampati Classification: Class II Surgeon: joseph Diagnosis: abscess Surgical Procedure: ERCP Anesthesia History: none Allergies: Coded Allergies: LEVOFLOXACIN (Unverified Allergy, Mild, Redness, 04/25/20) Medications: see eMAR Patient NPO?: Yes NPO Date: May 14, 2020 NPO Time: 00:01 Past Medical History Cardiovascular: Reports: HTN, CAD Pulmonary: Reports: COPD; Denies: asthma, JIMMIE, other Gastrointestinal/Genitourinary: Reports: GERD; Denies: CRI, ESRD, other Neurologic/Psychiatric: Denies: dementia, CVA, depression/anxiety, TIA, other Endocrine: Reports: DM; Denies: hypothyroidism, steroids, other Hematology/Immune: Denies: anemia, DVT, bleeding disorder, other PMH Narrative: (1) Postoperative abscess (2) Abdominal pain (3) COPD (chronic obstructive pulmonary disease) (4) Pulmonary fibrosis (5) Polymyositis (6) BPH (benign prostatic hyperplasia) (7) Diabetes mellitus Anesthesia Pre-op Phys. Exam Physician Exam Last Vital Signs Date Time Temp Pulse Resp B/P (MAP) Pulse Ox O2 Delivery O2 Flow Rate FiO2 05/14/20 12:00 68 05/14/20 12:00 98.2 18 142/72 (95) 96 05/14/20 09:00 Room Air Constitutional: NAD Neurologic: CN 2-12 intact Cardiovascular: RRR Respiratory: CTA Gastrointestinal: S/NT/ND Airway Exam Mallampati Classification 2 Mallampati Score: Class II MO: limited ROM: limited Teeth: missing Dentures: no upper, no lower Anesthesia Pre-op A/P Labs Hematology Test 05/14/20 06:39 White Blood Count 10.7 K/UL (4.8-10.8) Red Blood Count 3.37 M/UL (4.70-6.10) L Hemoglobin 9.1 G/DL (14.2-18.0) L Hematocrit 29.3 % (42.0-52.0) L Mean Corpuscular Volume 87 FL (80-99) Mean Corpuscular Hemoglobin 27.1 PG (27.0-31.0) Mean Corpuscular Hemoglobin Concent 31.1 G/DL (32.0-36.0) L Red Cell Distribution Width 16.5 % (11.6-14.8) H Platelet Count 407 K/UL (150-450) Mean Platelet Volume 6.0 FL (6.5-10.1) L Neutrophils (%) (Auto) % (45.0-75.0) Lymphocytes (%) (Auto) % (20.0-45.0) Monocytes (%) (Auto) % (1.0-10.0) Eosinophils (%) (Auto) % (0.0-3.0) Basophils (%) (Auto) % (0.0-2.0) Differential Total Cells Counted 100 Neutrophils % (Manual) 90 % (45-75) H Lymphocytes % (Manual) 9 % (20-45) L Monocytes % (Manual) 0 % (1-10) L Eosinophils % (Manual) 0 % (0-3) Basophils % (Manual) 0 % (0-2) Band Neutrophils 1 % (0-8) Platelet Estimate Adequate Platelet Morphology Normal Hypochromasia 1+ Anisocytosis 1+ Erythrocyte Sedimentation Rate 79 MM/HR (0-20) H Chemistry Test 05/13/20 16:06 05/13/20 17:38 05/13/20 20:23 05/14/20 06:39 POC Whole Blood Glucose 152 MG/DL (74-106) H Pending 137 MG/DL (74-106) H Sodium Level 141 MMOL/L (136-145) Potassium Level 4.2 MMOL/L (3.5-5.1) Chloride Level 110 MMOL/L (98-107) H Carbon Dioxide Level 28 MMOL/L (21-32) Anion Gap 3 mmol/L (5-15) L Blood Urea Nitrogen 8 mg/dL (7-18) Creatinine 0.7 MG/DL (0.55-1.30) Estimat Glomerular Filtration Rate > 60 mL/min (>60) Glucose Level 129 MG/DL (74-106) H Calcium Level 7.4 MG/DL (8.5-10.1) L Phosphorus Level 1.6 MG/DL (2.5-4.9) L Magnesium Level 2.5 MG/DL (1.8-2.4) H Total Bilirubin 0.5 MG/DL (0.2-1.0) Aspartate Amino Transf (AST/SGOT) 22 U/L (15-37) Alanine Aminotransferase (ALT/SGPT) 36 U/L (12-78) Alkaline Phosphatase 102 U/L (46-116) C-Reactive Protein, Quantitative 6.1 mg/dL (0.00-0.90) H Total Protein 4.9 G/DL (6.4-8.2) L Albumin 1.9 G/DL (3.4-5.0) L Globulin 3.0 g/dL Albumin/Globulin Ratio 0.6 (1.0-2.7) L Amylase Level 27 U/L (25-115) Lipase 117 U/L (73-393) Studies Pre-op Studies: EKG - sr Risk Assessment & Plan Assessment: stable Plan: General Status Change Before Surgery: No Pre-Antibiotics Drug: none Noa Coto [facility] May 14, 2020 13:26
--- NOTE | 2020-05-14 13:35 | Endoscopy Procedure Note ---
Endoscopy Procedure Note General Indication for Procedure: bile leak Procedures Performed: ERCP Operative Findings/Diagnosis: same Specimen: none Pt Tolerated Procedure Well: Yes Estimated Blood Loss: none Anesthesia Anesthesiologist: dave Anesthesia: MAC Inserted Devices Implant(s) used?: No GI Core Measures 50 yrs or older w/o bx or poly: Not Applicable 10yrs. F/U recommended: Not Applicable Petey Marquez MD May 14, 2020 13:35
[2020-05-14] MEDS ORDERED: NS 275ml ONE (14:12)
[2020-05-14] MEDS ORDERED: Tubing IV Secondary IV ONE (14:12)
--- NOTE | 2020-05-14 14:26 | Pulmonology Progress Note ---
Subjective ROS Limited/Unobtainable: No Constitutional: Reports: no symptoms HEENT: Repors: no symptoms Allergies: Coded Allergies: LEVOFLOXACIN (Unverified Allergy, Mild, Redness, 04/25/20) Objective Last 24 Hour Vital Signs Date Time Temp Pulse Resp B/P (MAP) Pulse Ox O2 Delivery O2 Flow Rate FiO2 05/14/20 13:30 87 22 144/93 100 Nasal Cannula 3 05/14/20 13:23 90 14 100 05/14/20 13:20 93 17 147/93 100 Simple Mask 6 05/14/20 13:15 95 19 144/92 100 Simple Mask 6 05/14/20 13:10 97.3 95 26 145/98 100 Simple Mask 6 05/14/20 12:00 68 05/14/20 12:00 98.2 82 18 142/72 (95) 96 05/14/20 09:00 Room Air 05/14/20 08:00 97.5 89 17 133/87 (102) 96 05/14/20 08:00 66 05/14/20 04:00 72 05/14/20 04:00 97.5 76 18 137/84 (101) 98 05/14/20 00:00 69 05/14/20 00:00 97.5 70 18 124/75 (91) 99 05/13/20 21:08 97.9 05/13/20 21:00 Room Air 05/13/20 20:00 68 05/13/20 20:00 97.9 69 20 125/73 (90) 98 05/13/20 16:00 97.9 72 20 132/84 (100) 98 05/13/20 16:00 63 Intake and Output 05/13/20 05/14/20 19:00 07:00 Output Total 450 ml Balance -450 ml Drainage Total 450 ml # Voids 4 3 General Appearance: WD/WN HEENT: normocephalic, atraumatic Respiratory: chest wall non-tender, lungs clear Cardiovascular: normal peripheral pulses, normal rate Abdomen: normal bowel sounds, soft, non tender Extremities: no cyanosis Skin: no lesions Neurologic: handbag operator II-XII grossly normal Microbiology Date/Time Source Procedure Growth Status 05/13/20 16:38 Nasopharynx SARS-CoV-2 RdRp Gene Assay - Final Complete Laboratory Tests 05/13/20 16:06: POC Whole Blood Glucose 152H 05/13/20 17:38: POC Whole Blood Glucose [Pending] 05/13/20 20:23: POC Whole Blood Glucose 137H 05/14/20 06:39: White Blood Count 10.7, Red Blood Count 3.37L, Hemoglobin 9.1L, Hematocrit 29.3L , Mean Corpuscular Volume 87, Mean Corpuscular Hemoglobin 27.1, Mean Corpuscular Hemoglobin Concent 31.1L, Red Cell Distribution Width 16.5H, Platelet Count 407, Mean Platelet Volume 6.0L, Neutrophils (%) (Auto) , Lymphocytes (%) (Auto) , Monocytes (%) (Auto) , Eosinophils (%) (Auto) , Basophils (%) (Auto) , Differential Total Cells Counted 100, Neutrophils % ( Manual) 90H, Lymphocytes % (Manual) 9L, Monocytes % (Manual) 0L, Eosinophils % ( Manual) 0, Basophils % (Manual) 0, Band Neutrophils 1, Platelet Estimate Adequate, Platelet Morphology Normal, Hypochromasia 1+, Anisocytosis 1+, Erythrocyte Sedimentation Rate 79H, Sodium Level 141, Potassium Level 4.2, Chloride Level 110H, Carbon Dioxide Level 28, Anion Gap 3L, Blood Urea Nitrogen 8, Creatinine 0.7, Estimat Glomerular Filtration Rate > 60, Glucose Level 129H, Calcium Level 7.4L, Phosphorus Level 1.6L, Magnesium Level 2.5H, Total Bilirubin 0.5, Aspartate Amino Transf (AST/SGOT) 22, Alanine Aminotransferase ( ALT/SGPT) 36, Alkaline Phosphatase 102, C-Reactive Protein, Quantitative 6.1H, Total Protein 4.9L, Albumin 1.9L, Globulin 3.0, Albumin/Globulin Ratio 0.6L, Amylase Level 27, Lipase 117 Current Medications Medications (Trade) Dose Ordered Sig/Renetta Route PRN Reason Start Time Stop Time Status Last Admin Dose Admin Acetaminophen (Tylenol) 650 mg Q4H PRN ORAL Temp >100.5 05/11/20 00:15 06/10/20 00:14 Al Hydroxide/Mg Hydroxide (Mylanta II) 30 ml Q6H PRN ORAL dyspepsia 05/11/20 00:15 06/10/20 00:14 Dextrose (Dextrose 50%) 25 ml Q30M PRN IV Hypoglycemia 05/11/20 01:00 08/09/20 00:59 Dextrose (Dextrose 50%) 50 ml Q30M PRN IV Hypoglycemia 05/11/20 01:00 08/09/20 00:59 Diphenhydramine HCl (Benadryl) 25 mg Q6H PRN ORAL Itching/Pruritis 05/11/20 00:15 06/10/20 00:14 Famotidine (Pepcid I.v.) 20 mg Q12H IVP 05/11/20 00:30 06/10/20 00:29 05/14/20 00:35 Hydrocortisone (Solu-CORTEF) 50 mg Q8H IV 05/11/20 04:00 08/09/20 03:59 05/14/20 04:11 Insulin Aspart (NovoLOG) EVERY 6 HOURS SUBQ 05/11/20 06:00 08/09/20 05:59 05/13/20 17:43 Magnesium Hydroxide (Mom) 30 ml HSPRN PRN ORAL Constipation 05/11/20 00:15 06/10/20 00:14 Morphine Sulfate (Morphine Sulfate) 1 mg Q3H PRN IVP For Pain 05/11/20 00:15 05/18/20 00:14 Morphine Sulfate (Morphine Sulfate) 2 mg Q3H PRN IVP Moderate Pain (Pain Scale 4-6) 05/11/20 00:15 05/18/20 00:14 05/13/20 20:38 Morphine Sulfate (Morphine Sulfate) 4 mg Q3H PRN IVP Severe Pain (Pain Scale 7-10) 05/11/20 00:15 05/18/20 00:14 05/13/20 04:14 Ondansetron HCl (Zofran) 4 mg Q4H PRN IVP Nausea & Vomiting 05/11/20 00:15 06/10/20 00:14 Piperacillin Sod/ Tazobactam Sod 3.375 gm/Sodium Chloride 110 ml @ 27.5 mls/hr Q8H IVPB 05/11/20 08:00 05/18/20 07:59 05/14/20 08:26 Sodium Chloride 1,000 ml @ 75 mls/hr [id number] IV 05/11/20 00:15 06/10/20 00:14 05/14/20 08:27 Temazepam (Restoril) 15 mg HSPRN PRN ORAL Insomnia 05/11/20 00:15 05/18/20 00:14 Assessment/Plan Problems: (1) Postoperative abscess (2) Abdominal pain (3) COPD (chronic obstructive pulmonary disease) (4) Pulmonary fibrosis (5) Polymyositis (6) BPH (benign prostatic hyperplasia) (7) Diabetes mellitus Assessment/Plan getting better no new complains did physical therapy iv abx surgical f/u check cultures respiratory treatment symptomatic treatment Rudi Kitchen MD May 14, 2020 14:26
--- NOTE | 2020-05-14 14:29 | Surgery Progress Note ---
Surgery Progress Note Subjective Additional Comments no acute events comfortable stable ercp with stent Objective Last 24 Hour Vital Signs Date Time Temp Pulse Resp B/P (MAP) Pulse Ox O2 Delivery O2 Flow Rate FiO2 05/14/20 13:30 87 22 144/93 100 Nasal Cannula 3 05/14/20 13:23 90 14 100 05/14/20 13:20 93 17 147/93 100 Simple Mask 6 05/14/20 13:15 95 19 144/92 100 Simple Mask 6 05/14/20 13:10 97.3 95 26 145/98 100 Simple Mask 6 05/14/20 12:00 68 05/14/20 12:00 98.2 82 18 142/72 (95) 96 05/14/20 09:00 Room Air 05/14/20 08:00 97.5 89 17 133/87 (102) 96 05/14/20 08:00 66 05/14/20 04:00 72 05/14/20 04:00 97.5 76 18 137/84 (101) 98 05/14/20 00:00 69 05/14/20 00:00 97.5 70 18 124/75 (91) 99 05/13/20 21:08 97.9 05/13/20 21:00 Room Air 05/13/20 20:00 68 05/13/20 20:00 97.9 69 20 125/73 (90) 98 05/13/20 16:00 97.9 72 20 132/84 (100) 98 05/13/20 16:00 63 I&O Intake and Output 05/13/20 05/14/20 19:00 07:00 Output Total 450 ml Balance -450 ml Drainage Total 450 ml # Voids 4 3 Drains: other Cardiovascular: RSR Respiratory: clear Abdomen: soft, flat, non-tender, present bowel sounds Extremities: no edema, no tenderness, no cyanosis Laboratory Tests Test 05/13/20 16:06 05/13/20 17:38 05/13/20 20:23 05/14/20 06:39 POC Whole Blood Glucose 152 MG/DL (74-106) H Pending 137 MG/DL (74-106) H White Blood Count 10.7 K/UL (4.8-10.8) Red Blood Count 3.37 M/UL (4.70-6.10) L Hemoglobin 9.1 G/DL (14.2-18.0) L Hematocrit 29.3 % (42.0-52.0) L Mean Corpuscular Volume 87 FL (80-99) Mean Corpuscular Hemoglobin 27.1 PG (27.0-31.0) Mean Corpuscular Hemoglobin Concent 31.1 G/DL (32.0-36.0) L Red Cell Distribution Width 16.5 % (11.6-14.8) H Platelet Count 407 K/UL (150-450) Mean Platelet Volume 6.0 FL (6.5-10.1) L Neutrophils (%) (Auto) % (45.0-75.0) Lymphocytes (%) (Auto) % (20.0-45.0) Monocytes (%) (Auto) % (1.0-10.0) Eosinophils (%) (Auto) % (0.0-3.0) Basophils (%) (Auto) % (0.0-2.0) Differential Total Cells Counted 100 Neutrophils % (Manual) 90 % (45-75) H Lymphocytes % (Manual) 9 % (20-45) L Monocytes % (Manual) 0 % (1-10) L Eosinophils % (Manual) 0 % (0-3) Basophils % (Manual) 0 % (0-2) Band Neutrophils 1 % (0-8) Platelet Estimate Adequate Platelet Morphology Normal Hypochromasia 1+ Anisocytosis 1+ Erythrocyte Sedimentation Rate 79 MM/HR (0-20) H Sodium Level 141 MMOL/L (136-145) Potassium Level 4.2 MMOL/L (3.5-5.1) Chloride Level 110 MMOL/L (98-107) H Carbon Dioxide Level 28 MMOL/L (21-32) Anion Gap 3 mmol/L (5-15) L Blood Urea Nitrogen 8 mg/dL (7-18) Creatinine 0.7 MG/DL (0.55-1.30) Estimat Glomerular Filtration Rate > 60 mL/min (>60) Glucose Level 129 MG/DL (74-106) H Calcium Level 7.4 MG/DL (8.5-10.1) L Phosphorus Level 1.6 MG/DL (2.5-4.9) L Magnesium Level 2.5 MG/DL (1.8-2.4) H Total Bilirubin 0.5 MG/DL (0.2-1.0) Aspartate Amino Transf (AST/SGOT) 22 U/L (15-37) Alanine Aminotransferase (ALT/SGPT) 36 U/L (12-78) Alkaline Phosphatase 102 U/L (46-116) C-Reactive Protein, Quantitative 6.1 mg/dL (0.00-0.90) H Total Protein 4.9 G/DL (6.4-8.2) L Albumin 1.9 G/DL (3.4-5.0) L Globulin 3.0 g/dL Albumin/Globulin Ratio 0.6 (1.0-2.7) L Amylase Level 27 U/L (25-115) Lipase 117 U/L (73-393) Plan Problems: (1) Postoperative abscess Assessment & Plan: 69 M post operative intrabdominal abscess vs bile leak biloma currently afebrile, HD stable exam with wound c/d/i. mild discomfort RUQ leukocytosis trending down on abx t bili nml now npo iv fluids iv abx CT guided drainage of GB fossa fluid collection eval biloma vs abscess. thank you will follow with recs MRI noted. area of debris with air likely the Surgicel placed in surgery. remaining fluid collection. Drain completed. output seems like liquefactive hematoma? potential superimposed infection? pending micro no sagar pus. no bowel contents. potential debris with bile? cont drain okay for diet discussed with daughter ercp with stent [placed leak small will monitor The gallbladder has been removed. As demonstrated on recent CT scan, there is a large fluid collection within the gallbladder fossa. This measures 8 x 12 x 7.3 cm. Also demonstrated on recent CT scan, this appears to be mostly surrounded by liver parenchyma, but the inferior and anterior borders are not. The lesion demonstrates predominantly fluid signal on all sequences, but there are is some non fluid signal material demonstrated within it, corresponding to what appears to be an area of debris and gas within the collection on CT scan. There is also some debris layering dependently. There is questionably demonstrated a cystic duct remnant. No definite communication of the collection with the biliary tree is demonstrated. There is an extension of the collection which appears to be in proximity with the duodenal wall. There is no definite associated contrast enhancement. Some filling defects seen within the common bile duct may reflect gas bubbles the extrahepatic ducts are dilated, common bile duct measuring up to 12 mm in diameter. No definite downstream obstructive lesion is demonstrated. There is also mild central intrahepatic biliary ductal dilatation. A small amount of free fluid is seen over the dome of the liver and surrounding the upper spleen and the gastric fundus. The pancreatic duct is mildly prominent, otherwise unremarkable. The spleen, adrenals, right kidney are unremarkable. A cyst is seen in the lower pole of the left kidney. The visualized upper pelvic viscera are unremarkable. Impression: 8 x 12 x 7.3 cm fluid collection in the gallbladder fossa, indenting or extending into the liver, also described on recent CT scan. Given history of recent cholecystectomy, most likely a biloma. Gas bubbles are more evident on prior CT scan, could be residual air from the prior surgical exposure or could indicate infection with a gas-forming organism and therefore a superinfected biloma. No definite communication with the biliary tree Extrahepatic ductal dilatation, without definite downstream obstructive lesion, may be related to age and postcholecystectomy state. Filling defects within the downstream common bile duct probably represent gas bubbles or debris, but small calculi as etiology of this finding also possible Small amount of free intraperitoneal fluid, presumably related to the above or residual from prior surgery. (2) Abdominal pain Assessment & Plan: ABDOMEN: Liver: Unremarkable. No mass. Gallbladder and bile ducts: Cholecystectomy with postoperative CBD prominence 1.3 cm, potentially due to reservoir effect. No obstructing lesion seen. Pancreas: Unremarkable. No mass. No ductal dilation. Spleen: Unremarkable. No splenomegaly. Adrenals: Unremarkable. No mass. Kidneys and ureters: Unremarkable. No solid mass. No hydronephrosis. Stomach and bowel: Gastric antrum mild wall thickening could be incidental and represent peristalsis or could represent gastritis in the proper context. Rectal operative findings. Likely benign calcification near the cecum and the mesentery of uncertain significance. No obstruction. PELVIS: Appendix: No findings to suggest acute appendicitis. Bladder: Unremarkable. No mass. Reproductive: Prostatomegaly 5.6 cm transverse. ABDOMEN and PELVIS: Intraperitoneal space: Massive gallbladder fossa abscess, potentially representing contained an infected bile leak versus postoperative abscess formation measures 10 x 14 x 9.5 cm. Small pneumoperitoneum anterior to the liver, this is probably due to the recent postoperative setting. Scattered nonloculated additional peritoneal fluid seen along the greater curvature of the stomach. Central mesentery focal ill-defined 2 cm soft tissue nodularity with adjacent calcification axial series 4 image 81 is of uncertain significance, but could represent scarring from prior operative intervention, sequela of carcinoid metastatic to the mesentery, or tiny focus of mesenteric desmoid. Bones/joints: Bilateral L5 spondylolysis with grade 1 anterolisthesis. No acute fracture. No dislocation. Soft tissues: Operative staple line across the right upper quadrant. Vasculature: Unremarkable. No abdominal aortic aneurysm. Lymph nodes: Unremarkable. No enlarged lymph nodes. IMPRESSION: 1. Massive gallbladder fossa abscess, potentially representing contained an infected bile leak versus postoperative abscess formation measures 10 x 14 x 9.5 cm. 2. Small pneumoperitoneum anterior to the liver, this is probably due to the recent postoperative setting. Operative staple line across the right upper quadrant. 3. Cholecystectomy with postoperative CBD prominence 1.3 cm, potentially due to reservoir effect. No obstructing lesion seen. 4. If clinically desired, consider MRI abdomen without and with IV contrast as well as with MRCP sequences to further characterize biliary ductal prominence. 5. Central mesentery focal ill-defined 2 cm soft tissue nodularity with adjacent calcification axial series 4 image 81 is of uncertain significance, but could represent scarring from prior operative intervention, sequela of carcinoid metastatic to the mesentery, or tiny focus of mesenteric desmoid. 6. Recommend outpatient dedicated CT chest without IV contrast to further characterize pulmonary findings suggestive of interstitial lung disease, potentially NSIP subtype. 7. Gastric antrum mild wall thickening could be incidental and represent peristalsis or could represent gastritis in the proper context. 8. Scattered nonloculated additional peritoneal fluid seen along the greater curvature of the stomach. 9. Prostatomegaly 5.6 cm transverse. (3) Immunosuppressed status (4) Cholecystitis, acute (5) Diabetes mellitus (6) COPD (chronic obstructive pulmonary disease) (7) BPH (benign prostatic hyperplasia) (8) Pulmonary fibrosis (9) Polymyositis Wil Morse May 14, 2020 14:29
--- NOTE | 2020-05-14 15:30 | Procedure Note ---
DATE OF PROCEDURE: 05/14/2020 SURGEON: Petey Marquez MD. REFERRING PHYSICIAN: Jose Ramos MD. PROCEDURE: ERCP with sphincterotomy and stent placement. ANESTHESIA: Per [employer], Noa Tarrillion. INSTRUMENT: Olympus adult ERCP scope. INDICATION: Bile leak. REASON FOR PROCEDURE: The procedure, risks, benefits, and possible consequences, including hemorrhage, aspiration, perforation and infection, and alternative treatments, were explained to the patient/legal guardian by Dr. Petey Marquez and the patient/legal guardian understood and accepted these risks. PROCEDURE IN DETAIL: After informed consent was obtained and the patient was adequately sedated, ERCP scope was advanced from mouth into the second portion of duodenum. Using a sphincterotome, common bile duct was cannulated. Initial cholangiogram showed mildly dilated common bile duct. There was a minimum leak at the cystic duct stump. External drainage was seen in the right upper quadrant. Over a guidewire, using a sphincterotome, 90% sphincterotomy was performed. The balloon was used to sweep the duct multiple times and to perform balloon occlusion cholangiogram. Then, over the guidewire, we placed 10-German 7 cm stent in the distal common bile duct. The patient tolerated the procedure very well without any complication. SUMMARY OF FINDINGS: 1. Minimum bile leak at the cystic duct stump. 2. Status post ERCP, sphincterotomy and stent placement. RECOMMENDATIONS: Repeat labs. Start diet when it is okay by Surgery. If the patient's external drainage improves, we will recommend removing the external drainage. The patient will need ERCP in 8 weeks to remove the stent. I want to thank Dr. Jose Ramos for this kind referral. Petey Marquez M.D. DR: AMY JOB#: [id number] CC:
--- NOTE | 2020-05-14 15:36 | 48 Hour Post Anesthesia Eval ---
Post Anesthesia Evaluation Procedure: ERCP Date of Evaluation: May 14, 2020 Time of Evaluation: 15:36 Blood Pressure Systolic: 144 0: 78 Pulse Rate: 75 Respiratory Rate: 14 O2 Sat by Pulse Oximetry: 98 Airway: patent Nausea: No Vomiting: No Hydration Status: adequate Cardiopulmonary Status: stable Mental Status/LOC: patient returned to baseline Post-Anesthesia Complications: none Follow-up care needed: N/A Noa Coto CRNA May 14, 2020 15:36
--- NOTE | 2020-05-14 15:53 | Diagnostic Imaging Report ---
INDICATION: Pain, intraoperative TECHNIQUE: Intraoperative imaging Fluoroscopy time: 173.5 seconds Total dose: 1.55 mGym2 Total number of images: 7 COMPARISON: Reference made to MRCP dated 05/11/2020 FINDINGS: 6 intraoperative images demonstrate opacification of mildly ectatic extra hepatic bile ducts. Subsequent images document deployment of a stone retrieval balloon and placement of a plastic endobiliary stent. A pigtail drainage catheter is seen in the right upper quadrant IMPRESSION: Intraoperative imaging, as described
--- NOTE | 2020-05-14 18:23 | Cardiology Progress Note ---
Assessment/Plan Assessment/Plan 1. Gallbladder fossa fluid collection and a possibility of biloma. 2. Bronchiectasis/pulmonary fibrosis. 3. Diabetes mellitus. 4. History of benign prostatic hypertrophy. 5. History of osteoporosis. Status post ERCP, sphincterotomy and stent placement. tele sinus labs noted doing well abx Subjective Cardiovascular: Denies: chest pain, lightheadedness, palpitations Respiratory: Denies: shortness of breath Gastrointestinal/Abdominal: Denies: abdominal pain Genitourinary: Denies: burning Objective Last 24 Hour Vital Signs Date Time Temp Pulse Resp B/P (MAP) Pulse Ox O2 Delivery O2 Flow Rate FiO2 05/14/20 16:00 97.7 78 20 137/85 (102) 98 05/14/20 15:55 69 05/14/20 15:36 75 14 98 05/14/20 13:30 87 22 144/93 100 Nasal Cannula 3 05/14/20 13:23 90 14 100 05/14/20 13:20 93 17 147/93 100 Simple Mask 6 05/14/20 13:15 95 19 144/92 100 Simple Mask 6 05/14/20 13:10 97.3 95 26 145/98 100 Simple Mask 6 05/14/20 12:00 68 05/14/20 12:00 98.2 82 18 142/72 (95) 96 05/14/20 09:00 Room Air 05/14/20 08:00 97.5 89 17 133/87 (102) 96 05/14/20 08:00 66 05/14/20 04:00 72 05/14/20 04:00 97.5 76 18 137/84 (101) 98 05/14/20 00:00 69 05/14/20 00:00 97.5 70 18 124/75 (91) 99 05/13/20 21:08 97.9 05/13/20 21:00 Room Air 05/13/20 20:00 68 05/13/20 20:00 97.9 69 20 125/73 (90) 98 General Appearance: no apparent distress, alert Neck: supple Cardiovascular: normal rate Respiratory/Chest: lungs clear Abdomen: normal bowel sounds, non tender, soft Extremities: no swelling Intake and Output 05/13/20 05/14/20 19:00 07:00 Output Total 450 ml Balance -450 ml Drainage Total 450 ml # Voids 4 3 Laboratory Tests Test 05/13/20 20:23 05/14/20 06:39 POC Whole Blood Glucose 137 MG/DL (74-106) H White Blood Count 10.7 K/UL (4.8-10.8) Red Blood Count 3.37 M/UL (4.70-6.10) L Hemoglobin 9.1 G/DL (14.2-18.0) L Hematocrit 29.3 % (42.0-52.0) L Mean Corpuscular Volume 87 FL (80-99) Mean Corpuscular Hemoglobin 27.1 PG (27.0-31.0) Mean Corpuscular Hemoglobin Concent 31.1 G/DL (32.0-36.0) L Red Cell Distribution Width 16.5 % (11.6-14.8) H Platelet Count 407 K/UL (150-450) Mean Platelet Volume 6.0 FL (6.5-10.1) L Neutrophils (%) (Auto) % (45.0-75.0) Lymphocytes (%) (Auto) % (20.0-45.0) Monocytes (%) (Auto) % (1.0-10.0) Eosinophils (%) (Auto) % (0.0-3.0) Basophils (%) (Auto) % (0.0-2.0) Differential Total Cells Counted 100 Neutrophils % (Manual) 90 % (45-75) H Lymphocytes % (Manual) 9 % (20-45) L Monocytes % (Manual) 0 % (1-10) L Eosinophils % (Manual) 0 % (0-3) Basophils % (Manual) 0 % (0-2) Band Neutrophils 1 % (0-8) Platelet Estimate Adequate Platelet Morphology Normal Hypochromasia 1+ Anisocytosis 1+ Erythrocyte Sedimentation Rate 79 MM/HR (0-20) H Sodium Level 141 MMOL/L (136-145) Potassium Level 4.2 MMOL/L (3.5-5.1) Chloride Level 110 MMOL/L (98-107) H Carbon Dioxide Level 28 MMOL/L (21-32) Anion Gap 3 mmol/L (5-15) L Blood Urea Nitrogen 8 mg/dL (7-18) Creatinine 0.7 MG/DL (0.55-1.30) Estimat Glomerular Filtration Rate > 60 mL/min (>60) Glucose Level 129 MG/DL (74-106) H Calcium Level 7.4 MG/DL (8.5-10.1) L Phosphorus Level 1.6 MG/DL (2.5-4.9) L Magnesium Level 2.5 MG/DL (1.8-2.4) H Total Bilirubin 0.5 MG/DL (0.2-1.0) Aspartate Amino Transf (AST/SGOT) 22 U/L (15-37) Alanine Aminotransferase (ALT/SGPT) 36 U/L (12-78) Alkaline Phosphatase 102 U/L (46-116) C-Reactive Protein, Quantitative 6.1 mg/dL (0.00-0.90) H Total Protein 4.9 G/DL (6.4-8.2) L Albumin 1.9 G/DL (3.4-5.0) L Globulin 3.0 g/dL Albumin/Globulin Ratio 0.6 (1.0-2.7) L Amylase Level 27 U/L (25-115) Lipase 117 U/L (73-393) Microbiology Date/Time Source Procedure Growth Status 05/13/20 16:38 Nasopharynx SARS-CoV-2 RdRp Gene Assay - Final Complete Marcial Lugo MD May 14, 2020 18:23
[2020-05-14] MEDS: Morphine Sulfate 2mg/ml Inj(IV/IM USE ONLY) IVP PRN (20:51)
[2020-05-15] VITALS (7 sets, daily range): BP systolic 117–163; BP diastolic 62–91
[2020-05-15] MEDS: Piperacillin/Tazobactam 3.375 GM in NS 110 ML IVPB SCH ×4 (00:05→23:46)
[2020-05-15] MEDS: Hydrocortisone 100mg Inj IV SCH ×3 (04:53→20:44)
[2020-05-15] MEDS: Morphine Sulfate 2mg/ml Inj(IV/IM USE ONLY) IVP PRN ×2 (04:55→08:40)
[2020-05-15] MEDS: NovoLOG Insulin Flexpen SUBQ SCH ×5 (05:27→23:47)
--- NOTE | 2020-05-15 06:54 | General Progress Note ---
Assessment/Plan Assessment/Plan: 1. Chronic liver disease. 2. Diverticulitis. 3. Pulmonary fibrosis. 4. History of Sharmin esophagitis. 5. History of umbilical hernia. 6. Diabetes. 7. Osteoporosis. 8. BPH. 9. RUQ abscess vs biloma s/p drainage s/p ERCP and stent placement advance diet repeat labs abx needs repeat ERCP and stent removal in 8 weeks Subjective ROS Limited/Unobtainable: Yes Allergies: Coded Allergies: LEVOFLOXACIN (Unverified Allergy, Mild, Redness, 04/25/20) Objective Last 24 Hour Vital Signs Date Time Temp Pulse Resp B/P (MAP) Pulse Ox O2 Delivery O2 Flow Rate FiO2 05/15/20 04:00 66 05/15/20 04:00 97.7 74 20 120/62 (81) 96 05/15/20 00:00 98.0 72 20 117/67 (84) 96 05/15/20 00:00 72 05/14/20 21:00 Room Air 05/14/20 20:00 97.7 86 20 145/86 (105) 96 05/14/20 20:00 86 05/14/20 16:00 97.7 78 20 137/85 (102) 98 05/14/20 15:55 69 05/14/20 15:36 75 14 98 05/14/20 13:30 87 22 144/93 100 Nasal Cannula 3 05/14/20 13:23 90 14 100 05/14/20 13:20 93 17 147/93 100 Simple Mask 6 05/14/20 13:15 95 19 144/92 100 Simple Mask 6 05/14/20 13:10 97.3 95 26 145/98 100 Simple Mask 6 05/14/20 12:00 68 05/14/20 12:00 98.2 82 18 142/72 (95) 96 05/14/20 09:00 Room Air 05/14/20 08:00 97.5 89 17 133/87 (102) 96 05/14/20 08:00 66 Intake and Output 05/14/20 05/15/20 19:00 07:00 Intake Total 895.0 ml Output Total 1325 ml 1625 ml Balance -430.0 ml -1625 ml Intake Oral 140 ml IV Total 755.0 ml Output Urine Total 1200 ml 1625 ml Other 125 ml # Voids 3 Laboratory Tests 05/15/20 00:18: POC Whole Blood Glucose 125H Height (Feet): 6 Height (Inches): 1.00 Weight (Pounds): 182 General Appearance: alert EENT: normal ENT inspection Neck: supple Cardiovascular: normal rate Respiratory/Chest: decreased breath sounds Abdomen: hypoactive bowel sounds Extremities: non-tender Petey Marquez MD May 15, 2020 06:54
[2020-05-15 08:57] LABS: HEMATOCRIT 36.4 % (42.0-52.0); HEMOGLOBIN 11.4 G/DL (14.2-18.0); MEAN CORPUSCULAR VOLUME 88 FL (80-99); PLATELET COUNT 438 K/UL (150-450); RED BLOOD COUNT 4.15 M/UL (4.70-6.10); RED CELL DISTRIBUTION WIDTH 16.9 % (11.6-14.8); WHITE BLOOD COUNT 10.5 K/UL (4.8-10.8)
[2020-05-15 09:10] LABS: ANION GAP 8 mmol/L (5-15); BLOOD UREA NITROGEN 7 mg/dL (7-18); CARBON DIOXIDE 28 MMOL/L (21-32); CHLORIDE 109 MMOL/L (98-107); CREATININE 0.7 MG/DL (0.55-1.30); POTASSIUM 3.4 MMOL/L (3.5-5.1); SODIUM 145 MMOL/L (136-145)
--- NOTE | 2020-05-15 09:37 | Surgery Progress Note ---
Surgery Progress Note Objective Last 24 Hour Vital Signs Date Time Temp Pulse Resp B/P (MAP) Pulse Ox O2 Delivery O2 Flow Rate FiO2 05/15/20 08:00 97.9 102 20 163/91 (115) 96 05/15/20 04:00 66 05/15/20 04:00 97.7 74 20 120/62 (81) 96 05/15/20 00:00 98.0 72 20 117/67 (84) 96 05/15/20 00:00 72 05/14/20 21:00 Room Air 05/14/20 20:00 97.7 86 20 145/86 (105) 96 05/14/20 20:00 86 05/14/20 16:00 97.7 78 20 137/85 (102) 98 05/14/20 15:55 69 05/14/20 15:36 75 14 98 05/14/20 13:30 87 22 144/93 100 Nasal Cannula 3 05/14/20 13:23 90 14 100 05/14/20 13:20 93 17 147/93 100 Simple Mask 6 05/14/20 13:15 95 19 144/92 100 Simple Mask 6 05/14/20 13:10 97.3 95 26 145/98 100 Simple Mask 6 05/14/20 12:00 68 05/14/20 12:00 98.2 82 18 142/72 (95) 96 I&O Intake and Output 05/14/20 05/15/20 19:00 07:00 Intake Total 895.0 ml Output Total 1325 ml 1625 ml Balance -430.0 ml -1625 ml Intake Oral 140 ml IV Total 755.0 ml Output Urine Total 1200 ml 1625 ml Other 125 ml # Voids 3 Laboratory Tests Test 05/15/20 00:18 05/15/20 07:35 POC Whole Blood Glucose 125 MG/DL (74-106) H White Blood Count 10.5 K/UL (4.8-10.8) Red Blood Count 4.15 M/UL (4.70-6.10) L Hemoglobin 11.4 G/DL (14.2-18.0) L Hematocrit 36.4 % (42.0-52.0) L Mean Corpuscular Volume 88 FL (80-99) Mean Corpuscular Hemoglobin 27.5 PG (27.0-31.0) Mean Corpuscular Hemoglobin Concent 31.4 G/DL (32.0-36.0) L Red Cell Distribution Width 16.9 % (11.6-14.8) H Platelet Count 438 K/UL (150-450) Mean Platelet Volume 5.6 FL (6.5-10.1) L Neutrophils (%) (Auto) % (45.0-75.0) Lymphocytes (%) (Auto) % (20.0-45.0) Monocytes (%) (Auto) % (1.0-10.0) Eosinophils (%) (Auto) % (0.0-3.0) Basophils (%) (Auto) % (0.0-2.0) Neutrophils % (Manual) Pending Lymphocytes % (Manual) Pending Platelet Estimate Pending Platelet Morphology Pending Sodium Level 145 MMOL/L (136-145) Potassium Level 3.4 MMOL/L (3.5-5.1) L Chloride Level 109 MMOL/L (98-107) H Carbon Dioxide Level 28 MMOL/L (21-32) Anion Gap 8 mmol/L (5-15) Blood Urea Nitrogen 7 mg/dL (7-18) Creatinine 0.7 MG/DL (0.55-1.30) Estimat Glomerular Filtration Rate > 60 mL/min (>60) Glucose Level 118 MG/DL (74-106) H Calcium Level 8.0 MG/DL (8.5-10.1) L Plan Problems: (1) Postoperative abscess Assessment & Plan: 69 M post operative intrabdominal abscess vs bile leak biloma currently afebrile, HD stable exam with wound c/d/i. mild discomfort RUQ leukocytosis trending down on abx t bili nml now npo iv fluids iv abx CT guided drainage of GB fossa fluid collection eval biloma vs abscess. thank you will follow with recs MRI noted. area of debris with air likely the Surgicel placed in surgery. remaining fluid collection. Drain completed. output seems like liquefactive hematoma? potential superimposed infection? pending micro no sagar pus. no bowel contents. potential debris with bile? cont drain okay for diet discussed with daughter ercp with stent [placed leak small will monitor The gallbladder has been removed. As demonstrated on recent CT scan, there is a large fluid collection within the gallbladder fossa. This measures 8 x 12 x 7.3 cm. Also demonstrated on recent CT scan, this appears to be mostly surrounded by liver parenchyma, but the inferior and anterior borders are not. The lesion demonstrates predominantly fluid signal on all sequences, but there are is some non fluid signal material demonstrated within it, corresponding to what appears to be an area of debris and gas within the collection on CT scan. There is also some debris layering dependently. There is questionably demonstrated a cystic duct remnant. No definite communication of the collection with the biliary tree is demonstrated. There is an extension of the collection which appears to be in proximity with the duodenal wall. There is no definite associated contrast enhancement. Some filling defects seen within the common bile duct may reflect gas bubbles the extrahepatic ducts are dilated, common bile duct measuring up to 12 mm in diameter. No definite downstream obstructive lesion is demonstrated. There is also mild central intrahepatic biliary ductal dilatation. A small amount of free fluid is seen over the dome of the liver and surrounding the upper spleen and the gastric fundus. The pancreatic duct is mildly prominent, otherwise unremarkable. The spleen, adrenals, right kidney are unremarkable. A cyst is seen in the lower pole of the left kidney. The visualized upper pelvic viscera are unremarkable. Impression: 8 x 12 x 7.3 cm fluid collection in the gallbladder fossa, indenting or extending into the liver, also described on recent CT scan. Given history of recent cholecystectomy, most likely a biloma. Gas bubbles are more evident on prior CT scan, could be residual air from the prior surgical exposure or could indicate infection with a gas-forming organism and therefore a superinfected biloma. No definite communication with the biliary tree Extrahepatic ductal dilatation, without definite downstream obstructive lesion, may be related to age and postcholecystectomy state. Filling defects within the downstream common bile duct probably represent gas bubbles or debris, but small calculi as etiology of this finding also possible Small amount of free intraperitoneal fluid, presumably related to the above or residual from prior surgery. (2) Abdominal pain Assessment & Plan: ABDOMEN: Liver: Unremarkable. No mass. Gallbladder and bile ducts: Cholecystectomy with postoperative CBD prominence 1.3 cm, potentially due to reservoir effect. No obstructing lesion seen. Pancreas: Unremarkable. No mass. No ductal dilation. Spleen: Unremarkable. No splenomegaly. Adrenals: Unremarkable. No mass. Kidneys and ureters: Unremarkable. No solid mass. No hydronephrosis. Stomach and bowel: Gastric antrum mild wall thickening could be incidental and represent peristalsis or could represent gastritis in the proper context. Rectal operative findings. Likely benign calcification near the cecum and the mesentery of uncertain significance. No obstruction. PELVIS: Appendix: No findings to suggest acute appendicitis. Bladder: Unremarkable. No mass. Reproductive: Prostatomegaly 5.6 cm transverse. ABDOMEN and PELVIS: Intraperitoneal space: Massive gallbladder fossa abscess, potentially representing contained an infected bile leak versus postoperative abscess formation measures 10 x 14 x 9.5 cm. Small pneumoperitoneum anterior to the liver, this is probably due to the recent postoperative setting. Scattered nonloculated additional peritoneal fluid seen along the greater curvature of the stomach. Central mesentery focal ill-defined 2 cm soft tissue nodularity with adjacent calcification axial series 4 image 81 is of uncertain significance, but could represent scarring from prior operative intervention, sequela of carcinoid metastatic to the mesentery, or tiny focus of mesenteric desmoid. Bones/joints: Bilateral L5 spondylolysis with grade 1 anterolisthesis. No acute fracture. No dislocation. Soft tissues: Operative staple line across the right upper quadrant. Vasculature: Unremarkable. No abdominal aortic aneurysm. Lymph nodes: Unremarkable. No enlarged lymph nodes. IMPRESSION: 1. Massive gallbladder fossa abscess, potentially representing contained an infected bile leak versus postoperative abscess formation measures 10 x 14 x 9.5 cm. 2. Small pneumoperitoneum anterior to the liver, this is probably due to the recent postoperative setting. Operative staple line across the right upper quadrant. 3. Cholecystectomy with postoperative CBD prominence 1.3 cm, potentially due to reservoir effect. No obstructing lesion seen. 4. If clinically desired, consider MRI abdomen without and with IV contrast as well as with MRCP sequences to further characterize biliary ductal prominence. 5. Central mesentery focal ill-defined 2 cm soft tissue nodularity with adjacent calcification axial series 4 image 81 is of uncertain significance, but could represent scarring from prior operative intervention, sequela of carcinoid metastatic to the mesentery, or tiny focus of mesenteric desmoid. 6. Recommend outpatient dedicated CT chest without IV contrast to further characterize pulmonary findings suggestive of interstitial lung disease, potentially NSIP subtype. 7. Gastric antrum mild wall thickening could be incidental and represent peristalsis or could represent gastritis in the proper context. 8. Scattered nonloculated additional peritoneal fluid seen along the greater curvature of the stomach. 9. Prostatomegaly 5.6 cm transverse. (3) Immunosuppressed status (4) Cholecystitis, acute (5) Diabetes mellitus (6) COPD (chronic obstructive pulmonary disease) (7) BPH (benign prostatic hyperplasia) (8) Pulmonary fibrosis (9) Polymyositis Wil Morse May 15, 2020 09:37
--- NOTE | 2020-05-15 15:56 | Cardiology Progress Note ---
Assessment/Plan Assessment/Plan 1. Gallbladder fossa fluid collection and a possibility of biloma. 2. Bronchiectasis/pulmonary fibrosis. 3. Diabetes mellitus. 4. History of benign prostatic hypertrophy. 5. History of osteoporosis. 6. fluid over load Status post ERCP, sphincterotomy and stent placement. telel sinus labs noted will order lab for tomorrow after diuresis dc ivf diuretics oxygen abx Subjective Cardiovascular: Denies: chest pain, lightheadedness Respiratory: Reports: shortness of breath, other - pnd Gastrointestinal/Abdominal: Denies: abdominal pain Genitourinary: Denies: burning Objective Last 24 Hour Vital Signs Date Time Temp Pulse Resp B/P (MAP) Pulse Ox O2 Delivery O2 Flow Rate FiO2 05/15/20 12:00 60 05/15/20 12:00 97.9 113 20 163/88 (113) 99 05/15/20 09:00 Room Air 05/15/20 08:00 97.9 102 20 163/91 (115) 96 05/15/20 08:00 90 05/15/20 04:00 66 05/15/20 04:00 97.7 74 20 120/62 (81) 96 05/15/20 00:00 98.0 72 20 117/67 (84) 96 05/15/20 00:00 72 05/14/20 21:00 Room Air 05/14/20 20:00 97.7 86 20 145/86 (105) 96 05/14/20 20:00 86 05/14/20 16:00 97.7 78 20 137/85 (102) 98 General Appearance: no apparent distress, alert Neck: supple Cardiovascular: normal rate Respiratory/Chest: crackles/rales Abdomen: normal bowel sounds, non tender, soft Extremities: no swelling Intake and Output 05/14/20 05/15/20 19:00 07:00 Intake Total 895.0 ml Output Total 1325 ml 1625 ml Balance -430.0 ml -1625 ml Intake Oral 140 ml IV Total 755.0 ml Output Urine Total 1200 ml 1625 ml Other 125 ml # Voids 3 Laboratory Tests Test 05/15/20 00:18 05/15/20 07:35 05/15/20 11:07 POC Whole Blood Glucose 125 MG/DL (74-106) H 138 MG/DL (74-106) H White Blood Count 10.5 K/UL (4.8-10.8) Red Blood Count 4.15 M/UL (4.70-6.10) L Hemoglobin 11.4 G/DL (14.2-18.0) L Hematocrit 36.4 % (42.0-52.0) L Mean Corpuscular Volume 88 FL (80-99) Mean Corpuscular Hemoglobin 27.5 PG (27.0-31.0) Mean Corpuscular Hemoglobin Concent 31.4 G/DL (32.0-36.0) L Red Cell Distribution Width 16.9 % (11.6-14.8) H Platelet Count 438 K/UL (150-450) Mean Platelet Volume 5.6 FL (6.5-10.1) L Neutrophils (%) (Auto) % (45.0-75.0) Lymphocytes (%) (Auto) % (20.0-45.0) Monocytes (%) (Auto) % (1.0-10.0) Eosinophils (%) (Auto) % (0.0-3.0) Basophils (%) (Auto) % (0.0-2.0) Differential Total Cells Counted 100 Neutrophils % (Manual) 90 % (45-75) H Lymphocytes % (Manual) 2 % (20-45) L Monocytes % (Manual) 7 % (1-10) Eosinophils % (Manual) 0 % (0-3) Basophils % (Manual) 0 % (0-2) Band Neutrophils 1 % (0-8) Platelet Estimate Adequate Platelet Morphology Normal Hypochromasia 1+ Anisocytosis 1+ Stomatocytes Occasional Sodium Level 145 MMOL/L (136-145) Potassium Level 3.4 MMOL/L (3.5-5.1) L Chloride Level 109 MMOL/L (98-107) H Carbon Dioxide Level 28 MMOL/L (21-32) Anion Gap 8 mmol/L (5-15) Blood Urea Nitrogen 7 mg/dL (7-18) Creatinine 0.7 MG/DL (0.55-1.30) Estimat Glomerular Filtration Rate > 60 mL/min (>60) Glucose Level 118 MG/DL (74-106) H Calcium Level 8.0 MG/DL (8.5-10.1) L Microbiology Date/Time Source Procedure Growth Status 05/13/20 16:38 Nasopharynx SARS-CoV-2 RdRp Gene Assay - Final Complete Marcial Lugo MD May 15, 2020 15:56
--- NOTE | 2020-05-15 16:26 | Pulmonology Progress Note ---
Subjective ROS Limited/Unobtainable: No Constitutional: Reports: no symptoms HEENT: Repors: no symptoms Allergies: Coded Allergies: LEVOFLOXACIN (Unverified Allergy, Mild, Redness, 04/25/20) Objective Last 24 Hour Vital Signs Date Time Temp Pulse Resp B/P (MAP) Pulse Ox O2 Delivery O2 Flow Rate FiO2 05/15/20 12:00 60 05/15/20 12:00 97.9 113 20 163/88 (113) 99 05/15/20 09:00 Room Air 05/15/20 08:00 97.9 102 20 163/91 (115) 96 05/15/20 08:00 90 05/15/20 04:00 66 05/15/20 04:00 97.7 74 20 120/62 (81) 96 05/15/20 00:00 98.0 72 20 117/67 (84) 96 05/15/20 00:00 72 05/14/20 21:00 Room Air 05/14/20 20:00 97.7 86 20 145/86 (105) 96 05/14/20 20:00 86 Intake and Output 05/14/20 05/15/20 19:00 07:00 Intake Total 895.0 ml Output Total 1325 ml 1625 ml Balance -430.0 ml -1625 ml Intake Oral 140 ml IV Total 755.0 ml Output Urine Total 1200 ml 1625 ml Other 125 ml # Voids 3 General Appearance: WD/WN HEENT: normocephalic, atraumatic Respiratory: chest wall non-tender, lungs clear Cardiovascular: normal peripheral pulses, normal rate Abdomen: normal bowel sounds, soft, non tender Extremities: no cyanosis Skin: no lesions 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: 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 II-XII grossly normal Microbiology Date/Time Source Procedure Growth Status 05/13/20 16:38 Nasopharynx SARS-CoV-2 RdRp Gene Assay - Final Complete Laboratory Tests 05/15/20 00:18: POC Whole Blood Glucose 125H 05/15/20 07:35: White Blood Count 10.5, Red Blood Count 4.15L, Hemoglobin 11.4L, Hematocrit 36.4L, Mean Corpuscular Volume 88, Mean Corpuscular Hemoglobin 27.5, Mean Corpuscular Hemoglobin Concent 31.4L, Red Cell Distribution Width 16.9H, Platelet Count 438, Mean Platelet Volume 5.6L, Neutrophils (%) (Auto) , Lymphocytes (%) (Auto) , Monocytes (%) (Auto) , Eosinophils (%) (Auto) , Basophils (%) (Auto) , Differential Total Cells Counted 100, Neutrophils % ( Manual) 90H, Lymphocytes % (Manual) 2L, Monocytes % (Manual) 7, Eosinophils % ( Manual) 0, Basophils % (Manual) 0, Band Neutrophils 1, Platelet Estimate Adequate, Platelet Morphology Normal, Hypochromasia 1+, Anisocytosis 1+, Stomatocytes Occasional, Sodium Level 145, Potassium Level 3.4L, Chloride Level 109H, Carbon Dioxide Level 28, Anion Gap 8, Blood Urea Nitrogen 7, Creatinine 0.7, Estimat Glomerular Filtration Rate > 60, Glucose Level 118H, Calcium Level 8.0L 05/15/20 11:07: POC Whole Blood Glucose 138H 05/15/20 16:11: POC Whole Blood Glucose 153H Current Medications Medications (Trade) Dose Ordered Sig/Renetta Route PRN Reason Start Time Stop Time Status Last Admin Dose Admin Acetaminophen (Tylenol) 650 mg Q4H PRN ORAL Temp >100.5 05/11/20 00:15 06/10/20 00:14 Al Hydroxide/Mg Hydroxide (Mylanta II) 30 ml Q6H PRN ORAL dyspepsia 05/11/20 00:15 06/10/20 00:14 Dextrose (Dextrose 50%) 25 ml Q30M PRN IV Hypoglycemia 05/11/20 01:00 08/09/20 00:59 Dextrose (Dextrose 50%) 50 ml Q30M PRN IV Hypoglycemia 05/11/20 01:00 08/09/20 00:59 Diphenhydramine HCl (Benadryl) 25 mg Q6H PRN ORAL Itching/Pruritis 05/11/20 00:15 06/10/20 00:14 Famotidine (Pepcid I.v.) 20 mg Q12H IVP 05/11/20 00:30 06/10/20 00:29 05/15/20 12:36 Furosemide (Lasix) 20 mg ONCE IV 05/15/20 16:15 05/15/20 18:00 Hydrocortisone (Solu-CORTEF) 50 mg Q8H IV 05/11/20 04:00 08/09/20 03:59 05/15/20 12:25 Insulin Aspart (NovoLOG) EVERY 6 HOURS SUBQ 05/11/20 06:00 08/09/20 05:59 05/13/20 17:43 Magnesium Hydroxide (Mom) 30 ml HSPRN PRN ORAL Constipation 05/11/20 00:15 06/10/20 00:14 Morphine Sulfate (Morphine Sulfate) 1 mg Q3H PRN IVP For Pain 05/11/20 00:15 05/18/20 00:14 Morphine Sulfate (Morphine Sulfate) 2 mg Q3H PRN IVP Moderate Pain (Pain Scale 4-6) 05/11/20 00:15 05/18/20 00:14 05/15/20 08:40 Morphine Sulfate (Morphine Sulfate) 4 mg Q3H PRN IVP Severe Pain (Pain Scale 7-10) 05/11/20 00:15 05/18/20 00:14 05/13/20 04:14 Ondansetron HCl (Zofran) 4 mg Q4H PRN IVP Nausea & Vomiting 05/11/20 00:15 06/10/20 00:14 Piperacillin Sod/ Tazobactam Sod 3.375 gm/Sodium Chloride 110 ml @ 27.5 mls/hr Q8H IVPB 05/11/20 08:00 05/18/20 07:59 05/15/20 15:39 Potassium Chloride (K-Dur) 40 meq ONCE ORAL 05/15/20 16:15 05/15/20 18:00 Temazepam (Restoril) 15 mg HSPRN PRN ORAL Insomnia 05/11/20 00:15 05/18/20 00:14 Assessment/Plan Problems: (1) Postoperative abscess (2) Abdominal pain (3) COPD (chronic obstructive pulmonary disease) (4) Pulmonary fibrosis (5) Polymyositis (6) BPH (benign prostatic hyperplasia) (7) Diabetes mellitus Assessment/Plan getting better no new complains did physical therapy iv abx surgical f/u check cultures respiratory treatment symptomatic treatment Rudi Kitchen MD May 15, 2020 16:26
--- NOTE | 2020-05-15 17:38 | Internal Med Progress Note ---
Subjective Date of Service: May 15, 2020 Physician Name Cirilo Tan Attending Physician Jose Ramos MD Current Medications Medications (Trade) Dose Ordered Sig/Renetta Route PRN Reason Start Time Stop Time Status Last Admin Dose Admin Acetaminophen (Tylenol) 650 mg Q4H PRN ORAL Temp >100.5 05/11/20 00:15 06/10/20 00:14 Al Hydroxide/Mg Hydroxide (Mylanta II) 30 ml Q6H PRN ORAL dyspepsia 05/11/20 00:15 06/10/20 00:14 Dextrose (Dextrose 50%) 25 ml Q30M PRN IV Hypoglycemia 05/11/20 01:00 08/09/20 00:59 Dextrose (Dextrose 50%) 50 ml Q30M PRN IV Hypoglycemia 05/11/20 01:00 08/09/20 00:59 Diphenhydramine HCl (Benadryl) 25 mg Q6H PRN ORAL Itching/Pruritis 05/11/20 00:15 06/10/20 00:14 Famotidine (Pepcid I.v.) 20 mg Q12H IVP 05/11/20 00:30 06/10/20 00:29 05/15/20 12:36 Furosemide (Lasix) 20 mg ONCE IV 05/15/20 16:15 05/15/20 18:00 05/15/20 16:33 Hydrocortisone (Solu-CORTEF) 50 mg Q8H IV 05/11/20 04:00 08/09/20 03:59 05/15/20 12:25 Insulin Aspart (NovoLOG) EVERY 6 HOURS SUBQ 05/11/20 06:00 08/09/20 05:59 05/15/20 17:23 Magnesium Hydroxide (Mom) 30 ml HSPRN PRN ORAL Constipation 05/11/20 00:15 06/10/20 00:14 Morphine Sulfate (Morphine Sulfate) 1 mg Q3H PRN IVP For Pain 05/11/20 00:15 05/18/20 00:14 Morphine Sulfate (Morphine Sulfate) 2 mg Q3H PRN IVP Moderate Pain (Pain Scale 4-6) 05/11/20 00:15 05/18/20 00:14 05/15/20 08:40 Morphine Sulfate (Morphine Sulfate) 4 mg Q3H PRN IVP Severe Pain (Pain Scale 7-10) 05/11/20 00:15 05/18/20 00:14 05/13/20 04:14 Ondansetron HCl (Zofran) 4 mg Q4H PRN IVP Nausea & Vomiting 05/11/20 00:15 06/10/20 00:14 Piperacillin Sod/ Tazobactam Sod 3.375 gm/Sodium Chloride 110 ml @ 27.5 mls/hr Q8H IVPB 05/11/20 08:00 05/18/20 07:59 05/15/20 15:39 Potassium Chloride (K-Dur) 40 meq ONCE ORAL 05/15/20 16:15 05/15/20 18:00 05/15/20 16:33 Temazepam (Restoril) 15 mg HSPRN PRN ORAL Insomnia 05/11/20 00:15 05/18/20 00:14 Allergies: Coded Allergies: LEVOFLOXACIN (Unverified Allergy, Mild, Redness, 04/25/20) ROS Limited/Unobtainable: No Constitutional: Reports: no symptoms HEENT: Reports: no symptoms Cardiovascular: Reports: no symptoms Respiratory: Reports: no symptoms Gastrointestinal/Abdominal: Reports: no symptoms Genitourinary: Reports: no symptoms Neurologic/Psychiatric: Reports: no symptoms Subjective 69 YO M admitted with abdominal pain, nausea and vomiting. Now post op cystic duct leak. S/P ultrasound guided drain placement 05/12/20. S/P ERCP with stent placement 05/14/20. Cover for Int Seda Ramos Objective Last Vital Signs Date Time Temp Pulse Resp B/P (MAP) Pulse Ox O2 Delivery O2 Flow Rate FiO2 05/15/20 16:00 98.1 107 20 143/89 (107) 99 05/15/20 09:00 Room Air 05/14/20 13:30 3 Laboratory Tests Test 05/15/20 00:18 05/15/20 07:35 05/15/20 11:07 05/15/20 16:11 POC Whole Blood Glucose 125 MG/DL (74-106) H 138 MG/DL (74-106) H 153 MG/DL (74-106) H White Blood Count 10.5 K/UL (4.8-10.8) Red Blood Count 4.15 M/UL (4.70-6.10) L Hemoglobin 11.4 G/DL (14.2-18.0) L Hematocrit 36.4 % (42.0-52.0) L Mean Corpuscular Volume 88 FL (80-99) Mean Corpuscular Hemoglobin 27.5 PG (27.0-31.0) Mean Corpuscular Hemoglobin Concent 31.4 G/DL (32.0-36.0) L Red Cell Distribution Width 16.9 % (11.6-14.8) H Platelet Count 438 K/UL (150-450) Mean Platelet Volume 5.6 FL (6.5-10.1) L Neutrophils (%) (Auto) % (45.0-75.0) Lymphocytes (%) (Auto) % (20.0-45.0) Monocytes (%) (Auto) % (1.0-10.0) Eosinophils (%) (Auto) % (0.0-3.0) Basophils (%) (Auto) % (0.0-2.0) Differential Total Cells Counted 100 Neutrophils % (Manual) 90 % (45-75) H Lymphocytes % (Manual) 2 % (20-45) L Monocytes % (Manual) 7 % (1-10) Eosinophils % (Manual) 0 % (0-3) Basophils % (Manual) 0 % (0-2) Band Neutrophils 1 % (0-8) Platelet Estimate Adequate Platelet Morphology Normal Hypochromasia 1+ Anisocytosis 1+ Stomatocytes Occasional Sodium Level 145 MMOL/L (136-145) Potassium Level 3.4 MMOL/L (3.5-5.1) L Chloride Level 109 MMOL/L (98-107) H Carbon Dioxide Level 28 MMOL/L (21-32) Anion Gap 8 mmol/L (5-15) Blood Urea Nitrogen 7 mg/dL (7-18) Creatinine 0.7 MG/DL (0.55-1.30) Estimat Glomerular Filtration Rate > 60 mL/min (>60) Glucose Level 118 MG/DL (74-106) H Calcium Level 8.0 MG/DL (8.5-10.1) L Microbiology Date/Time Source Procedure Growth Status 05/13/20 16:38 Nasopharynx SARS-CoV-2 RdRp Gene Assay - Final Complete Intake and Output 05/14/20 05/15/20 19:00 07:00 Intake Total 895.0 ml Output Total 1325 ml 1625 ml Balance -430.0 ml -1625 ml Intake Oral 140 ml IV Total 755.0 ml Output Urine Total 1200 ml 1625 ml Other 125 ml # Voids 3 Objective PHYSICAL EXAMINATION: GENERAL: The patient is well-developed, well-nourished male, in no apparent distress. HEENT: Eyes, pupils are equal and responsive to light and accommodation. Extraocular movements are intact. NECK: Supple without lymphadenopathy. CHEST: Lungs are clear to auscultation bilaterally without wheezes or rales. CARDIOVASCULAR: Regular rhythm and rate. S1-S2 are normal without murmurs, rubs, or gallops. ABDOMEN: Soft, tender to palpation in the epigastric region, nondistended with decreased bowel sounds. No evidence of hepatosplenomegaly. No rebound or guarding noted. EXTREMITIES: Negative for clubbing, cyanosis, or edema. RECTAL/GENITAL: Not performed. NEUROLOGIC: Cranial nerves II through XII are grossly intact without focal deficits. Motor strength is 5/5 bilaterally. Deep tendon reflexes are 2+, plantar. Assessment/Plan Assessment/Plan ASSESSMENT: This is a 69-year-old male. 1. Abdominal pain. 2. Nausea with vomiting. 3. Cystic duct leak 4. Postoperative state. 5. Diabetes type 2. 6. Pulmonary fibrosis. 7. Osteoporosis. 8. Post Operative Abscess 9. Acute pancreatitis TREATMENT: 1. Abdominal pain/nausea/vomiting/gallbladder fossa abscess. A general surgery consultation has been obtained with Dr. Morse. The patient has been placed empirically on intravenous Zosyn. S/P U/S guided drain placed 05/12/20. We will follow recommendations of General Surgery. 2. Diabetes type 2. NovoLog sliding scale has been instituted. 3. Pulmonary fibrosis. 4. Osteoporosis. 5. Pancreatitis-GI=Dr Marquez 6. S/P ultrasound guided drain placement 7. ERCPwith stent placement 05/14/20 Cirilo Tan MD May 15, 2020 17:38
[2020-05-15] MEDS: Morphine Sulfate 4mg/ml Inj (IV USE ONLY) IVP PRN (20:55)
[2020-05-16] VITALS (7 sets, daily range): BP systolic 137–163; BP diastolic 77–95
[2020-05-16] MEDS: Hydrocortisone 100mg Inj IV SCH ×3 (04:45→20:03)
[2020-05-16] MEDS: Morphine Sulfate 4mg/ml Inj (IV USE ONLY) IVP PRN (04:46)
[2020-05-16] MEDS: NovoLOG Insulin Flexpen SUBQ SCH ×4 (05:23→23:40)
[2020-05-16] MEDS ORDERED: Milk of Magnesia 30ml Ud ORAL PRN (08:15)
[2020-05-16] MEDS ORDERED: Morphine Sulfate 4mg/ml Inj (IV USE ONLY) IVP PRN (08:15)
[2020-05-16] MEDS ORDERED: Morphine Sulfate 2mg/ml Inj(IV/IM USE ONLY) IVP PRN (08:15)
[2020-05-16] MEDS ORDERED: Mylanta II UD 30ml ORAL PRN (08:15)
[2020-05-16] MEDS: Piperacillin/Tazobactam 3.375 GM in NS 110 ML IVPB SCH ×3 (08:29→23:40)
--- NOTE | 2020-05-16 09:54 | Surgery Progress Note ---
Surgery Progress Note Subjective Additional Comments improved no n/v/f/c d/c plan for tomorrow drain output minimal comfortable labs okay Objective Last 24 Hour Vital Signs Date Time Temp Pulse Resp B/P (MAP) Pulse Ox O2 Delivery O2 Flow Rate FiO2 05/16/20 04:00 65 05/16/20 04:00 96.8 54 20 153/87 (109) 97 05/16/20 00:00 60 05/15/20 23:00 55 135/88 (104) 99 05/15/20 21:00 Room Air 05/15/20 20:00 60 05/15/20 20:00 97.7 50 20 141/91 (108) 99 05/15/20 16:00 16 05/15/20 16:00 98.1 107 20 143/89 (107) 99 05/15/20 12:00 60 05/15/20 12:00 97.9 113 20 163/88 (113) 99 I&O Intake and Output 05/15/20 05/16/20 19:00 07:00 Intake Total 1800 ml Output Total 3700 ml 1320 ml Balance -1900 ml -1320 ml Intake Oral 1800 ml Output Urine Total 3700 ml 1320 ml Dressing: other Wound: other Cardiovascular: RSR Respiratory: decreased breath sounds Abdomen: soft, non-tender, present bowel sounds Extremities: no edema, no tenderness, no cyanosis Laboratory Tests Test 05/15/20 11:07 05/15/20 16:11 05/16/20 05:13 POC Whole Blood Glucose 138 MG/DL (74-106) H 153 MG/DL (74-106) H Pending Plan Problems: (1) Postoperative abscess Assessment & Plan: 69 M post operative intrabdominal abscess vs bile leak biloma currently afebrile, HD stable exam with wound c/d/i. mild discomfort RUQ leukocytosis trending down on abx t bili nml now npo iv fluids iv abx CT guided drainage of GB fossa fluid collection eval biloma vs abscess. thank you will follow with recs MRI noted. area of debris with air likely the Surgicel placed in surgery. remaining fluid collection. Drain completed. output seems like liquefactive hematoma? potential superimposed infection? pending micro no sagar pus. no bowel contents. potential debris with bile? cont drain okay for diet discussed with daughter ercp with stent [placed leak small will monitor d/c planning outpatient f/u The gallbladder has been removed. As demonstrated on recent CT scan, there is a large fluid collection within the gallbladder fossa. This measures 8 x 12 x 7.3 cm. Also demonstrated on recent CT scan, this appears to be mostly surrounded by liver parenchyma, but the inferior and anterior borders are not. The lesion demonstrates predominantly fluid signal on all sequences, but there are is some non fluid signal material demonstrated within it, corresponding to what appears to be an area of debris and gas within the collection on CT scan. There is also some debris layering dependently. There is questionably demonstrated a cystic duct remnant. No definite communication of the collection with the biliary tree is demonstrated. There is an extension of the collection which appears to be in proximity with the duodenal wall. There is no definite associated contrast enhancement. Some filling defects seen within the common bile duct may reflect gas bubbles the extrahepatic ducts are dilated, common bile duct measuring up to 12 mm in diameter. No definite downstream obstructive lesion is demonstrated. There is also mild central intrahepatic biliary ductal dilatation. A small amount of free fluid is seen over the dome of the liver and surrounding the upper spleen and the gastric fundus. The pancreatic duct is mildly prominent, otherwise unremarkable. The spleen, adrenals, right kidney are unremarkable. A cyst is seen in the lower pole of the left kidney. The visualized upper pelvic viscera are unremarkable. Impression: 8 x 12 x 7.3 cm fluid collection in the gallbladder fossa, indenting or extending into the liver, also described on recent CT scan. Given history of recent cholecystectomy, most likely a biloma. Gas bubbles are more evident on prior CT scan, could be residual air from the prior surgical exposure or could indicate infection with a gas-forming organism and therefore a superinfected biloma. No definite communication with the biliary tree Extrahepatic ductal dilatation, without definite downstream obstructive lesion, may be related to age and postcholecystectomy state. Filling defects within the downstream common bile duct probably represent gas bubbles or debris, but small calculi as etiology of this finding also possible Small amount of free intraperitoneal fluid, presumably related to the above or residual from prior surgery. (2) Abdominal pain Assessment & Plan: ABDOMEN: Liver: Unremarkable. No mass. Gallbladder and bile ducts: Cholecystectomy with postoperative CBD prominence 1.3 cm, potentially due to reservoir effect. No obstructing lesion seen. Pancreas: Unremarkable. No mass. No ductal dilation. Spleen: Unremarkable. No splenomegaly. Adrenals: Unremarkable. No mass. Kidneys and ureters: Unremarkable. No solid mass. No hydronephrosis. Stomach and bowel: Gastric antrum mild wall thickening could be incidental and represent peristalsis or could represent gastritis in the proper context. Rectal operative findings. Likely benign calcification near the cecum and the mesentery of uncertain significance. No obstruction. PELVIS: Appendix: No findings to suggest acute appendicitis. Bladder: Unremarkable. No mass. Reproductive: Prostatomegaly 5.6 cm transverse. ABDOMEN and PELVIS: Intraperitoneal space: Massive gallbladder fossa abscess, potentially representing contained an infected bile leak versus postoperative abscess formation measures 10 x 14 x 9.5 cm. Small pneumoperitoneum anterior to the liver, this is probably due to the recent postoperative setting. Scattered nonloculated additional peritoneal fluid seen along the greater curvature of the stomach. Central mesentery focal ill-defined 2 cm soft tissue nodularity with adjacent calcification axial series 4 image 81 is of uncertain significance, but could represent scarring from prior operative intervention, sequela of carcinoid metastatic to the mesentery, or tiny focus of mesenteric desmoid. Bones/joints: Bilateral L5 spondylolysis with grade 1 anterolisthesis. No acute fracture. No dislocation. Soft tissues: Operative staple line across the right upper quadrant. Vasculature: Unremarkable. No abdominal aortic aneurysm. Lymph nodes: Unremarkable. No enlarged lymph nodes. IMPRESSION: 1. Massive gallbladder fossa abscess, potentially representing contained an infected bile leak versus postoperative abscess formation measures 10 x 14 x 9.5 cm. 2. Small pneumoperitoneum anterior to the liver, this is probably due to the recent postoperative setting. Operative staple line across the right upper quadrant. 3. Cholecystectomy with postoperative CBD prominence 1.3 cm, potentially due to reservoir effect. No obstructing lesion seen. 4. If clinically desired, consider MRI abdomen without and with IV contrast as well as with MRCP sequences to further characterize biliary ductal prominence. 5. Central mesentery focal ill-defined 2 cm soft tissue nodularity with adjacent calcification axial series 4 image 81 is of uncertain significance, but could represent scarring from prior operative intervention, sequela of carcinoid metastatic to the mesentery, or tiny focus of mesenteric desmoid. 6. Recommend outpatient dedicated CT chest without IV contrast to further characterize pulmonary findings suggestive of interstitial lung disease, potentially NSIP subtype. 7. Gastric antrum mild wall thickening could be incidental and represent peristalsis or could represent gastritis in the proper context. 8. Scattered nonloculated additional peritoneal fluid seen along the greater curvature of the stomach. 9. Prostatomegaly 5.6 cm transverse. (3) Immunosuppressed status (4) Cholecystitis, acute (5) Diabetes mellitus (6) COPD (chronic obstructive pulmonary disease) (7) BPH (benign prostatic hyperplasia) (8) Pulmonary fibrosis (9) Polymyositis Wil Morse May 16, 2020 09:54
--- NOTE | 2020-05-16 09:55 | General Progress Note ---
Assessment/Plan Assessment/Plan: 1. Chronic liver disease. 2. Diverticulitis. 3. Pulmonary fibrosis. 4. History of Sharmin esophagitis. 5. History of umbilical hernia. 6. Diabetes. 7. Osteoporosis. 8. BPH. 9. RUQ abscess vs biloma s/p drainage s/p ERCP and stent placement on diet repeat labs abx needs repeat ERCP and stent removal in 8 weeks Subjective ROS Limited/Unobtainable: Yes Allergies: Coded Allergies: LEVOFLOXACIN (Unverified Allergy, Mild, Redness, 04/25/20) Objective Last 24 Hour Vital Signs Date Time Temp Pulse Resp B/P (MAP) Pulse Ox O2 Delivery O2 Flow Rate FiO2 05/16/20 04:00 65 05/16/20 04:00 96.8 54 20 153/87 (109) 97 05/16/20 00:00 60 05/15/20 23:00 55 135/88 (104) 99 05/15/20 21:00 Room Air 05/15/20 20:00 60 05/15/20 20:00 97.7 50 20 141/91 (108) 99 05/15/20 16:00 16 05/15/20 16:00 98.1 107 20 143/89 (107) 99 05/15/20 12:00 60 05/15/20 12:00 97.9 113 20 163/88 (113) 99 Intake and Output 05/15/20 05/16/20 19:00 07:00 Intake Total 1800 ml Output Total 3700 ml 1320 ml Balance -1900 ml -1320 ml Intake Oral 1800 ml Output Urine Total 3700 ml 1320 ml Laboratory Tests 05/15/20 11:07: POC Whole Blood Glucose 138H 05/15/20 16:11: POC Whole Blood Glucose 153H 05/16/20 05:13: POC Whole Blood Glucose [Pending] Height (Feet): 6 Height (Inches): 1.00 Weight (Pounds): 185 General Appearance: alert EENT: normal ENT inspection Neck: supple Cardiovascular: normal rate Respiratory/Chest: decreased breath sounds Abdomen: normal bowel sounds, non tender, soft Extremities: non-tender Petey Marquez MD May 16, 2020 09:54
[2020-05-16 10:53] LABS: ALANINE AMINOTRANSFERASE 40 U/L (12-78); ALBUMIN 2.4 G/DL (3.4-5.0); ALKALINE PHOSPHATASE 70 U/L (46-116); ANION GAP 4 mmol/L (5-15); ASPARTATE AMINO TRANSFERASE 23 U/L (15-37); BILIRUBIN,TOTAL 0.6 MG/DL (0.2-1.0); BLOOD UREA NITROGEN 6 mg/dL (7-18); CALCIUM 8.1 MG/DL (8.5-10.1); CARBON DIOXIDE 33 MMOL/L (21-32); CHLORIDE 108 MMOL/L (98-107); CREATININE 0.7 MG/DL (0.55-1.30); SODIUM 144 MMOL/L (136-145)
[2020-05-16 10:59] LABS: HEMATOCRIT 35.1 % (42.0-52.0); MEAN CORPUSCULAR VOLUME 87 FL (80-99); PLATELET COUNT 364 K/UL (150-450); RED BLOOD COUNT 4.02 M/UL (4.70-6.10); RED CELL DISTRIBUTION WIDTH 16.8 % (11.6-14.8); WHITE BLOOD COUNT 11.1 K/UL (4.8-10.8)
--- NOTE | 2020-05-16 14:32 | Cardiology Progress Note ---
Assessment/Plan Assessment/Plan 1. Gallbladder fossa fluid collection and a possibility of biloma. 2. Bronchiectasis/pulmonary fibrosis. 3. Diabetes mellitus. 4. History of benign prostatic hypertrophy. 5. History of osteoporosis. 6. fluid over load Status post ERCP, sphincterotomy and stent placement. now off tele on medd surg labs noted probnp increased compared to prior diuretics one more dose today oxygen abx Subjective Cardiovascular: Denies: chest pain, lightheadedness, palpitations Respiratory: Denies: shortness of breath Gastrointestinal/Abdominal: Denies: abdominal pain Genitourinary: Denies: burning Objective Last 24 Hour Vital Signs Date Time Temp Pulse Resp B/P (MAP) Pulse Ox O2 Delivery O2 Flow Rate FiO2 05/16/20 11:49 97.0 57 18 154/82 (106) 99 05/16/20 09:00 Room Air 05/16/20 08:00 97.0 70 18 163/95 (117) 100 05/16/20 04:00 65 05/16/20 04:00 96.8 54 20 153/87 (109) 97 05/16/20 00:00 60 05/15/20 23:00 55 135/88 (104) 99 05/15/20 21:00 Room Air 05/15/20 20:00 60 05/15/20 20:00 97.7 50 20 141/91 (108) 99 05/15/20 16:00 16 05/15/20 16:00 98.1 107 20 143/89 (107) 99 General Appearance: no apparent distress, alert Neck: supple Cardiovascular: normal rate Respiratory/Chest: lungs clear Abdomen: normal bowel sounds, non tender, soft Extremities: no swelling Intake and Output 05/15/20 05/16/20 19:00 07:00 Intake Total 1800 ml Output Total 3700 ml 1320 ml Balance -1900 ml -1320 ml Intake Oral 1800 ml Output Urine Total 3700 ml 1320 ml Laboratory Tests Test 05/15/20 16:11 05/16/20 05:13 05/16/20 10:08 POC Whole Blood Glucose 153 MG/DL (74-106) H Pending White Blood Count 11.1 K/UL (4.8-10.8) H Red Blood Count 4.02 M/UL (4.70-6.10) L Hemoglobin 11.0 G/DL (14.2-18.0) L Hematocrit 35.1 % (42.0-52.0) L Mean Corpuscular Volume 87 FL (80-99) Mean Corpuscular Hemoglobin 27.2 PG (27.0-31.0) Mean Corpuscular Hemoglobin Concent 31.2 G/DL (32.0-36.0) L Red Cell Distribution Width 16.8 % (11.6-14.8) H Platelet Count 364 K/UL (150-450) Mean Platelet Volume 5.8 FL (6.5-10.1) L Neutrophils (%) (Auto) % (45.0-75.0) Lymphocytes (%) (Auto) % (20.0-45.0) Monocytes (%) (Auto) % (1.0-10.0) Eosinophils (%) (Auto) % (0.0-3.0) Basophils (%) (Auto) % (0.0-2.0) Differential Total Cells Counted 100 Neutrophils % (Manual) 81 % (45-75) H Lymphocytes % (Manual) 11 % (20-45) L Monocytes % (Manual) 8 % (1-10) Eosinophils % (Manual) 0 % (0-3) Basophils % (Manual) 0 % (0-2) Band Neutrophils 0 % (0-8) Platelet Estimate Adequate Platelet Morphology Normal Polychromasia 1+ Hypochromasia 1+ Anisocytosis 1+ Sodium Level Pending Potassium Level Pending Chloride Level Pending Carbon Dioxide Level Pending Anion Gap 4 mmol/L (5-15) L Blood Urea Nitrogen Pending Creatinine Pending Estimat Glomerular Filtration Rate Pending Glucose Level Pending Calcium Level Pending Magnesium Level 2.2 MG/DL (1.8-2.4) Total Bilirubin 0.6 MG/DL (0.2-1.0) Aspartate Amino Transf (AST/SGOT) 23 U/L (15-37) Alanine Aminotransferase (ALT/SGPT) 40 U/L (12-78) Alkaline Phosphatase 70 U/L (46-116) Pro-B-Type Natriuretic Peptide 2179 pg/mL (0-125) H Total Protein 4.9 G/DL (6.4-8.2) L Albumin 2.4 G/DL (3.4-5.0) L Globulin 2.5 g/dL Albumin/Globulin Ratio 1.0 (1.0-2.7) Microbiology Date/Time Source Procedure Growth Status 05/13/20 16:38 Nasopharynx SARS-CoV-2 RdRp Gene Assay - Final Complete Marcial Lugo MD May 16, 2020 14:32
[2020-05-16] MEDS: Morphine Sulfate 2mg/ml Inj(IV/IM USE ONLY) IVP PRN ×2 (14:55→20:03)
--- NOTE | 2020-05-16 16:11 | Internal Med Progress Note ---
Subjective Date of Service: May 16, 2020 Physician Name BritneyCirilo Attending Physician Jose Ramos MD Current Medications Medications (Trade) Dose Ordered Sig/Renetta Route PRN Reason Start Time Stop Time Status Last Admin Dose Admin Acetaminophen (Tylenol) 650 mg Q4H PRN ORAL Temp >100.5 05/16/20 08:15 06/10/20 00:14 Al Hydroxide/Mg Hydroxide (Mylanta II) 30 ml Q6H PRN ORAL dyspepsia 05/16/20 08:15 06/10/20 08:14 Dextrose (Dextrose 50%) 25 ml Q30M PRN IV Hypoglycemia 05/16/20 07:30 08/09/20 00:59 Dextrose (Dextrose 50%) 50 ml Q30M PRN IV Hypoglycemia 05/16/20 07:30 08/09/20 00:59 Diphenhydramine HCl (Benadryl) 25 mg Q6H PRN ORAL Itching/Pruritis 05/16/20 08:15 06/10/20 08:14 Famotidine (Pepcid I.v.) 20 mg Q12HR IVP 05/16/20 09:00 06/15/20 08:59 05/16/20 08:52 Hydrocortisone (Solu-CORTEF) 50 mg Q8H IV 05/16/20 12:00 08/09/20 03:59 05/16/20 12:37 Insulin Aspart (NovoLOG) EVERY 6 HOURS SUBQ 05/16/20 12:00 08/09/20 05:59 Magnesium Hydroxide (Mom) 30 ml HSPRN PRN ORAL Constipation 05/16/20 08:15 06/15/20 08:14 Morphine Sulfate (Morphine Sulfate) 1 mg Q3H PRN IVP For Pain 05/16/20 08:15 05/18/20 08:14 Morphine Sulfate (Morphine Sulfate) 2 mg Q3H PRN IVP Moderate Pain (Pain Scale 4-6) 05/16/20 08:15 05/18/20 08:14 05/16/20 14:55 Morphine Sulfate (Morphine Sulfate) 4 mg Q3H PRN IVP Severe Pain (Pain Scale 7-10) 05/16/20 08:15 05/18/20 08:14 Ondansetron HCl (Zofran) 4 mg Q4H PRN IVP Nausea & Vomiting 05/16/20 08:15 9/17/20 00:14 Piperacillin Sod/ Tazobactam Sod 3.375 gm/Sodium Chloride 110 ml @ 27.5 mls/hr Q8H IVPB 05/16/20 08:00 05/18/20 07:59 05/16/20 08:29 Temazepam (Restoril) 15 mg HSPRN PRN ORAL Insomnia 05/16/20 20:00 05/23/20 19:59 Allergies: Coded Allergies: LEVOFLOXACIN (Unverified Allergy, Mild, Redness, 04/25/20) ROS Limited/Unobtainable: No Constitutional: Reports: no symptoms HEENT: Reports: no symptoms Cardiovascular: Reports: no symptoms Respiratory: Reports: no symptoms Gastrointestinal/Abdominal: Reports: no symptoms Genitourinary: Reports: no symptoms Neurologic/Psychiatric: Reports: no symptoms Subjective 69 YO M admitted with abdominal pain, nausea and vomiting. Now post op cystic duct leak. S/P ultrasound guided drain placement 05/12/20. S/P ERCP with stent placement 05/14/20. Cover for [facility]-Dr. Ramos Objective Last Vital Signs Date Time Temp Pulse Resp B/P (MAP) Pulse Ox O2 Delivery O2 Flow Rate FiO2 05/16/20 15:25 97.0 05/16/20 11:49 57 18 154/82 (106) 99 05/16/20 09:00 Room Air 05/14/20 13:30 3 Laboratory Tests Test 05/15/20 16:11 05/16/20 05:13 05/16/20 10:08 POC Whole Blood Glucose 153 MG/DL (74-106) H Pending White Blood Count 11.1 K/UL (4.8-10.8) H Red Blood Count 4.02 M/UL (4.70-6.10) L Hemoglobin 11.0 G/DL (14.2-18.0) L Hematocrit 35.1 % (42.0-52.0) L Mean Corpuscular Volume 87 FL (80-99) Mean Corpuscular Hemoglobin 27.2 PG (27.0-31.0) Mean Corpuscular Hemoglobin Concent 31.2 G/DL (32.0-36.0) L Red Cell Distribution Width 16.8 % (11.6-14.8) H Platelet Count 364 K/UL (150-450) Mean Platelet Volume 5.8 FL (6.5-10.1) L Neutrophils (%) (Auto) % (45.0-75.0) Lymphocytes (%) (Auto) % (20.0-45.0) Monocytes (%) (Auto) % (1.0-10.0) Eosinophils (%) (Auto) % (0.0-3.0) Basophils (%) (Auto) % (0.0-2.0) Differential Total Cells Counted 100 Neutrophils % (Manual) 81 % (45-75) H Lymphocytes % (Manual) 11 % (20-45) L Monocytes % (Manual) 8 % (1-10) Eosinophils % (Manual) 0 % (0-3) Basophils % (Manual) 0 % (0-2) Band Neutrophils 0 % (0-8) Platelet Estimate Adequate Platelet Morphology Normal Polychromasia 1+ Hypochromasia 1+ Anisocytosis 1+ Sodium Level Pending Potassium Level Pending Chloride Level Pending Carbon Dioxide Level Pending Anion Gap 4 mmol/L (5-15) L Blood Urea Nitrogen Pending Creatinine Pending Estimat Glomerular Filtration Rate Pending Glucose Level Pending Calcium Level Pending Magnesium Level 2.2 MG/DL (1.8-2.4) Total Bilirubin 0.6 MG/DL (0.2-1.0) Aspartate Amino Transf (AST/SGOT) 23 U/L (15-37) Alanine Aminotransferase (ALT/SGPT) 40 U/L (12-78) Alkaline Phosphatase 70 U/L (46-116) Pro-B-Type Natriuretic Peptide 2179 pg/mL (0-125) H Total Protein 4.9 G/DL (6.4-8.2) L Albumin 2.4 G/DL (3.4-5.0) L Globulin 2.5 g/dL Albumin/Globulin Ratio 1.0 (1.0-2.7) Microbiology Date/Time Source Procedure Growth Status 05/13/20 16:38 Nasopharynx SARS-CoV-2 RdRp Gene Assay - Final Complete Intake and Output 05/15/20 05/16/20 19:00 07:00 Intake Total 1800 ml Output Total 3700 ml 1320 ml Balance -1900 ml -1320 ml Intake Oral 1800 ml Output Urine Total 3700 ml 1320 ml Objective PHYSICAL EXAMINATION: GENERAL: The patient is well-developed, well-nourished male, in no apparent distress. HEENT: Eyes, pupils are equal and responsive to light and accommodation. Extraocular movements are intact. NECK: Supple without lymphadenopathy. CHEST: Lungs are clear to auscultation bilaterally without wheezes or rales. CARDIOVASCULAR: Regular rhythm and rate. S1-S2 are normal without murmurs, rubs, or gallops. ABDOMEN: Soft, tender to palpation in the epigastric region, nondistended with decreased bowel sounds. No evidence of hepatosplenomegaly. No rebound or guarding noted. EXTREMITIES: Negative for clubbing, cyanosis, or edema. RECTAL/GENITAL: Not performed. NEUROLOGIC: Cranial nerves II through XII are grossly intact without focal deficits. Motor strength is 5/5 bilaterally. Deep tendon reflexes are 2+, plantar. Assessment/Plan Assessment/Plan ASSESSMENT: This is a 69-year-old male. 1. Abdominal pain. 2. Nausea with vomiting. 3. Cystic duct leak 4. Postoperative state. 5. Diabetes type 2. 6. Pulmonary fibrosis. 7. Osteoporosis. 8. Post Operative Abscess 9. Acute pancreatitis TREATMENT: 1. Abdominal pain/nausea/vomiting/gallbladder fossa abscess. A general surgery consultation has been obtained with Dr. Morse. ABX=Zosyn. S/P U/S guided drain placed 05/12/20. We will follow recommendations of General Surgery. 2. Diabetes type 2. NovoLog sliding scale has been instituted. 3. Pulmonary fibrosis. 4. Osteoporosis. 5. Pancreatitis-GI=Dr Marquez 6. S/P ultrasound guided drain placement 7. ERCPwith stent placement 05/14/20 Cirilo Tan MD May 16, 2020 16:11
--- NOTE | 2020-05-16 18:14 | Pulmonology Progress Note ---
Subjective ROS Limited/Unobtainable: No Constitutional: Reports: no symptoms HEENT: Repors: no symptoms Respiratory: Reports: no symptoms Cardiovascular: Reports: no symptoms Allergies: Coded Allergies: LEVOFLOXACIN (Unverified Allergy, Mild, Redness, 04/25/20) Objective Last 24 Hour Vital Signs Date Time Temp Pulse Resp B/P (MAP) Pulse Ox O2 Delivery O2 Flow Rate FiO2 05/16/20 16:00 98.1 82 18 149/94 (112) 97 05/16/20 15:25 97.0 05/16/20 12:00 97.0 57 18 154/82 (106) 99 05/16/20 09:00 Room Air 05/16/20 08:00 97.0 70 18 163/95 (117) 100 05/16/20 04:00 65 05/16/20 04:00 96.8 54 20 153/87 (109) 97 05/16/20 00:00 60 05/15/20 23:00 55 135/88 (104) 99 05/15/20 21:00 Room Air 05/15/20 20:00 60 05/15/20 20:00 97.7 50 20 141/91 (108) 99 Intake and Output 05/15/20 05/16/20 19:00 07:00 Intake Total 1800 ml Output Total 3700 ml 1320 ml Balance -1900 ml -1320 ml Intake Oral 1800 ml Output Urine Total 3700 ml 1320 ml General Appearance: WD/WN HEENT: normocephalic, atraumatic Respiratory: chest wall non-tender, lungs clear Cardiovascular: normal peripheral pulses, normal rate Abdomen: normal bowel sounds, soft, non tender Extremities: no cyanosis Skin: no lesions 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 Laboratory Tests 05/16/20 05:13: POC Whole Blood Glucose [Pending] 05/16/20 10:08: White Blood Count 11.1H, Red Blood Count 4.02L, Hemoglobin 11.0L, Hematocrit 35.1L, Mean Corpuscular Volume 87, Mean Corpuscular Hemoglobin 27.2, Mean Corpuscular Hemoglobin Concent 31.2L, Red Cell Distribution Width 16.8H, Platelet Count 364, Mean Platelet Volume 5.8L, Neutrophils (%) (Auto) , Lymphocytes (%) (Auto) , Monocytes (%) (Auto) , Eosinophils (%) (Auto) , Basophils (%) (Auto) , Differential Total Cells Counted 100, Neutrophils % ( Manual) 81H, Lymphocytes % (Manual) 11L, Monocytes % (Manual) 8, Eosinophils % ( Manual) 0, Basophils % (Manual) 0, Band Neutrophils 0, Platelet Estimate Adequate, Platelet Morphology Normal, Polychromasia 1+, Hypochromasia 1+, Anisocytosis 1+, Sodium Level [Pending], Potassium Level [Pending], Chloride Level [Pending], Carbon Dioxide Level [Pending], Anion Gap 4L, Blood Urea Nitrogen [Pending], Creatinine [Pending], Estimat Glomerular Filtration Rate [ Pending], Glucose Level [Pending], Calcium Level [Pending], Magnesium Level 2.2 , Total Bilirubin 0.6, Aspartate Amino Transf (AST/SGOT) 23, Alanine Aminotransferase (ALT/SGPT) 40, Alkaline Phosphatase 70, Pro-B-Type Natriuretic Peptide 2179H, Total Protein 4.9L, Albumin 2.4L, Globulin 2.5, Albumin/Globulin Ratio 1.0 05/16/20 11:16: POC Whole Blood Glucose 127H 05/16/20 16:36: POC Whole Blood Glucose 148H Current Medications Medications (Trade) Dose Ordered Sig/Renetta Route PRN Reason Start Time Stop Time Status Last Admin Dose Admin Acetaminophen (Tylenol) 650 mg Q4H PRN ORAL Temp >100.5 05/16/20 08:15 06/10/20 00:14 Al Hydroxide/Mg Hydroxide (Mylanta II) 30 ml Q6H PRN ORAL dyspepsia 05/16/20 08:15 06/10/20 08:14 Dextrose (Dextrose 50%) 25 ml Q30M PRN IV Hypoglycemia 05/16/20 07:30 08/09/20 00:59 Dextrose (Dextrose 50%) 50 ml Q30M PRN IV Hypoglycemia 05/16/20 07:30 08/09/20 00:59 Diphenhydramine HCl (Benadryl) 25 mg Q6H PRN ORAL Itching/Pruritis 05/16/20 08:15 06/10/20 08:14 Famotidine (Pepcid I.v.) 20 mg Q12HR IVP 05/16/20 09:00 06/15/20 08:59 05/16/20 08:52 Hydrocortisone (Solu-CORTEF) 50 mg Q8H IV 05/16/20 12:00 08/09/20 03:59 05/16/20 12:37 Insulin Aspart (NovoLOG) EVERY 6 HOURS SUBQ 05/16/20 12:00 08/09/20 05:59 05/16/20 17:48 Magnesium Hydroxide (Mom) 30 ml HSPRN PRN ORAL Constipation 05/16/20 08:15 06/15/20 08:14 Morphine Sulfate (Morphine Sulfate) 1 mg Q3H PRN IVP For Pain 05/16/20 08:15 05/18/20 08:14 Morphine Sulfate (Morphine Sulfate) 2 mg Q3H PRN IVP Moderate Pain (Pain Scale 4-6) 05/16/20 08:15 05/18/20 08:14 05/16/20 14:55 Morphine Sulfate (Morphine Sulfate) 4 mg Q3H PRN IVP Severe Pain (Pain Scale 7-10) 05/16/20 08:15 05/18/20 08:14 Ondansetron HCl (Zofran) 4 mg Q4H PRN IVP Nausea & Vomiting 05/16/20 08:15 06/10/20 00:14 Piperacillin Sod/ Tazobactam Sod 3.375 gm/Sodium Chloride 110 ml @ 27.5 mls/hr Q8H IVPB 05/16/20 08:00 05/18/20 07:59 05/16/20 16:12 Temazepam (Restoril) 15 mg HSPRN PRN ORAL Insomnia 05/16/20 20:00 05/23/20 19:59 Assessment/Plan Problems: (1) Postoperative abscess (2) Abdominal pain (3) COPD (chronic obstructive pulmonary disease) (4) Pulmonary fibrosis (5) Polymyositis (6) BPH (benign prostatic hyperplasia) (7) Diabetes mellitus Assessment/Plan getting better no new complains did physical therapy iv abx surgical f/u check cultures respiratory treatment symptomatic treatment Rudi Kitchen MD May 16, 2020 18:14
[2020-05-17] MEDS: Hydrocortisone 100mg Inj IV SCH ×2 (03:36→11:23)
[2020-05-17 03:39] VITALS: BP 154/80
[2020-05-17] MEDS: NovoLOG Insulin Flexpen SUBQ SCH ×4 (06:00→23:46)
[2020-05-17] MEDS: Morphine Sulfate 2mg/ml Inj(IV/IM USE ONLY) IVP PRN ×2 (06:02→11:48)
[2020-05-17 07:27] LABS: HEMATOCRIT 37.1 % (42.0-52.0); HEMOGLOBIN 11.5 G/DL (14.2-18.0); MEAN CORPUSCULAR VOLUME 87 FL (80-99); PLATELET COUNT 349 K/UL (150-450); RED BLOOD COUNT 4.25 M/UL (4.70-6.10); RED CELL DISTRIBUTION WIDTH 17.3 % (11.6-14.8); WHITE BLOOD COUNT 11.3 K/UL (4.8-10.8)
[2020-05-17 08:00] VITALS: BP 149/81
[2020-05-17 08:02] LABS: ANION GAP 7 mmol/L (5-15); BLOOD UREA NITROGEN 8 mg/dL (7-18); CALCIUM 8.9 MG/DL (8.5-10.1); CARBON DIOXIDE 33 MMOL/L (21-32); CHLORIDE 105 MMOL/L (98-107); CREATININE 0.7 MG/DL (0.55-1.30); POTASSIUM 4.2 MMOL/L (3.5-5.1); SODIUM 145 MMOL/L (136-145)
[2020-05-17] MEDS: Piperacillin/Tazobactam 3.375 GM in NS 110 ML IVPB SCH ×3 (08:26→23:50)
--- NOTE | 2020-05-17 10:04 | General Progress Note ---
Assessment/Plan Assessment/Plan: 1. Chronic liver disease. 2. Diverticulitis. 3. Pulmonary fibrosis. 4. History of Sharmin esophagitis. 5. History of umbilical hernia. 6. Diabetes. 7. Osteoporosis. 8. BPH. 9. RUQ abscess vs biloma s/p drainage s/p ERCP and stent placement on diet repeat labs abx needs repeat ERCP and stent removal in 8 weeks Subjective ROS Limited/Unobtainable: Yes Allergies: Coded Allergies: LEVOFLOXACIN (Unverified Allergy, Mild, Redness, 04/25/20) Objective Last 24 Hour Vital Signs Date Time Temp Pulse Resp B/P (MAP) Pulse Ox O2 Delivery O2 Flow Rate FiO2 05/17/20 08:00 97.0 58 18 149/81 (103) 97 05/17/20 03:39 96.9 52 18 154/80 (104) 98 05/16/20 23:51 96.3 68 18 146/78 (100) 98 05/16/20 21:00 Room Air 05/16/20 19:58 97.0 54 18 137/77 (97) 98 05/16/20 16:00 98.1 82 18 149/94 (112) 97 05/16/20 15:25 97.0 05/16/20 12:00 97.0 57 18 154/82 (106) 99 Intake and Output 05/16/20 05/17/20 19:00 07:00 Intake Total 885.0 ml 665.0 ml Output Total 2640 ml 1100 ml Balance -1755.0 ml -435.0 ml Intake Oral 720 ml 500 ml IV Total 165.0 ml 165.0 ml Output Urine Total 2600 ml 1100 ml Other 40 ml # Voids 4 Laboratory Tests 05/16/20 10:08: White Blood Count 11.1H, Red Blood Count 4.02L, Hemoglobin 11.0L, Hematocrit 35.1L, Mean Corpuscular Volume 87, Mean Corpuscular Hemoglobin 27.2, Mean Corpuscular Hemoglobin Concent 31.2L, Red Cell Distribution Width 16.8H, Platelet Count 364, Mean Platelet Volume 5.8L, Neutrophils (%) (Auto) , Lymphocytes (%) (Auto) , Monocytes (%) (Auto) , Eosinophils (%) (Auto) , Basophils (%) (Auto) , Differential Total Cells Counted 100, Neutrophils % ( Manual) 81H, Lymphocytes % (Manual) 11L, Monocytes % (Manual) 8, Eosinophils % ( Manual) 0, Basophils % (Manual) 0, Band Neutrophils 0, Platelet Estimate Adequate, Platelet Morphology Normal, Polychromasia 1+, Hypochromasia 1+, Anisocytosis 1+, Sodium Level [Pending], Potassium Level [Pending], Chloride Level [Pending], Carbon Dioxide Level [Pending], Anion Gap 4L, Blood Urea Nitrogen [Pending], Creatinine [Pending], Estimat Glomerular Filtration Rate [ Pending], Glucose Level [Pending], Calcium Level [Pending], Magnesium Level 2.2 , Total Bilirubin 0.6, Aspartate Amino Transf (AST/SGOT) 23, Alanine Aminotransferase (ALT/SGPT) 40, Alkaline Phosphatase 70, Pro-B-Type Natriuretic Peptide 2179H, Total Protein 4.9L, Albumin 2.4L, Globulin 2.5, Albumin/Globulin Ratio 1.0 05/16/20 11:16: POC Whole Blood Glucose 127H 05/16/20 16:36: POC Whole Blood Glucose 148H 05/17/20 06:15: White Blood Count 11.3H, Red Blood Count 4.25L, Hemoglobin 11.5L, Hematocrit 37.1L, Mean Corpuscular Volume 87, Mean Corpuscular Hemoglobin 27.0, Mean Corpuscular Hemoglobin Concent 30.9L, Red Cell Distribution Width 17.3H, Platelet Count 349, Mean Platelet Volume 6.1L, Neutrophils (%) (Auto) , Lymphocytes (%) (Auto) , Monocytes (%) (Auto) , Eosinophils (%) (Auto) , Basophils (%) (Auto) , Neutrophils % (Manual) [Pending], Lymphocytes % (Manual) [Pending], Platelet Estimate [Pending], Platelet Morphology [Pending], Sodium Level 145, Potassium Level 4.2, Chloride Level 105, Carbon Dioxide Level 33H, Anion Gap 7, Blood Urea Nitrogen 8, Creatinine 0.7, Estimat Glomerular Filtration Rate > 60, Glucose Level 133H, Calcium Level 8.9 Height (Feet): 6 Height (Inches): 1.00 Weight (Pounds): 184 General Appearance: alert EENT: normal ENT inspection Neck: supple Cardiovascular: normal rate Respiratory/Chest: decreased breath sounds Abdomen: normal bowel sounds, non tender, soft Extremities: non-tender Petey Marquez MD May 17, 2020 10:04
[2020-05-17 12:00] VITALS: BP 131/87
--- NOTE | 2020-05-17 12:25 | Surgery Progress Note ---
Surgery Progress Note Subjective Additional Comments no acute events improving pain improved no n/v/f/c drain output minimal Objective Last 24 Hour Vital Signs Date Time Temp Pulse Resp B/P (MAP) Pulse Ox O2 Delivery O2 Flow Rate FiO2 05/17/20 09:00 Room Air 05/17/20 08:00 97.0 58 18 149/81 (103) 97 05/17/20 03:39 96.9 52 18 154/80 (104) 98 05/16/20 23:51 96.3 68 18 146/78 (100) 98 05/16/20 21:00 Room Air 05/16/20 19:58 97.0 54 18 137/77 (97) 98 05/16/20 16:00 98.1 82 18 149/94 (112) 97 05/16/20 15:25 97.0 I&O Intake and Output 05/16/20 05/17/20 19:00 07:00 Intake Total 885.0 ml 665.0 ml Output Total 2640 ml 1100 ml Balance -1755.0 ml -435.0 ml Intake Oral 720 ml 500 ml IV Total 165.0 ml 165.0 ml Output Urine Total 2600 ml 1100 ml Other 40 ml # Voids 4 Dressing: dry Wound: clean, dry Drains: other Cardiovascular: RSR Respiratory: clear Abdomen: soft, non-tender, present bowel sounds Extremities: no edema, no tenderness, no cyanosis Laboratory Tests Test 05/16/20 16:36 05/17/20 06:15 POC Whole Blood Glucose 148 MG/DL (74-106) H White Blood Count 11.3 K/UL (4.8-10.8) H Red Blood Count 4.25 M/UL (4.70-6.10) L Hemoglobin 11.5 G/DL (14.2-18.0) L Hematocrit 37.1 % (42.0-52.0) L Mean Corpuscular Volume 87 FL (80-99) Mean Corpuscular Hemoglobin 27.0 PG (27.0-31.0) Mean Corpuscular Hemoglobin Concent 30.9 G/DL (32.0-36.0) L Red Cell Distribution Width 17.3 % (11.6-14.8) H Platelet Count 349 K/UL (150-450) Mean Platelet Volume 6.1 FL (6.5-10.1) L Neutrophils (%) (Auto) % (45.0-75.0) Lymphocytes (%) (Auto) % (20.0-45.0) Monocytes (%) (Auto) % (1.0-10.0) Eosinophils (%) (Auto) % (0.0-3.0) Basophils (%) (Auto) % (0.0-2.0) Differential Total Cells Counted 100 Neutrophils % (Manual) 83 % (45-75) H Lymphocytes % (Manual) 11 % (20-45) L Monocytes % (Manual) 6 % (1-10) Eosinophils % (Manual) 0 % (0-3) Basophils % (Manual) 0 % (0-2) Band Neutrophils 0 % (0-8) Platelet Estimate Adequate Platelet Morphology Normal Polychromasia 1+ Hypochromasia 1+ Anisocytosis 1+ Stomatocytes Occasional Sodium Level 145 MMOL/L (136-145) Potassium Level 4.2 MMOL/L (3.5-5.1) Chloride Level 105 MMOL/L (98-107) Carbon Dioxide Level 33 MMOL/L (21-32) H Anion Gap 7 mmol/L (5-15) Blood Urea Nitrogen 8 mg/dL (7-18) Creatinine 0.7 MG/DL (0.55-1.30) Estimat Glomerular Filtration Rate > 60 mL/min (>60) Glucose Level 133 MG/DL (74-106) H Calcium Level 8.9 MG/DL (8.5-10.1) Plan Problems: (1) Postoperative abscess Assessment & Plan: 69 M post operative intrabdominal abscess vs bile leak biloma currently afebrile, HD stable exam with wound c/d/i. mild discomfort RUQ leukocytosis trending down on abx t bili nml now npo iv fluids iv abx CT guided drainage of GB fossa fluid collection eval biloma vs abscess. thank you will follow with recs MRI noted. area of debris with air likely the Surgicel placed in surgery. remaining fluid collection. Drain completed. output seems like liquefactive hematoma? potential superimposed infection? pending micro no sagar pus. no bowel contents. potential debris with bile? cont drain okay for diet discussed with daughter ercp with stent [placed leak small will monitor d/c planning outpatient f/u plan to removed drain tomorrow and d/c naz thank you The gallbladder has been removed. As demonstrated on recent CT scan, there is a large fluid collection within the gallbladder fossa. This measures 8 x 12 x 7.3 cm. Also demonstrated on recent CT scan, this appears to be mostly surrounded by liver parenchyma, but the inferior and anterior borders are not. The lesion demonstrates predominantly fluid signal on all sequences, but there are is some non fluid signal material demonstrated within it, corresponding to what appears to be an area of debris and gas within the collection on CT scan. There is also some debris layering dependently. There is questionably demonstrated a cystic duct remnant. No definite communication of the collection with the biliary tree is demonstrated. There is an extension of the collection which appears to be in proximity with the duodenal wall. There is no definite associated contrast enhancement. Some filling defects seen within the common bile duct may reflect gas bubbles the extrahepatic ducts are dilated, common bile duct measuring up to 12 mm in diameter. No definite downstream obstructive lesion is demonstrated. There is also mild central intrahepatic biliary ductal dilatation. A small amount of free fluid is seen over the dome of the liver and surrounding the upper spleen and the gastric fundus. The pancreatic duct is mildly prominent, otherwise unremarkable. The spleen, adrenals, right kidney are unremarkable. A cyst is seen in the lower pole of the left kidney. The visualized upper pelvic viscera are unremarkable. Impression: 8 x 12 x 7.3 cm fluid collection in the gallbladder fossa, indenting or extending into the liver, also described on recent CT scan. Given history of recent cholecystectomy, most likely a biloma. Gas bubbles are more evident on prior CT scan, could be residual air from the prior surgical exposure or could indicate infection with a gas-forming organism and therefore a superinfected biloma. No definite communication with the biliary tree Extrahepatic ductal dilatation, without definite downstream obstructive lesion, may be related to age and postcholecystectomy state. Filling defects within the downstream common bile duct probably represent gas bubbles or debris, but small calculi as etiology of this finding also possible Small amount of free intraperitoneal fluid, presumably related to the above or residual from prior surgery. (2) Abdominal pain Assessment & Plan: ABDOMEN: Liver: Unremarkable. No mass. Gallbladder and bile ducts: Cholecystectomy with postoperative CBD prominence 1.3 cm, potentially due to reservoir effect. No obstructing lesion seen. Pancreas: Unremarkable. No mass. No ductal dilation. Spleen: Unremarkable. No splenomegaly. Adrenals: Unremarkable. No mass. Kidneys and ureters: Unremarkable. No solid mass. No hydronephrosis. Stomach and bowel: Gastric antrum mild wall thickening could be incidental and represent peristalsis or could represent gastritis in the proper context. Rectal operative findings. Likely benign calcification near the cecum and the mesentery of uncertain significance. No obstruction. PELVIS: Appendix: No findings to suggest acute appendicitis. Bladder: Unremarkable. No mass. Reproductive: Prostatomegaly 5.6 cm transverse. ABDOMEN and PELVIS: Intraperitoneal space: Massive gallbladder fossa abscess, potentially representing contained an infected bile leak versus postoperative abscess formation measures 10 x 14 x 9.5 cm. Small pneumoperitoneum anterior to the liver, this is probably due to the recent postoperative setting. Scattered nonloculated additional peritoneal fluid seen along the greater curvature of the stomach. Central mesentery focal ill-defined 2 cm soft tissue nodularity with adjacent calcification axial series 4 image 81 is of uncertain significance, but could represent scarring from prior operative intervention, sequela of carcinoid metastatic to the mesentery, or tiny focus of mesenteric desmoid. Bones/joints: Bilateral L5 spondylolysis with grade 1 anterolisthesis. No acute fracture. No dislocation. Soft tissues: Operative staple line across the right upper quadrant. Vasculature: Unremarkable. No abdominal aortic aneurysm. Lymph nodes: Unremarkable. No enlarged lymph nodes. IMPRESSION: 1. Massive gallbladder fossa abscess, potentially representing contained an infected bile leak versus postoperative abscess formation measures 10 x 14 x 9.5 cm. 2. Small pneumoperitoneum anterior to the liver, this is probably due to the recent postoperative setting. Operative staple line across the right upper quadrant. 3. Cholecystectomy with postoperative CBD prominence 1.3 cm, potentially due to reservoir effect. No obstructing lesion seen. 4. If clinically desired, consider MRI abdomen without and with IV contrast as well as with MRCP sequences to further characterize biliary ductal prominence. 5. Central mesentery focal ill-defined 2 cm soft tissue nodularity with adjacent calcification axial series 4 image 81 is of uncertain significance, but could represent scarring from prior operative intervention, sequela of carcinoid metastatic to the mesentery, or tiny focus of mesenteric desmoid. 6. Recommend outpatient dedicated CT chest without IV contrast to further characterize pulmonary findings suggestive of interstitial lung disease, potentially NSIP subtype. 7. Gastric antrum mild wall thickening could be incidental and represent peristalsis or could represent gastritis in the proper context. 8. Scattered nonloculated additional peritoneal fluid seen along the greater curvature of the stomach. 9. Prostatomegaly 5.6 cm transverse. (3) Immunosuppressed status (4) Cholecystitis, acute (5) Diabetes mellitus (6) COPD (chronic obstructive pulmonary disease) (7) BPH (benign prostatic hyperplasia) (8) Pulmonary fibrosis (9) Polymyositis Wil Morse May 17, 2020 12:25
--- NOTE | 2020-05-17 12:57 | Pulmonology Progress Note ---
Subjective ROS Limited/Unobtainable: Yes Constitutional: Reports: no symptoms HEENT: Repors: no symptoms Respiratory: Reports: no symptoms Cardiovascular: Reports: no symptoms Allergies: Coded Allergies: LEVOFLOXACIN (Unverified Allergy, Mild, Redness, 04/25/20) Objective Last 24 Hour Vital Signs Date Time Temp Pulse Resp B/P (MAP) Pulse Ox O2 Delivery O2 Flow Rate FiO2 05/17/20 09:00 Room Air 05/17/20 08:00 97.0 58 18 149/81 (103) 97 05/17/20 03:39 96.9 52 18 154/80 (104) 98 05/16/20 23:51 96.3 68 18 146/78 (100) 98 05/16/20 21:00 Room Air 05/16/20 19:58 97.0 54 18 137/77 (97) 98 05/16/20 16:00 98.1 82 18 149/94 (112) 97 05/16/20 15:25 97.0 Intake and Output 05/16/20 05/17/20 19:00 07:00 Intake Total 885.0 ml 665.0 ml Output Total 2640 ml 1100 ml Balance -1755.0 ml -435.0 ml Intake Oral 720 ml 500 ml IV Total 165.0 ml 165.0 ml Output Urine Total 2600 ml 1100 ml Other 40 ml # Voids 4 General Appearance: WD/WN HEENT: normocephalic, atraumatic Respiratory: chest wall non-tender, lungs clear Cardiovascular: normal peripheral pulses, normal rate Abdomen: normal bowel sounds, soft, non tender Extremities: no cyanosis Skin: no lesions 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 Laboratory Tests 05/16/20 16:36: POC Whole Blood Glucose 148H 05/17/20 06:15: White Blood Count 11.3H, Red Blood Count 4.25L, Hemoglobin 11.5L, Hematocrit 37.1L, Mean Corpuscular Volume 87, Mean Corpuscular Hemoglobin 27.0, Mean Corpuscular Hemoglobin Concent 30.9L, Red Cell Distribution Width 17.3H, Platelet Count 349, Mean Platelet Volume 6.1L, Neutrophils (%) (Auto) , Lymphocytes (%) (Auto) , Monocytes (%) (Auto) , Eosinophils (%) (Auto) , Basophils (%) (Auto) , Differential Total Cells Counted 100, Neutrophils % ( Manual) 83H, Lymphocytes % (Manual) 11L, Monocytes % (Manual) 6, Eosinophils % ( Manual) 0, Basophils % (Manual) 0, Band Neutrophils 0, Platelet Estimate Adequate, Platelet Morphology Normal, Polychromasia 1+, Hypochromasia 1+, Anisocytosis 1+, Stomatocytes Occasional, Sodium Level 145, Potassium Level 4.2 , Chloride Level 105, Carbon Dioxide Level 33H, Anion Gap 7, Blood Urea Nitrogen 8, Creatinine 0.7, Estimat Glomerular Filtration Rate > 60, Glucose Level 133H, Calcium Level 8.9 Current Medications Medications (Trade) Dose Ordered Sig/Renetta Route PRN Reason Start Time Stop Time Status Last Admin Dose Admin Acetaminophen (Tylenol) 650 mg Q4H PRN ORAL Temp >100.5 05/16/20 08:15 06/10/20 00:14 Acetaminophen/ Hydrocodone Bitart ([place] 5/325) 1 tab Q4H PRN ORAL Moderate Pain (Pain Scale 4-6) 05/17/20 12:30 05/24/20 12:29 Al Hydroxide/Mg Hydroxide (Mylanta II) 30 ml Q6H PRN ORAL dyspepsia 05/16/20 08:15 06/10/20 08:14 Dextrose (Dextrose 50%) 25 ml Q30M PRN IV Hypoglycemia 05/16/20 07:30 08/09/20 00:59 Dextrose (Dextrose 50%) 50 ml Q30M PRN IV Hypoglycemia 05/16/20 07:30 08/09/20 00:59 Diphenhydramine HCl (Benadryl) 25 mg Q6H PRN ORAL Itching/Pruritis 05/16/20 08:15 06/10/20 08:14 Insulin Aspart (NovoLOG) EVERY 6 HOURS SUBQ 05/16/20 12:00 08/09/20 05:59 05/17/20 12:02 Magnesium Hydroxide (Mom) 30 ml HSPRN PRN ORAL Constipation 05/16/20 08:15 06/15/20 08:14 Ondansetron HCl (Zofran) 4 mg Q4H PRN IVP Nausea & Vomiting 05/16/20 08:15 06/10/20 00:14 Piperacillin Sod/ Tazobactam Sod 3.375 gm/Sodium Chloride 110 ml @ 27.5 mls/hr Q8H IVPB 05/16/20 08:00 05/18/20 23:59 05/17/20 08:26 Temazepam (Restoril) 15 mg HSPRN PRN ORAL Insomnia 05/16/20 20:00 05/23/20 19:59 Assessment/Plan Problems: (1) Postoperative abscess (2) Abdominal pain (3) COPD (chronic obstructive pulmonary disease) (4) Pulmonary fibrosis (5) Polymyositis (6) BPH (benign prostatic hyperplasia) (7) Diabetes mellitus Assessment/Plan getting better, less drainage no new complains did physical therapy iv abx surgical f/u check cultures respiratory treatment symptomatic treatment Rudi Kitchen MD May 17, 2020 12:57
--- NOTE | 2020-05-17 13:38 | Internal Med Progress Note ---
Subjective Date of Service: May 17, 2020 Physician Name Cirilo Tan Attending Physician Jose Ramos MD Current Medications Medications (Trade) Dose Ordered Sig/Renetta Route PRN Reason Start Time Stop Time Status Last Admin Dose Admin Acetaminophen (Tylenol) 650 mg Q4H PRN ORAL Temp >100.5 05/16/20 08:15 06/10/20 00:14 Acetaminophen/ Hydrocodone Bitart ([place] 5/325) 1 tab Q4H PRN ORAL Moderate Pain (Pain Scale 4-6) 05/17/20 12:30 05/24/20 12:29 Al Hydroxide/Mg Hydroxide (Mylanta II) 30 ml Q6H PRN ORAL dyspepsia 05/16/20 08:15 06/10/20 08:14 Dextrose (Dextrose 50%) 25 ml Q30M PRN IV Hypoglycemia 05/16/20 07:30 08/09/20 00:59 Dextrose (Dextrose 50%) 50 ml Q30M PRN IV Hypoglycemia 05/16/20 07:30 08/09/20 00:59 Diphenhydramine HCl (Benadryl) 25 mg Q6H PRN ORAL Itching/Pruritis 05/16/20 08:15 06/10/20 08:14 Insulin Aspart (NovoLOG) EVERY 6 HOURS SUBQ 05/16/20 12:00 08/09/20 05:59 05/17/20 12:02 Magnesium Hydroxide (Mom) 30 ml HSPRN PRN ORAL Constipation 05/16/20 08:15 06/15/20 08:14 Ondansetron HCl (Zofran) 4 mg Q4H PRN IVP Nausea & Vomiting 05/16/20 08:15 06/10/20 00:14 Piperacillin Sod/ Tazobactam Sod 3.375 gm/Sodium Chloride 110 ml @ 27.5 mls/hr Q8H IVPB 05/16/20 08:00 05/18/20 23:59 05/17/20 08:26 Temazepam (Restoril) 15 mg HSPRN PRN ORAL Insomnia 05/16/20 20:00 05/23/20 19:59 Allergies: Coded Allergies: LEVOFLOXACIN (Unverified Allergy, Mild, Redness, 04/25/20) ROS Limited/Unobtainable: No Constitutional: Reports: no symptoms HEENT: Reports: no symptoms Cardiovascular: Reports: no symptoms Respiratory: Reports: no symptoms Gastrointestinal/Abdominal: Reports: abdominal pain Genitourinary: Reports: no symptoms Neurologic/Psychiatric: Reports: no symptoms Subjective 69 YO M admitted with abdominal pain, nausea and vomiting. Now post op cystic duct leak. S/P ultrasound guided drain placement 05/12/20. S/P ERCP with stent placement 05/14/20. Cover for [facility] Jerad-Dr. Ramos Objective Last Vital Signs Date Time Temp Pulse Resp B/P (MAP) Pulse Ox O2 Delivery O2 Flow Rate FiO2 05/17/20 12:18 97.6 05/17/20 12:00 74 18 131/87 (102) 96 05/17/20 09:00 Room Air 05/14/20 13:30 3 Laboratory Tests Test 05/16/20 16:36 05/17/20 06:15 POC Whole Blood Glucose 148 MG/DL (74-106) H White Blood Count 11.3 K/UL (4.8-10.8) H Red Blood Count 4.25 M/UL (4.70-6.10) L Hemoglobin 11.5 G/DL (14.2-18.0) L Hematocrit 37.1 % (42.0-52.0) L Mean Corpuscular Volume 87 FL (80-99) Mean Corpuscular Hemoglobin 27.0 PG (27.0-31.0) Mean Corpuscular Hemoglobin Concent 30.9 G/DL (32.0-36.0) L Red Cell Distribution Width 17.3 % (11.6-14.8) H Platelet Count 349 K/UL (150-450) Mean Platelet Volume 6.1 FL (6.5-10.1) L Neutrophils (%) (Auto) % (45.0-75.0) Lymphocytes (%) (Auto) % (20.0-45.0) Monocytes (%) (Auto) % (1.0-10.0) Eosinophils (%) (Auto) % (0.0-3.0) Basophils (%) (Auto) % (0.0-2.0) Differential Total Cells Counted 100 Neutrophils % (Manual) 83 % (45-75) H Lymphocytes % (Manual) 11 % (20-45) L Monocytes % (Manual) 6 % (1-10) Eosinophils % (Manual) 0 % (0-3) Basophils % (Manual) 0 % (0-2) Band Neutrophils 0 % (0-8) Platelet Estimate Adequate Platelet Morphology Normal Polychromasia 1+ Hypochromasia 1+ Anisocytosis 1+ Stomatocytes Occasional Sodium Level 145 MMOL/L (136-145) Potassium Level 4.2 MMOL/L (3.5-5.1) Chloride Level 105 MMOL/L (98-107) Carbon Dioxide Level 33 MMOL/L (21-32) H Anion Gap 7 mmol/L (5-15) Blood Urea Nitrogen 8 mg/dL (7-18) Creatinine 0.7 MG/DL (0.55-1.30) Estimat Glomerular Filtration Rate > 60 mL/min (>60) Glucose Level 133 MG/DL (74-106) H Calcium Level 8.9 MG/DL (8.5-10.1) Intake and Output 05/16/20 05/17/20 19:00 07:00 Intake Total 885.0 ml 665.0 ml Output Total 2640 ml 1100 ml Balance -1755.0 ml -435.0 ml Intake Oral 720 ml 500 ml IV Total 165.0 ml 165.0 ml Output Urine Total 2600 ml 1100 ml Other 40 ml # Voids 4 Objective PHYSICAL EXAMINATION: GENERAL: The patient is well-developed, well-nourished male, in no apparent distress. HEENT: Eyes, pupils are equal and responsive to light and accommodation. Extraocular movements are intact. NECK: Supple without lymphadenopathy. CHEST: Lungs are clear to auscultation bilaterally without wheezes or rales. CARDIOVASCULAR: Regular rhythm and rate. S1-S2 are normal without murmurs, rubs, or gallops. ABDOMEN: Soft, tender to palpation in the epigastric region, nondistended with decreased bowel sounds. No evidence of hepatosplenomegaly. No rebound or guarding noted. EXTREMITIES: Negative for clubbing, cyanosis, or edema. RECTAL/GENITAL: Not performed. NEUROLOGIC: Cranial nerves II through XII are grossly intact without focal deficits. Motor strength is 5/5 bilaterally. Deep tendon reflexes are 2+, plantar. Assessment/Plan Assessment/Plan ASSESSMENT: This is a 69-year-old male. 1. Abdominal pain. 2. Nausea with vomiting. 3. Cystic duct leak 4. Postoperative state. 5. Diabetes type 2. 6. Pulmonary fibrosis. 7. Osteoporosis. 8. Post Operative Abscess 9. Acute pancreatitis TREATMENT: 1. Abdominal pain/nausea/vomiting/gallbladder fossa abscess. A general surgery consultation has been obtained with Dr. Morse. ABX=Zosyn. S/P U/S guided drain placed 05/12/20. We will follow recommendations of General Surgery. 2. Diabetes type 2. NovoLog sliding scale has been instituted. 3. Pulmonary fibrosis. 4. Osteoporosis. 5. Pancreatitis-GI=Dr Marquez 6. S/P ultrasound guided drain placement 7. ERCPwith stent placement 05/14/20 Cirilo Tan MD May 17, 2020 13:38
[2020-05-17 16:00] VITALS: BP 134/88
[2020-05-17 20:00] VITALS: BP 143/74
[2020-05-17] MEDS: HYDROcodone/Acetamin 5/325 tab ORAL PRN (21:25)
[2020-05-18] VITALS: BP 129/68
[2020-05-18 04:00] VITALS: BP 152/84
[2020-05-18] MEDS: NovoLOG Insulin Flexpen SUBQ SCH ×3 (05:47→17:55)
[2020-05-18 06:38] LABS: BASOPHILS % (AUTO) 0.3 % (0.0-2.0); EOSINOPHILS % (AUTO) 1.3 % (0.0-3.0); HEMATOCRIT 41.2 % (42.0-52.0); HEMOGLOBIN 12.9 G/DL (14.2-18.0); LYMPHOCYTES % (AUTO) 18.6 % (20.0-45.0); MEAN CORPUSCULAR VOLUME 88 FL (80-99); MONOCYTES % (AUTO) 6.8 % (1.0-10.0); NEUTROPHILS % (AUTO) 73.1 % (45.0-75.0); PLATELET COUNT 322 K/UL (150-450); RED BLOOD COUNT 4.69 M/UL (4.70-6.10); RED CELL DISTRIBUTION WIDTH 17.8 % (11.6-14.8); WHITE BLOOD COUNT 11.9 K/UL (4.8-10.8)
[2020-05-18 07:05] LABS: ALANINE AMINOTRANSFERASE 42 U/L (12-78); ALBUMIN/GLOBULIN RATIO 0.9 (1.0-2.7); ALKALINE PHOSPHATASE 73 U/L (46-116); AMYLASE 56 U/L (25-115); ANION GAP 6 mmol/L (5-15); ASPARTATE AMINO TRANSFERASE 23 U/L (15-37); BILIRUBIN,TOTAL 0.8 MG/DL (0.2-1.0); BLOOD UREA NITROGEN 6 mg/dL (7-18); CALCIUM 8.8 MG/DL (8.5-10.1); CARBON DIOXIDE 36 MMOL/L (21-32); CHLORIDE 104 MMOL/L (98-107); CREATININE 0.8 MG/DL (0.55-1.30); POTASSIUM 3.2 MMOL/L (3.5-5.1); SODIUM 146 MMOL/L (136-145)
[2020-05-18 08:00] VITALS: BP 140/83
[2020-05-18] MEDS: Piperacillin/Tazobactam 3.375 GM in NS 110 ML IVPB SCH ×2 (08:27→15:38)
[2020-05-18] MEDS: HYDROcodone/Acetamin 5/325 tab ORAL PRN ×2 (11:07→23:04)
[2020-05-18 12:00] VITALS: BP 129/80
--- NOTE | 2020-05-18 12:08 | General Progress Note ---
Assessment/Plan Assessment/Plan: 1. Chronic liver disease. 2. Diverticulitis. 3. Pulmonary fibrosis. 4. History of Sharmin esophagitis. 5. History of umbilical hernia. 6. Diabetes. 7. Osteoporosis. 8. BPH. 9. RUQ abscess vs biloma s/p drainage s/p ERCP and stent placement on diet repeat labs abx needs repeat ERCP and stent removal in 8 weeks Subjective ROS Limited/Unobtainable: Yes Allergies: Coded Allergies: LEVOFLOXACIN (Unverified Allergy, Mild, Redness, 04/25/20) Objective Last 24 Hour Vital Signs Date Time Temp Pulse Resp B/P (MAP) Pulse Ox O2 Delivery O2 Flow Rate FiO2 05/18/20 09:00 Room Air 05/18/20 08:00 98.0 61 20 140/83 (102) 97 05/18/20 04:00 97.6 56 19 152/84 (106) 97 05/18/20 00:00 97.9 73 19 129/68 (88) 97 05/17/20 21:00 Room Air 05/17/20 20:00 98.2 59 20 143/74 (97) 98 05/17/20 16:00 97.5 83 18 134/88 (103) 97 05/17/20 12:18 97.6 Intake and Output 05/17/20 05/18/20 19:00 07:00 Intake Total 1110.0 ml 600.0 ml Output Total 30 ml 3080 ml Balance 1080.0 ml -2480.0 ml Intake Oral 1000 ml 240 ml IV Total 110.0 ml 160.0 ml Other 200 ml Output Urine Total 2600 ml Drainage Total 450 ml Other 30 ml 30 ml # Voids 11 2 # Bowel Movements 2 1 Laboratory Tests 05/18/20 05:25: White Blood Count 11.9H, Red Blood Count 4.69L, Hemoglobin 12.9L, Hematocrit 41.2L, Mean Corpuscular Volume 88, Mean Corpuscular Hemoglobin 27.4, Mean Corpuscular Hemoglobin Concent 31.2L, Red Cell Distribution Width 17.8H, Platelet Count 322, Mean Platelet Volume 6.6, Neutrophils (%) (Auto) 73.1, Lymphocytes (%) (Auto) 18.6L, Monocytes (%) (Auto) 6.8, Eosinophils (%) (Auto) 1.3, Basophils (%) (Auto) 0.3, Erythrocyte Sedimentation Rate 12, Sodium Level 146H, Potassium Level 3.2L, Chloride Level 104, Carbon Dioxide Level 36H, Anion Gap 6, Blood Urea Nitrogen 6L, Creatinine 0.8, Estimat Glomerular Filtration Rate > 60, Glucose Level 82, Calcium Level 8.8, Total Bilirubin 0.8, Aspartate Amino Transf (AST/SGOT) 23, Alanine Aminotransferase (ALT/SGPT) 42, Alkaline Phosphatase 73, C-Reactive Protein, Quantitative 1.1H, Total Protein 6.3L, Albumin 3.0L, Globulin 3.3, Albumin/Globulin Ratio 0.9L, Amylase Level 56, Lipase 188 Height (Feet): 6 Height (Inches): 1.00 Weight (Pounds): 183 General Appearance: no apparent distress EENT: normal ENT inspection Neck: supple Cardiovascular: normal rate Respiratory/Chest: decreased breath sounds Abdomen: normal bowel sounds, non tender, soft Extremities: non-tender Petey Marquez MD May 18, 2020 12:07
--- NOTE | 2020-05-18 13:23 | Pulmonology Progress Note ---
Subjective ROS Limited/Unobtainable: Yes Constitutional: Reports: no symptoms HEENT: Repors: no symptoms Respiratory: Reports: no symptoms Cardiovascular: Reports: no symptoms Allergies: Coded Allergies: LEVOFLOXACIN (Unverified Allergy, Mild, Redness, 04/25/20) Objective Last 24 Hour Vital Signs Date Time Temp Pulse Resp B/P (MAP) Pulse Ox O2 Delivery O2 Flow Rate FiO2 05/18/20 09:00 Room Air 05/18/20 08:00 98.0 61 20 140/83 (102) 97 05/18/20 04:00 97.6 56 19 152/84 (106) 97 05/18/20 00:00 97.9 73 19 129/68 (88) 97 05/17/20 21:00 Room Air 05/17/20 20:00 98.2 59 20 143/74 (97) 98 05/17/20 16:00 97.5 83 18 134/88 (103) 97 Intake and Output 05/17/20 05/18/20 19:00 07:00 Intake Total 1110.0 ml 600.0 ml Output Total 30 ml 3080 ml Balance 1080.0 ml -2480.0 ml Intake Oral 1000 ml 240 ml IV Total 110.0 ml 160.0 ml Other 200 ml Output Urine Total 2600 ml Drainage Total 450 ml Other 30 ml 30 ml # Voids 11 2 # Bowel Movements 2 1 General Appearance: WD/WN HEENT: normocephalic, atraumatic Respiratory: chest wall non-tender, lungs clear Cardiovascular: normal peripheral pulses, normal rate Abdomen: normal bowel sounds, soft, non tender Extremities: no cyanosis Skin: no lesions 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 II-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 grossly normal Laboratory Tests 05/18/20 05:25: White Blood Count 11.9H, Red Blood Count 4.69L, Hemoglobin 12.9L, Hematocrit 41.2L, Mean Corpuscular Volume 88, Mean Corpuscular Hemoglobin 27.4, Mean Corpuscular Hemoglobin Concent 31.2L, Red Cell Distribution Width 17.8H, Platelet Count 322, Mean Platelet Volume 6.6, Neutrophils (%) (Auto) 73.1, Lymphocytes (%) (Auto) 18.6L, Monocytes (%) (Auto) 6.8, Eosinophils (%) (Auto) 1.3, Basophils (%) (Auto) 0.3, Erythrocyte Sedimentation Rate 12, Sodium Level 146H, Potassium Level 3.2L, Chloride Level 104, Carbon Dioxide Level 36H, Anion Gap 6, Blood Urea Nitrogen 6L, Creatinine 0.8, Estimat Glomerular Filtration Rate > 60, Glucose Level 82, Calcium Level 8.8, Total Bilirubin 0.8, Aspartate Amino Transf (AST/SGOT) 23, Alanine Aminotransferase (ALT/SGPT) 42, Alkaline Phosphatase 73, C-Reactive Protein, Quantitative 1.1H, Total Protein 6.3L, Albumin 3.0L, Globulin 3.3, Albumin/Globulin Ratio 0.9L, Amylase Level 56, Lipase 188 Current Medications Medications (Trade) Dose Ordered Sig/Renetta Route PRN Reason Start Time Stop Time Status Last Admin Dose Admin Acetaminophen (Tylenol) 650 mg Q4H PRN ORAL Temp >100.5 05/16/20 08:15 06/10/20 00:14 Acetaminophen/ Hydrocodone Bitart ([place] 5/325) 1 tab Q4H PRN ORAL Moderate Pain (Pain Scale 4-6) 05/17/20 12:30 05/24/20 12:29 05/18/20 11:07 Al Hydroxide/Mg Hydroxide (Mylanta II) 30 ml Q6H PRN ORAL dyspepsia 05/16/20 08:15 06/10/20 08:14 Dextrose (Dextrose 50%) 25 ml Q30M PRN IV Hypoglycemia 05/16/20 07:30 08/09/20 00:59 Dextrose (Dextrose 50%) 50 ml Q30M PRN IV Hypoglycemia 05/16/20 07:30 08/09/20 00:59 Diphenhydramine HCl (Benadryl) 25 mg Q6H PRN ORAL Itching/Pruritis 05/16/20 08:15 06/10/20 08:14 Insulin Aspart (NovoLOG) EVERY 6 HOURS SUBQ 05/16/20 12:00 08/09/20 05:59 05/17/20 19:09 Magnesium Hydroxide (Mom) 30 ml HSPRN PRN ORAL Constipation 05/16/20 08:15 06/15/20 08:14 Ondansetron HCl (Zofran) 4 mg Q4H PRN IVP Nausea & Vomiting 05/16/20 08:15 06/10/20 00:14 Piperacillin Sod/ Tazobactam Sod 3.375 gm/Sodium Chloride 110 ml @ 27.5 mls/hr Q8H IVPB 05/16/20 08:00 05/18/20 23:59 05/18/20 08:27 Temazepam (Restoril) 15 mg HSPRN PRN ORAL Insomnia 05/16/20 20:00 05/23/20 19:59 Assessment/Plan Problems: (1) Postoperative abscess (2) Abdominal pain (3) COPD (chronic obstructive pulmonary disease) (4) Pulmonary fibrosis (5) Polymyositis (6) BPH (benign prostatic hyperplasia) (7) Diabetes mellitus Assessment/Plan ID to see and decide about abx and its duration drainage was pulled no new complains did physical therapy iv abx surgical f/u check cultures respiratory treatment symptomatic treatment Rudi Kitchen MD May 18, 2020 13:23
--- NOTE | 2020-05-18 14:09 | Surgery Progress Note ---
Surgery Progress Note Subjective Symptoms: improved, tolerating diet, voiding well, passing flatus, BM Objective Last 24 Hour Vital Signs Date Time Temp Pulse Resp B/P (MAP) Pulse Ox O2 Delivery O2 Flow Rate FiO2 05/18/20 12:00 97.2 78 19 129/80 (96) 98 05/18/20 09:00 Room Air 05/18/20 08:00 98.0 61 20 140/83 (102) 97 05/18/20 04:00 97.6 56 19 152/84 (106) 97 05/18/20 00:00 97.9 73 19 129/68 (88) 97 05/17/20 21:00 Room Air 05/17/20 20:00 98.2 59 20 143/74 (97) 98 05/17/20 16:00 97.5 83 18 134/88 (103) 97 I&O Intake and Output 05/17/20 05/18/20 19:00 07:00 Intake Total 1110.0 ml 600.0 ml Output Total 30 ml 3080 ml Balance 1080.0 ml -2480.0 ml Intake Oral 1000 ml 240 ml IV Total 110.0 ml 160.0 ml Other 200 ml Output Urine Total 2600 ml Drainage Total 450 ml Other 30 ml 30 ml # Voids 11 2 # Bowel Movements 2 1 Dressing: dry Wound: clean, dry Cardiovascular: RSR Respiratory: clear Abdomen: soft, non-tender, present bowel sounds Extremities: no edema, no tenderness, no cyanosis Laboratory Tests Test 05/18/20 05:25 White Blood Count 11.9 K/UL (4.8-10.8) H Red Blood Count 4.69 M/UL (4.70-6.10) L Hemoglobin 12.9 G/DL (14.2-18.0) L Hematocrit 41.2 % (42.0-52.0) L Mean Corpuscular Volume 88 FL (80-99) Mean Corpuscular Hemoglobin 27.4 PG (27.0-31.0) Mean Corpuscular Hemoglobin Concent 31.2 G/DL (32.0-36.0) L Red Cell Distribution Width 17.8 % (11.6-14.8) H Platelet Count 322 K/UL (150-450) Mean Platelet Volume 6.6 FL (6.5-10.1) Neutrophils (%) (Auto) 73.1 % (45.0-75.0) Lymphocytes (%) (Auto) 18.6 % (20.0-45.0) L Monocytes (%) (Auto) 6.8 % (1.0-10.0) Eosinophils (%) (Auto) 1.3 % (0.0-3.0) Basophils (%) (Auto) 0.3 % (0.0-2.0) Erythrocyte Sedimentation Rate 12 MM/HR (0-20) Sodium Level 146 MMOL/L (136-145) H Potassium Level 3.2 MMOL/L (3.5-5.1) L Chloride Level 104 MMOL/L (98-107) Carbon Dioxide Level 36 MMOL/L (21-32) H Anion Gap 6 mmol/L (5-15) Blood Urea Nitrogen 6 mg/dL (7-18) L Creatinine 0.8 MG/DL (0.55-1.30) Estimat Glomerular Filtration Rate > 60 mL/min (>60) Glucose Level 82 MG/DL (74-106) Calcium Level 8.8 MG/DL (8.5-10.1) Total Bilirubin 0.8 MG/DL (0.2-1.0) Aspartate Amino Transf (AST/SGOT) 23 U/L (15-37) Alanine Aminotransferase (ALT/SGPT) 42 U/L (12-78) Alkaline Phosphatase 73 U/L (46-116) C-Reactive Protein, Quantitative 1.1 mg/dL (0.00-0.90) H Total Protein 6.3 G/DL (6.4-8.2) L Albumin 3.0 G/DL (3.4-5.0) L Globulin 3.3 g/dL Albumin/Globulin Ratio 0.9 (1.0-2.7) L Amylase Level 56 U/L (25-115) Lipase 188 U/L (73-393) Plan Problems: (1) Postoperative abscess Assessment & Plan: 69 M post operative intrabdominal abscess vs bile leak biloma currently afebrile, HD stable exam with wound c/d/i. mild discomfort RUQ leukocytosis trending down on abx t bili nml now npo iv fluids iv abx CT guided drainage of GB fossa fluid collection eval biloma vs abscess. thank you will follow with recs MRI noted. area of debris with air likely the Surgicel placed in surgery. remaining fluid collection. Drain completed. output seems like liquefactive hematoma? potential superimposed infection? pending micro no sagar pus. no bowel contents. potential debris with bile? cont drain okay for diet discussed with daughter ercp with stent [placed leak small will monitor d/c planning outpatient f/u plan to removed drain tomorrow and d/c naz drain removed okay to d/c ercp and stent in 8 weeks esr/crp nml wbc steroid no abx from surgical standpoint thank you The gallbladder has been removed. As demonstrated on recent CT scan, there is a large fluid collection within the gallbladder fossa. This measures 8 x 12 x 7.3 cm. Also demonstrated on recent CT scan, this appears to be mostly surrounded by liver parenchyma, but the inferior and anterior borders are not. The lesion demonstrates predominantly fluid signal on all sequences, but there are is some non fluid signal material demonstrated within it, corresponding to what appears to be an area of debris and gas within the collection on CT scan. There is also some debris layering dependently. There is questionably demonstrated a cystic duct remnant. No definite communication of the collection with the biliary tree is demonstrated. There is an extension of the collection which appears to be in proximity with the duodenal wall. There is no definite associated contrast enhancement. Some filling defects seen within the common bile duct may reflect gas bubbles the extrahepatic ducts are dilated, common bile duct measuring up to 12 mm in diameter. No definite downstream obstructive lesion is demonstrated. There is also mild central intrahepatic biliary ductal dilatation. A small amount of free fluid is seen over the dome of the liver and surrounding the upper spleen and the gastric fundus. The pancreatic duct is mildly prominent, otherwise unremarkable. The spleen, adrenals, right kidney are unremarkable. A cyst is seen in the lower pole of the left kidney. The visualized upper pelvic viscera are unremarkable. Impression: 8 x 12 x 7.3 cm fluid collection in the gallbladder fossa, indenting or extending into the liver, also described on recent CT scan. Given history of recent cholecystectomy, most likely a biloma. Gas bubbles are more evident on prior CT scan, could be residual air from the prior surgical exposure or could indicate infection with a gas-forming organism and therefore a superinfected biloma. No definite communication with the biliary tree Extrahepatic ductal dilatation, without definite downstream obstructive lesion, may be related to age and postcholecystectomy state. Filling defects within the downstream common bile duct probably represent gas bubbles or debris, but small calculi as etiology of this finding also possible Small amount of free intraperitoneal fluid, presumably related to the above or residual from prior surgery. (2) Abdominal pain Assessment & Plan: ABDOMEN: Liver: Unremarkable. No mass. Gallbladder and bile ducts: Cholecystectomy with postoperative CBD prominence 1.3 cm, potentially due to reservoir effect. No obstructing lesion seen. Pancreas: Unremarkable. No mass. No ductal dilation. Spleen: Unremarkable. No splenomegaly. Adrenals: Unremarkable. No mass. Kidneys and ureters: Unremarkable. No solid mass. No hydronephrosis. Stomach and bowel: Gastric antrum mild wall thickening could be incidental and represent peristalsis or could represent gastritis in the proper context. Rectal operative findings. Likely benign calcification near the cecum and the mesentery of uncertain significance. No obstruction. PELVIS: Appendix: No findings to suggest acute appendicitis. Bladder: Unremarkable. No mass. Reproductive: Prostatomegaly 5.6 cm transverse. ABDOMEN and PELVIS: Intraperitoneal space: Massive gallbladder fossa abscess, potentially representing contained an infected bile leak versus postoperative abscess formation measures 10 x 14 x 9.5 cm. Small pneumoperitoneum anterior to the liver, this is probably due to the recent postoperative setting. Scattered nonloculated additional peritoneal fluid seen along the greater curvature of the stomach. Central mesentery focal ill-defined 2 cm soft tissue nodularity with adjacent calcification axial series 4 image 81 is of uncertain significance, but could represent scarring from prior operative intervention, sequela of carcinoid metastatic to the mesentery, or tiny focus of mesenteric desmoid. Bones/joints: Bilateral L5 spondylolysis with grade 1 anterolisthesis. No acute fracture. No dislocation. Soft tissues: Operative staple line across the right upper quadrant. Vasculature: Unremarkable. No abdominal aortic aneurysm. Lymph nodes: Unremarkable. No enlarged lymph nodes. IMPRESSION: 1. Massive gallbladder fossa abscess, potentially representing contained an infected bile leak versus postoperative abscess formation measures 10 x 14 x 9.5 cm. 2. Small pneumoperitoneum anterior to the liver, this is probably due to the recent postoperative setting. Operative staple line across the right upper quadrant. 3. Cholecystectomy with postoperative CBD prominence 1.3 cm, potentially due to reservoir effect. No obstructing lesion seen. 4. If clinically desired, consider MRI abdomen without and with IV contrast as well as with MRCP sequences to further characterize biliary ductal prominence. 5. Central mesentery focal ill-defined 2 cm soft tissue nodularity with adjacent calcification axial series 4 image 81 is of uncertain significance, but could represent scarring from prior operative intervention, sequela of carcinoid metastatic to the mesentery, or tiny focus of mesenteric desmoid. 6. Recommend outpatient dedicated CT chest without IV contrast to further characterize pulmonary findings suggestive of interstitial lung disease, potentially NSIP subtype. 7. Gastric antrum mild wall thickening could be incidental and represent peristalsis or could represent gastritis in the proper context. 8. Scattered nonloculated additional peritoneal fluid seen along the greater curvature of the stomach. 9. Prostatomegaly 5.6 cm transverse. (3) Immunosuppressed status (4) Cholecystitis, acute (5) Diabetes mellitus (6) COPD (chronic obstructive pulmonary disease) (7) BPH (benign prostatic hyperplasia) (8) Pulmonary fibrosis (9) Polymyositis Wil Morse May 18, 2020 14:09
--- NOTE | 2020-05-18 14:23 | Consultation ---
History of Present Illness General Date patient seen: May 18, 2020 Chief Complaint: Abdominal Pain Present Illness HPI 69 y/o M with hx of polymyositis (not on immunosuppressants), umbilical hernia repair sp 8 yrs ago, thania esophagitis, chronic liver disease, Dm2, Pulmonary fibrosis, COPD, BPH, osteoporisis, diverticulitis sp sigmoid resection 2009, acute cholecystitis sp laparascopic to Open cholecystectomy and extensive adhesiolysis 04/27/20 presented to ED on 05/10/20 with 4 days of abd pain, nausea, vomiting and fever. Patient was found to have GB fossa abscess, now sp drainage Denied SOB, diarrhea, melena/hematochezia, chills,headache upon admission Patient recently admitted hre from 04/25 to 05/03 after acute cholecystitis and sp surgery. ID consulted for abx management Allergies: Coded Allergies: LEVOFLOXACIN (Unverified Allergy, Mild, Redness, 04/25/20) Medication History Scheduled Alendronate Sodium* (Fosamax*), 70 MG ORAL ONCE A WEEK, (Reported) Docusate Sodium* (Docusate Sodium*), 100 MG ORAL DAILY, (Reported) Ergocalciferol (Vitamin D2) (Vitamin D2), 1.25 MG PO ONCE A WEEK, (Reported) Furosemide* (Lasix*), 40 MG ORAL EVERY OTHER DAY, (Reported) Metformin Hcl* (Metformin Hcl*), 500 MG ORAL DAILY, (Reported) Methylprednisolone* (Medrol*), 4 MG ORAL DAILY, (Reported) Mycophenolate Mofetil (Cellcept), 1,500 MG ORAL TWICE A DAY, (Reported) Pantoprazole* (Pantoprazole*), 40 MG ORAL DAILY, (Reported) Spironolactone* (Spironolactone*), 50 MG ORAL TWICE A DAY, (Reported) Tamsulosin HCl (Flomax), 0.4 MG ORAL DAILY, (Reported) Miscellaneous Medications Hydrocodone Bit/Acetaminophen (Hydrocodon-Acetaminophen 5-300), Unknown Dose PO, (Reported) Patient History Healthcare decision maker Resuscitation status Advanced Directive on File Patient History Narrative Pmhx: as above Shx: Lives with family. . No tobacco. No alcohol. No drugs. Fhx: non contributory Review of Systems All Other Systems: negative except mentioned in HPI Physical Exam Physical Exam Narrative GENERAL: The patient is well-developed, well-nourished male, in no apparent distress. HEENT: Eyes, pupils are equal and responsive to light and accommodation. Extraocular movements are intact. NECK: Supple without lymphadenopathy. CHEST: Lungs are clear to auscultation bilaterally without wheezes or rales. CARDIOVASCULAR: Regular rhythm and rate. S1-S2 are normal without murmurs, rubs, or gallops. ABDOMEN: Soft, tender to palpation in the epigastric region, nondistended with decreased bowel sounds. No evidence of hepatosplenomegaly. Currently no rebound or guarding noted. EXTREMITIES: Negative for clubbing, cyanosis, or edema. Last 24 Hour Vital Signs Date Time Temp Pulse Resp B/P (MAP) Pulse Ox O2 Delivery O2 Flow Rate FiO2 05/18/20 09:00 Room Air 05/18/20 08:00 98.0 61 20 140/83 (102) 97 05/18/20 04:00 97.6 56 19 152/84 (106) 97 05/18/20 00:00 97.9 73 19 129/68 (88) 97 05/17/20 21:00 Room Air 05/17/20 20:00 98.2 59 20 143/74 (97) 98 05/17/20 16:00 97.5 83 18 134/88 (103) 97 Intake and Output 05/17/20 05/18/20 19:00 07:00 Intake Total 1110.0 ml 600.0 ml Output Total 30 ml 3080 ml Balance 1080.0 ml -2480.0 ml Intake Oral 1000 ml 240 ml IV Total 110.0 ml 160.0 ml Other 200 ml Output Urine Total 2600 ml Drainage Total 450 ml Other 30 ml 30 ml # Voids 11 2 # Bowel Movements 2 1 Laboratory Tests Test 05/18/20 05:25 White Blood Count 11.9 K/UL (4.8-10.8) H Red Blood Count 4.69 M/UL (4.70-6.10) L Hemoglobin 12.9 G/DL (14.2-18.0) L Hematocrit 41.2 % (42.0-52.0) L Mean Corpuscular Volume 88 FL (80-99) Mean Corpuscular Hemoglobin 27.4 PG (27.0-31.0) Mean Corpuscular Hemoglobin Concent 31.2 G/DL (32.0-36.0) L Red Cell Distribution Width 17.8 % (11.6-14.8) H Platelet Count 322 K/UL (150-450) Mean Platelet Volume 6.6 FL (6.5-10.1) Neutrophils (%) (Auto) 73.1 % (45.0-75.0) Lymphocytes (%) (Auto) 18.6 % (20.0-45.0) L Monocytes (%) (Auto) 6.8 % (1.0-10.0) Eosinophils (%) (Auto) 1.3 % (0.0-3.0) Basophils (%) (Auto) 0.3 % (0.0-2.0) Erythrocyte Sedimentation Rate 12 MM/HR (0-20) Sodium Level 146 MMOL/L (136-145) H Potassium Level 3.2 MMOL/L (3.5-5.1) L Chloride Level 104 MMOL/L (98-107) Carbon Dioxide Level 36 MMOL/L (21-32) H Anion Gap 6 mmol/L (5-15) Blood Urea Nitrogen 6 mg/dL (7-18) L Creatinine 0.8 MG/DL (0.55-1.30) Estimat Glomerular Filtration Rate > 60 mL/min (>60) Glucose Level 82 MG/DL (74-106) Calcium Level 8.8 MG/DL (8.5-10.1) Total Bilirubin 0.8 MG/DL (0.2-1.0) Aspartate Amino Transf (AST/SGOT) 23 U/L (15-37) Alanine Aminotransferase (ALT/SGPT) 42 U/L (12-78) Alkaline Phosphatase 73 U/L (46-116) C-Reactive Protein, Quantitative 1.1 mg/dL (0.00-0.90) H Total Protein 6.3 G/DL (6.4-8.2) L Albumin 3.0 G/DL (3.4-5.0) L Globulin 3.3 g/dL Albumin/Globulin Ratio 0.9 (1.0-2.7) L Amylase Level 56 U/L (25-115) Lipase 188 U/L (73-393) Height (Feet): 6 Height (Inches): 1.00 Weight (Pounds): 183 Medications Current Medications Medications (Trade) Dose Ordered Sig/Renetta Route PRN Reason Start Time Stop Time Status Last Admin Dose Admin Acetaminophen (Tylenol) 650 mg Q4H PRN ORAL Temp >100.5 05/16/20 08:15 06/10/20 00:14 Acetaminophen/ Hydrocodone Bitart ([place] 5/325) 1 tab Q4H PRN ORAL Moderate Pain (Pain Scale 4-6) 05/17/20 12:30 05/24/20 12:29 05/18/20 11:07 Al Hydroxide/Mg Hydroxide (Mylanta II) 30 ml Q6H PRN ORAL dyspepsia 05/16/20 08:15 06/10/20 08:14 Dextrose (Dextrose 50%) 25 ml Q30M PRN IV Hypoglycemia 05/16/20 07:30 08/09/20 00:59 Dextrose (Dextrose 50%) 50 ml Q30M PRN IV Hypoglycemia 05/16/20 07:30 08/09/20 00:59 Diphenhydramine HCl (Benadryl) 25 mg Q6H PRN ORAL Itching/Pruritis 05/16/20 08:15 06/10/20 08:14 Insulin Aspart (NovoLOG) EVERY 6 HOURS SUBQ 05/16/20 12:00 08/09/20 05:59 05/17/20 19:09 Magnesium Hydroxide (Mom) 30 ml HSPRN PRN ORAL Constipation 05/16/20 08:15 06/15/20 08:14 Ondansetron HCl (Zofran) 4 mg Q4H PRN IVP Nausea & Vomiting 05/16/20 08:15 06/10/20 00:14 Piperacillin Sod/ Tazobactam Sod 3.375 gm/Sodium Chloride 110 ml @ 27.5 mls/hr Q8H IVPB 05/16/20 08:00 05/18/20 23:59 05/18/20 08:27 Temazepam (Restoril) 15 mg HSPRN PRN ORAL Insomnia 05/16/20 20:00 05/23/20 19:59 Assessment/Plan Assessment/Plan: Abx: IV Vancomycin x1 05/10 Cefepime x1 05/10 Zosyn 05/11- Assessment: COVID 19 neg x1 (05/13 rapid COVID pCR) -05/10 CXR: Low lung volumes with bronchovascular crowding. GB fossa fluid collection: biloma vs abscess- 2ry to biliary leak -05/14 SP ERCP: Minimum bile leak at the cystic duct stump. Status post ERCP, sphincterotomy and stent placement. -05/13 HIDA scan: BILOMA COLLECTION IN THE GALLBLADDER FOSSA . -05/12 SP US guided aspiration and drainage: 150 ml dark cloudy bile --?cx sent -05/11 MRI abd : 8 x 12 x 7.3 cm fluid collection in the gallbladder fossa, indenting or extending into the liver, also described on recent CT scan. Given history of recent cholecystectomy, most likely a biloma. Gas bubbles are more evident on prior CT scan, could be residual air from the prior surgical exposure or could indicate infection with a gas-forming organism and therefore a superinfected biloma. No definite communication with the biliary tree. Extrahepatic ductal dilatation, without definite downstream obstructive lesion, may be related to age and postcholecystectomy state. Filling defects within the downstream common bile duct probably represent gas bubbles or debris, but small calculi as etiology of this finding also possible. Small amount of free intraperitoneal fluid, presumably related to the above or residual from prior surgery. -05/10 CT abd/p: 1. Massive gallbladder fossa abscess, potentially representing contained an infected bile leak versus postoperative abscess formation measures 10 x 14 x 9.5 cm. Small pneumoperitoneum anterior to the liver, this is probably due to the recent postoperative setting. Operative staple line across the right upper quadrant. Cholecystectomy with postoperative CBD prominence 1.3 cm, potentially due to reservoir effect. No obstructing lesion seen. Central mesentery focal ill-defined 2 cm soft tissue nodularity with adjacent calcification axial series 4 image 81 is of uncertain significance, but could represent scarring from prior operative intervention, sequela of carcinoid metastatic to the mesentery, or tiny focus of mesenteric desmoid. Gastric antrum mild wall thickening could be incidental and represent peristalsis or could represent gastritis in the proper context. Scattered nonloculated additional peritoneal fluid seen along the greater curvature of the stomach. Prostatomegaly 5.6 cm transverse. Afebrile Mild leukocytosis -05/10 u/a neg Bcx n eg Mild AST elevation, SP Recent acute cholecystitis -sp conversion of laparascopic to Open cholecystectomy and extensive adhesiolysis 04/27/20 polymyositis (not on immunosuppressants) umbilical hernia repair sp 8 yrs ago thania esophagitis chronic liver disease Dm2 Pulmonary fibrosis COPD BPH osteoporisis diverticulitis sp sigmoid resection 2010 VRE colonized Plan: -on empiric ZOsyn #8/10-14 -upon discharge transition to PO Augmentin 875/125mg bid for 5 more days -f/u cx -Monitor CBC/CMP, temperatures -I called micro to find out if specimen was sent on 05/12 as no result or culture order is available; per micro no specimen received Thank you for this consultation. Will continue to follow along with you. Discussed with RN, micro lab staff. Mariluz Alexander M.D. May 18, 2020 14:23
[2020-05-18 16:00] VITALS: BP 126/82
--- NOTE | 2020-05-18 18:51 | Internal Med Progress Note ---
Subjective Date of Service: May 18, 2020 Physician Name BritneyCirilo Attending Physician Jose Ramos MD Current Medications Medications (Trade) Dose Ordered Sig/Renetta Route PRN Reason Start Time Stop Time Status Last Admin Dose Admin Acetaminophen (Tylenol) 650 mg Q4H PRN ORAL Temp >100.5 05/16/20 08:15 06/10/20 00:14 Acetaminophen/ Hydrocodone Bitart ([place] 5/325) 1 tab Q4H PRN ORAL Moderate Pain (Pain Scale 4-6) 05/17/20 12:30 05/24/20 12:29 05/18/20 11:07 Al Hydroxide/Mg Hydroxide (Mylanta II) 30 ml Q6H PRN ORAL dyspepsia 05/16/20 08:15 06/10/20 08:14 Dextrose (Dextrose 50%) 25 ml Q30M PRN IV Hypoglycemia 05/16/20 07:30 08/09/20 00:59 Dextrose (Dextrose 50%) 50 ml Q30M PRN IV Hypoglycemia 05/16/20 07:30 08/09/20 00:59 Diphenhydramine HCl (Benadryl) 25 mg Q6H PRN ORAL Itching/Pruritis 05/16/20 08:15 06/10/20 08:14 Insulin Aspart (NovoLOG) EVERY 6 HOURS SUBQ 05/16/20 12:00 08/09/20 05:59 05/17/20 19:09 Magnesium Hydroxide (Mom) 30 ml HSPRN PRN ORAL Constipation 05/16/20 08:15 06/15/20 08:14 Ondansetron HCl (Zofran) 4 mg Q4H PRN IVP Nausea & Vomiting 05/16/20 08:15 06/10/20 00:14 Piperacillin Sod/ Tazobactam Sod 3.375 gm/Sodium Chloride 110 ml @ 27.5 mls/hr Q8H IVPB 05/16/20 08:00 05/24/20 23:59 05/18/20 15:38 Temazepam (Restoril) 15 mg HSPRN PRN ORAL Insomnia 05/16/20 20:00 05/23/20 19:59 Allergies: Coded Allergies: LEVOFLOXACIN (Unverified Allergy, Mild, Redness, 04/25/20) ROS Limited/Unobtainable: No Constitutional: Reports: no symptoms HEENT: Reports: no symptoms Cardiovascular: Reports: no symptoms Respiratory: Reports: no symptoms Gastrointestinal/Abdominal: Reports: no symptoms Genitourinary: Reports: no symptoms Neurologic/Psychiatric: Reports: no symptoms Subjective 69 YO M admitted with abdominal pain, nausea and vomiting. Now post op cystic duct leak. S/P ultrasound guided drain placement 05/12/20. S/P ERCP with stent placement 05/14/20. Cover for Int Jerad-Dr. Ramos Objective Last Vital Signs Date Time Temp Pulse Resp B/P (MAP) Pulse Ox O2 Delivery O2 Flow Rate FiO2 05/18/20 16:00 97.0 77 19 126/82 (97) 98 05/18/20 09:00 Room Air 05/14/20 13:30 3 Laboratory Tests Test 05/18/20 05:25 White Blood Count 11.9 K/UL (4.8-10.8) H Red Blood Count 4.69 M/UL (4.70-6.10) L Hemoglobin 12.9 G/DL (14.2-18.0) L Hematocrit 41.2 % (42.0-52.0) L Mean Corpuscular Volume 88 FL (80-99) Mean Corpuscular Hemoglobin 27.4 PG (27.0-31.0) Mean Corpuscular Hemoglobin Concent 31.2 G/DL (32.0-36.0) L Red Cell Distribution Width 17.8 % (11.6-14.8) H Platelet Count 322 K/UL (150-450) Mean Platelet Volume 6.6 FL (6.5-10.1) Neutrophils (%) (Auto) 73.1 % (45.0-75.0) Lymphocytes (%) (Auto) 18.6 % (20.0-45.0) L Monocytes (%) (Auto) 6.8 % (1.0-10.0) Eosinophils (%) (Auto) 1.3 % (0.0-3.0) Basophils (%) (Auto) 0.3 % (0.0-2.0) Erythrocyte Sedimentation Rate 12 MM/HR (0-20) Sodium Level 146 MMOL/L (136-145) H Potassium Level 3.2 MMOL/L (3.5-5.1) L Chloride Level 104 MMOL/L (98-107) Carbon Dioxide Level 36 MMOL/L (21-32) H Anion Gap 6 mmol/L (5-15) Blood Urea Nitrogen 6 mg/dL (7-18) L Creatinine 0.8 MG/DL (0.55-1.30) Estimat Glomerular Filtration Rate > 60 mL/min (>60) Glucose Level 82 MG/DL (74-106) Calcium Level 8.8 MG/DL (8.5-10.1) Total Bilirubin 0.8 MG/DL (0.2-1.0) Aspartate Amino Transf (AST/SGOT) 23 U/L (15-37) Alanine Aminotransferase (ALT/SGPT) 42 U/L (12-78) Alkaline Phosphatase 73 U/L (46-116) C-Reactive Protein, Quantitative 1.1 mg/dL (0.00-0.90) H Total Protein 6.3 G/DL (6.4-8.2) L Albumin 3.0 G/DL (3.4-5.0) L Globulin 3.3 g/dL Albumin/Globulin Ratio 0.9 (1.0-2.7) L Amylase Level 56 U/L (25-115) Lipase 188 U/L (73-393) Intake and Output 05/17/20 05/18/20 19:00 07:00 Intake Total 1110.0 ml 600.0 ml Output Total 30 ml 3080 ml Balance 1080.0 ml -2480.0 ml Intake Oral 1000 ml 240 ml IV Total 110.0 ml 160.0 ml Other 200 ml Output Urine Total 2600 ml Drainage Total 450 ml Other 30 ml 30 ml # Voids 11 2 # Bowel Movements 2 1 Objective PHYSICAL EXAMINATION: GENERAL: The patient is well-developed, well-nourished male, in no apparent distress. HEENT: Eyes, pupils are equal and responsive to light and accommodation. Extraocular movements are intact. NECK: Supple without lymphadenopathy. CHEST: Lungs are clear to auscultation bilaterally without wheezes or rales. CARDIOVASCULAR: Regular rhythm and rate. S1-S2 are normal without murmurs, rubs, or gallops. ABDOMEN: Soft, tender to palpation in the epigastric region, nondistended with decreased bowel sounds. No evidence of hepatosplenomegaly. No rebound or guarding noted. EXTREMITIES: Negative for clubbing, cyanosis, or edema. RECTAL/GENITAL: Not performed. NEUROLOGIC: Cranial nerves II through XII are grossly intact without focal deficits. Motor strength is 5/5 bilaterally. Deep tendon reflexes are 2+, plantar. Assessment/Plan Assessment/Plan ASSESSMENT: This is a 69-year-old male. 1. Abdominal pain. 2. Nausea with vomiting. 3. Cystic duct leak 4. Postoperative state. 5. Diabetes type 2. 6. Pulmonary fibrosis. 7. Osteoporosis. 8. Post Operative Abscess 9. Acute pancreatitis TREATMENT: 1. Abdominal pain/nausea/vomiting/gallbladder fossa abscess. A general surgery consultation has been obtained with Dr. Morse. ABX=Zosyn. S/P U/S guided drain placed 05/12/20. We will follow recommendations of General Surgery. 2. Diabetes type 2. NovoLog sliding scale has been instituted. 3. Pulmonary fibrosis. 4. Osteoporosis. 5. Pancreatitis-GI=Dr Marquez 6. S/P ultrasound guided drain placement 7. ERCP with stent placement 05/14/20 8. Discharge planning: Home with [facility] Cirilo Tan MD May 18, 2020 18:51
[2020-05-18 19:47] VITALS: BP 131/72
[2020-05-19] MEDS: Piperacillin/Tazobactam 3.375 GM in NS 110 ML IVPB SCH ×2 (00:01→08:09)
[2020-05-19 04:00] VITALS: BP 128/77
[2020-05-19 05:03] VITALS: BP 128/77
[2020-05-19] MEDS: NovoLOG Insulin Flexpen SUBQ SCH ×5 (06:00→23:28)
[2020-05-19] MEDS: HYDROcodone/Acetamin 5/325 tab ORAL PRN ×2 (06:06→13:49)
[2020-05-19 06:47] LABS: BASOPHILS % (AUTO) 0.5 % (0.0-2.0); EOSINOPHILS % (AUTO) 1.7 % (0.0-3.0); HEMATOCRIT 37.4 % (42.0-52.0); HEMOGLOBIN 11.6 G/DL (14.2-18.0); LYMPHOCYTES % (AUTO) 15.7 % (20.0-45.0); MEAN CORPUSCULAR VOLUME 88 FL (80-99); MONOCYTES % (AUTO) 8.3 % (1.0-10.0); NEUTROPHILS % (AUTO) 73.8 % (45.0-75.0); PLATELET COUNT 241 K/UL (150-450); RED BLOOD COUNT 4.25 M/UL (4.70-6.10); RED CELL DISTRIBUTION WIDTH 18.3 % (11.6-14.8); WHITE BLOOD COUNT 10.8 K/UL (4.8-10.8)
[2020-05-19 07:34] LABS: ANION GAP 6 mmol/L (5-15); BLOOD UREA NITROGEN 5 mg/dL (7-18); CALCIUM 8.1 MG/DL (8.5-10.1); CARBON DIOXIDE 33 MMOL/L (21-32); CHLORIDE 106 MMOL/L (98-107); CREATININE 0.8 MG/DL (0.55-1.30); POTASSIUM 2.9 MMOL/L (3.5-5.1); SODIUM 145 MMOL/L (136-145)
[2020-05-19 07:36] VITALS: BP 148/80
--- NOTE | 2020-05-19 09:12 | General Progress Note ---
Assessment/Plan Assessment/Plan: 1. Chronic liver disease. 2. Diverticulitis. 3. Pulmonary fibrosis. 4. History of Sharmin esophagitis. 5. History of umbilical hernia. 6. Diabetes. 7. Osteoporosis. 8. BPH. 9. RUQ abscess vs biloma s/p drainage s/p ERCP and stent placement on diet repeat labs abx needs repeat ERCP and stent removal in 8 weeks Subjective ROS Limited/Unobtainable: Yes Allergies: Coded Allergies: LEVOFLOXACIN (Unverified Allergy, Mild, Redness, 04/25/20) Objective Last 24 Hour Vital Signs Date Time Temp Pulse Resp B/P (MAP) Pulse Ox O2 Delivery O2 Flow Rate FiO2 05/19/20 07:36 97.2 83 21 148/80 (102) 97 05/19/20 06:38 97.8 05/19/20 05:03 97.8 80 128/77 (94) 05/19/20 04:00 97.8 80 128/77 (94) 05/18/20 20:29 Room Air 05/18/20 19:47 98.4 77 18 131/72 (91) 99 05/18/20 16:00 97.0 77 19 126/82 (97) 98 05/18/20 12:00 97.2 78 19 129/80 (96) 98 Intake and Output 05/18/20 05/19/20 19:00 07:00 Intake Total 140 ml 910.0 ml Output Total 800 ml Balance -660 ml 910.0 ml Intake Oral 140 ml 800 ml IV Total 110.0 ml Output Urine Total 800 ml # Voids 2 4 # Bowel Movements 2 Laboratory Tests 05/19/20 04:56: White Blood Count 10.8, Red Blood Count 4.25L, Hemoglobin 11.6L, Hematocrit 37.4L, Mean Corpuscular Volume 88, Mean Corpuscular Hemoglobin 27.3, Mean Corpuscular Hemoglobin Concent 31.0L, Red Cell Distribution Width 18.3H, Platelet Count 241, Mean Platelet Volume 7.2, Neutrophils (%) (Auto) 73.8, Lymphocytes (%) (Auto) 15.7L, Monocytes (%) (Auto) 8.3, Eosinophils (%) (Auto) 1.7, Basophils (%) (Auto) 0.5, Sodium Level 145, Potassium Level 2.9L, Chloride Level 106, Carbon Dioxide Level 33H, Anion Gap 6, Blood Urea Nitrogen 5L, Creatinine 0.8, Estimat Glomerular Filtration Rate > 60, Glucose Level 75, Calcium Level 8.1L Height (Feet): 6 Height (Inches): 1.00 Weight (Pounds): 183 General Appearance: no apparent distress EENT: normal ENT inspection Neck: supple Cardiovascular: normal rate Respiratory/Chest: decreased breath sounds Abdomen: normal bowel sounds, non tender, soft Extremities: non-tender Petey Marquez MD May 19, 2020 09:12
[2020-05-19 11:38] VITALS: BP 103/70
--- NOTE | 2020-05-19 12:43 | Pulmonology Progress Note ---
Subjective ROS Limited/Unobtainable: Yes Constitutional: Reports: no symptoms HEENT: Repors: no symptoms Respiratory: Reports: no symptoms Cardiovascular: Reports: no symptoms Allergies: Coded Allergies: LEVOFLOXACIN (Unverified Allergy, Mild, Redness, 04/25/20) Objective Last 24 Hour Vital Signs Date Time Temp Pulse Resp B/P (MAP) Pulse Ox O2 Delivery O2 Flow Rate FiO2 05/19/20 11:38 97.9 89 20 103/70 (81) 98 05/19/20 09:00 Room Air 05/19/20 07:36 97.2 83 21 148/80 (102) 97 05/19/20 06:38 97.8 05/19/20 05:03 97.8 80 128/77 (94) 05/19/20 04:00 97.8 80 128/77 (94) 05/18/20 20:29 Room Air 05/18/20 19:47 98.4 77 18 131/72 (91) 99 05/18/20 16:00 97.0 77 19 126/82 (97) 98 Intake and Output 05/18/20 05/19/20 19:00 07:00 Intake Total 140 ml 910.0 ml Output Total 800 ml Balance -660 ml 910.0 ml Intake Oral 140 ml 800 ml IV Total 110.0 ml Output Urine Total 800 ml # Voids 2 4 # Bowel Movements 2 General Appearance: WD/WN HEENT: normocephalic, atraumatic Respiratory: chest wall non-tender, lungs clear Cardiovascular: normal peripheral pulses, normal rate Abdomen: normal bowel sounds, soft, non tender Extremities: no cyanosis Skin: no lesions 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 Laboratory Tests 05/19/20 04:56: White Blood Count 10.8, Red Blood Count 4.25L, Hemoglobin 11.6L, Hematocrit 37.4L, Mean Corpuscular Volume 88, Mean Corpuscular Hemoglobin 27.3, Mean Corpuscular Hemoglobin Concent 31.0L, Red Cell Distribution Width 18.3H, Platelet Count 241, Mean Platelet Volume 7.2, Neutrophils (%) (Auto) 73.8, Lymphocytes (%) (Auto) 15.7L, Monocytes (%) (Auto) 8.3, Eosinophils (%) (Auto) 1.7, Basophils (%) (Auto) 0.5, Sodium Level 145, Potassium Level 2.9L, Chloride Level 106, Carbon Dioxide Level 33H, Anion Gap 6, Blood Urea Nitrogen 5L, Creatinine 0.8, Estimat Glomerular Filtration Rate > 60, Glucose Level 75, Calcium Level 8.1L Current Medications Medications (Trade) Dose Ordered Sig/Renetta Route PRN Reason Start Time Stop Time Status Last Admin Dose Admin Acetaminophen (Tylenol) 650 mg Q4H PRN ORAL Temp >100.5 05/16/20 08:15 06/10/20 00:14 Acetaminophen/ Hydrocodone Bitart ([place] 5/325) 1 tab Q4H PRN ORAL Moderate Pain (Pain Scale 4-6) 05/17/20 12:30 05/24/20 12:29 05/19/20 06:06 Al Hydroxide/Mg Hydroxide (Mylanta II) 30 ml Q6H PRN ORAL dyspepsia 05/16/20 08:15 06/10/20 08:14 Dextrose (Dextrose 50%) 25 ml Q30M PRN IV Hypoglycemia 05/16/20 07:30 08/09/20 00:59 Dextrose (Dextrose 50%) 50 ml Q30M PRN IV Hypoglycemia 05/16/20 07:30 08/09/20 00:59 Diphenhydramine HCl (Benadryl) 25 mg Q6H PRN ORAL Itching/Pruritis 05/16/20 08:15 06/10/20 08:14 Insulin Aspart (NovoLOG) EVERY 6 HOURS SUBQ 05/16/20 12:00 08/09/20 05:59 05/17/20 19:09 Magnesium Hydroxide (Mom) 30 ml HSPRN PRN ORAL Constipation 05/16/20 08:15 06/15/20 08:14 Ondansetron HCl (Zofran) 4 mg Q4H PRN IVP Nausea & Vomiting 05/16/20 08:15 06/10/20 00:14 Piperacillin Sod/ Tazobactam Sod 3.375 gm/Sodium Chloride 110 ml @ 27.5 mls/hr Q8H IVPB 05/16/20 08:00 05/24/20 23:59 05/19/20 08:09 Potassium Chloride 100 ml @ 50 mls/hr ONCE ONCE IVPB 05/19/20 12:45 8/26/20 14:44 UNV Temazepam (Restoril) 15 mg HSPRN PRN ORAL Insomnia 05/16/20 20:00 05/23/20 19:59 Assessment/Plan Problems: (1) Postoperative abscess (2) Abdominal pain (3) COPD (chronic obstructive pulmonary disease) (4) Pulmonary fibrosis (5) Polymyositis (6) BPH (benign prostatic hyperplasia) (7) Diabetes mellitus Assessment/Plan K is very low, needs to be supplemented drainage was pulled no new complains did physical therapy iv abx surgical f/u check cultures respiratory treatment symptomatic treatment dc home once K is normal Rudi Kitchen MD May 19, 2020 12:43
--- NOTE | 2020-05-19 12:53 | Surgery Progress Note ---
Surgery Progress Note Subjective Symptoms: improved, tolerating diet, voiding well, passing flatus, BM Objective Last 24 Hour Vital Signs Date Time Temp Pulse Resp B/P (MAP) Pulse Ox O2 Delivery O2 Flow Rate FiO2 05/19/20 11:38 97.9 89 20 103/70 (81) 98 05/19/20 09:00 Room Air 05/19/20 07:36 97.2 83 21 148/80 (102) 97 05/19/20 06:38 97.8 05/19/20 05:03 97.8 80 128/77 (94) 05/19/20 04:00 97.8 80 128/77 (94) 05/18/20 20:29 Room Air 05/18/20 19:47 98.4 77 18 131/72 (91) 99 05/18/20 16:00 97.0 77 19 126/82 (97) 98 I&O Intake and Output 05/18/20 05/19/20 19:00 07:00 Intake Total 140 ml 910.0 ml Output Total 800 ml Balance -660 ml 910.0 ml Intake Oral 140 ml 800 ml IV Total 110.0 ml Output Urine Total 800 ml # Voids 2 4 # Bowel Movements 2 Dressing: dry Wound: clean Cardiovascular: RSR Respiratory: clear Abdomen: soft, non-tender, present bowel sounds Extremities: no edema, no tenderness, no cyanosis Laboratory Tests Test 05/19/20 04:56 White Blood Count 10.8 K/UL (4.8-10.8) Red Blood Count 4.25 M/UL (4.70-6.10) L Hemoglobin 11.6 G/DL (14.2-18.0) L Hematocrit 37.4 % (42.0-52.0) L Mean Corpuscular Volume 88 FL (80-99) Mean Corpuscular Hemoglobin 27.3 PG (27.0-31.0) Mean Corpuscular Hemoglobin Concent 31.0 G/DL (32.0-36.0) L Red Cell Distribution Width 18.3 % (11.6-14.8) H Platelet Count 241 K/UL (150-450) Mean Platelet Volume 7.2 FL (6.5-10.1) Neutrophils (%) (Auto) 73.8 % (45.0-75.0) Lymphocytes (%) (Auto) 15.7 % (20.0-45.0) L Monocytes (%) (Auto) 8.3 % (1.0-10.0) Eosinophils (%) (Auto) 1.7 % (0.0-3.0) Basophils (%) (Auto) 0.5 % (0.0-2.0) Sodium Level 145 MMOL/L (136-145) Potassium Level 2.9 MMOL/L (3.5-5.1) L Chloride Level 106 MMOL/L (98-107) Carbon Dioxide Level 33 MMOL/L (21-32) H Anion Gap 6 mmol/L (5-15) Blood Urea Nitrogen 5 mg/dL (7-18) L Creatinine 0.8 MG/DL (0.55-1.30) Estimat Glomerular Filtration Rate > 60 mL/min (>60) Glucose Level 75 MG/DL (74-106) Calcium Level 8.1 MG/DL (8.5-10.1) L Plan Problems: (1) Postoperative abscess Assessment & Plan: 69 M post operative intrabdominal abscess vs bile leak biloma currently afebrile, HD stable exam with wound c/d/i. mild discomfort RUQ leukocytosis trending down on abx t bili nml now npo iv fluids iv abx CT guided drainage of GB fossa fluid collection eval biloma vs abscess. thank you will follow with recs MRI noted. area of debris with air likely the Surgicel placed in surgery. remaining fluid collection. Drain completed. output seems like liquefactive hematoma? potential superimposed infection? pending micro no sagar pus. no bowel contents. potential debris with bile? cont drain okay for diet discussed with daughter ercp with stent [placed leak small will monitor d/c planning outpatient f/u plan to removed drain tomorrow and d/c naz drain removed 05/18' okay to d/c ercp and stent in 8 weeks esr/crp nml wbc steroid no abx from surgical standpoint thank you The gallbladder has been removed. As demonstrated on recent CT scan, there is a large fluid collection within the gallbladder fossa. This measures 8 x 12 x 7.3 cm. Also demonstrated on recent CT scan, this appears to be mostly surrounded by liver parenchyma, but the inferior and anterior borders are not. The lesion demonstrates predominantly fluid signal on all sequences, but there are is some non fluid signal material demonstrated within it, corresponding to what appears to be an area of debris and gas within the collection on CT scan. There is also some debris layering dependently. There is questionably demonstrated a cystic duct remnant. No definite communication of the collection with the biliary tree is demonstrated. There is an extension of the collection which appears to be in proximity with the duodenal wall. There is no definite associated contrast enhancement. Some filling defects seen within the common bile duct may reflect gas bubbles the extrahepatic ducts are dilated, common bile duct measuring up to 12 mm in diameter. No definite downstream obstructive lesion is demonstrated. There is also mild central intrahepatic biliary ductal dilatation. A small amount of free fluid is seen over the dome of the liver and surrounding the upper spleen and the gastric fundus. The pancreatic duct is mildly prominent, otherwise unremarkable. The spleen, adrenals, right kidney are unremarkable. A cyst is seen in the lower pole of the left kidney. The visualized upper pelvic viscera are unremarkable. Impression: 8 x 12 x 7.3 cm fluid collection in the gallbladder fossa, indenting or extending into the liver, also described on recent CT scan. Given history of recent cholecystectomy, most likely a biloma. Gas bubbles are more evident on prior CT scan, could be residual air from the prior surgical exposure or could indicate infection with a gas-forming organism and therefore a superinfected biloma. No definite communication with the biliary tree Extrahepatic ductal dilatation, without definite downstream obstructive lesion, may be related to age and postcholecystectomy state. Filling defects within the downstream common bile duct probably represent gas bubbles or debris, but small calculi as etiology of this finding also possible Small amount of free intraperitoneal fluid, presumably related to the above or residual from prior surgery. (2) Abdominal pain Assessment & Plan: ABDOMEN: Liver: Unremarkable. No mass. Gallbladder and bile ducts: Cholecystectomy with postoperative CBD prominence 1.3 cm, potentially due to reservoir effect. No obstructing lesion seen. Pancreas: Unremarkable. No mass. No ductal dilation. Spleen: Unremarkable. No splenomegaly. Adrenals: Unremarkable. No mass. Kidneys and ureters: Unremarkable. No solid mass. No hydronephrosis. Stomach and bowel: Gastric antrum mild wall thickening could be incidental and represent peristalsis or could represent gastritis in the proper context. Rectal operative findings. Likely benign calcification near the cecum and the mesentery of uncertain significance. No obstruction. PELVIS: Appendix: No findings to suggest acute appendicitis. Bladder: Unremarkable. No mass. Reproductive: Prostatomegaly 5.6 cm transverse. ABDOMEN and PELVIS: Intraperitoneal space: Massive gallbladder fossa abscess, potentially representing contained an infected bile leak versus postoperative abscess formation measures 10 x 14 x 9.5 cm. Small pneumoperitoneum anterior to the liver, this is probably due to the recent postoperative setting. Scattered nonloculated additional peritoneal fluid seen along the greater curvature of the stomach. Central mesentery focal ill-defined 2 cm soft tissue nodularity with adjacent calcification axial series 4 image 81 is of uncertain significance, but could represent scarring from prior operative intervention, sequela of carcinoid metastatic to the mesentery, or tiny focus of mesenteric desmoid. Bones/joints: Bilateral L5 spondylolysis with grade 1 anterolisthesis. No acute fracture. No dislocation. Soft tissues: Operative staple line across the right upper quadrant. Vasculature: Unremarkable. No abdominal aortic aneurysm. Lymph nodes: Unremarkable. No enlarged lymph nodes. IMPRESSION: 1. Massive gallbladder fossa abscess, potentially representing contained an infected bile leak versus postoperative abscess formation measures 10 x 14 x 9.5 cm. 2. Small pneumoperitoneum anterior to the liver, this is probably due to the recent postoperative setting. Operative staple line across the right upper quadrant. 3. Cholecystectomy with postoperative CBD prominence 1.3 cm, potentially due to reservoir effect. No obstructing lesion seen. 4. If clinically desired, consider MRI abdomen without and with IV contrast as well as with MRCP sequences to further characterize biliary ductal prominence. 5. Central mesentery focal ill-defined 2 cm soft tissue nodularity with adjacent calcification axial series 4 image 81 is of uncertain significance, but could represent scarring from prior operative intervention, sequela of carcinoid metastatic to the mesentery, or tiny focus of mesenteric desmoid. 6. Recommend outpatient dedicated CT chest without IV contrast to further characterize pulmonary findings suggestive of interstitial lung disease, potentially NSIP subtype. 7. Gastric antrum mild wall thickening could be incidental and represent peristalsis or could represent gastritis in the proper context. 8. Scattered nonloculated additional peritoneal fluid seen along the greater curvature of the stomach. 9. Prostatomegaly 5.6 cm transverse. (3) Immunosuppressed status (4) Cholecystitis, acute (5) Diabetes mellitus (6) COPD (chronic obstructive pulmonary disease) (7) BPH (benign prostatic hyperplasia) (8) Pulmonary fibrosis (9) Polymyositis Wil Morse May 19, 2020 12:53
[2020-05-19] MEDS ORDERED: AUGMENTIN 875-1 EAC1 ORAL (13:01)
--- NOTE | 2020-05-19 13:55 | Infectious Diseases Prog Note ---
Assessment/Plan Assessment: COVID 19 neg x1 (05/13 rapid COVID pCR) -05/10 CXR: Low lung volumes with bronchovascular crowding. GB fossa fluid collection: biloma vs abscess- 2ry to biliary leak -05/14 SP ERCP: Minimum bile leak at the cystic duct stump. Status post ERCP, sphincterotomy and stent placement. -05/13 HIDA scan: BILOMA COLLECTION IN THE GALLBLADDER FOSSA . -05/12 SP US guided aspiration and drainage: 150 ml dark cloudy bile --?cx sent -05/11 MRI abd : 8 x 12 x 7.3 cm fluid collection in the gallbladder fossa, indenting or extending into the liver, also described on recent CT scan. Given history of recent cholecystectomy, most likely a biloma. Gas bubbles are more evident on prior CT scan, could be residual air from the prior surgical exposure or could indicate infection with a gas-forming organism and therefore a superinfected biloma. No definite communication with the biliary tree. Extrahepatic ductal dilatation, without definite downstream obstructive lesion, may be related to age and postcholecystectomy state. Filling defects within the downstream common bile duct probably represent gas bubbles or debris, but small calculi as etiology of this finding also possible. Small amount of free intraperitoneal fluid, presumably related to the above or residual from prior surgery. -05/10 CT abd/p: 1. Massive gallbladder fossa abscess, potentially representing contained an infected bile leak versus postoperative abscess formation measures 10 x 14 x 9.5 cm. Small pneumoperitoneum anterior to the liver, this is probably due to the recent postoperative setting. Operative staple line across the right upper quadrant. Cholecystectomy with postoperative CBD prominence 1.3 cm, potentially due to reservoir effect. No obstructing lesion seen. Central mesentery focal ill-defined 2 cm soft tissue nodularity with adjacent calcification axial series 4 image 81 is of uncertain significance, but could represent scarring from prior operative intervention, sequela of carcinoid metastatic to the mesentery, or tiny focus of mesenteric desmoid. Gastric antrum mild wall thickening could be incidental and represent peristalsis or could represent gastritis in the proper context. Scattered nonloculated additional peritoneal fluid seen along the greater curvature of the stomach. Prostatomegaly 5.6 cm transverse. 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 Will continue to follow along with you. Discussed with RN, micro lab staff. Subjective Allergies: Coded Allergies: LEVOFLOXACIN (Unverified Allergy, Mild, Redness, 04/25/20) discharge held yesterday due to hypokalemia afebrile leukocytosis resolved Objective Last 24 Hour Vital Signs Date Time Temp Pulse Resp B/P (MAP) Pulse Ox O2 Delivery O2 Flow Rate FiO2 05/19/20 11:38 97.9 89 20 103/70 (81) 98 05/19/20 09:00 Room Air 05/19/20 07:36 97.2 83 21 148/80 (102) 97 05/19/20 06:38 97.8 05/19/20 05:03 97.8 80 128/77 (94) 05/19/20 04:00 97.8 80 128/77 (94) 05/18/20 20:29 Room Air 05/18/20 19:47 98.4 77 18 131/72 (91) 99 05/18/20 16:00 97.0 77 19 126/82 (97) 98 Height (Feet): 6 Height (Inches): 1.00 Weight (Pounds): 183 Laboratory Tests Test 05/19/20 04:56 White Blood Count 10.8 K/UL (4.8-10.8) Red Blood Count 4.25 M/UL (4.70-6.10) L Hemoglobin 11.6 G/DL (14.2-18.0) L Hematocrit 37.4 % (42.0-52.0) L Mean Corpuscular Volume 88 FL (80-99) Mean Corpuscular Hemoglobin 27.3 PG (27.0-31.0) Mean Corpuscular Hemoglobin Concent 31.0 G/DL (32.0-36.0) L Red Cell Distribution Width 18.3 % (11.6-14.8) H Platelet Count 241 K/UL (150-450) Mean Platelet Volume 7.2 FL (6.5-10.1) Neutrophils (%) (Auto) 73.8 % (45.0-75.0) Lymphocytes (%) (Auto) 15.7 % (20.0-45.0) L Monocytes (%) (Auto) 8.3 % (1.0-10.0) Eosinophils (%) (Auto) 1.7 % (0.0-3.0) Basophils (%) (Auto) 0.5 % (0.0-2.0) Sodium Level 145 MMOL/L (136-145) Potassium Level 2.9 MMOL/L (3.5-5.1) L Chloride Level 106 MMOL/L (98-107) Carbon Dioxide Level 33 MMOL/L (21-32) H Anion Gap 6 mmol/L (5-15) Blood Urea Nitrogen 5 mg/dL (7-18) L Creatinine 0.8 MG/DL (0.55-1.30) Estimat Glomerular Filtration Rate > 60 mL/min (>60) Glucose Level 75 MG/DL (74-106) Calcium Level 8.1 MG/DL (8.5-10.1) L Current Medications Medications (Trade) Dose Ordered Sig/Renetta Route PRN Reason Start Time Stop Time Status Last Admin Dose Admin Acetaminophen (Tylenol) 650 mg Q4H PRN ORAL Temp >100.5 05/16/20 08:15 06/10/20 00:14 Acetaminophen/ Hydrocodone Bitart ([place] 5/325) 1 tab Q4H PRN ORAL Moderate Pain (Pain Scale 4-6) 05/17/20 12:30 05/24/20 12:29 05/19/20 13:49 Al Hydroxide/Mg Hydroxide (Mylanta II) 30 ml Q6H PRN ORAL dyspepsia 05/16/20 08:15 06/10/20 08:14 Dextrose (Dextrose 50%) 25 ml Q30M PRN IV Hypoglycemia 05/16/20 07:30 08/09/20 00:59 Dextrose (Dextrose 50%) 50 ml Q30M PRN IV Hypoglycemia 05/16/20 07:30 08/09/20 00:59 Diphenhydramine HCl (Benadryl) 25 mg Q6H PRN ORAL Itching/Pruritis 05/16/20 08:15 06/10/20 08:14 Insulin Aspart (NovoLOG) EVERY 6 HOURS SUBQ 05/16/20 12:00 08/09/20 05:59 05/17/20 19:09 Magnesium Hydroxide (Mom) 30 ml HSPRN PRN ORAL Constipation 05/16/20 08:15 06/15/20 08:14 Ondansetron HCl (Zofran) 4 mg Q4H PRN IVP Nausea & Vomiting 05/16/20 08:15 06/10/20 00:14 Piperacillin Sod/ Tazobactam Sod 3.375 gm/Sodium Chloride 110 ml @ 27.5 mls/hr Q8H IVPB 05/16/20 08:00 05/24/20 23:59 05/19/20 08:09 Potassium Chloride 100 ml @ 100 mls/hr Q1H IVPB 05/19/20 14:00 05/19/20 17:59 Temazepam (Restoril) 15 mg HSPRN PRN ORAL Insomnia 05/16/20 20:00 05/23/20 19:59 Mariluz Alexander M.D. May 19, 2020 13:55
[2020-05-19 16:00] VITALS: BP 131/87
[2020-05-19] MEDS: Augmentin 875mg Tab ORAL SCH ×2 (16:01→20:45)
--- NOTE | 2020-05-19 18:31 | Internal Med Progress Note ---
Subjective Date of Service: May 19, 2020 Physician Name Cirilo Tan Attending Physician Jose Ramos MD Current Medications Medications (Trade) Dose Ordered Sig/Renetta Route PRN Reason Start Time Stop Time Status Last Admin Dose Admin Acetaminophen (Tylenol) 650 mg Q4H PRN ORAL Temp >100.5 05/16/20 08:15 06/10/20 00:14 Acetaminophen/ Hydrocodone Bitart ([place] 5/325) 1 tab Q4H PRN ORAL Moderate Pain (Pain Scale 4-6) 05/17/20 12:30 05/24/20 12:29 05/19/20 13:49 Al Hydroxide/Mg Hydroxide (Mylanta II) 30 ml Q6H PRN ORAL dyspepsia 05/16/20 08:15 06/10/20 08:14 Amoxicillin/ Clavulanate Potassium (Augmentin) 875 mg EVERY 12 HOURS ORAL 05/19/20 15:00 05/26/20 14:59 05/19/20 16:01 Dextrose (Dextrose 50%) 25 ml Q30M PRN IV Hypoglycemia 05/16/20 07:30 08/09/20 00:59 Dextrose (Dextrose 50%) 50 ml Q30M PRN IV Hypoglycemia 05/16/20 07:30 08/09/20 00:59 Diphenhydramine HCl (Benadryl) 25 mg Q6H PRN ORAL Itching/Pruritis 05/16/20 08:15 06/10/20 08:14 Insulin Aspart (NovoLOG) EVERY 6 HOURS SUBQ 05/16/20 12:00 08/09/20 05:59 05/17/20 19:09 Magnesium Hydroxide (Mom) 30 ml HSPRN PRN ORAL Constipation 05/16/20 08:15 06/15/20 08:14 Ondansetron HCl (Zofran) 4 mg Q4H PRN IVP Nausea & Vomiting 05/16/20 08:15 06/10/20 00:14 Temazepam (Restoril) 15 mg HSPRN PRN ORAL Insomnia 05/16/20 20:00 05/23/20 19:59 Allergies: Coded Allergies: LEVOFLOXACIN (Unverified Allergy, Mild, Redness, 04/25/20) ROS Limited/Unobtainable: No Constitutional: Reports: no symptoms HEENT: Reports: no symptoms Cardiovascular: Reports: no symptoms Respiratory: Reports: no symptoms Gastrointestinal/Abdominal: Reports: abdominal pain Genitourinary: Reports: no symptoms Neurologic/Psychiatric: Reports: no symptoms Subjective 69 YO M admitted with abdominal pain, nausea and vomiting. Now post op cystic duct leak. S/P ultrasound guided drain placement 05/12/20. S/P ERCP with stent placement 05/14/20. Cover for [facility] Seda Ramos Objective Last Vital Signs Date Time Temp Pulse Resp B/P (MAP) Pulse Ox O2 Delivery O2 Flow Rate FiO2 05/19/20 16:00 95.5 82 20 131/87 (102) 98 05/19/20 09:00 Room Air 05/14/20 13:30 3 Laboratory Tests Test 05/19/20 04:56 White Blood Count 10.8 K/UL (4.8-10.8) Red Blood Count 4.25 M/UL (4.70-6.10) L Hemoglobin 11.6 G/DL (14.2-18.0) L Hematocrit 37.4 % (42.0-52.0) L Mean Corpuscular Volume 88 FL (80-99) Mean Corpuscular Hemoglobin 27.3 PG (27.0-31.0) Mean Corpuscular Hemoglobin Concent 31.0 G/DL (32.0-36.0) L Red Cell Distribution Width 18.3 % (11.6-14.8) H Platelet Count 241 K/UL (150-450) Mean Platelet Volume 7.2 FL (6.5-10.1) Neutrophils (%) (Auto) 73.8 % (45.0-75.0) Lymphocytes (%) (Auto) 15.7 % (20.0-45.0) L Monocytes (%) (Auto) 8.3 % (1.0-10.0) Eosinophils (%) (Auto) 1.7 % (0.0-3.0) Basophils (%) (Auto) 0.5 % (0.0-2.0) Sodium Level 145 MMOL/L (136-145) Potassium Level 2.9 MMOL/L (3.5-5.1) L Chloride Level 106 MMOL/L (98-107) Carbon Dioxide Level 33 MMOL/L (21-32) H Anion Gap 6 mmol/L (5-15) Blood Urea Nitrogen 5 mg/dL (7-18) L Creatinine 0.8 MG/DL (0.55-1.30) Estimat Glomerular Filtration Rate > 60 mL/min (>60) Glucose Level 75 MG/DL (74-106) Calcium Level 8.1 MG/DL (8.5-10.1) L Intake and Output 05/18/20 05/19/20 19:00 07:00 Intake Total 140 ml 910.0 ml Output Total 800 ml Balance -660 ml 910.0 ml Intake Oral 140 ml 800 ml IV Total 110.0 ml Output Urine Total 800 ml # Voids 2 4 # Bowel Movements 2 Objective PHYSICAL EXAMINATION: GENERAL: The patient is well-developed, well-nourished male, in no apparent distress. HEENT: Eyes, pupils are equal and responsive to light and accommodation. Extraocular movements are intact. NECK: Supple without lymphadenopathy. CHEST: Lungs are clear to auscultation bilaterally without wheezes or rales. CARDIOVASCULAR: Regular rhythm and rate. S1-S2 are normal without murmurs, rubs, or gallops. ABDOMEN: Soft, tender to palpation in the epigastric region, nondistended with decreased bowel sounds. No evidence of hepatosplenomegaly. No rebound or guarding noted. EXTREMITIES: Negative for clubbing, cyanosis, or edema. RECTAL/GENITAL: Not performed. NEUROLOGIC: Cranial nerves II through XII are grossly intact without focal deficits. Motor strength is 5/5 bilaterally. Deep tendon reflexes are 2+, plantar. Assessment/Plan Assessment/Plan ASSESSMENT: This is a 69-year-old male. 1. Abdominal pain. 2. Nausea with vomiting. 3. Cystic duct leak 4. Postoperative state. 5. Diabetes type 2. 6. Pulmonary fibrosis. 7. Osteoporosis. 8. Post Operative Abscess 9. Acute pancreatitis TREATMENT: 1. Abdominal pain/nausea/vomiting/gallbladder fossa abscess. A general surgery consultation has been obtained with Dr. Morse. ABX=Zosyn. S/P U/S guided drain placed 05/12/20. We will follow recommendations of General Surgery. 2. Diabetes type 2. NovoLog sliding scale has been instituted. 3. Pulmonary fibrosis. 4. Osteoporosis. 5. Pancreatitis-GI=Dr Marquez 6. S/P ultrasound guided drain placement 7. ERCP with stent placement 05/14/20 8. Discharge planning: Home with [facility] Cirilo Tan MD May 19, 2020 18:31
[2020-05-19 20:00] VITALS: BP 138/82
[2020-05-19 20:49] LABS: ALBUMIN 2.5 G/DL (3.4-5.0); ANION GAP 6 mmol/L (5-15); BLOOD UREA NITROGEN 5 mg/dL (7-18); CARBON DIOXIDE 33 MMOL/L (21-32); CHLORIDE 106 MMOL/L (98-107); CREATININE 0.7 MG/DL (0.55-1.30); POTASSIUM 3.7 MMOL/L (3.5-5.1); SODIUM 145 MMOL/L (136-145)
[2020-05-19 21:02] LABS: ALANINE AMINOTRANSFERASE 32 U/L (12-78); ALKALINE PHOSPHATASE 61 U/L (46-116); BILIRUBIN,TOTAL 0.6 MG/DL (0.2-1.0); CALCIUM 7.9 MG/DL (8.5-10.1)
[2020-05-19 21:35] LABS: ASPARTATE AMINO TRANSFERASE 19 U/L (15-37)
[2020-05-20] MEDS: HYDROcodone/Acetamin 5/325 tab ORAL PRN ×2 (04:13→08:51)
[2020-05-20 04:15] VITALS: BP 144/86
[2020-05-20] MEDS: NovoLOG Insulin Flexpen SUBQ SCH ×2 (05:33→11:41)
[2020-05-20 06:54] LABS: BASOPHILS % (AUTO) 0.3 % (0.0-2.0); EOSINOPHILS % (AUTO) 1.7 % (0.0-3.0); HEMATOCRIT 35.3 % (42.0-52.0); HEMOGLOBIN 11.1 G/DL (14.2-18.0); LYMPHOCYTES % (AUTO) 11.9 % (20.0-45.0); MEAN CORPUSCULAR VOLUME 87 FL (80-99); MONOCYTES % (AUTO) 7.4 % (1.0-10.0); NEUTROPHILS % (AUTO) 78.7 % (45.0-75.0); PLATELET COUNT 207 K/UL (150-450); RED BLOOD COUNT 4.04 M/UL (4.70-6.10); RED CELL DISTRIBUTION WIDTH 17.9 % (11.6-14.8); WHITE BLOOD COUNT 10.8 K/UL (4.8-10.8)
[2020-05-20 08:00] VITALS: BP 133/72
[2020-05-20] MEDS: Augmentin 875mg Tab ORAL SCH (08:47)
[2020-05-20 12:00] VITALS: BP 120/63
--- NOTE | 2020-05-20 12:40 | Pulmonology Progress Note ---
Subjective ROS Limited/Unobtainable: No Constitutional: Reports: no symptoms HEENT: Repors: no symptoms Respiratory: Reports: no symptoms Cardiovascular: Reports: no symptoms Allergies: Coded Allergies: LEVOFLOXACIN (Unverified Allergy, Mild, Redness, 04/25/20) Objective Last 24 Hour Vital Signs Date Time Temp Pulse Resp B/P (MAP) Pulse Ox O2 Delivery O2 Flow Rate FiO2 05/20/20 12:00 98.8 69 17 120/63 (82) 98 05/20/20 09:00 Room Air 05/20/20 08:00 98.2 99 20 133/72 (92) 98 05/20/20 04:45 97.1 05/20/20 04:15 97.1 97 19 144/86 (105) 98 05/19/20 20:15 Room Air 05/19/20 20:00 95.7 97 19 138/82 (100) 98 05/19/20 16:00 95.5 82 20 131/87 (102) 98 Intake and Output 05/19/20 05/20/20 19:00 07:00 Intake Total 1110.0 ml 600 ml Balance 1110.0 ml 600 ml Intake Oral 800 ml 600 ml IV Total 310.0 ml # Voids 3 3 # Bowel Movements 4 General Appearance: WD/WN HEENT: normocephalic, atraumatic Respiratory: chest wall non-tender, lungs clear Cardiovascular: normal peripheral pulses, normal rate Abdomen: normal bowel sounds, soft, non tender Extremities: no cyanosis Skin: no lesions 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 Microbiology Date/Time Source Procedure Growth Status 05/19/20 22:35 Stool Clostridium difficile Toxin Assay - Final Complete Laboratory Tests 05/19/20 17:38: POC Whole Blood Glucose 115H 05/19/20 20:20: Sodium Level 145, Potassium Level 3.7, Chloride Level 106, Carbon Dioxide Level 33H, Anion Gap 6, Blood Urea Nitrogen 5L, Creatinine 0.7, Estimat Glomerular Filtration Rate > 60, Glucose Level 109H, Calcium Level 7.9L, Total Bilirubin 0.6, Aspartate Amino Transf (AST/SGOT) 19, Alanine Aminotransferase (ALT/SGPT) 32, Alkaline Phosphatase 61, Total Protein 4.9L, Albumin 2.5L, Globulin 2.4, Albumin/Globulin Ratio 1.0 05/19/20 23:21: POC Whole Blood Glucose 104 05/20/20 05:24: POC Whole Blood Glucose 95 05/20/20 05:48: White Blood Count 10.8, Red Blood Count 4.04L, Hemoglobin 11.1L, Hematocrit 35.3L, Mean Corpuscular Volume 87, Mean Corpuscular Hemoglobin 27.5, Mean Corpuscular Hemoglobin Concent 31.5L, Red Cell Distribution Width 17.9H, Platelet Count 207, Mean Platelet Volume 7.2, Neutrophils (%) (Auto) 78.7H, Lymphocytes (%) (Auto) 11.9L, Monocytes (%) (Auto) 7.4, Eosinophils (%) (Auto) 1.7, Basophils (%) (Auto) 0.3 Current Medications Medications (Trade) Dose Ordered Sig/Renetta Route PRN Reason Start Time Stop Time Status Last Admin Dose Admin Acetaminophen (Tylenol) 650 mg Q4H PRN ORAL Temp >100.5 05/16/20 08:15 06/10/20 00:14 Acetaminophen/ Hydrocodone Bitart ([place] 5/325) 1 tab Q4H PRN ORAL Moderate Pain (Pain Scale 4-6) 05/17/20 12:30 05/24/20 12:29 05/20/20 08:51 Al Hydroxide/Mg Hydroxide (Mylanta II) 30 ml Q6H PRN ORAL dyspepsia 05/16/20 08:15 06/10/20 08:14 Amoxicillin/ Clavulanate Potassium (Augmentin) 875 mg EVERY 12 HOURS ORAL 05/19/20 15:00 05/26/20 14:59 05/20/20 08:47 Dextrose (Dextrose 50%) 25 ml Q30M PRN IV Hypoglycemia 05/16/20 07:30 08/09/20 00:59 Dextrose (Dextrose 50%) 50 ml Q30M PRN IV Hypoglycemia 05/16/20 07:30 08/09/20 00:59 Diphenhydramine HCl (Benadryl) 25 mg Q6H PRN ORAL Itching/Pruritis 05/16/20 08:15 06/10/20 08:14 Hydromorphone HCl (Dilaudid) 2 mg Q4H PRN IVP Severe Pain (Pain Scale 7-10) 05/19/20 22:00 05/26/20 21:59 Insulin Aspart (NovoLOG) EVERY 6 HOURS SUBQ 05/16/20 12:00 08/09/20 05:59 05/17/20 19:09 Loperamide HCl (Imodium) 2 mg Q4H PRN ORAL Diarrhea 05/19/20 22:00 06/18/20 21:59 05/20/20 08:51 Magnesium Hydroxide (Mom) 30 ml HSPRN PRN ORAL Constipation 05/16/20 08:15 06/15/20 08:14 Ondansetron HCl (Zofran) 4 mg Q4H PRN IVP Nausea & Vomiting 05/16/20 08:15 06/10/20 00:14 Temazepam (Restoril) 15 mg HSPRN PRN ORAL Insomnia 05/16/20 20:00 05/23/20 19:59 Assessment/Plan Problems: (1) Postoperative abscess (2) Abdominal pain (3) COPD (chronic obstructive pulmonary disease) (4) Pulmonary fibrosis (5) Polymyositis (6) BPH (benign prostatic hyperplasia) (7) Diabetes mellitus Assessment/Plan K is very low, needs to be supplemented drainage was pulled no new complains did physical therapy iv abx surgical f/u check cultures respiratory treatment symptomatic treatment dc home once K is normal Rudi Kitchen MD May 20, 2020 12:40
[2020-05-20 12:49] LABS: ANION GAP 5 mmol/L (5-15); BLOOD UREA NITROGEN 5 mg/dL (7-18); CARBON DIOXIDE 31 MMOL/L (21-32); CHLORIDE 108 MMOL/L (98-107); CREATININE 0.7 MG/DL (0.55-1.30); POTASSIUM 3.2 MMOL/L (3.5-5.1); SODIUM 144 MMOL/L (136-145)
--- NOTE | 2020-05-20 13:44 | Infectious Diseases Prog Note ---
Assessment/Plan Assessment: Diarrhea (05/19) -Cdiff toxic a/b neg COVID 19 neg x1 (05/13 rapid COVID pCR) -05/10 CXR: Low lung volumes with bronchovascular crowding. GB fossa fluid collection: biloma vs abscess- 2ry to biliary leak -05/14 SP ERCP: Minimum bile leak at the cystic duct stump. Status post ERCP, sphincterotomy and stent placement. -05/13 HIDA scan: BILOMA COLLECTION IN THE GALLBLADDER FOSSA . -05/12 SP US guided aspiration and drainage: 150 ml dark cloudy bile --?cx sent -05/11 MRI abd : 8 x 12 x 7.3 cm fluid collection in the gallbladder fossa, indenting or extending into the liver, also described on recent CT scan. Given history of recent cholecystectomy, most likely a biloma. Gas bubbles are more evident on prior CT scan, could be residual air from the prior surgical exposure or could indicate infection with a gas-forming organism and therefore a superinfected biloma. No definite communication with the biliary tree. Extrahepatic ductal dilatation, without definite downstream obstructive lesion, may be related to age and postcholecystectomy state. Filling defects within the downstream common bile duct probably represent gas bubbles or debris, but small calculi as etiology of this finding also possible. Small amount of free intraperitoneal fluid, presumably related to the above or residual from prior surgery. -05/10 CT abd/p: 1. Massive gallbladder fossa abscess, potentially representing contained an infected bile leak versus postoperative abscess formation measures 10 x 14 x 9.5 cm. Small pneumoperitoneum anterior to the liver, this is probably due to the recent postoperative setting. Operative staple line across the right upper quadrant. Cholecystectomy with postoperative CBD prominence 1.3 cm, potentially due to reservoir effect. No obstructing lesion seen. Central mesentery focal ill-defined 2 cm soft tissue nodularity with adjacent calcification axial series 4 image 81 is of uncertain significance, but could represent scarring from prior operative intervention, sequela of carcinoid metastatic to the mesentery, or tiny focus of mesenteric desmoid. Gastric antrum mild wall thickening could be incidental and represent peristalsis or could represent gastritis in the proper context. Scattered nonloculated additional peritoneal fluid seen along the greater curvature of the stomach. Prostatomegaly 5.6 cm transverse. 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 Will continue to follow along with you. Discussed with RN, micro lab staff. Subjective Allergies: Coded Allergies: LEVOFLOXACIN (Unverified Allergy, Mild, Redness, 04/25/20) last night had abd pain and diarrhea= now resovled Objective Last 24 Hour Vital Signs Date Time Temp Pulse Resp B/P (MAP) Pulse Ox O2 Delivery O2 Flow Rate FiO2 05/20/20 12:00 98.8 69 17 120/63 (82) 98 05/20/20 09:00 Room Air 05/20/20 08:00 98.2 99 20 133/72 (92) 98 05/20/20 04:45 97.1 05/20/20 04:15 97.1 97 19 144/86 (105) 98 05/19/20 20:15 Room Air 05/19/20 20:00 95.7 97 19 138/82 (100) 98 05/19/20 16:00 95.5 82 20 131/87 (102) 98 Height (Feet): 6 Height (Inches): 1.00 Weight (Pounds): 183 Microbiology Date/Time Source Procedure Growth Status 05/19/20 22:35 Stool Clostridium difficile Toxin Assay - Final Complete Laboratory Tests Test 05/19/20 17:38 05/19/20 20:20 05/19/20 23:21 05/20/20 05:24 POC Whole Blood Glucose 115 MG/DL (74-106) H 104 MG/DL (74-106) 95 MG/DL (74-106) Sodium Level 145 MMOL/L (136-145) Potassium Level 3.7 MMOL/L (3.5-5.1) Chloride Level 106 MMOL/L (98-107) Carbon Dioxide Level 33 MMOL/L (21-32) H Anion Gap 6 mmol/L (5-15) Blood Urea Nitrogen 5 mg/dL (7-18) L Creatinine 0.7 MG/DL (0.55-1.30) Estimat Glomerular Filtration Rate > 60 mL/min (>60) Glucose Level 109 MG/DL (74-106) H Calcium Level 7.9 MG/DL (8.5-10.1) L Total Bilirubin 0.6 MG/DL (0.2-1.0) Aspartate Amino Transf (AST/SGOT) 19 U/L (15-37) Alanine Aminotransferase (ALT/SGPT) 32 U/L (12-78) Alkaline Phosphatase 61 U/L (46-116) Total Protein 4.9 G/DL (6.4-8.2) L Albumin 2.5 G/DL (3.4-5.0) L Globulin 2.4 g/dL Albumin/Globulin Ratio 1.0 (1.0-2.7) Test 05/20/20 05:48 White Blood Count 10.8 K/UL (4.8-10.8) Red Blood Count 4.04 M/UL (4.70-6.10) L Hemoglobin 11.1 G/DL (14.2-18.0) L Hematocrit 35.3 % (42.0-52.0) L Mean Corpuscular Volume 87 FL (80-99) Mean Corpuscular Hemoglobin 27.5 PG (27.0-31.0) Mean Corpuscular Hemoglobin Concent 31.5 G/DL (32.0-36.0) L Red Cell Distribution Width 17.9 % (11.6-14.8) H Platelet Count 207 K/UL (150-450) Mean Platelet Volume 7.2 FL (6.5-10.1) Neutrophils (%) (Auto) 78.7 % (45.0-75.0) H Lymphocytes (%) (Auto) 11.9 % (20.0-45.0) L Monocytes (%) (Auto) 7.4 % (1.0-10.0) Eosinophils (%) (Auto) 1.7 % (0.0-3.0) Basophils (%) (Auto) 0.3 % (0.0-2.0) Sodium Level 144 MMOL/L (136-145) Potassium Level 3.2 MMOL/L (3.5-5.1) L Chloride Level 108 MMOL/L (98-107) H Carbon Dioxide Level 31 MMOL/L (21-32) Anion Gap 5 mmol/L (5-15) Blood Urea Nitrogen 5 mg/dL (7-18) L Creatinine 0.7 MG/DL (0.55-1.30) Estimat Glomerular Filtration Rate > 60 mL/min (>60) Glucose Level 82 MG/DL (74-106) Calcium Level 8.0 MG/DL (8.5-10.1) L Current Medications Medications (Trade) Dose Ordered Sig/Renetta Route PRN Reason Start Time Stop Time Status Last Admin Dose Admin Acetaminophen (Tylenol) 650 mg Q4H PRN ORAL Temp >100.5 05/16/20 08:15 06/10/20 00:14 Acetaminophen/ Hydrocodone Bitart ([place] 5/325) 1 tab Q4H PRN ORAL Moderate Pain (Pain Scale 4-6) 05/17/20 12:30 05/24/20 12:29 05/20/20 08:51 Al Hydroxide/Mg Hydroxide (Mylanta II) 30 ml Q6H PRN ORAL dyspepsia 05/16/20 08:15 06/10/20 08:14 Amoxicillin/ Clavulanate Potassium (Augmentin) 875 mg EVERY 12 HOURS ORAL 05/19/20 15:00 05/26/20 14:59 05/20/20 08:47 Dextrose (Dextrose 50%) 25 ml Q30M PRN IV Hypoglycemia 05/16/20 07:30 08/09/20 00:59 Dextrose (Dextrose 50%) 50 ml Q30M PRN IV Hypoglycemia 05/16/20 07:30 08/09/20 00:59 Diphenhydramine HCl (Benadryl) 25 mg Q6H PRN ORAL Itching/Pruritis 05/16/20 08:15 06/10/20 08:14 Hydromorphone HCl (Dilaudid) 2 mg Q4H PRN IVP Severe Pain (Pain Scale 7-10) 05/19/20 22:00 05/26/20 21:59 Insulin Aspart (NovoLOG) EVERY 6 HOURS SUBQ 05/16/20 12:00 08/09/20 05:59 05/17/20 19:09 Loperamide HCl (Imodium) 2 mg Q4H PRN ORAL Diarrhea 05/19/20 22:00 06/18/20 21:59 05/20/20 08:51 Magnesium Hydroxide (Mom) 30 ml HSPRN PRN ORAL Constipation 05/16/20 08:15 06/15/20 08:14 Ondansetron HCl (Zofran) 4 mg Q4H PRN IVP Nausea & Vomiting 05/16/20 08:15 06/10/20 00:14 Temazepam (Restoril) 15 mg HSPRN PRN ORAL Insomnia 05/16/20 20:00 05/23/20 19:59 Mariluz Alexander M.D. May 20, 2020 13:44
--- NOTE | 2020-05-20 13:45 | Surgery Progress Note ---
Surgery Progress Note Subjective Additional Comments diarrhea after potassium c/o pain when speaking with daughter brittanie at bedside. c/o mild discomfort from drain site which is reproduced with deep palpation of drain site and anticipated since drain just removed. no n/v/f/c c diff negative k being replaced clear for d/c from surgical standpoint Objective Last 24 Hour Vital Signs Date Time Temp Pulse Resp B/P (MAP) Pulse Ox O2 Delivery O2 Flow Rate FiO2 05/20/20 12:00 98.8 69 17 120/63 (82) 98 05/20/20 09:00 Room Air 05/20/20 08:00 98.2 99 20 133/72 (92) 98 05/20/20 04:45 97.1 05/20/20 04:15 97.1 97 19 144/86 (105) 98 05/19/20 20:15 Room Air 05/19/20 20:00 95.7 97 19 138/82 (100) 98 05/19/20 16:00 95.5 82 20 131/87 (102) 98 I&O Intake and Output 05/19/20 05/20/20 19:00 07:00 Intake Total 1110.0 ml 600 ml Balance 1110.0 ml 600 ml Intake Oral 800 ml 600 ml IV Total 310.0 ml # Voids 3 3 # Bowel Movements 4 Dressing: dry, saturated Cardiovascular: RSR Respiratory: clear Abdomen: soft, non-tender, present bowel sounds, non-distended Extremities: no edema, no tenderness, no cyanosis Laboratory Tests Test 05/19/20 17:38 05/19/20 20:20 05/19/20 23:21 05/20/20 05:24 POC Whole Blood Glucose 115 MG/DL (74-106) H 104 MG/DL (74-106) 95 MG/DL (74-106) Sodium Level 145 MMOL/L (136-145) Potassium Level 3.7 MMOL/L (3.5-5.1) Chloride Level 106 MMOL/L (98-107) Carbon Dioxide Level 33 MMOL/L (21-32) H Anion Gap 6 mmol/L (5-15) Blood Urea Nitrogen 5 mg/dL (7-18) L Creatinine 0.7 MG/DL (0.55-1.30) Estimat Glomerular Filtration Rate > 60 mL/min (>60) Glucose Level 109 MG/DL (74-106) H Calcium Level 7.9 MG/DL (8.5-10.1) L Total Bilirubin 0.6 MG/DL (0.2-1.0) Aspartate Amino Transf (AST/SGOT) 19 U/L (15-37) Alanine Aminotransferase (ALT/SGPT) 32 U/L (12-78) Alkaline Phosphatase 61 U/L (46-116) Total Protein 4.9 G/DL (6.4-8.2) L Albumin 2.5 G/DL (3.4-5.0) L Globulin 2.4 g/dL Albumin/Globulin Ratio 1.0 (1.0-2.7) Test 05/20/20 05:48 White Blood Count 10.8 K/UL (4.8-10.8) Red Blood Count 4.04 M/UL (4.70-6.10) L Hemoglobin 11.1 G/DL (14.2-18.0) L Hematocrit 35.3 % (42.0-52.0) L Mean Corpuscular Volume 87 FL (80-99) Mean Corpuscular Hemoglobin 27.5 PG (27.0-31.0) Mean Corpuscular Hemoglobin Concent 31.5 G/DL (32.0-36.0) L Red Cell Distribution Width 17.9 % (11.6-14.8) H Platelet Count 207 K/UL (150-450) Mean Platelet Volume 7.2 FL (6.5-10.1) Neutrophils (%) (Auto) 78.7 % (45.0-75.0) H Lymphocytes (%) (Auto) 11.9 % (20.0-45.0) L Monocytes (%) (Auto) 7.4 % (1.0-10.0) Eosinophils (%) (Auto) 1.7 % (0.0-3.0) Basophils (%) (Auto) 0.3 % (0.0-2.0) Sodium Level 144 MMOL/L (136-145) Potassium Level 3.2 MMOL/L (3.5-5.1) L Chloride Level 108 MMOL/L (98-107) H Carbon Dioxide Level 31 MMOL/L (21-32) Anion Gap 5 mmol/L (5-15) Blood Urea Nitrogen 5 mg/dL (7-18) L Creatinine 0.7 MG/DL (0.55-1.30) Estimat Glomerular Filtration Rate > 60 mL/min (>60) Glucose Level 82 MG/DL (74-106) Calcium Level 8.0 MG/DL (8.5-10.1) L Plan Problems: (1) Postoperative abscess Assessment & Plan: 69 M post operative intrabdominal abscess vs bile leak biloma currently afebrile, HD stable exam with wound c/d/i. mild discomfort RUQ leukocytosis trending down on abx t bili nml now npo iv fluids iv abx CT guided drainage of GB fossa fluid collection eval biloma vs abscess. thank you will follow with recs MRI noted. area of debris with air likely the Surgicel placed in surgery. remaining fluid collection. Drain completed. output seems like liquefactive hematoma? potential superimposed infection? pending micro no sagar pus. no bowel contents. potential debris with bile? cont drain okay for diet discussed with daughter ercp with stent [placed leak small will monitor d/c planning outpatient f/u plan to removed drain tomorrow and d/c naz drain removed 05/18' okay to d/c ercp and stent in 8 weeks esr/crp nml wbc steroid no abx from surgical standpoint thank you+ eval at bedside. c/o mild discomfort from drain site which is reproduced with deep palpation of drain site and anticipated since drain just removed. no n/v/f/c c diff negative k being replaced clear for d/c from surgical standpoint The gallbladder has been removed. As demonstrated on recent CT scan, there is a large fluid collection within the gallbladder fossa. This measures 8 x 12 x 7.3 cm. Also demonstrated on recent CT scan, this appears to be mostly surrounded by liver parenchyma, but the inferior and anterior borders are not. The lesion demonstrates predominantly fluid signal on all sequences, but there are is some non fluid signal material demonstrated within it, corresponding to what appears to be an area of debris and gas within the collection on CT scan. There is also some debris layering dependently. There is questionably demonstrated a cystic duct remnant. No definite communication of the collection with the biliary tree is demonstrated. There is an extension of the collection which appears to be in proximity with the duodenal wall. There is no definite associated contrast enhancement. Some filling defects seen within the common bile duct may reflect gas bubbles the extrahepatic ducts are dilated, common bile duct measuring up to 12 mm in diameter. No definite downstream obstructive lesion is demonstrated. There is also mild central intrahepatic biliary ductal dilatation. A small amount of free fluid is seen over the dome of the liver and surrounding the upper spleen and the gastric fundus. The pancreatic duct is mildly prominent, otherwise unremarkable. The spleen, adrenals, right kidney are unremarkable. A cyst is seen in the lower pole of the left kidney. The visualized upper pelvic viscera are unremarkable. Impression: 8 x 12 x 7.3 cm fluid collection in the gallbladder fossa, indenting or extending into the liver, also described on recent CT scan. Given history of recent cholecystectomy, most likely a biloma. Gas bubbles are more evident on prior CT scan, could be residual air from the prior surgical exposure or could indicate infection with a gas-forming organism and therefore a superinfected biloma. No definite communication with the biliary tree Extrahepatic ductal dilatation, without definite downstream obstructive lesion, may be related to age and postcholecystectomy state. Filling defects within the downstream common bile duct probably represent gas bubbles or debris, but small calculi as etiology of this finding also possible Small amount of free intraperitoneal fluid, presumably related to the above or residual from prior surgery. (2) Abdominal pain Assessment & Plan: ABDOMEN: Liver: Unremarkable. No mass. Gallbladder and bile ducts: Cholecystectomy with postoperative CBD prominence 1.3 cm, potentially due to reservoir effect. No obstructing lesion seen. Pancreas: Unremarkable. No mass. No ductal dilation. Spleen: Unremarkable. No splenomegaly. Adrenals: Unremarkable. No mass. Kidneys and ureters: Unremarkable. No solid mass. No hydronephrosis. Stomach and bowel: Gastric antrum mild wall thickening could be incidental and represent peristalsis or could represent gastritis in the proper context. Rectal operative findings. Likely benign calcification near the cecum and the mesentery of uncertain significance. No obstruction. PELVIS: Appendix: No findings to suggest acute appendicitis. Bladder: Unremarkable. No mass. Reproductive: Prostatomegaly 5.6 cm transverse. ABDOMEN and PELVIS: Intraperitoneal space: Massive gallbladder fossa abscess, potentially representing contained an infected bile leak versus postoperative abscess formation measures 10 x 14 x 9.5 cm. Small pneumoperitoneum anterior to the liver, this is probably due to the recent postoperative setting. Scattered nonloculated additional peritoneal fluid seen along the greater curvature of the stomach. Central mesentery focal ill-defined 2 cm soft tissue nodularity with adjacent calcification axial series 4 image 81 is of uncertain significance, but could represent scarring from prior operative intervention, sequela of carcinoid metastatic to the mesentery, or tiny focus of mesenteric desmoid. Bones/joints: Bilateral L5 spondylolysis with grade 1 anterolisthesis. No acute fracture. No dislocation. Soft tissues: Operative staple line across the right upper quadrant. Vasculature: Unremarkable. No abdominal aortic aneurysm. Lymph nodes: Unremarkable. No enlarged lymph nodes. IMPRESSION: 1. Massive gallbladder fossa abscess, potentially representing contained an infected bile leak versus postoperative abscess formation measures 10 x 14 x 9.5 cm. 2. Small pneumoperitoneum anterior to the liver, this is probably due to the recent postoperative setting. Operative staple line across the right upper quadrant. 3. Cholecystectomy with postoperative CBD prominence 1.3 cm, potentially due to reservoir effect. No obstructing lesion seen. 4. If clinically desired, consider MRI abdomen without and with IV contrast as well as with MRCP sequences to further characterize biliary ductal prominence. 5. Central mesentery focal ill-defined 2 cm soft tissue nodularity with adjacent calcification axial series 4 image 81 is of uncertain significance, but could represent scarring from prior operative intervention, sequela of carcinoid metastatic to the mesentery, or tiny focus of mesenteric desmoid. 6. Recommend outpatient dedicated CT chest without IV contrast to further characterize pulmonary findings suggestive of interstitial lung disease, potentially NSIP subtype. 7. Gastric antrum mild wall thickening could be incidental and represent peristalsis or could represent gastritis in the proper context. 8. Scattered nonloculated additional peritoneal fluid seen along the greater curvature of the stomach. 9. Prostatomegaly 5.6 cm transverse. (3) Immunosuppressed status (4) Cholecystitis, acute (5) Diabetes mellitus (6) COPD (chronic obstructive pulmonary disease) (7) BPH (benign prostatic hyperplasia) (8) Pulmonary fibrosis (9) Polymyositis Wil Morse May 20, 2020 13:45
--- NOTE | 2020-05-20 13:51 | General Progress Note ---
Assessment/Plan Assessment/Plan: 1. Chronic liver disease. 2. Diverticulitis. 3. Pulmonary fibrosis. 4. History of Sharmin esophagitis. 5. History of umbilical hernia. 6. Diabetes. 7. Osteoporosis. 8. BPH. 9. RUQ abscess vs biloma s/p drainage s/p ERCP and stent placement on diet repeat labs abx needs repeat ERCP and stent removal in 8 weeks Subjective ROS Limited/Unobtainable: Yes Allergies: Coded Allergies: LEVOFLOXACIN (Unverified Allergy, Mild, Redness, 04/25/20) Objective Last 24 Hour Vital Signs Date Time Temp Pulse Resp B/P (MAP) Pulse Ox O2 Delivery O2 Flow Rate FiO2 05/20/20 12:00 98.8 69 17 120/63 (82) 98 05/20/20 09:00 Room Air 05/20/20 08:00 98.2 99 20 133/72 (92) 98 05/20/20 04:45 97.1 05/20/20 04:15 97.1 97 19 144/86 (105) 98 05/19/20 20:15 Room Air 05/19/20 20:00 95.7 97 19 138/82 (100) 98 05/19/20 16:00 95.5 82 20 131/87 (102) 98 Intake and Output 05/19/20 05/20/20 19:00 07:00 Intake Total 1110.0 ml 600 ml Balance 1110.0 ml 600 ml Intake Oral 800 ml 600 ml IV Total 310.0 ml # Voids 3 3 # Bowel Movements 4 Laboratory Tests 05/19/20 17:38: POC Whole Blood Glucose 115H 05/19/20 20:20: Sodium Level 145, Potassium Level 3.7, Chloride Level 106, Carbon Dioxide Level 33H, Anion Gap 6, Blood Urea Nitrogen 5L, Creatinine 0.7, Estimat Glomerular Filtration Rate > 60, Glucose Level 109H, Calcium Level 7.9L, Total Bilirubin 0.6, Aspartate Amino Transf (AST/SGOT) 19, Alanine Aminotransferase (ALT/SGPT) 32, Alkaline Phosphatase 61, Total Protein 4.9L, Albumin 2.5L, Globulin 2.4, Albumin/Globulin Ratio 1.0 05/19/20 23:21: POC Whole Blood Glucose 104 05/20/20 05:24: POC Whole Blood Glucose 95 05/20/20 05:48: White Blood Count 10.8, Red Blood Count 4.04L, Hemoglobin 11.1L, Hematocrit 35.3L, Mean Corpuscular Volume 87, Mean Corpuscular Hemoglobin 27.5, Mean Corpuscular Hemoglobin Concent 31.5L, Red Cell Distribution Width 17.9H, Platelet Count 207, Mean Platelet Volume 7.2, Neutrophils (%) (Auto) 78.7H, Lymphocytes (%) (Auto) 11.9L, Monocytes (%) (Auto) 7.4, Eosinophils (%) (Auto) 1.7, Basophils (%) (Auto) 0.3, Sodium Level 144, Potassium Level 3.2L, Chloride Level 108H, Carbon Dioxide Level 31, Anion Gap 5, Blood Urea Nitrogen 5L, Creatinine 0.7, Estimat Glomerular Filtration Rate > 60, Glucose Level 82, Calcium Level 8.0L Height (Feet): 6 Height (Inches): 1.00 Weight (Pounds): 183 General Appearance: no apparent distress EENT: normal ENT inspection Neck: supple Cardiovascular: normal rate Respiratory/Chest: decreased breath sounds Abdomen: normal bowel sounds, non tender, soft Extremities: non-tender Petey Marquez MD May 20, 2020 13:51
[2020-05-20 16:00] VITALS: BP 122/83
--- NOTE | 2020-05-20 18:41 | Internal Med Progress Note ---
Subjective Date of Service: May 20, 2020 Physician Name Cirilo Tan Attending Physician Jose Ramos MD Current Medications Medications (Trade) Dose Ordered Sig/Renetta Route PRN Reason Start Time Stop Time Status Last Admin Dose Admin Acetaminophen (Tylenol) 650 mg Q4H PRN ORAL Temp >100.5 05/16/20 08:15 06/10/20 00:14 Acetaminophen/ Hydrocodone Bitart ([place] 5/325) 1 tab Q4H PRN ORAL Moderate Pain (Pain Scale 4-6) 05/17/20 12:30 05/24/20 12:29 05/20/20 08:51 Al Hydroxide/Mg Hydroxide (Mylanta II) 30 ml Q6H PRN ORAL dyspepsia 05/16/20 08:15 06/10/20 08:14 Amoxicillin/ Clavulanate Potassium (Augmentin) 875 mg EVERY 12 HOURS ORAL 05/19/20 15:00 05/26/20 14:59 05/20/20 08:47 Dextrose (Dextrose 50%) 25 ml Q30M PRN IV Hypoglycemia 05/16/20 07:30 08/09/20 00:59 Dextrose (Dextrose 50%) 50 ml Q30M PRN IV Hypoglycemia 05/16/20 07:30 08/09/20 00:59 Diphenhydramine HCl (Benadryl) 25 mg Q6H PRN ORAL Itching/Pruritis 05/16/20 08:15 06/10/20 08:14 Hydromorphone HCl (Dilaudid) 2 mg Q4H PRN IVP Severe Pain (Pain Scale 7-10) 05/19/20 22:00 05/26/20 21:59 Insulin Aspart (NovoLOG) EVERY 6 HOURS SUBQ 05/16/20 12:00 08/09/20 05:59 05/17/20 19:09 Loperamide HCl (Imodium) 2 mg Q4H PRN ORAL Diarrhea 05/19/20 22:00 06/18/20 21:59 05/20/20 08:51 Magnesium Hydroxide (Mom) 30 ml HSPRN PRN ORAL Constipation 05/16/20 08:15 06/15/20 08:14 Ondansetron HCl (Zofran) 4 mg Q4H PRN IVP Nausea & Vomiting 05/16/20 08:15 06/10/20 00:14 Temazepam (Restoril) 15 mg HSPRN PRN ORAL Insomnia 05/16/20 20:00 05/23/20 19:59 Allergies: Coded Allergies: LEVOFLOXACIN (Unverified Allergy, Mild, Redness, 04/25/20) ROS Limited/Unobtainable: No Constitutional: Reports: no symptoms HEENT: Reports: no symptoms Cardiovascular: Reports: no symptoms Respiratory: Reports: no symptoms Gastrointestinal/Abdominal: Reports: no symptoms Genitourinary: Reports: no symptoms Neurologic/Psychiatric: Reports: no symptoms Subjective 69 YO M admitted with abdominal pain, nausea and vomiting. Now post op cystic duct leak. S/P ultrasound guided drain placement 05/12/20. S/P ERCP with stent placement 05/14/20. Cover for [facility] Jerad-Dr. Ramos Objective Last Vital Signs Date Time Temp Pulse Resp B/P (MAP) Pulse Ox O2 Delivery O2 Flow Rate FiO2 05/20/20 16:00 97.9 72 17 122/83 (96) 98 05/20/20 09:00 Room Air 05/14/20 13:30 3 Laboratory Tests Test 05/19/20 20:20 05/19/20 23:21 05/20/20 05:24 05/20/20 05:48 Sodium Level 145 MMOL/L (136-145) 144 MMOL/L (136-145) Potassium Level 3.7 MMOL/L (3.5-5.1) 3.2 MMOL/L (3.5-5.1) L Chloride Level 106 MMOL/L (98-107) 108 MMOL/L (98-107) H Carbon Dioxide Level 33 MMOL/L (21-32) H 31 MMOL/L (21-32) Anion Gap 6 mmol/L (5-15) 5 mmol/L (5-15) Blood Urea Nitrogen 5 mg/dL (7-18) L 5 mg/dL (7-18) L Creatinine 0.7 MG/DL (0.55-1.30) 0.7 MG/DL (0.55-1.30) Estimat Glomerular Filtration Rate > 60 mL/min (>60) > 60 mL/min (>60) Glucose Level 109 MG/DL (74-106) H 82 MG/DL (74-106) Calcium Level 7.9 MG/DL (8.5-10.1) L 8.0 MG/DL (8.5-10.1) L Total Bilirubin 0.6 MG/DL (0.2-1.0) Aspartate Amino Transf (AST/SGOT) 19 U/L (15-37) Alanine Aminotransferase (ALT/SGPT) 32 U/L (12-78) Alkaline Phosphatase 61 U/L (46-116) Total Protein 4.9 G/DL (6.4-8.2) L Albumin 2.5 G/DL (3.4-5.0) L Globulin 2.4 g/dL Albumin/Globulin Ratio 1.0 (1.0-2.7) POC Whole Blood Glucose 104 MG/DL (74-106) 95 MG/DL (74-106) White Blood Count 10.8 K/UL (4.8-10.8) Red Blood Count 4.04 M/UL (4.70-6.10) L Hemoglobin 11.1 G/DL (14.2-18.0) L Hematocrit 35.3 % (42.0-52.0) L Mean Corpuscular Volume 87 FL (80-99) Mean Corpuscular Hemoglobin 27.5 PG (27.0-31.0) Mean Corpuscular Hemoglobin Concent 31.5 G/DL (32.0-36.0) L Red Cell Distribution Width 17.9 % (11.6-14.8) H Platelet Count 207 K/UL (150-450) Mean Platelet Volume 7.2 FL (6.5-10.1) Neutrophils (%) (Auto) 78.7 % (45.0-75.0) H Lymphocytes (%) (Auto) 11.9 % (20.0-45.0) L Monocytes (%) (Auto) 7.4 % (1.0-10.0) Eosinophils (%) (Auto) 1.7 % (0.0-3.0) Basophils (%) (Auto) 0.3 % (0.0-2.0) Microbiology Date/Time Source Procedure Growth Status 05/19/20 22:35 Stool Clostridium difficile Toxin Assay - Final Complete Intake and Output 05/19/20 05/20/20 19:00 07:00 Intake Total 1110.0 ml 600 ml Balance 1110.0 ml 600 ml Intake Oral 800 ml 600 ml IV Total 310.0 ml # Voids 3 3 # Bowel Movements 4 Objective PHYSICAL EXAMINATION: GENERAL: The patient is well-developed, well-nourished male, in no apparent distress. HEENT: Eyes, pupils are equal and responsive to light and accommodation. Extraocular movements are intact. NECK: Supple without lymphadenopathy. CHEST: Lungs are clear to auscultation bilaterally without wheezes or rales. CARDIOVASCULAR: Regular rhythm and rate. S1-S2 are normal without murmurs, rubs, or gallops. ABDOMEN: Soft, tender to palpation in the epigastric region, nondistended with decreased bowel sounds. No evidence of hepatosplenomegaly. No rebound or guarding noted. EXTREMITIES: Negative for clubbing, cyanosis, or edema. RECTAL/GENITAL: Not performed. NEUROLOGIC: Cranial nerves II through XII are grossly intact without focal deficits. Motor strength is 5/5 bilaterally. Deep tendon reflexes are 2+, plantar. Assessment/Plan Assessment/Plan ASSESSMENT: This is a 69-year-old male. 1. Abdominal pain. 2. Nausea with vomiting. 3. Cystic duct leak 4. Postoperative state. 5. Diabetes type 2. 6. Pulmonary fibrosis. 7. Osteoporosis. 8. Post Operative Abscess 9. Acute pancreatitis TREATMENT: 1. Abdominal pain/nausea/vomiting/gallbladder fossa abscess. A general surgery consultation has been obtained with Dr. Morse. ABX=Zosyn. S/P U/S guided drain placed 05/12/20. We will follow recommendations of General Surgery. 2. Diabetes type 2. NovoLog sliding scale has been instituted. 3. Pulmonary fibrosis. 4. Osteoporosis. 5. Pancreatitis-GI=Dr Marquez 6. S/P ultrasound guided drain placement 7. ERCP with stent placement 05/14/20 8. Discharge planning: Home with [facility] Cirilo Tan MD May 20, 2020 18:41
--- NOTE | 2020-05-24 10:31 | Discharge Summary ---
Discharge Summary Discharge Summary _ DATE OF ADMISSION: 05/10/2020 DATE OF DISCHARGE: 05/20/2020 DISCHARGED BY: Dr. Ramos REASON FOR ADMISSION: 69 years old male with past medical history of pulmonary fibrosis, diabetes mellitus type 2, BPH, osteoporosis, polymyositis, was admitted at the beginning of April to [facility]. At that time patient undergone laparoscopic, converted to open cholecystectomy and after stabilization was discharged home in stable condition. Patient presented to emergency room complaining of 4 days of increased abdominal pain, associated with nausea and vomiting for the last 2 days. No fever or chills. No diarrhea or constipation. Laboratory work-up was significant for leukocytosis WBC 28.1, mild anemia with hemoglobin 11.2 hematocrit 34. Sodium 134,, potassium 4.0 stable renal parameters. Glucose 139. Total bilirubin 3.9, direct bilirubin 3.3, AST 70, alkaline phosphatase 172. Lipase 787. CT scan of the abdomen revealed 10 x 14 x 9.5 cm gallbladder fossa abscess. Patient subsequently admitted for further management. CONSULTANTS: yardage control operator Dr. Lugo pulmonary Dr. Kitchen ID specialist Dr. Alexander GI specialist Dr. Marquez surgery [facility] COURSE: Patient subsequently admitted and started on empiric antibiotics. MRI of the abdomen revealed 8 x 12 x 7.3 cm fluid collection in the gallbladder fossa , described on recent CT scan. Most likely a biloma. Extrahepatic ductal dilatation without definite downstream obstructive lesion , possibly related to postcholecystectomy state and age. Filling defects within the downstream common bile duct probably represent gas bubbles or debris's, but small calculus etiology of this finding was also possible. Antibiotics provided as per ID specialist recommendation Blood cultures were negative. Stool for C. difficile was negative. Rapid COVID-19 was negative. Patient subsequently undergone on 05/12 insertion of drainage catheter by interventional radiology. Output was closely monitored. Catheter was discontinued by surgeon 05/18 prior to discharge. LFT , lipase and bilirubin were closely monitored. HIDA scan demonstrated biloma collection in the gallbladder fossa. On patient undergone ERCP with sphincterotomy and stent placement due to bile leak. Noted minimal bile leak at the cystic duct stump. The catheter was placed to the distal common bile duct. Patient tolerated procedure well. Patient will need to repeat ERCP and removal of stent in 8 weeks. Patient slowly started on diet was advanced as tolerated. Antiemetic provided as needed. Patient noted to have fluid overload. Patient received spot diuresis with close monitoring of volumes and cardiorenal parameters. Renal parameters remained stable Pain management was addressed as needed. Patient was able to tolerate diet. Supportive care provided. Renal parameters and electrolytes were closely monitored, electrolytes corrected as needed. GI prophylaxis provided. Blood sugar was managed with sliding scale of insulin. Patient developed diarrhea. Stool for C. difficile was negative. Diarrhea improved with Imodium. Patient clinically stabilized and was ready for discharge home with home health services FINAL DIAGNOSES: Postoperative abscess , status post drainage by IR with catheter placement Probably biloma secondary to biliary leak s/p ERCP with sphincterotomy and stent placement Acute pancreatitis Chronic liver disease Status post recent cholecystectomy Pulmonary fibrosis Diabetes mellitus type 2 Osteoporosis Polymyositis History of Sharmin esophagitis Diarrhea, stool C. difficile was ruled out DISCHARGE MEDICATIONS: See Medication Reconciliation list. DISCHARGE INSTRUCTIONS: Patient was discharged home with home health services. Follow up with primary care provider in one week. Patient will need to repeat ERCP and removal of stent in 8 weeks. I have been assigned to dictate discharge summary for this account. I was not involved in the patient's management. Idania Paul NP May 24, 2020 10:31
== END 2020-05-20 16:30 | disposition home or self-care (01) | DRG 862 ==
LOC: EMR 20:04 → 2E 21:10 → EDBEDREQ 22:41 → 4E 05-16 06:54
PROC: 0W9G30Z Drainage of Peritoneal Cavity with Drainage Device, Percutaneous Approach (ICD-10-PCS; 2020-05-12)
PROC: 0F798DZ Dilation of Common Bile Duct with Intraluminal Device, Via Natural or Artificial Opening Endoscopic (ICD-10-PCS; principal; 2020-05-14 12:48)
DX: T81.43XA Infection following a procedure, organ and space surgical site, initial encounter (principal); K65.1 Peritoneal abscess; K85.90 Acute pancreatitis without necrosis or infection, unspecified; M33.20 Polymyositis, organ involvement unspecified; K81.0 Acute cholecystitis; K57.92 Diverticulitis of intestine, part unspecified, without perforation or abscess without bleeding; J84.10 Pulmonary fibrosis, unspecified; Y83.8 Other surgical procedures as the cause of abnormal reaction of the patient, or of later complication, without mention of misadventure at the time of the procedure; Z90.49 Acquired absence of other specified parts of digestive tract; E11.9 Type 2 diabetes mellitus without complications; M81.0 Age-related osteoporosis without current pathological fracture; N40.0 Benign prostatic hyperplasia without lower urinary tract symptoms; Z88.1 Allergy status to other antibiotic agents; Z79.84 Long term (current) use of oral hypoglycemic drugs; K76.9 Liver disease, unspecified; E87.70 Fluid overload, unspecified
CPT/HCPCS: 36415; 71045; 74177; 74183; 74328; 75989; 76000; 78266; 80048; 80053; 81003; 82150; 82248; 82550; 82962; 83605; 83690; 83735; 83880; 84100; 84484; 85007; 85025; 85610; 85651; 85730; 86140; 86850; 86900; 86901; 87040; 87081; 87324; 93005; 94003; 94150; 96361; 96365; 96368; 96375; 99291; A9585; J1815; J2250; J2405; J7030; J8499; U0002

== ENCOUNTER 2020-07-19 13:09 | Outpatient (CLI) | payer MEDICARE, MEDICAID ==
[~2020-07-19] VITALS: Ht 190.5 cm; Wt 78.5 kg
[~2020-07-19 13:09] MED LIST changes: +AUGMENTIN 875-1 EAC1 ORAL; +DOCUSATE SODIU100 MG ORAL; +HYDROCODON-ACE1 EA18 PO
[2020-07-19 13:18] VITALS: BP 109/73
--- NOTE | 2020-07-19 13:36 | General Progress Note ---
Subjective ROS Limited/Unobtainable: Yes Allergies: Coded Allergies: LEVOFLOXACIN (Unverified Allergy, Mild, Redness, 04/25/20) Objective Last 24 Hour Vital Signs Date Time Temp Pulse Resp B/P (MAP) Pulse Ox O2 Delivery O2 Flow Rate FiO2 07/19/20 13:18 98.2 85 16 109/73 96 General Appearance: alert EENT: normal ENT inspection Neck: supple Cardiovascular: normal rate Respiratory/Chest: lungs clear Abdomen: normal bowel sounds, non tender, soft Extremities: non-tender Assessment/Plan Assessment/Plan: Assessment/Plan Assessment/Plan: 1. Chronic liver disease. 2. Diverticulitis. 3. Pulmonary fibrosis. 4. History of Sharmin esophagitis. 5. History of umbilical hernia. 6. Diabetes. 7. Osteoporosis. 8. BPH. 9. RUQ abscess vs biloma s/p drainage s/p ERCP and stent placement doing well plan Stent removal in 2 weeks Petey Marquez MD Jul 19, 2020 13:36
== END 2020-07-19 15:09 | disposition home or self-care (01) ==
LOC: PAN 13:09
DX: K57.92 Diverticulitis of intestine, part unspecified, without perforation or abscess without bleeding (principal); K76.9 Liver disease, unspecified; J84.10 Pulmonary fibrosis, unspecified; E11.9 Type 2 diabetes mellitus without complications; M81.0 Age-related osteoporosis without current pathological fracture; N40.0 Benign prostatic hyperplasia without lower urinary tract symptoms
CPT/HCPCS: 99212

== ENCOUNTER 2020-08-09 10:12 | Day surgery (SDC) | payer MEDICARE, MEDICAID ==
[~2020-08-09] VITALS: Ht 185.4 cm; Wt 78.0 kg
[2020-08-09] VITALS (9 sets, daily range): BP systolic 103–156; BP diastolic 59–89
[~2020-08-09 10:12] MED LIST changes: +LR 1000ml 1,000 ML IVLG SCH
[2020-08-09] MEDS ORDERED: Iothalamate Meglumine 60% 50ML INJ ONE ×2 (11:29→12:50)
--- NOTE | 2020-08-09 12:06 | Anethesia Preoperative Eval ---
Anesthesia Pre-op PMH/ROS General Date of Evaluation: Aug 09, 2020 Anesthesiologist: Tobias ASA Score: ASA 3 Mallampati Score Class I : Soft palate, uvula, fauces, pillars visible Class II: Soft palate, uvula, fauces visible Class III: Soft palate, base of uvula visible Class IV: Only hard plate visible Mallampati Classification: Class II Surgeon: Alma Diagnosis: STent Surgical Procedure: ERCP Anesthesia History: none Family History: no anesthesia problems Allergies: Coded Allergies: LEVOFLOXACIN (Unverified Allergy, Mild, Redness, 04/25/20) Medications: see eMAR Patient NPO?: Yes NPO Date: Aug 09, 2020 NPO Time: 00:00 Past Medical History Cardiovascular: Denies: HTN, CAD, MD, valve dz, arrhythmia, other Pulmonary: Reports: COPD, other - pulmonary fibrosis; Denies: asthma, JIMMIE Gastrointestinal/Genitourinary: Reports: GERD, other - BPH; Denies: CRI, ESRD Neurologic/Psychiatric: Denies: dementia, CVA, depression/anxiety, TIA, other Endocrine: Reports: DM; Denies: hypothyroidism, steroids, other HEENT: Denies: cataract (L), cataract (R), glaucoma, [place] (L), [place] (R), other Hematology/Immune: Denies: anemia, DVT, bleeding disorder, other Musculoskeletal/Integumentary: Reports: other - polymyositis; Denies: OA, RA, DJD, DDD, edema PSxH Narrative: nelda, bilateral cataract Anesthesia Pre-op Phys. Exam Physician Exam Last Vital Signs Date Time Temp Pulse Resp B/P (MAP) Pulse Ox O2 Delivery O2 Flow Rate FiO2 08/09/20 11:29 Room Air 08/09/20 10:47 98.5 83 18 156/89 99 Constitutional: NAD Cardiovascular: RRR Respiratory: CTA Airway Exam Mallampati Score: Class II MO: full ROM: full Anesthesia Pre-op A/P Labs Chemistry Test 08/09/20 11:21 POC Whole Blood Glucose 74 MG/DL (74-106) Studies Pre-op Studies: EKG - sr Risk Assessment & Plan Assessment: ASA II Plan: MAC Status Change Before Surgery: No Pre-Antibiotics Drug: N/A Amisha Collado MD Aug 09, 2020 12:06
[2020-08-09] MEDS ORDERED: Midazolam 2mg/2ml Inj IVP PRN (12:15)
[2020-08-09] MEDS ORDERED: DiphenhydrAMINE 50mg/ml Inj IVP PRN (12:15)
[2020-08-09] MEDS ORDERED: Ketorolac 30mg Inj IV PRN (12:15)
[2020-08-09] MEDS ORDERED: Hydromorphone 0.5mg/0.5ml inj IVP PRN (12:15)
[2020-08-09] MEDS ORDERED: fentaNYL 100 mcg/2 mL IV PRN (12:15)
[2020-08-09] MEDS ORDERED: Metoclopramide 10mg/2ml Inj IVP PRN (12:15)
[2020-08-09] MEDS ORDERED: LR 1000ml 1,000 ML IVLG SCH (12:15)
[2020-08-09] MEDS ORDERED: LORazepam Inj 2mg/ml 1ml IV PRN (12:15)
--- NOTE | 2020-08-09 12:25 | Pre-Procedure Note/Attestation ---
Pre-Procedure Note/Attestation Complete Prior to Procedure Planned Procedure: not applicable Procedure Narrative: ercp Indications for Procedure Pre-Operative Diagnosis: retained stent Attestation I attest that I discussed the nature of the procedure; its benefits; risks and complications; and alternatives (and the risks and benefits of such alternatives), prior to the procedure, with the patient (or the patient's legal medical detail representative). I attest that, if there was a reasonable possibility of needing a blood trans fusion, the patient (or the patient's legal medical detail representative) was given the [facility] standardized written summary, pursuant to the Oskar Zak Blood Safety Act ([place] Health and Safety Code # 1645, as amended). I attest that I re-evaluated the patient just prior to the surgery and that there has been no change in the patient's H&P, except as documented below: Petey Marquez MD Aug 09, 2020 12:25
--- NOTE | 2020-08-09 12:26 | Short Stay Surgery H&P ---
History of Present Illness History of Present Illness Chief Complaint see recent office note HPI Sher Johnson is a 69 year old male who was admitted on for Stent Removal Patient History Allergies: Coded Allergies: LEVOFLOXACIN (Unverified Allergy, Mild, Redness, 04/25/20) Medication History Scheduled Alendronate Sodium* (Fosamax*), 70 MG ORAL ONCE A WEEK, (Reported) Docusate Sodium* (Docusate Sodium*), 100 MG ORAL DAILY, (Reported) Ergocalciferol (Vitamin D2) (Vitamin D2), 1.25 MG PO ONCE A WEEK, (Reported) Metformin Hcl* (Metformin Hcl*), 500 MG ORAL DAILY, (Reported) Methylprednisolone* (Medrol*), 4 MG ORAL DAILY, (Reported) Mycophenolate Mofetil (Cellcept), 1,500 MG ORAL TWICE A DAY, (Reported) Pantoprazole* (Pantoprazole*), 40 MG ORAL DAILY, (Reported) Tamsulosin HCl (Flomax), 0.4 MG ORAL DAILY, (Reported) Physical Exam Vital Signs Last Vital Signs Date Time Temp Pulse Resp B/P (MAP) Pulse Ox O2 Delivery O2 Flow Rate FiO2 08/09/20 11:29 Room Air 08/09/20 10:47 98.5 83 18 156/89 99 Labs Laboratory Tests Test 08/09/20 11:21 POC Whole Blood Glucose 74 MG/DL (74-106) Plan Attestation Are the patient's medical conditions optimized for surgery? Petey Marquez MD Aug 09, 2020 12:26
[2020-08-09] MEDS ORDERED: LR 1000ml ONE (12:30)
[2020-08-09] MEDS ORDERED: Lidocaine 1% MPF 10mg/ml 5ml ONE (12:30)
--- NOTE | 2020-08-09 13:12 | 48 Hour Post Anesthesia Eval ---
Post Anesthesia Evaluation Procedure: ercp Date of Evaluation: Aug 09, 2020 Airway: patent Nausea: No Vomiting: No Pain Intensity: 0 Hydration Status: adequate Cardiopulmonary Status: at baseline Mental Status/LOC: patient returned to baseline Post-Anesthesia Complications: 0 Follow-up care needed: ready to discharge Amisha Collado MD Aug 09, 2020 13:12
--- NOTE | 2020-08-09 13:12 | Immediate Post-Op Evaluation ---
Immediate Post-Op Evalulation Immediate Post-Op Evalulation Procedure: ercp Date of Evaluation: Aug 09, 2020 Pain Score (1-10): 0 Nausea: No Vomiting: No Complications 0 Patient Status: awake, reacts, patent, none Hydration Status: adequate Drug: N/A Amisha Collado MD Aug 09, 2020 13:12
[2020-08-09] MEDS ORDERED: Flumazenil 0.5mg/5ml Inj IV ONE (13:13)
--- NOTE | 2020-08-09 13:57 | Endoscopy Procedure Note ---
Endoscopy Procedure Note General Indication for Procedure: stent removsl Procedures Performed: ERCP Operative Findings/Diagnosis: same Specimen: none Pt Tolerated Procedure Well: Yes Estimated Blood Loss: none Anesthesia Anesthesiologist: madelin Anesthesia: MAC Inserted Devices Implant(s) used?: No GI Core Measures 50 yrs or older w/o bx or poly: Not Applicable 10yrs. F/U recommended: Not Applicable Petey Marquez MD Aug 09, 2020 13:57
--- NOTE | 2020-08-09 15:15 | Procedure Note ---
DATE OF PROCEDURE: 08/09/2020 SURGEON: Petey Marquez MD. PROCEDURE: ERCP with stent removal and stone removal. ANESTHESIA: Per Dr. Collado INSTRUMENT: Olympus adult ERCP scope. INDICATION: 1. Stent removal. 2. Choledocholithiasis. REASON FOR PROCEDURE: The procedure, risks, benefits, and possible consequences, including hemorrhage, aspiration, perforation and infection, and alternative treatments, were explained to the patient/legal guardian by Dr. Petey Marquez and the patient/legal guardian understood and accepted these risks. PROCEDURE IN DETAIL: After informed consent was obtained and the patient was adequately sedated, ERCP scope was advanced from mouth into the second portion of the duodenum. Using snare, the stent was removed from the common bile duct. Sphincterotome was used to cannulate the common bile duct. Initial cholangiogram showed no further leakage from the common bile duct. There was a filling defect in the distal common bile duct measured roughly about 6 mm, most probably a stone. Then over a guidewire, we extended the sphincterotomy. Then using a balloon, we sweep the duct multiple times and removed one stone measured roughly about 6 to 7 mm from distal common bile duct. Post stent removal, balloon occlusion cholangiogram showed no further filling defect in the common bile duct. Also, there was no further leakage from the common bile duct. At this time, the procedure was terminated. SUMMARY OF FINDINGS: 1. Choledocholithiasis. 2. Status post ERCP, stent removal, extension of the sphincterotomy, stone removal, balloon occlusion cholangiogram. RECOMMENDATIONS: The patient to follow in the office for followup. Petey Marquez M.D. DR: Everett JOB#: [id number] CC:
--- NOTE | 2020-08-09 17:08 | Diagnostic Imaging Report ---
Indication: Reason For Exam: ABD PAIN Technique: Intraoperative fluoroscopy with 3 fluoroscopic images obtained. Fluoro time 65.2s, total dose 14.48mGy Comparison: None. Findings: Intraoperative fluoroscopy demonstrates ERCP with common bile duct balloon sweep and indwelling stent removal. IMPRESSION: Intraoperative fluoroscopy of ERCP with balloon sweeping and indwelling stent removal. Please refer to operative report for more detail.
== END 2020-08-09 15:10 | disposition home or self-care (01) ==
LOC: GAS 10:12
DX: K80.50 Calculus of bile duct without cholangitis or cholecystitis without obstruction (principal); Z88.8 Allergy status to other drugs, medicaments and biological substances; J44.9 Chronic obstructive pulmonary disease, unspecified; K21.9 Gastro-esophageal reflux disease without esophagitis; E11.9 Type 2 diabetes mellitus without complications; J84.10 Pulmonary fibrosis, unspecified
CPT/HCPCS: 43262; 43264; 43275; 74328; 76000; 82962; 93005; 94003; J2704; J7120; U0002; 94150

== ENCOUNTER 2020-08-10 19:19 | Emergency (ER) | payer MEDICARE, MEDICAID ==
[~2020-08-10] VITALS: Ht 185.4 cm; Wt 73.5 kg
[~2020-08-10 19:19] MED LIST changes: -LR 1000ml 1,000 ML IVLG SCH
[2020-08-10 19:40] VITALS: BP 118/81
--- NOTE | 2020-08-10 19:40 | NUR ---
ED Nurse Note: pt ambulated into ed from home with daughter CO recurring fever after procedure at [facility] [place]. upon triage, no fever present. Pt denies additional symptoms. Pt aao x 4, ambulates with steady gait, daughter at bedside for translation. Pt palestinian speaking only. Pt states that he was tested for covid-19 on 08/06/2020 and 08/09/2020 at [facility], both negative results. Pt placed in gown in room, awaiting furhter orders. Awaiting ERMD at bedside
[2020-08-10] MEDS ORDERED: Sodium Chloride 2,200 ML IVLG ONE (19:45)
--- NOTE | 2020-08-10 19:45 | NUR ---
ED Nurse Note: ERMD at bedside
--- NOTE | 2020-08-10 19:50 | NUR ---
ED Nurse Note: all blood work, swabs and ua obtained and sent to lab. IV fluids initiated and running, no ss of distress noted. will continue to monitor.
[2020-08-10 20:13] LABS: BASOPHILS % (AUTO) 0.5 % (0.0-2.0); EOSINOPHILS % (AUTO) 0.3 % (0.0-3.0); HEMATOCRIT 44.4 % (42.0-52.0); LYMPHOCYTES % (AUTO) 6.6 % (20.0-45.0); MEAN CORPUSCULAR VOLUME 81 FL (80-99); MONOCYTES % (AUTO) 8.7 % (1.0-10.0); NEUTROPHILS % (AUTO) 83.9 % (45.0-75.0); PLATELET COUNT 143 K/UL (150-450); RED BLOOD COUNT 5.49 M/UL (4.70-6.10); RED CELL DISTRIBUTION WIDTH 15.8 % (11.6-14.8); WHITE BLOOD COUNT 11.1 K/UL (4.8-10.8)
[2020-08-10 20:16] LABS: APPEARANCE,URINE CLEAR; BILIRUBIN, URINE NEGATIVE (NEGATIVE); COLOR,URINE PALE YELLOW; GLUCOSE, URINE (UA) NEGATIVE (NEGATIVE); KETONES,URINE 1+ (NEGATIVE); LEUKOCYTE ESTERASE ,URINE 1+ (NEGATIVE); NITRITE,URINE NEGATIVE (NEGATIVE); PH,URINE 6 (4.5-8.0); PROTEIN,URINE NEGATIVE (NEGATIVE); UROBILINOGEN,URINE NORMAL MG/DL (0.0-1.0)
[2020-08-10 21:11] LABS: ALANINE AMINOTRANSFERASE 71 U/L (12-78); ALBUMIN 4.1 G/DL (3.4-5.0); ALBUMIN/GLOBULIN RATIO 1.6 (1.0-2.7); ALKALINE PHOSPHATASE 102 U/L (46-116); ANION GAP 9 mmol/L (5-15); ASPARTATE AMINO TRANSFERASE 44 U/L (15-37); BILIRUBIN,TOTAL 1.3 MG/DL (0.2-1.0); BLOOD UREA NITROGEN 12 mg/dL (7-18); CARBON DIOXIDE 24 MMOL/L (21-32); CHLORIDE 101 MMOL/L (98-107); CREATINE KINASE 79 U/L (26-308); CREATININE 0.9 MG/DL (0.55-1.30); POTASSIUM 3.6 MMOL/L (3.5-5.1); SODIUM 134 MMOL/L (136-145)
[2020-08-10 21:12] LABS: BILIRUBIN,DIRECT 0.4 MG/DL (0.0-0.3)
--- NOTE | 2020-08-10 21:20 | NUR ---
ED Nurse Note: PT AMBULATED TO RESTROOM IN STABLE CONDITION
[2020-08-10 21:30] VITALS: BP 122/83
--- NOTE | 2020-08-10 21:30 | NUR ---
ED Nurse Note: PT RETURNED FROM RESTROOM IN STABLE CONDITION.
--- NOTE | 2020-08-10 22:22 | NUR ---
ED Nurse Note: IV REMOVED PER ERMD, AWAITING DISCHARGE PAPERS
--- NOTE | 2020-08-10 22:26 | Emergency Room Report ---
History of Present Illness General Chief Complaint: Fever Source: Patient, Family Member Present Illness HPI This patient is status post ERCP with stent removal yesterday by Dr. Marquez. The patient reports that he had intermittent fever since being discharged home. The last fever was around 2 PM today. He presents to the emergency department because Dr. Marquez requested that he get evaluated. He denies pain. He states overall he feels fine. He denies abdominal pain. He denies nausea or vomiting. He denies headache or neck pain. He denies cough or congestion. He has no other complaints. Allergies: Coded Allergies: LEVOFLOXACIN (Unverified Allergy, Mild, Redness, 04/25/20) COVID-19 Screening Contact w/high risk pt: No Experienced COVID-19 symptoms?: No COVID-19 Testing performed [employer]: No Patient History Past Medical History: see triage record, DM, GERD Past Surgical History: nelda Social History: Denies: smoking, alcohol use, drug use Reviewed Nursing Documentation: PMH: Agreed; PSxH: Agreed Nursing Documentation-PMH Hx Cardiac Problems: No Hx COPD: Yes Hx Diabetes: Yes - type 2 Hx Cancer: No Hx Gastrointestinal Problems: Yes - cholecystectomy 04/2020 Hx Neurological Problems: No Hx Dizziness: Yes Review of Systems All Other Systems: negative except mentioned in HPI Physical Exam Vital Signs Date Time Temp Pulse Resp B/P (MAP) Pulse Ox O2 Delivery O2 Flow Rate FiO2 08/10/20 19:29 98.2 90 18 118/81 (93) 97 Room Air Sp02 EP Interpretation: reviewed, normal General Appearance: no apparent distress, alert, GCS 15, non-toxic Head: normocephalic, atraumatic Eyes: bilateral eye normal inspection ENT: hearing grossly normal, normal pharynx, no angioedema, normal voice Neck: normal inspection Respiratory: no respiratory distress, no retraction, no accessory muscle use, speaking full sentences Cardiovascular #1: regular rate, rhythm, no edema Gastrointestinal: normal bowel sounds, non tender, soft, non-distended, no guarding, no rebound Rectal: deferred Musculoskeletal: back normal, normal range of motion, gait/station normal, non- tender Neurologic: alert, motor strength/tone normal, oriented x3, sensory intact, responsive, speech normal Psychiatric: judgement/insight normal, memory normal, mood/affect normal, no suicidal/homicidal ideation Skin: normal color Medical Decision Making Diagnostic Impression: Primary Impression: Fever ER Course The patient presents with fever at home. The patient had no fever here in the emergency department. Further laboratory work-up was benign. The patient has no pain. I did discuss the case with Dr. Marquez who agreed to either admission for monitoring or follow-up closely with him as an outpatient. I offered admission to the patient but he adamantly declined stating that he felt well. Ani menezes was well-appearing and nontoxic. He is accompanied by his daughter and states that they will return if his fever returns or if he develops any pain or new symptoms. They were given close return precautions and follow-up instructions. This patient was evaluated in the context of the global COVID-19 pandemic, which necessitated consideration that the patient might be at risk for infection with the [id number] virus that causes COVID-19. Institutional protocols and algorithms that pertain to the evaluation of patients at risk for COVID-19 and the state of rapid change based on information released by multiple regulatory bodies including the CDC and federal and state organizations. These policies and algorithms were followed during the patient's care in the ED. Laboratory Tests Test 08/10/20 19:49 08/10/20 19:50 Lipase 109 U/L (73-393) White Blood Count 11.1 K/UL (4.8-10.8) H Red Blood Count 5.49 M/UL (4.70-6.10) Hemoglobin 14.0 G/DL (14.2-18.0) L Hematocrit 44.4 % (42.0-52.0) Mean Corpuscular Volume 81 FL (80-99) Mean Corpuscular Hemoglobin 25.6 PG (27.0-31.0) L Mean Corpuscular Hemoglobin Concent 31.6 G/DL (32.0-36.0) L Red Cell Distribution Width 15.8 % (11.6-14.8) H Platelet Count 143 K/UL (150-450) L Mean Platelet Volume 7.9 FL (6.5-10.1) Neutrophils (%) (Auto) 83.9 % (45.0-75.0) H Lymphocytes (%) (Auto) 6.6 % (20.0-45.0) L Monocytes (%) (Auto) 8.7 % (1.0-10.0) Eosinophils (%) (Auto) 0.3 % (0.0-3.0) Basophils (%) (Auto) 0.5 % (0.0-2.0) Urine Color Pale yellow Urine Appearance Clear Urine pH 6 (4.5-8.0) Urine Specific [place] 1.005 (1.005-1.035) Urine Protein Negative (NEGATIVE) Urine Glucose (UA) Negative (NEGATIVE) Urine Ketones 1+ (NEGATIVE) H Urine Blood Negative (NEGATIVE) Urine Nitrite Negative (NEGATIVE) Urine Bilirubin Negative (NEGATIVE) Urine Urobilinogen Normal MG/DL (0.0-1.0) Urine Leukocyte Esterase 1+ (NEGATIVE) H Urine RBC 0 /HPF (0 - 0) Urine WBC 2-4 /HPF (0 - 0) Urine Squamous Epithelial Cells Occasional /LPF Urine Bacteria Occasional /HPF (NONE) Urine Mucus Few /LPF (NONE/OCC) H Sodium Level 134 MMOL/L (136-145) L Potassium Level 3.6 MMOL/L (3.5-5.1) Chloride Level 101 MMOL/L (98-107) Carbon Dioxide Level 24 MMOL/L (21-32) Anion Gap 9 mmol/L (5-15) Blood Urea Nitrogen 12 mg/dL (7-18) Creatinine 0.9 MG/DL (0.55-1.30) Estimated Glomerular Filtration Rate > 60 mL/min (>60) Glucose Level 104 MG/DL (74-106) Lactic Acid Level 1.30 mmol/L (0.4-2.0) Calcium Level 9.0 MG/DL (8.5-10.1) Total Bilirubin 1.3 MG/DL (0.2-1.0) H Direct Bilirubin 0.4 MG/DL (0.0-0.3) H Aspartate Amino Transferase (AST) 44 U/L (15-37) H Alanine Aminotransferase (ALT) 71 U/L (12-78) Alkaline Phosphatase 102 U/L (46-116) Total Creatine Kinase 79 U/L (26-308) Troponin I 0.000 ng/mL (0.000-0.056) Total Protein 6.6 G/DL (6.4-8.2) Albumin 4.1 G/DL (3.4-5.0) Globulin 2.5 g/dL Albumin/Globulin Ratio 1.6 (1.0-2.7) Microbiology Date/Time Source Procedure Growth Status 08/10/20 19:50 Nasopharynx SARS-CoV-2 RdRp Gene Assay - Final Complete Chest X-Ray Diagnostic Results Chest X-Ray Diagnostic Results : Chest X-Ray Ordered: Yes # of Views/Limited/Complete: 1 View Indication: Other - fever EP Interpretation: Yes Interpretation: no consolidation, no effusion, no pneumothorax, no acute cardiopulmonary disease Impression: No acute disease Electronically Signed by: Estefani Crane DO Last Vital Signs Date Time Temp Pulse Resp B/P (MAP) Pulse Ox O2 Delivery O2 Flow Rate FiO2 08/10/20 19:40 90 18 Room Air 08/10/20 19:40 98.2 118/81 97 Status: improved Disposition: HOME, SELF-CARE Condition: Improved Referrals: NOT CHOSEN IPA/MD,REFERRING (PCP) Patient Instructions: Fever, Adult, [id number] Estefani Crane DO Aug 10, 2020 22:26
[2020-08-10 22:31] VITALS: BP 119/81
--- NOTE | 2020-08-10 22:31 | NUR ---
ER DISCHARGE NOTE: Patient is cleared to be discharged HOME per ERMD, pt is aox4, 98% on room air, with stable vital signs. pt was given dc and prescription instructions, pt was able to verbalize understanding, pt id band and iv site removed without complications. pt is able to ambulate with steady gait. pt took all belongings.
--- NOTE | 2020-08-11 15:26 | Cardiology Report ---
APPROVED REPORT EKG Measurement Heart [id number] <Conclusion> Normal sinus rhythm Possible Left atrial enlargement Right bundle branch block Left anterior fascicular block Bifascicular block Left ventricular hypertrophy Cannot rule out Septal infarct, age undetermined Possible Lateral infarct, age undetermined Abnormal ECG
--- NOTE | 2020-08-11 16:42 | Diagnostic Imaging Report ---
Indication: Shortness of breath, weakness Technique: Single AP view of the chest. Comparison: 05/10/2020 Findings: The cardiomediastinal silhouette is within normal limits when accounting for projection and technique. There is elevation of the right hemidiaphragm. Streaky bibasilar airspace opacities are noted. No pneumothorax or pleural effusion. Osseous structures demonstrate no acute abnormality. IMPRESSION: Streaky bibasilar airspace opacities which may represent subsegmental atelectasis however pneumonia should be excluded clinically.
== END 2020-08-10 22:31 | disposition home or self-care (01) ==
LOC: EMR 20:03 → CANBEDREQ 22:31 → EMR 22:31
DX: R50.9 Fever, unspecified (principal); J44.9 Chronic obstructive pulmonary disease, unspecified; E11.9 Type 2 diabetes mellitus without complications; Z90.49 Acquired absence of other specified parts of digestive tract; Z88.1 Allergy status to other antibiotic agents
CPT/HCPCS: 36415; 71045; 80053; 81003; 82248; 82550; 83605; 83690; 84484; 85025; 87040; 93005; 96360; 99284; J7030; U0002

== ENCOUNTER 2020-12-12 12:11 | Emergency (ER) | payer MEDICARE, MEDICAID ==
[~2020-12-12] VITALS: Ht 182.9 cm; Wt 81.2 kg
[2020-12-12] MEDS ORDERED: Morphine Sulfate 4mg/ml Inj IVP ONE (12:30)
[2020-12-12 12:39] LABS: BASOPHILS % (AUTO) 0.5 % (0.0-2.0); EOSINOPHILS % (AUTO) 0.9 % (0.0-3.0); HEMATOCRIT 44.5 % (42.0-52.0); HEMOGLOBIN 13.4 G/DL (14.2-18.0); LYMPHOCYTES % (AUTO) 9.7 % (20.0-45.0); MEAN CORPUSCULAR VOLUME 82 FL (80-99); MONOCYTES % (AUTO) 7.4 % (1.0-10.0); NEUTROPHILS % (AUTO) 81.5 % (45.0-75.0); PLATELET COUNT 197 K/UL (150-450); RED BLOOD COUNT 5.46 M/UL (4.70-6.10); RED CELL DISTRIBUTION WIDTH 16.3 % (11.6-14.8); WHITE BLOOD COUNT 10.8 K/UL (4.8-10.8)
[2020-12-12 12:52] LABS: ANION GAP 7 mmol/L (5-15); BLOOD UREA NITROGEN 15 mg/dL (7-18); CALCIUM 9.3 MG/DL (8.5-10.1); CARBON DIOXIDE 30 MMOL/L (21-32); CHLORIDE 104 MMOL/L (98-107); CREATININE 0.9 MG/DL (0.55-1.30); POTASSIUM 3.5 MMOL/L (3.5-5.1); SODIUM 141 MMOL/L (136-145)
[2020-12-12 12:54] LABS: APPEARANCE,URINE CLEAR; BILIRUBIN, URINE NEGATIVE (NEGATIVE); COLOR,URINE PALE YELLOW; GLUCOSE, URINE (UA) NEGATIVE (NEGATIVE); KETONES,URINE NEGATIVE (NEGATIVE); LEUKOCYTE ESTERASE ,URINE NEGATIVE (NEGATIVE); NITRITE,URINE NEGATIVE (NEGATIVE); PH,URINE 6 (4.5-8.0); PROTEIN,URINE NEGATIVE (NEGATIVE); UROBILINOGEN,URINE NORMAL MG/DL (0.0-1.0)
[2020-12-12 12:56] LABS: ALANINE AMINOTRANSFERASE 27 U/L (12-78); ALBUMIN 3.9 G/DL (3.4-5.0); ALBUMIN/GLOBULIN RATIO 1.4 (1.0-2.7); ALKALINE PHOSPHATASE 55 U/L (46-116); ASPARTATE AMINO TRANSFERASE 17 U/L (15-37); BILIRUBIN,TOTAL 0.4 MG/DL (0.2-1.0); CREATINE KINASE 57 U/L (26-308)
--- NOTE | 2020-12-12 13:00 | Emergency Room Report ---
History of Present Illness General Chief Complaint: Abdominal Pain Source: Patient Present Illness HPI For a month the patient has had intermittent diarrhea. In addition to that he has been having constant abdominal pain that gets worse on occasion. He feels it is colicky and crampy. Its not relieved by moving his bowels. The diarrhea is green in color and occasionally has blood when he strains. He denies any dysuria or hematuria. He feels a bump in his bellybutton which is occasionally a larger. It is at the place where it a second operation was performed. The pump does not get stuck. Patient had a cholecystectomy April of last year. Had stent which was removed August 09. The initial operation was complicated by an abdominal abscess. This is the discharge summary from the second admission: Postoperative abscess , status post drainage by IR with catheter placement Probably biloma secondary to biliary leak s/p ERCP with sphincterotomy and stent placement Acute pancreatitis Chronic liver disease Status post recent cholecystectomy Pulmonary fibrosis Diabetes mellitus type 2 Osteoporosis Polymyositis History of Sharmin esophagitis Diarrhea, stool C. difficile was ruled out The patient has pulmonary fibrosis and takes CellCept. Covid in July. Now had 2 vaccinations before beginning of abd pain and diarrhea. His daughter is concerned about the possible relationship between the Covid vaccination and the symptoms. No fevers, chills, sore throat, chest pain, palpitations, nausea, vomiting, shortness of breath, joint pain, rashes, depression, anxiety, visual changes, dizziness, headache. Allergies: Coded Allergies: LEVOFLOXACIN (Unverified Allergy, Mild, Redness, 04/25/20) COVID-19 Screening Contact w/high risk pt: No Experienced COVID-19 symptoms?: No Patient History Past Medical History: see triage record, other - Pulmonary fibrosis, Covid in July Past Surgical History: nelda - With transient stent placement Social History: Denies: smoking, alcohol use, drug use Social History Narrative brought by daughter Reviewed Nursing Documentation: PMH: Agreed; PSxH: Agreed Nursing Documentation-PM Past Medical History: No History, Except For Hx Cardiac Problems: No Hx COPD: Yes Hx Diabetes: Yes - type 2 Hx Cancer: No Hx Gastrointestinal Problems: Yes - cholecystectomy 04/2020 Hx Neurological Problems: No Hx Dizziness: Yes Physical Exam Vital Signs Date Time Temp Pulse Resp B/P (MAP) Pulse Ox O2 Delivery O2 Flow Rate FiO2 12/12/20 12:23 97.2 84 20 157/88 (111) 99 Room Air 12/12/20 12:30 100 Medical Decision Making Diagnostic Impression: Primary Impression: Abdominal pain Qualified Codes: R10.84 - Generalized abdominal pain Additional Impressions: Diarrhea Qualified Codes: R19.7 - Diarrhea, unspecified Pulmonary fibrosis Umbilical hernia Qualified Codes: K42.9 - Umbilical hernia without obstruction or gangrene Polymyositis Pneumobilia ER Course Patient presents with intermittent abdominal pain and diarrhea for over a month. Differential includes partial bowel obstruction, ischemia, pseudomembranous colitis, viral syndrome, UTI versus other etiologies. Patient evaluated with EKG, and CT of the abdomen with labs. Patient treated with IV hydration, Zofran and morphine. EKG normal sinus rhythm left anterior fascicular block LVH. Labs with white count upper limit of normal. Slight left shift. Hemoglobin slightly low. CMP remarkable for normal blood glucose and renal function. Urinalysis unr emarkable. Patient was improved. Unable to provide sample of diarrhea. CT scan abdomen and pelvis as below. There are air-fluid levels and some small bowel. There is no complete obstruction at this time. Status post cholecystectomy. Patient was improved without tenderness. Patient was discharged with analgesia and advised to follow up urgently with Dr. Marquez. Upon re-review of CT, pneumobilia noted. In light of immune-compromise and left shift, daughter contacted and advised to return to ED for admission. She agreed. Dr. Vu, Dr. Ramos, Dr. Marquez and Dr. Morse notified. 1800. Laboratory Tests Test 12/12/20 12:27 12/12/20 12:33 White Blood Count 10.8 K/UL (4.8-10.8) Red Blood Count 5.46 M/UL (4.70-6.10) Hemoglobin 13.4 G/DL (14.2-18.0) L Hematocrit 44.5 % (42.0-52.0) Mean Corpuscular Volume 82 FL (80-99) Mean Corpuscular Hemoglobin 24.5 PG (27.0-31.0) L Mean Corpuscular Hemoglobin Concent 30.1 G/DL (32.0-36.0) L Red Cell Distribution Width 16.3 % (11.6-14.8) H Platelet Count 197 K/UL (150-450) Mean Platelet Volume 7.2 FL (6.5-10.1) Neutrophils (%) (Auto) 81.5 % (45.0-75.0) H Lymphocytes (%) (Auto) 9.7 % (20.0-45.0) L Monocytes (%) (Auto) 7.4 % (1.0-10.0) Eosinophils (%) (Auto) 0.9 % (0.0-3.0) Basophils (%) (Auto) 0.5 % (0.0-2.0) Prothrombin Time 11.2 SEC (9.30-11.50) Prothrombin Time INR 1.0 (0.9-1.1) Activated Partial Thromboplast Time 27 SEC (23-33) Sodium Level 141 MMOL/L (136-145) Potassium Level 3.5 MMOL/L (3.5-5.1) Chloride Level 104 MMOL/L (98-107) Carbon Dioxide Level 30 MMOL/L (21-32) Anion Gap 7 mmol/L (5-15) Blood Urea Nitrogen 15 mg/dL (7-18) Creatinine 0.9 MG/DL (0.55-1.30) Estimated Glomerular Filtration Rate > 60 mL/min (>60) Glucose Level 78 MG/DL (74-106) Calcium Level 9.3 MG/DL (8.5-10.1) Total Bilirubin 0.4 MG/DL (0.2-1.0) Aspartate Amino Transferase (AST) 17 U/L (15-37) Alanine Aminotransferase (ALT) 27 U/L (12-78) Alkaline Phosphatase 55 U/L (46-116) Total Creatine Kinase 57 U/L (26-308) Troponin I 0.013 ng/mL (0.000-0.056) Total Protein 6.6 G/DL (6.4-8.2) Albumin 3.9 G/DL (3.4-5.0) Globulin 2.7 g/dL Albumin/Globulin Ratio 1.4 (1.0-2.7) Lipase 181 U/L (73-393) Urine Color Pale yellow Urine Appearance Clear Urine pH 6 (4.5-8.0) Urine Specific [place] 1.015 (1.005-1.035) Urine Protein Negative (NEGATIVE) Urine Glucose (UA) Negative (NEGATIVE) Urine Ketones Negative (NEGATIVE) Urine Blood Negative (NEGATIVE) Urine Nitrite Negative (NEGATIVE) Urine Bilirubin Negative (NEGATIVE) Urine Urobilinogen Normal MG/DL (0.0-1.0) Urine Leukocyte Esterase Negative (NEGATIVE) EKG Diagnostic Results Rate: normal Rhythm: NSR ST Segments: no acute changes Rhythm Strip Diag. Results EP Interpretation: yes Rhythm: NSR, no PVC's, no ectopy CT/MRI/US Diagnostic Results CT/MRI/US Diagnostic Results : Imaging Test Ordered: abdomen/pelvis Impression 1. Patchy groundglass opacities in the lower lungs, concerning for an infectious/inflammatory process versus chronic interstitial lung disease. Mild bronchiectasis. 2. Stable nonspecific small nodules in the left lower lobe, measuring up to 8 mm. 3. Prior cholecystectomy. Probable postcholecystectomy ductal ectasia. Pneumobilia. Question mild prominence of the wall of the common bile duct. Cholangitis is not excluded. 4. Mildly prominent fluid and gas-filled small bowel loops could represent enteritis or ileus in the appropriate clinical setting. 5. Stable probable scarring in the mesentery of the lower midline abdomen. Component of partial small bowel obstruction in this region is not excluded. 6. Prostatomegaly. Last Vital Signs Date Time Temp Pulse Resp B/P (MAP) Pulse Ox O2 Delivery O2 Flow Rate FiO2 12/12/20 15:07 72 17 142/86 100 Room Air 12/12/20 12:30 100 12/12/20 12:23 97.2 Status: improved Reevaluation Impression See ER course - patient advised to return to ED for admission. Disposition: HOME, SELF-CARE Condition: Improved Scripts Hydrocodone/Acetaminophen 5-325* (HYDROCODONE/ACETAMINOPHEN 5-325*) 1 Each Tablet 1 TAB ORAL Q6H PRN for For Pain, #10 TAB 0 Refills Prov: Sumeet Ulloa MD 12/12/20 Sumeet Ulloa MD Dec 12, 2020 13:00
[2020-12-12 13:08] VITALS: BP 149/87
--- NOTE | 2020-12-12 13:10 | NUR ---
pt arrived for abd pain, nausea, diarrhea intermittently over apst few days. pt states pain mid abdomen. pt placed on continuous cardiac/O2 monitor. VSS. pt cuban speaking. iv placed, blood sent to lab, urine sent to lab. pt medicated per eMAR. 1310: pt taken to CT.
--- NOTE | 2020-12-12 13:47 | Diagnostic Imaging Report ---
EXAM: CT Abdomen and Pelvis With Intravenous Contrast CLINICAL HISTORY: ABD PAIN TECHNIQUE: Axial computed tomography images of the abdomen and pelvis with intravenous contrast. CTDI is 6.5 mGy and DLP is 383.4 mGy-cm. One or more of the following dose reduction techniques were used: automated exposure control, adjustment of the mA and/or kV according to patient size, use of iterative reconstruction technique. COMPARISON: CT abdomen/pelvis on 05/10/2020 FINDINGS: Lung bases: Patchy groundglass opacities in the lower lungs, concerning for an infectious/inflammatory process versus chronic interstitial lung disease. Stable nonspecific small nodules in the left lower lobe, measuring up to 8 mm. Mild bronchiectasis in the lower lobes. ABDOMEN: Liver: Unremarkable. No mass. Gallbladder and bile ducts: Prior cholecystectomy. Probable postcholecystectomy ductal ectasia. Pneumobilia. Question mild prominence of the wall of the common bile duct. Cholangitis is not excluded. Pancreas: Unremarkable. No mass. No ductal dilation. Spleen: Unremarkable. No splenomegaly. Adrenals: Unremarkable. No mass. Kidneys and ureters: Nonspecific bilateral perinephric fat stranding. Small hypodensities in the kidneys are too small to definitively characterize. No hydronephrosis or obstructing stone. Stomach and bowel: Mildly prominent fluid and gas-filled small bowel loops could represent enteritis or ileus in the appropriate clinical setting. Stable probable scarring in the mesentery of the lower midline abdomen. Component of partial small bowel obstruction in this region is not excluded. Evaluation of the stomach is limited bladder distention. Postsurgical changes of the bowel. Compressed sigmoid colon. PELVIS: Appendix: Normal appendix. Bladder: Mildly distended bladder. No significant bladder wall thickening or stone. Reproductive: Prostatomegaly. ABDOMEN and PELVIS: Intraperitoneal space: Unremarkable. No free air. No significant fluid collection. Bones/joints: Bilateral L5 pars defects. Stable grade 2 anterolisthesis of L5 on S1. Degenerative changes of the spine. No acute fracture. No dislocation. Soft tissues: Atrophy of the Jenae muscles. Injection granuloma in the left gluteal soft tissues. Vasculature: Atherosclerotic changes of the vasculature. Mild ectasia of the abdominal aorta. No aortic dissection. Lymph nodes: Unremarkable. No enlarged lymph nodes. IMPRESSION: 1. Patchy groundglass opacities in the lower lungs, concerning for an infectious/inflammatory process versus chronic interstitial lung disease. Mild bronchiectasis. 2. Stable nonspecific small nodules in the left lower lobe, measuring up to 8 mm. 3. Prior cholecystectomy. Probable postcholecystectomy ductal ectasia. Pneumobilia. Question mild prominence of the wall of the common bile duct. Cholangitis is not excluded. 4. Mildly prominent fluid and gas-filled small bowel loops could represent enteritis or ileus in the appropriate clinical setting. 5. Stable probable scarring in the mesentery of the lower midline abdomen. Component of partial small bowel obstruction in this region is not excluded. 6. Prostatomegaly.
[2020-12-12] MEDS ORDERED: HYDROCODON-ACE1 EA15 ORAL (14:19)
--- NOTE | 2020-12-12 15:01 | NUR ---
ED Nurse Note: Pt cleared by health care Provider for discharge. DC instructions/prescription was given and explained to pt and verbalized understanding of teachings. All medical devices such as ID band removed. Pt is AAO x4, ambulatory and left with all personal belongings. aci given to daughter, aware of followup needed
[2020-12-12 15:07] VITALS: BP 142/86
[2020-12-12] MEDS ORDERED: LIPITOR80 MG ORAL (23:44)
[2020-12-12] MEDS ORDERED: OYSCO 500+D TA1 EAC1 PO (23:44)
== END 2020-12-12 15:09 | disposition home or self-care (01) ==
LOC: EMR 13:18
DX: R19.7 Diarrhea, unspecified (principal); R10.84 Generalized abdominal pain; K42.9 Umbilical hernia without obstruction or gangrene; M33.20 Polymyositis, organ involvement unspecified; Z90.49 Acquired absence of other specified parts of digestive tract; J84.10 Pulmonary fibrosis, unspecified; E11.9 Type 2 diabetes mellitus without complications; Z88.8 Allergy status to other drugs, medicaments and biological substances; J44.9 Chronic obstructive pulmonary disease, unspecified; I44.4 Left anterior fascicular block; N40.0 Benign prostatic hyperplasia without lower urinary tract symptoms
CPT/HCPCS: 36415; 74177; 80053; 81003; 82550; 83690; 84484; 85025; 85610; 85730; 93005; 96361; 96374; 96375; 99284; J2270; J2405; J7030; Q9965

== ENCOUNTER 2020-12-12 20:38 | Inpatient (IN) | payer MEDICARE, MEDICAID ==
[~2020-12-12] VITALS: Ht 190.5 cm; Wt 81.6 kg
[~2020-12-12 20:38] MED LIST changes: +HYDROCODON-ACE1 EA15 ORAL
--- NOTE | 2020-12-12 21:14 | Emergency Room Report ---
History of Present Illness General Chief Complaint: Abnormal Labs Source: Patient, Family Member (Yordan Vu MD) Present Illness HPI Disclaimer: Please note that this report is being documented using [employer] technology. This can lead to erroneous entry secondary to incorrect interpretation by the dictating instrument. HPI: 70-year-old male history of pulmonary fibrosis, status post ERCP, sphin cterotomy, stent placement with removal, cholecystectomy returns to the emergency department for abnormal CT study. Patient had a complaining of colicky cramping abdominal pain and persistent diarrhea for months. Seen in the emergency department earlier. Labs were largely within normal limits. CT scan showed chronic findings though on further review previous provider noted pneu mobilia and advised patient to return for reevaluation. His most recent intra- abdominal procedure was stent removal on August 09, 2020. He currently arrives with no complaints. Denies fever, chills, chest pain, palpitation, nausea, vomiting, abdominal pain or cramping. Denies dysuria or hematuria. Previous provider had arrange for admission. PMH: Reviewed PSH: Cholecystectomy Allergies: Levofloxacin Social Hx: Reviewed (Yordan Vu MD) Allergies: Coded Allergies: LEVOFLOXACIN (Unverified Allergy, Mild, Redness, 04/25/20) COVID-19 Screening Contact w/high risk pt: No Experienced COVID-19 symptoms?: No COVID-19 Testing performed APARTMENT ASSISTANT MANAGER: No (Yordan Vu MD) Nursing Documentation-PMH Hx Cardiac Problems: No Hx COPD: Yes Hx Diabetes: Yes - type 2 Hx Cancer: No Hx Gastrointestinal Problems: Yes - cholecystectomy 04/2020 Hx Neurological Problems: No Hx Dizziness: Yes (Yordan Vu MD) Review of Systems All Other Systems: negative except mentioned in HPI (Yordan Vu MD) Physical Exam Vital Signs Date Time Temp Pulse Resp B/P (MAP) Pulse Ox O2 Delivery O2 Flow Rate FiO2 12/12/20 20:41 97.9 89 18 146/87 (106) 99 General: Awake and alert, no acute distress HEENT: NC/AT. EOMI. Cardiovascular: RRR. S1 and S2 normal. No murmur appreciated Resp: Normal work of breathing. No cough, wheezing or crackles appreciated Abdomen: Abdomen is soft, nondistended. Nontender Skin: Intact. No abrasions, laceration or rash over the exposed skin MSK: Normal tone and bulk. Moving all extremities. No obvious deformity. Neuro: Awake and alert. Mentating appropriately. (Yordan Vu MD) Medical Decision Making Diagnostic Impression: Primary Impression: Pneumobilia ER Course 70-year-old male with several weeks cramping abdominal pain and loose stools returns to ED after earlier visit for admission due to pneumobilia and finding on CT scan. Arrives with stable vital signs feeling well no acute complaints at this time. Labs from previous visit reviewed. Will arrange for admission. (Yordan Vu MD) ER Course This patient was called back by Dr. Ulloa after CT finding. There was pneumobilia on his CT abdomen and pelvis. Patient is asymptomatic right now. Most likely this is from the ERCP that he had before. White count was only 10.8. I discussed the case with Dr. Ramos who will admit. I also discussed the case with Dr. Morse for surgical consultation. Dose of Zosyn will be given. (Jeronimo Blanco MD) Last Vital Signs Date Time Temp Pulse Resp B/P (MAP) Pulse Ox O2 Delivery O2 Flow Rate FiO2 12/12/20 20:41 97.9 89 18 146/87 (106) 99 (Yordan Vu MD) Status: unchanged (Jeronimo Blanco MD) Disposition: ADMITTED INPATIENT Condition: Serious Referrals: NON PHYSICIAN (PCP) Yordan Vu MD Dec 12, 2020 21:14 Jeronimo lBanco MD Dec 12, 2020 21:30
[2020-12-12 21:22] VITALS: BP 146/87
[2020-12-12] MEDS ORDERED: Piperacillin/Tazobactam 3.375 GM in NS 110 ML IVPB ONE (21:30)
--- NOTE | 2020-12-12 22:00 | NUR ---
ED Nurse Note: pt admitted to [facility], pt is stable, aox4, ambulatory, pt taking personal belongings with him refused offer to put in hospital safe belonging forms filled out, signed, and sent with chart, report given to KHRIS Yu, pt going to [phone]
--- NOTE | 2020-12-12 22:20 | NUR ---
NURSE NOTES: received patient alert oriented from ED accompanied by the nurse. patient belonging reviewed at bedside. cell phone at bedside. patient walk to bed and oriented to room. assessment initiated. patient show no signs of distress. no abd pain. no SOB. discussed plan of care. call dowd within reach. will send message to physician for admission orders. will continue to monitor.
[2020-12-12 22:47] VITALS: BP 138/91
[2020-12-12] MEDS ORDERED: HYDROcodone/Acetamin 5/325 tab ORAL PRN (23:30)
[2020-12-12] MEDS ORDERED: Morphine Sulfate 2mg/ml Inj IVP PRN (23:30)
[2020-12-12] MEDS ORDERED: LIPITOR80 MG ORAL (23:44)
[2020-12-12] MEDS ORDERED: OYSCO 500+D TA1 EAC1 PO (23:44)
--- NOTE | 2020-12-12 23:45 | NUR ---
NURSE NOTES: received orders from physician. will initiated and continue to monitor. patient resting in bed with no signs of distress. call dowd within reach, will continue to monitor.
[2020-12-13] VITALS: BP 118/75
[2020-12-13] MEDS: NS w/KCl 20mEq 1000ml 1,000 ML IV SCH ×2 (00:40→15:27)
[2020-12-13 04:00] VITALS: BP 125/75
[2020-12-13] MEDS: Piperacillin/Tazobactam 3.375 GM in NS 110 ML IVPB SCH ×3 (05:42→21:51)
[2020-12-13 06:06] LABS: BASOPHILS % (AUTO) 0.6 % (0.0-2.0); EOSINOPHILS % (AUTO) 1.5 % (0.0-3.0); HEMATOCRIT 39.1 % (42.0-52.0); HEMOGLOBIN 11.9 G/DL (14.2-18.0); LYMPHOCYTES % (AUTO) 8.3 % (20.0-45.0); MEAN CORPUSCULAR VOLUME 81 FL (80-99); MONOCYTES % (AUTO) 7.8 % (1.0-10.0); NEUTROPHILS % (AUTO) 81.8 % (45.0-75.0); PLATELET COUNT 147 K/UL (150-450); RED BLOOD COUNT 4.83 M/UL (4.70-6.10); RED CELL DISTRIBUTION WIDTH 16.1 % (11.6-14.8)
[2020-12-13 06:19] LABS: ALANINE AMINOTRANSFERASE 23 U/L (12-78); ALBUMIN 3.2 G/DL (3.4-5.0); ALBUMIN/GLOBULIN RATIO 1.4 (1.0-2.7); ALKALINE PHOSPHATASE 45 U/L (46-116); ANION GAP 9 mmol/L (5-15); ASPARTATE AMINO TRANSFERASE 15 U/L (15-37); BILIRUBIN,TOTAL 0.3 MG/DL (0.2-1.0); BLOOD UREA NITROGEN 15 mg/dL (7-18); CALCIUM 8.8 MG/DL (8.5-10.1); CARBON DIOXIDE 27 MMOL/L (21-32); CHLORIDE 109 MMOL/L (98-107); CREATININE 0.9 MG/DL (0.55-1.30); PHOSPHORUS 3.6 MG/DL (2.5-4.9); POTASSIUM 3.9 MMOL/L (3.5-5.1); SODIUM 145 MMOL/L (136-145)
[2020-12-13] MEDS: Heparin 5000 units/ml inj SUBQ SCH ×3 (06:47→21:53)
[2020-12-13 08:00] VITALS: BP 119/76
--- NOTE | 2020-12-13 09:44 | Consultation ---
DATE OF CONSULTATION: 12/13/2020 CHIEF COMPLAINT: Abdominal pain. HISTORY OF PRESENT ILLNESS: This is a very pleasant 70-year-old man known to me from last admission. I saw him in April. He had an ERCP in April for a bile leak and he came back in July where he had a stent removed. He has been doing well. He started having some abdominal pain, some diarrhea, and was admitted. CT showed evidence of pneumobilia. PAST MEDICAL HISTORY: 1. History of chronic liver disease. 2. Diverticulosis. 3. Pulmonary fibrosis. 4. History of candidal esophagitis. 5. History of umbilical hernia. 6. Diabetes. 7. Osteoporosis. 8. BPH. 9. Gallstones. 10. Bile leak. ALLERGIES: Levofloxacin. MEDICATIONS: Please see medication reconciliation list. SOCIAL HISTORY: The patient denies any tobacco, alcohol, or drug abuse. PAST SURGICAL HISTORY: 1. Cholecystectomy. 2. History of sigmoid resection for diverticulitis. REVIEW OF SYSTEMS: A 10-point review of systems was performed and pertinent positives in the history of present illness. PHYSICAL EXAMINATION: VITAL SIGNS: Temperature 97.6, pulse 70, respirations 18, blood pressure is 119/76. HEENT: Normocephalic and atraumatic. Sclerae anicteric. NECK: Supple. No evidence of obvious lymphadenopathy. CARDIOVASCULAR: Regular rate and rhythm. Plus S1, S2. LUNGS: Decreased breath sounds bilaterally based on the supine exam. ABDOMEN: Soft and nontender. No rebound. No guarding. No peritoneal sign. EXTREMITIES: No cyanosis, no clubbing, no edema. LABORATORY DATA: White count is 10, hemoglobin 11, hematocrit 39, platelet count 147. Chem-7, sodium 145, potassium 3.9. Liver function grossly normal. ASSESSMENT AND PLAN: This is a 70-year-old male with abdominal pain, diarrhea, pneumobilia. Pneumobilia secondary to ERCP. Given normal liver function tests and improvement in abdominal pain, no further ERCP needed at this time. The patient will resume on a diet. If he has recurrent diarrhea, we will send stool studies to rule out infections. The patient needs outpatient followup for endoscopy and colonoscopy. I want to thank, Dr. Ramos, for this kind referral. Petey Jose Juan Marquez DR: [place] JOB#: [id number] CC: Jose Ramos M.D.; Fax#: [phone]
[2020-12-13 12:00] VITALS: BP 119/71
--- NOTE | 2020-12-13 12:14 | NUR ---
updated daughter hortencia conn on patient condition requesting to speak with dr aranda, provided number to service
--- NOTE | 2020-12-13 14:14 | History and Physical Report ---
DATE OF ADMISSION: 12/12/2020 CHIEF COMPLAINT: The patient is a 70-year-old male who presents with a chief complaint of abnormal CAT scan results. HISTORY OF PRESENT ILLNESS: The patient is status post cholecystectomy and subsequent ERCP with sphincterotomy and stone removal. The patient was seen by his primary care physician. The patient was complaining of abdominal pain and diarrhea for several months. The patient had a CT scan which revealed pneumobilia. The patient presents for abnormal CAT scan results. The patient is admitted with pneumobilia to rule out bile leak. REVIEW OF SYSTEMS: CONSTITUTIONAL: The patient denies weight loss or weight gain. The patient denies fevers or chills. HEENT: The patient denies ear or throat pain. The patient denies headache. CARDIOVASCULAR: The patient denies palpitations or chest pain. CHEST: The patient denies wheeze or shortness of breath. ABDOMEN: The patient complains of generalized abdominal pain and persistent diarrhea as above. The patient denies constipation. NEUROMUSCULAR: The patient denies seizures or generalized weakness. GENITOURINARY: The patient denies dysuria or increased frequency of urination. PAST MEDICAL HISTORY: Significant for: 1. Diabetes type 2. 2. Pulmonary fibrosis. 3. Osteoporosis. 4. Benign prostatic hypertrophy. 5. History of cholecystitis as above. 6. Chronic liver disease. 7. Diverticulosis. 8. History of candidal esophagitis. 9. Umbilical hernia. 10. Benign prostatic hypertrophy. PAST SURGICAL HISTORY: Significant for: 1. Sigmoidectomy secondary to diverticulitis in 2009. 2. Open cholecystectomy in April of 2020 at [facility]. 3. Umbilical hernia repair approximately 8 years ago. 4. Esophagogastroduodenoscopy in March of 2020. 5. ERCP with sphincterotomy and stone removal in July of 2020. CURRENT MEDICATIONS: 1. Fosamax 70 mg one tablet p.o. weekly. 2. Atorvastatin 80 mg p.o. daily. 3. Calcium carbonate one tablet p.o. three times daily. 4. Vitamin D2 by mouth daily. 5. [place] 5/325 mg one tablet p.o. q.6 hours p.r.n. 6. Metformin 500 mg p.o. daily. 7. CellCept 500 mg three tablets p.o. twice daily. 8. Pantoprazole 40 mg p.o. daily. 9. Tamsulosin 0.4 mg p.o. daily. ALLERGIES: To Levaquin. SOCIAL HISTORY: The patient is and lives with his family. The patient denies tobacco use. The patient denies alcohol use, having quit 10 years ago. PHYSICAL EXAMINATION: VITAL SIGNS: Temperature 97.9, respirations 18, pulse 89, blood pressure 146/87. GENERAL: The patient is well-developed and well-nourished male in no apparent distress. HEENT: Eyes, pupils are equal and responsive to light and accommodation. Extraocular movements are intact. NECK: Supple without lymphadenopathy. CHEST: Lungs are clear to auscultation bilaterally without wheezes or rales. CARDIOVASCULAR: Regular rate. S1 and S2 normal without murmurs, rubs, or gallops. ABDOMEN: Soft, diffusely tender with decreased bowel sounds. No evidence of hepatosplenomegaly. Currently, no rebound or guarding noted. EXTREMITIES: Negative for clubbing, cyanosis, or edema. RECTAL/GENITAL: Not performed. NEUROLOGIC: Cranial nerves II through XII are grossly intact without focal deficits. Motor strength is 5/5 bilaterally. Deep tendon reflexes 2+ plantar. DIAGNOSTIC DATA: CT scan of the abdomen revealed pneumobilia as above. LABORATORY STUDIES: WBC 10.0, hemoglobin 11.9, hematocrit 39.1, platelets 147,000. Sodium 145, potassium 3.9, chloride 109, CO2 27, BUN 15, creatinine 0.9, glucose 83. Liver function tests within normal limits. ASSESSMENT: This is a 70-year-old male. 1. Pneumobilia by CT scan. 2. Abdominal pain. 3. Persistent diarrhea. 4. Diabetes type 2. 5. Pulmonary fibrosis. 6. Osteoporosis. 7. Benign prostatic hypertrophy. 8. Chronic liver disease. 9. History of diverticulosis. 10. Benign prostatic hypertrophy. TREATMENT: 1. Diabetes type 2. The patient has been placed on NovoLog sliding scale. 2. Pneumobilia/abdominal pain/chronic diarrhea. A Gastroenterology consultation has been obtained with Dr. Petey Marquez. Follow recommendations of Gastroenterology. 3. Pulmonary fibrosis. 4. Osteoporosis. Continue Fosamax as above. 5. Benign prostatic hypertrophy. Continue Flomax as above. Cirilo Tan M.D. DR: Donal JOB#: [id number] CC:
[2020-12-13 16:00] VITALS: BP 120/77
--- NOTE | 2020-12-13 16:31 | Consultation ---
History of Present Illness General Date patient seen: Dec 13, 2020 Reason for Hospitalization: Abnormal Labs Present Illness HPI This is a very pleasant 70-year-old male history of pulmonary fibrosis, status post ERCP, sphincterotomy, stent placement with removal, cholecystectomy who is well known to me from prior admissions where I had performed lap converted to open cholecystectomy developed biliary leak s/p ercp stent removed prior now returns to the emergency department for abnormal CT study. Patient had a complaining of colicky cramping abdominal pain and persistent diarrhea for months. Seen in the emergency department earlier. Labs were largely within normal limits. CT scan showed chronic findings though on further review previous provider noted pneumobilia and advised patient to return for reevaluation. His most recent intra-abdominal procedure was stent removal on August 09, 2020. He currently arrives with no complaints. Denies fever, chills, chest pain, palpitation, nausea, vomiting, abdominal pain or cramping. Denies dysuria or hematuria. surgery called to evaluate and assist with care. states ongoing intermittent diarrhea. lower abd cramping. ongoing for a few weeks. no upper abd pain. Allergies: Coded Allergies: LEVOFLOXACIN (Unverified Allergy, Mild, Redness, 04/25/20) COVID-19 Screening Contact w/high risk pt: No Experienced COVID-19 symptoms?: No Medication History Scheduled Alendronate Sodium* (Fosamax*), 70 MG ORAL ONCE A WEEK, (Reported) Atorvastatin (Lipitor), 80 MG ORAL DAILY, (Reported) Docusate Sodium* (Docusate Sodium*), 100 MG ORAL DAILY, (Reported) Ergocalciferol (Vitamin D2) (Vitamin D2), 1.25 MG PO ONCE A WEEK, (Reported) Metformin Hcl* (Metformin Hcl*), 500 MG ORAL DAILY, (Reported) Methylprednisolone* (Medrol*), 4 MG ORAL DAILY, (Reported) Mycophenolate Mofetil (Cellcept), 1,500 MG ORAL TWICE A DAY, (Reported) Pantoprazole* (Pantoprazole*), 40 MG ORAL DAILY, (Reported) Tamsulosin HCl (Flomax), 0.4 MG ORAL DAILY, (Reported) Scheduled PRN Hydrocodone/Acetaminophen 5-325* (Hydrocodone/Acetaminophen 5-325*), 1 TAB ORAL Q6H PRN for For Pain Miscellaneous Medications Calcium Carbonate/Vitamin D3 ([place] 500+D Tablet), 1 EACH PO, (Reported) Patient History History Provided By: Patient, Medical Record, PMD Healthcare decision maker Resuscitation status Advanced Directive on File Past Medical/Surgical History Past Medical/Surgical History: (1) Immunosuppressed status (2) Fever (3) Diarrhea (4) Umbilical hernia (5) Abdominal pain (6) Pneumobilia (7) Cholecystitis, acute (8) Diabetes mellitus (9) COPD (chronic obstructive pulmonary disease) (10) BPH (benign prostatic hyperplasia) (11) Pulmonary fibrosis (12) Polymyositis Review of Systems Review of Symptoms General ROS: no weight loss or fever Psychological ROS: no depression or mood changes, no memory loss Ophthalmic ROS: no visual changes or eye irritation ENT ROS: no nasal congestion, hearing loss, dizziness Allergy and Immunology ROS: no allergic symptoms or urticaria Hematological and Lymphatic ROS: no swollen glands, unusual bleeding or bruising Endocrine ROS: no polyuria, polydipsia, weight changes, temperature intolerance Respiratory ROS: no cough, shortness of breath, or wheezing Cardiovascular ROS: no chest pain or dyspnea on exertion Gastrointestinal ROS: denies abdominal pain, bright red blood in stool. Musculoskeletal ROS: no myalgias or arthralgias Neurological ROS: no TIA or stroke symptoms Dermatological ROS: no new or changing skin lesions, rashes or pruritis Physical Exam Physical Exam General appearance: alert, cooperative, no distress, appears stated age Head: Normocephalic, without obvious abnormality, atraumatic Eyes: conjunctivae/corneas clear. PERRL, EOM's intact. Fundi benign Throat: Lips, mucosa, and tongue normal. Teeth and gums normal Neck: supple, symmetrical, trachea midline, no adenopathy, thyroid: not enlarged, symmetric, no tenderness/mass/nodules, no carotid bruit and no JVD Lungs: clear to auscultation bilaterally Heart: regular rate and rhythm, S1, S2 normal, no murmur, click, rub or gallop Abdomen: soft, non-tender. Bowel sounds normal. No masses, no organomegaly ventral reducible small hernia around umbilicus Extremities: extremities normal, atraumatic, no cyanosis or edema Pulses: 2+ and symmetric Skin: Skin color, texture, turgor normal. No rashes or lesions Neurologic: Grossly normal Last 24 Hour Vital Signs Date Time Temp Pulse Resp B/P (MAP) Pulse Ox O2 Delivery O2 Flow Rate FiO2 12/13/20 16:00 97.9 97 18 120/77 (91) 94 12/13/20 12:00 97.7 77 18 119/71 (87) 94 12/13/20 09:00 Room Air 12/13/20 08:00 97.6 78 18 119/76 (90) 95 12/13/20 04:00 97.9 78 18 125/75 (92) 94 12/13/20 00:00 97.7 75 18 118/75 (89) 96 12/12/20 22:47 97.7 78 18 138/91 (107) 98 12/12/20 22:21 Room Air 12/12/20 21:22 97.9 18 146/87 99 12/12/20 20:41 97.9 89 18 146/87 (106) 99 Intake and Output 12/12/20 12/13/20 19:00 07:00 Intake Total 0 ml Balance 0 ml Intake Oral 0 ml # Voids 2 Laboratory Tests Test 12/13/20 05:15 White Blood Count 10.0 K/UL (4.8-10.8) Red Blood Count 4.83 M/UL (4.70-6.10) Hemoglobin 11.9 G/DL (14.2-18.0) L Hematocrit 39.1 % (42.0-52.0) L Mean Corpuscular Volume 81 FL (80-99) Mean Corpuscular Hemoglobin 24.7 PG (27.0-31.0) L Mean Corpuscular Hemoglobin Concent 30.5 G/DL (32.0-36.0) L Red Cell Distribution Width 16.1 % (11.6-14.8) H Platelet Count 147 K/UL (150-450) L Mean Platelet Volume 9.5 FL (6.5-10.1) Neutrophils (%) (Auto) 81.8 % (45.0-75.0) H Lymphocytes (%) (Auto) 8.3 % (20.0-45.0) L Monocytes (%) (Auto) 7.8 % (1.0-10.0) Eosinophils (%) (Auto) 1.5 % (0.0-3.0) Basophils (%) (Auto) 0.6 % (0.0-2.0) Sodium Level 145 MMOL/L (136-145) Potassium Level 3.9 MMOL/L (3.5-5.1) Chloride Level 109 MMOL/L (98-107) H Carbon Dioxide Level 27 MMOL/L (21-32) Anion Gap 9 mmol/L (5-15) Blood Urea Nitrogen 15 mg/dL (7-18) Creatinine 0.9 MG/DL (0.55-1.30) Estimat Glomerular Filtration Rate > 60 mL/min (>60) Glucose Level 83 MG/DL (74-106) Calcium Level 8.8 MG/DL (8.5-10.1) Phosphorus Level 3.6 MG/DL (2.5-4.9) Magnesium Level 1.8 MG/DL (1.8-2.4) Total Bilirubin 0.3 MG/DL (0.2-1.0) Aspartate Amino Transf (AST/SGOT) 15 U/L (15-37) Alanine Aminotransferase (ALT/SGPT) 23 U/L (12-78) Alkaline Phosphatase 45 U/L (46-116) L Total Protein 5.5 G/DL (6.4-8.2) L Albumin 3.2 G/DL (3.4-5.0) L Globulin 2.3 g/dL Albumin/Globulin Ratio 1.4 (1.0-2.7) Lipase 133 U/L (73-393) Height (Feet): 6 Height (Inches): 3.00 Weight (Pounds): 180 Medications Current Medications Medications (Trade) Dose Ordered Sig/Renetta Route PRN Reason Start Time Stop Time Status Last Admin Dose Admin Acetaminophen (Tylenol) 650 mg Q6H PRN ORAL Mild Pain (Pain Scale 1-3) 12/12/20 23:30 01/11/21 23:29 Acetaminophen (Tylenol) 650 mg Q6H PRN ORAL Temp >100.5 12/12/20 23:30 01/11/21 23:29 Acetaminophen/ Hydrocodone Bitart ([place] 5/325) 1 tab Q6H PRN ORAL Moderate Pain (Pain Scale 4-6) 12/12/20 23:30 12/19/20 23:29 Heparin Sodium (Porcine) (Heparin 5000 units/ml) 5,000 units EVERY 8 HOURS SUBQ 12/13/20 06:00 5/6/21 05:59 12/13/20 15:29 Morphine Sulfate (Morphine Sulfate) 2 mg Q4H PRN IVP Severe Pain (Pain Scale 7-10) 12/12/20 23:30 12/19/20 23:29 Ondansetron HCl (Zofran) 4 mg EVERY 4 HOURS PRN IVP Nausea & Vomiting 12/12/20 23:30 01/11/21 23:29 Pantoprazole (Protonix) 40 mg DAILY ORAL 12/13/20 09:00 01/12/21 08:59 12/13/20 08:32 Piperacillin Sod/ Tazobactam Sod 3.375 gm/Sodium Chloride 110 ml @ 27.5 mls/hr Q8H IVPB 12/13/20 06:00 12/20/20 05:59 12/13/20 15:27 Potassium Chloride/Sodium Chloride 1,000 ml @ 75 mls/hr [id number] IV 12/12/20 23:30 01/11/21 23:29 12/13/20 15:27 Tamsulosin HCl (Flomax) 0.4 mg BEDTIME ORAL 12/13/20 21:00 01/12/21 20:59 Assessment/Plan Problem List: (1) Fever ICD Codes: R50.9 - Fever, unspecified SNOMED: 751802238 (2) Diarrhea Assessment & Plan: intermittent diarrhea states few weeks no n/v/f/c tolerating diet labs okay ct okay no signs of active infection consider outpatient stool studies and colonoscopy gi input appreciated ICD Codes: R19.7 - Diarrhea, unspecified SNOMED: 29121429 (3) Umbilical hernia Assessment & Plan: ventral umbilical hernia right upper umbilicus reducible non tender small likely from prior lap site incisional discussed with patient has been asymptomatic and easily reducible if becomes symptomatic will consider surgical repair outpatient f/u ICD Codes: K42.9 - Umbilical hernia without obstruction or gangrene SNOMED: 170339968 (4) Abdominal pain Assessment & Plan: improved feels better no acute intervention planned pneumobilia from ercp stent removal okay for diet ICD Codes: R10.9 - Unspecified abdominal pain SNOMED: 61444362 (5) Pneumobilia ICD Codes: K83.8 - Other specified diseases of biliary tract SNOMED: 026981304 (6) Immunosuppressed status ICD Codes: D89.9 - Disorder involving the immune mechanism, unspecified SNOMED: 43590082 (7) Cholecystitis, acute ICD Codes: K81.0 - Acute cholecystitis SNOMED: 14078643 (8) Diabetes mellitus ICD Codes: E11.9 - Type 2 diabetes mellitus without complications SNOMED: 44915579 (9) COPD (chronic obstructive pulmonary disease) ICD Codes: J44.9 - Chronic obstructive pulmonary disease, unspecified SNOMED: 58166813 (10) BPH (benign prostatic hyperplasia) ICD Codes: N40.0 - Benign prostatic hyperplasia without lower urinary tract symptoms SNOMED: 247067232 (11) Pulmonary fibrosis ICD Codes: J84.10 - Pulmonary fibrosis, unspecified SNOMED: 11119872 (12) Polymyositis ICD Codes: M33.20 - Polymyositis, organ involvement unspecified SNOMED: 55871486 Wil Morse Dec 13, 2020 16:31
[2020-12-13 19:02] LABS: APPEARANCE,URINE CLEAR; BILIRUBIN, URINE NEGATIVE (NEGATIVE); COLOR,URINE PALE YELLOW; GLUCOSE, URINE (UA) NEGATIVE (NEGATIVE); KETONES,URINE NEGATIVE (NEGATIVE); LEUKOCYTE ESTERASE ,URINE NEGATIVE (NEGATIVE); NITRITE,URINE NEGATIVE (NEGATIVE); PH,URINE 5 (4.5-8.0); PROTEIN,URINE NEGATIVE (NEGATIVE); UROBILINOGEN,URINE NORMAL MG/DL (0.0-1.0)
--- NOTE | 2020-12-13 19:50 | NUR ---
NURSE NOTES: patient in bed, awake, alert x 4, azeri speaking mainly. Bed in low and locked position, Provided safe environment. Kept clean and comfortable. Abdomen is soft and non distended. No complaint of pain or discomfort. Skin is warm and dry to touch. Iv site noted, iv fluid is infusing as ordered. Call light is at bedside. Will continue plan of care.
[2020-12-13 20:00] VITALS: BP 111/66
[2020-12-13] MEDS: Tamsulosin 0.4mg cap ORAL SCH (21:51)
[2020-12-14] VITALS (7 sets, daily range): BP systolic 109–143; BP diastolic 63–95
[2020-12-14] MEDS: NS w/KCl 20mEq 1000ml 1,000 ML IV SCH ×2 (02:10→13:23)
[2020-12-14] MEDS: Piperacillin/Tazobactam 3.375 GM in NS 110 ML IVPB SCH (05:03)
[2020-12-14] MEDS: Heparin 5000 units/ml inj SUBQ SCH ×3 (05:05→20:28)
--- NOTE | 2020-12-14 07:34 | NUR ---
NURSE HAND-OFF: Important Events on Shift:WNL Patient Status: WNL Diet: Pending Orders: Pending Results/Labs: Pending MD notification: Latest Vital Signs: Temperature 98.0 , Pulse 80 , B/P 125 /79 , Respiratory Rate 20 , O2 SAT 96 , , O2 Flow Rate . Vital Sign Comment: WNL Latest Ulrich Fall Score: 20 Fall Risk: Low Risk Safety Measures: Call light Within Reach, Bed Alarm Zone 2, Side Rails Side Rails x2, Bed position Low and Locked. Fall Precautions: Patient Fall Education Report given to Mendy Renner .
[2020-12-14 07:42] LABS: BASOPHILS % (AUTO) 1.1 % (0.0-2.0); EOSINOPHILS % (AUTO) 1.9 % (0.0-3.0); HEMATOCRIT 43.7 % (42.0-52.0); HEMOGLOBIN 13.3 G/DL (14.2-18.0); MEAN CORPUSCULAR VOLUME 82 FL (80-99); MONOCYTES % (AUTO) 7.2 % (1.0-10.0); NEUTROPHILS % (AUTO) 72.8 % (45.0-75.0); PLATELET COUNT 146 K/UL (150-450); RED BLOOD COUNT 5.35 M/UL (4.70-6.10); RED CELL DISTRIBUTION WIDTH 16.2 % (11.6-14.8); WHITE BLOOD COUNT 7.8 K/UL (4.8-10.8)
[2020-12-14 07:43] LABS: ALANINE AMINOTRANSFERASE 25 U/L (12-78); ALBUMIN 3.7 G/DL (3.4-5.0); ALBUMIN/GLOBULIN RATIO 1.4 (1.0-2.7); ALKALINE PHOSPHATASE 46 U/L (46-116); ANION GAP 7 mmol/L (5-15); ASPARTATE AMINO TRANSFERASE 18 U/L (15-37); BILIRUBIN,TOTAL 0.5 MG/DL (0.2-1.0); BLOOD UREA NITROGEN 11 mg/dL (7-18); CALCIUM 8.8 MG/DL (8.5-10.1); CARBON DIOXIDE 29 MMOL/L (21-32); CHLORIDE 108 MMOL/L (98-107); CREATININE 0.9 MG/DL (0.55-1.30); FERRITIN 14 NG/ML (8-388); POTASSIUM 3.9 MMOL/L (3.5-5.1); SODIUM 144 MMOL/L (136-145)
[2020-12-14 07:51] LABS: % IRON SATURATION 11 % (15-50); IRON 31 ug/dL (50-175); TOTAL IRON BINDING CAPACITY 291 ug/dL (250-450)
[2020-12-14 08:08] LABS: PHOSPHORUS 3.1 MG/DL (2.5-4.9)
--- NOTE | 2020-12-14 10:28 | Surgery Progress Note ---
Surgery Progress Note Subjective Additional Comments states diarrhea still no n/v/f/c no abd pain today tolerating diet GI input appreciated Objective Last 24 Hour Vital Signs Date Time Temp Pulse Resp B/P (MAP) Pulse Ox O2 Delivery O2 Flow Rate FiO2 12/14/20 08:00 97.9 89 20 126/80 (95) 97 12/14/20 03:47 98.0 80 20 125/79 (94) 96 12/14/20 00:00 98.0 76 20 109/63 (78) 96 12/13/20 21:00 Room Air 12/13/20 20:00 97.9 75 20 111/66 (81) 97 12/13/20 16:00 97.9 97 18 120/77 (91) 94 12/13/20 12:00 97.7 77 18 119/71 (87) 94 I&O Intake and Output 12/13/20 12/14/20 19:00 07:00 Intake Total 500 ml 555.0 ml Output Total 450 ml Balance 500 ml 105.0 ml Intake Oral 500 ml 500 ml IV Total 55.0 ml Output Urine Total 450 ml # Voids 1 1 # Bowel Movements 1 Cardiovascular: RSR Respiratory: clear Abdomen: soft, flat, non-tender, present bowel sounds, other, non-distended Extremities: no edema, no tenderness, no cyanosis Laboratory Tests Test 12/13/20 18:33 12/14/20 06:49 Urine Color Pale yellow Urine Appearance Clear Urine pH 5 (4.5-8.0) Urine Specific [place] 1.015 (1.005-1.035) Urine Protein Negative (NEGATIVE) Urine Glucose (UA) Negative (NEGATIVE) Urine Ketones Negative (NEGATIVE) Urine Blood Negative (NEGATIVE) Urine Nitrite Negative (NEGATIVE) Urine Bilirubin Negative (NEGATIVE) Urine Urobilinogen Normal MG/DL (0.0-1.0) Urine Leukocyte Esterase Negative (NEGATIVE) Urine RBC 0 /HPF (0 - 0) Urine WBC 0-2 /HPF (0 - 0) Urine Squamous Epithelial Cells None /LPF (NONE/OCC) Urine Bacteria Occasional /HPF (NONE) White Blood Count 7.8 K/UL (4.8-10.8) Red Blood Count 5.35 M/UL (4.70-6.10) Hemoglobin 13.3 G/DL (14.2-18.0) L Hematocrit 43.7 % (42.0-52.0) Mean Corpuscular Volume 82 FL (80-99) Mean Corpuscular Hemoglobin 24.9 PG (27.0-31.0) L Mean Corpuscular Hemoglobin Concent 30.5 G/DL (32.0-36.0) L Red Cell Distribution Width 16.2 % (11.6-14.8) H Platelet Count 146 K/UL (150-450) L Mean Platelet Volume 10.7 FL (6.5-10.1) H Neutrophils (%) (Auto) 72.8 % (45.0-75.0) Lymphocytes (%) (Auto) 17.0 % (20.0-45.0) L Monocytes (%) (Auto) 7.2 % (1.0-10.0) Eosinophils (%) (Auto) 1.9 % (0.0-3.0) Basophils (%) (Auto) 1.1 % (0.0-2.0) Sodium Level 144 MMOL/L (136-145) Potassium Level 3.9 MMOL/L (3.5-5.1) Chloride Level 108 MMOL/L (98-107) H Carbon Dioxide Level 29 MMOL/L (21-32) Anion Gap 7 mmol/L (5-15) Blood Urea Nitrogen 11 mg/dL (7-18) Creatinine 0.9 MG/DL (0.55-1.30) Estimat Glomerular Filtration Rate > 60 mL/min (>60) Glucose Level 75 MG/DL (74-106) Uric Acid 3.1 MG/DL (2.6-7.2) Calcium Level 8.8 MG/DL (8.5-10.1) Phosphorus Level 3.1 MG/DL (2.5-4.9) Magnesium Level 1.9 MG/DL (1.8-2.4) Iron Level 31 ug/dL (50-175) L Total Iron Binding Capacity 291 ug/dL (250-450) Percent Iron Saturation 11 % (15-50) L Unsaturated Iron Binding 260 ug/dL (112-346) Ferritin 14 NG/ML (8-388) Total Bilirubin 0.5 MG/DL (0.2-1.0) Aspartate Amino Transf (AST/SGOT) 18 U/L (15-37) Alanine Aminotransferase (ALT/SGPT) 25 U/L (12-78) Alkaline Phosphatase 46 U/L (46-116) C-Reactive Protein, Quantitative 1.0 mg/dL (0.00-0.90) H Total Protein 6.4 G/DL (6.4-8.2) Albumin 3.7 G/DL (3.4-5.0) Globulin 2.7 g/dL Albumin/Globulin Ratio 1.4 (1.0-2.7) Vitamin B12 Level 359 PG/ML (193-986) Folate 13.3 NG/ML (8.6-58.9) Plan Problems: (1) Fever (2) Diarrhea Assessment & Plan: intermittent diarrhea states few weeks no n/v/f/c tolerating diet labs okay ct okay no signs of active infection consider outpatient stool studies and colonoscopy gi input appreciated (3) Umbilical hernia Assessment & Plan: ventral umbilical hernia right upper umbilicus reducible non tender small likely from prior lap site incisional discussed with patient has been asymptomatic and easily reducible if becomes symptomatic will consider surgical repair outpatient f/u (4) Abdominal pain Assessment & Plan: improved feels better no acute intervention planned pneumobilia from ercp stent removal okay for diet (5) Pneumobilia (6) Immunosuppressed status (7) Cholecystitis, acute (8) Diabetes mellitus (9) COPD (chronic obstructive pulmonary disease) (10) BPH (benign prostatic hyperplasia) (11) Pulmonary fibrosis (12) Polymyositis Wil Morse Dec 14, 2020 10:28
--- NOTE | 2020-12-14 11:43 | General Progress Note ---
Subjective ROS Limited/Unobtainable: Yes Allergies: Coded Allergies: LEVOFLOXACIN (Unverified Allergy, Mild, Redness, 04/25/20) Objective Last 24 Hour Vital Signs Date Time Temp Pulse Resp B/P (MAP) Pulse Ox O2 Delivery O2 Flow Rate FiO2 12/14/20 09:00 Room Air 12/14/20 08:00 97.9 89 20 126/80 (95) 97 12/14/20 03:47 98.0 80 20 125/79 (94) 96 12/14/20 00:00 98.0 76 20 109/63 (78) 96 12/13/20 21:00 Room Air 12/13/20 20:00 97.9 75 20 111/66 (81) 97 12/13/20 16:00 97.9 97 18 120/77 (91) 94 12/13/20 12:00 97.7 77 18 119/71 (87) 94 Intake and Output 12/13/20 12/14/20 19:00 07:00 Intake Total 500 ml 555.0 ml Output Total 450 ml Balance 500 ml 105.0 ml Intake Oral 500 ml 500 ml IV Total 55.0 ml Output Urine Total 450 ml # Voids 1 1 # Bowel Movements 1 Laboratory Tests 12/13/20 18:33: Urine Color Pale yellow, Urine Appearance Clear, Urine pH 5, Urine Specific [place] 1.015, Urine Protein Negative, Urine Glucose (UA) Negative, Urine Ketones Negative, Urine Blood Negative, Urine Nitrite Negative, Urine Bilirubin Negative, Urine Urobilinogen Normal, Urine Leukocyte Esterase Negative, Urine RBC 0, Urine WBC 0-2, Urine Squamous Epithelial Cells None, Urine Bacteria Occasional 12/14/20 06:49: White Blood Count 7.8, Red Blood Count 5.35, Hemoglobin 13.3L, Hematocrit 43.7, Mean Corpuscular Volume 82, Mean Corpuscular Hemoglobin 24.9L, Mean Corpuscular Hemoglobin Concent 30.5L, Red Cell Distribution Width 16.2H, Platelet Count 146L , Mean Platelet Volume 10.7H, Neutrophils (%) (Auto) 72.8, Lymphocytes (%) (Auto) 17.0L, Monocytes (%) (Auto) 7.2, Eosinophils (%) (Auto) 1.9, Basophils (%) (Auto) 1.1, Sodium Level 144, Potassium Level 3.9, Chloride Level 108H, Carbon Dioxide Level 29, Anion Gap 7, Blood Urea Nitrogen 11, Creatinine 0.9, Estimat Glomerular Filtration Rate > 60, Glucose Level 75, Uric Acid 3.1, Calcium Level 8.8, Phosphorus Level 3.1, Magnesium Level 1.9, Iron Level 31L, Total Iron Binding Capacity 291, Percent Iron Saturation 11L, Unsaturated Iron Binding 260, Ferritin 14, Total Bilirubin 0.5, Aspartate Amino Transf (AST/SGOT) 18, Alanine Aminotransferase (ALT/SGPT) 25, Alkaline Phosphatase 46, C-Reactive Protein, Quantitative 1.0H, Total Protein 6.4, Albumin 3.7, Globulin 2.7, Albumin/Globulin Ratio 1.4, Vitamin B12 Level 359, Folate 13.3 Height (Feet): 6 Height (Inches): 3.00 Weight (Pounds): 180 General Appearance: no apparent distress EENT: normal ENT inspection Neck: supple Cardiovascular: normal rate Respiratory/Chest: decreased breath sounds Abdomen: hypoactive bowel sounds Extremities: non-tender Assessment/Plan Assessment/Plan: 1. History of chronic liver disease. 2. Diverticulosis. 3. Pulmonary fibrosis. 4. History of candidal esophagitis. 5. History of umbilical hernia. 6. Diabetes. 7. Osteoporosis. 8. BPH. 9. Gallstones. 10. Bile leak. s/p ERCP and stent removal still has diarrhea plan stool studies add cholestyramine Petey Frye MD Dec 14, 2020 11:43
--- NOTE | 2020-12-14 13:03 | NUR ---
NURSE NOTES: Daughter Shayla called ,updated care on her Dad,Thankful ,ask if Dr. Marquez can also call her and update plans,Dr. Marquez notified
[2020-12-14] MEDS: Cholestyramine 4gm Pkt ORAL SCH ×2 (13:23→18:42)
--- NOTE | 2020-12-14 16:15 | Internal Med Progress Note ---
Subjective Date of Service: Dec 14, 2020 Physician Name Cirilo Tan Attending Physician Jose Ramos MD Current Medications Medications (Trade) Dose Ordered Sig/Renetta Route PRN Reason Start Time Stop Time Status Last Admin Dose Admin Acetaminophen (Tylenol) 650 mg Q6H PRN ORAL Mild Pain (Pain Scale 1-3) 12/12/20 23:30 01/11/21 23:29 Acetaminophen (Tylenol) 650 mg Q6H PRN ORAL Temp >100.5 12/12/20 23:30 01/11/21 23:29 Acetaminophen/ Hydrocodone Bitart ([place] 5/325) 1 tab Q6H PRN ORAL Moderate Pain (Pain Scale 4-6) 12/12/20 23:30 12/19/20 23:29 Cholestyramine Resin (Questran) 4 gm THREE TIMES A DAY ORAL 12/14/20 13:00 01/13/21 12:59 12/14/20 13:23 Heparin Sodium (Porcine) (Heparin 5000 units/ml) 5,000 units EVERY 8 HOURS SUBQ 12/13/20 06:00 01/27/21 05:59 12/14/20 13:24 Morphine Sulfate (Morphine Sulfate) 2 mg Q4H PRN IVP Severe Pain (Pain Scale 7-10) 12/12/20 23:30 12/19/20 23:29 Ondansetron HCl (Zofran) 4 mg EVERY 4 HOURS PRN IVP Nausea & Vomiting 12/12/20 23:30 01/11/21 23:29 Pantoprazole (Protonix) 40 mg DAILY ORAL 12/13/20 09:00 01/12/21 08:59 12/14/20 08:52 Potassium Chloride/Sodium Chloride 1,000 ml @ 75 mls/hr [id number] IV 12/12/20 23:30 01/11/21 23:29 12/14/20 13:23 Tamsulosin HCl (Flomax) 0.4 mg BEDTIME ORAL 12/13/20 21:00 01/12/21 20:59 12/13/20 21:51 Allergies: Coded Allergies: LEVOFLOXACIN (Unverified Allergy, Mild, Redness, 04/25/20) ROS Limited/Unobtainable: No Constitutional: Reports: no symptoms HEENT: Reports: no symptoms Respiratory: Reports: no symptoms Gastrointestinal/Abdominal: Reports: abdominal pain, diarrhea Genitourinary: Reports: no symptoms Neurologic/Psychiatric: Reports: no symptoms Subjective 70 YO M S/P ERCP admitted with pneumobilia on CT. Now diarrhea and abdominal pain. Cvoer for Int Bimal Ramos. Objective Last Vital Signs Date Time Temp Pulse Resp B/P (MAP) Pulse Ox O2 Delivery O2 Flow Rate FiO2 12/14/20 16:00 97.9 86 19 127/83 (98) 97 12/14/20 09:00 Room Air Laboratory Tests Test 12/13/20 18:33 12/14/20 06:49 Urine Color Pale yellow Urine Appearance Clear Urine pH 5 (4.5-8.0) Urine Specific [place] 1.015 (1.005-1.035) Urine Protein Negative (NEGATIVE) Urine Glucose (UA) Negative (NEGATIVE) Urine Ketones Negative (NEGATIVE) Urine Blood Negative (NEGATIVE) Urine Nitrite Negative (NEGATIVE) Urine Bilirubin Negative (NEGATIVE) Urine Urobilinogen Normal MG/DL (0.0-1.0) Urine Leukocyte Esterase Negative (NEGATIVE) Urine RBC 0 /HPF (0 - 0) Urine WBC 0-2 /HPF (0 - 0) Urine Squamous Epithelial Cells None /LPF (NONE/OCC) Urine Bacteria Occasional /HPF (NONE) White Blood Count 7.8 K/UL (4.8-10.8) Red Blood Count 5.35 M/UL (4.70-6.10) Hemoglobin 13.3 G/DL (14.2-18.0) L Hematocrit 43.7 % (42.0-52.0) Mean Corpuscular Volume 82 FL (80-99) Mean Corpuscular Hemoglobin 24.9 PG (27.0-31.0) L Mean Corpuscular Hemoglobin Concent 30.5 G/DL (32.0-36.0) L Red Cell Distribution Width 16.2 % (11.6-14.8) H Platelet Count 146 K/UL (150-450) L Mean Platelet Volume 10.7 FL (6.5-10.1) H Neutrophils (%) (Auto) 72.8 % (45.0-75.0) Lymphocytes (%) (Auto) 17.0 % (20.0-45.0) L Monocytes (%) (Auto) 7.2 % (1.0-10.0) Eosinophils (%) (Auto) 1.9 % (0.0-3.0) Basophils (%) (Auto) 1.1 % (0.0-2.0) Sodium Level 144 MMOL/L (136-145) Potassium Level 3.9 MMOL/L (3.5-5.1) Chloride Level 108 MMOL/L (98-107) H Carbon Dioxide Level 29 MMOL/L (21-32) Anion Gap 7 mmol/L (5-15) Blood Urea Nitrogen 11 mg/dL (7-18) Creatinine 0.9 MG/DL (0.55-1.30) Estimat Glomerular Filtration Rate > 60 mL/min (>60) Glucose Level 75 MG/DL (74-106) Uric Acid 3.1 MG/DL (2.6-7.2) Calcium Level 8.8 MG/DL (8.5-10.1) Phosphorus Level 3.1 MG/DL (2.5-4.9) Magnesium Level 1.9 MG/DL (1.8-2.4) Iron Level 31 ug/dL (50-175) L Total Iron Binding Capacity 291 ug/dL (250-450) Percent Iron Saturation 11 % (15-50) L Unsaturated Iron Binding 260 ug/dL (112-346) Ferritin 14 NG/ML (8-388) Total Bilirubin 0.5 MG/DL (0.2-1.0) Aspartate Amino Transf (AST/SGOT) 18 U/L (15-37) Alanine Aminotransferase (ALT/SGPT) 25 U/L (12-78) Alkaline Phosphatase 46 U/L (46-116) C-Reactive Protein, Quantitative 1.0 mg/dL (0.00-0.90) H Total Protein 6.4 G/DL (6.4-8.2) Albumin 3.7 G/DL (3.4-5.0) Globulin 2.7 g/dL Albumin/Globulin Ratio 1.4 (1.0-2.7) Vitamin B12 Level 359 PG/ML (193-986) Folate 13.3 NG/ML (8.6-58.9) Intake and Output 12/13/20 12/14/20 19:00 07:00 Intake Total 500 ml 555.0 ml Output Total 450 ml Balance 500 ml 105.0 ml Intake Oral 500 ml 500 ml IV Total 55.0 ml Output Urine Total 450 ml # Voids 1 1 # Bowel Movements 1 Objective PHYSICAL EXAMINATION: GENERAL: The patient is well-developed and well-nourished male in no apparent distress. HEENT: Eyes, pupils are equal and responsive to light and accommodation. Extraocular movements are intact. NECK: Supple without lymphadenopathy. CHEST: Lungs are clear to auscultation bilaterally without wheezes or rales. CARDIOVASCULAR: Regular rate. S1 and S2 normal without murmurs, rubs, or gallops. ABDOMEN: Soft, diffusely tender with decreased bowel sounds. No evidence of hepatosplenomegaly. Currently, no rebound or guarding noted. EXTREMITIES: Negative for clubbing, cyanosis, or edema. RECTAL/GENITAL: Not performed. NEUROLOGIC: Cranial nerves II through XII are grossly intact without focal deficits. Motor strength is 5/5 bilaterally. Deep tendon reflexes 2+ plantar. Assessment/Plan Assessment/Plan ASSESSMENT: This is a 70-year-old male. 1. Pneumobilia by CT scan. 2. Abdominal pain. 3. Persistent diarrhea. 4. Diabetes type 2. 5. Pulmonary fibrosis. 6. Osteoporosis. 7. Benign prostatic hypertrophy. 8. Chronic liver disease. 9. History of diverticulosis. 10. Benign prostatic hypertrophy. TREATMENT: 1. Diabetes type 2. The patient has been placed on NovoLog sliding scale. 2. Pneumobilia Due to recent ERCP with stent removal 3. abdominal pain/chronic diarrhea. Gastroenterology = Dr. Petey Marquez. Surgery = Dr Morse Await stool studies 4. Pulmonary fibrosis. 5. Osteoporosis. Continue Fosamax as above. 6. Benign prostatic hypertrophy. Continue Flomax as above. Cirilo Tan MD Dec 14, 2020 16:15
--- NOTE | 2020-12-14 19:47 | NUR ---
NURSE NOTES: Patient awake in bed, alert and oriented x4, on room air. Complained of having diarrhea during the day. IV access on left antecubital g.20 running NS+ [id number] @ 75ml/hr. Instructed to use call light for assistance. Call light and needs in reach. Bed in lowest and locked. Will continue to monitor.
[2020-12-14] MEDS: Tamsulosin 0.4mg cap ORAL SCH (20:28)
[2020-12-15] MEDS: NS w/KCl 20mEq 1000ml 1,000 ML IV SCH (03:49)
[2020-12-15 04:00] VITALS: BP 140/79
[2020-12-15 04:53] LABS: BASOPHILS % (AUTO) 1.3 % (0.0-2.0); EOSINOPHILS % (AUTO) 2.3 % (0.0-3.0); HEMATOCRIT 40.2 % (42.0-52.0); HEMOGLOBIN 12.5 G/DL (14.2-18.0); LYMPHOCYTES % (AUTO) 17.8 % (20.0-45.0); MEAN CORPUSCULAR VOLUME 80 FL (80-99); MONOCYTES % (AUTO) 8.9 % (1.0-10.0); NEUTROPHILS % (AUTO) 69.8 % (45.0-75.0); PLATELET COUNT 152 K/UL (150-450); RED CELL DISTRIBUTION WIDTH 15.9 % (11.6-14.8); WHITE BLOOD COUNT 6.9 K/UL (4.8-10.8)
[2020-12-15] MEDS: Heparin 5000 units/ml inj SUBQ SCH (05:07)
[2020-12-15 05:10] LABS: ALANINE AMINOTRANSFERASE 22 U/L (12-78); ALBUMIN 3.5 G/DL (3.4-5.0); ALBUMIN/GLOBULIN RATIO 1.3 (1.0-2.7); ALKALINE PHOSPHATASE 45 U/L (46-116); ANION GAP 6 mmol/L (5-15); ASPARTATE AMINO TRANSFERASE 16 U/L (15-37); BILIRUBIN,TOTAL 0.3 MG/DL (0.2-1.0); BLOOD UREA NITROGEN 8 mg/dL (7-18); CARBON DIOXIDE 29 MMOL/L (21-32); CHLORIDE 109 MMOL/L (98-107); CREATININE 0.9 MG/DL (0.55-1.30); POTASSIUM 4.1 MMOL/L (3.5-5.1); SODIUM 144 MMOL/L (136-145)
--- NOTE | 2020-12-15 07:03 | NUR ---
NURSE NOTES: Per patient no more diarrhea last night.
--- NOTE | 2020-12-15 07:08 | NUR ---
NURSE HAND-OFF: Report given to KHRIS Knutson.
--- NOTE | 2020-12-15 07:10 | General Progress Note ---
Subjective ROS Limited/Unobtainable: Yes Allergies: Coded Allergies: LEVOFLOXACIN (Unverified Allergy, Mild, Redness, 04/25/20) Objective Last 24 Hour Vital Signs Date Time Temp Pulse Resp B/P (MAP) Pulse Ox O2 Delivery O2 Flow Rate FiO2 12/15/20 04:00 97.8 76 18 140/79 (99) 96 12/14/20 23:46 98.1 74 18 122/76 (91) 96 12/14/20 20:49 Room Air 12/14/20 20:00 97.7 77 18 143/95 (111) 98 12/14/20 16:00 97.9 86 19 127/83 (98) 97 12/14/20 12:00 98.3 81 18 124/82 (96) 97 12/14/20 09:00 Room Air 12/14/20 08:00 97.9 89 20 126/80 (95) 97 Intake and Output 12/14/20 12/15/20 19:00 07:00 Intake Total 675 ml 870 ml Output Total 300 ml Balance 675 ml 570 ml Intake Oral 120 ml IV Total 75 ml 750 ml Other 600 ml Output Urine Total 300 ml # Voids 2 # Bowel Movements 2 Laboratory Tests 12/15/20 04:30: White Blood Count 6.9, Red Blood Count 5.00, Hemoglobin 12.5L, Hematocrit 40.2L, Mean Corpuscular Volume 80, Mean Corpuscular Hemoglobin 24.9L, Mean Corpuscular Hemoglobin Concent 31.0L, Red Cell Distribution Width 15.9H, Platelet Count 152, Mean Platelet Volume 9.3, Neutrophils (%) (Auto) 69.8, Lymphocytes (%) (Auto) 17.8L, Monocytes (%) (Auto) 8.9, Eosinophils (%) (Auto) 2.3, Basophils (%) (Auto) 1.3, Sodium Level 144, Potassium Level 4.1, Chloride Level 109H, Carbon Dioxide Level 29, Anion Gap 6, Blood Urea Nitrogen 8, Creatinine 0.9, Estimat Glomerular Filtration Rate > 60, Glucose Level 88, Calcium Level 9.0, Total Bilirubin 0.3, Aspartate Amino Transf (AST/SGOT) 16, Alanine Aminotransferase (ALT/SGPT) 22, Alkaline Phosphatase 45L, Total Protein 6.2L, Albumin 3.5, Globulin 2.7, Albumin/Globulin Ratio 1.3, Lipase 181 Height (Feet): 6 Height (Inches): 3.00 Weight (Pounds): 180 General Appearance: no apparent distress EENT: normal ENT inspection Neck: supple Cardiovascular: normal rate Respiratory/Chest: decreased breath sounds Extremities: non-tender Assessment/Plan Assessment/Plan: 1. History of chronic liver disease. 2. Diverticulosis. 3. Pulmonary fibrosis. 4. History of candidal esophagitis. 5. History of umbilical hernia. 6. Diabetes. 7. Osteoporosis. 8. BPH. 9. Gallstones. 10. Bile leak. s/p ERCP and stent removal diarrhea improved no abd pain wants to go home cholestyramine Petey Marquez MD Dec 15, 2020 07:10
[2020-12-15 08:00] VITALS: BP 146/92
[2020-12-15] MEDS: Cholestyramine 4gm Pkt ORAL SCH (09:06)
--- NOTE | 2020-12-15 09:40 | Surgery Progress Note ---
Surgery Progress Note Subjective Symptoms: improved, pain absent, tolerating diet, voiding well, passing flatus, BM Additional Comments rx written plan d/c Objective Last 24 Hour Vital Signs Date Time Temp Pulse Resp B/P (MAP) Pulse Ox O2 Delivery O2 Flow Rate FiO2 12/15/20 04:00 97.8 76 18 140/79 (99) 96 12/14/20 23:46 98.1 74 18 122/76 (91) 96 12/14/20 20:49 Room Air 12/14/20 20:00 97.7 77 18 143/95 (111) 98 12/14/20 16:00 97.9 86 19 127/83 (98) 97 12/14/20 12:00 98.3 81 18 124/82 (96) 97 I&O Intake and Output 12/14/20 12/15/20 19:00 07:00 Intake Total 675 ml 870 ml Output Total 300 ml Balance 675 ml 570 ml Intake Oral 120 ml IV Total 75 ml 750 ml Other 600 ml Output Urine Total 300 ml # Voids 2 # Bowel Movements 2 Cardiovascular: RSR Respiratory: clear Abdomen: soft, flat, non-tender, present bowel sounds, non-distended Extremities: no edema, no tenderness, no cyanosis Laboratory Tests Test 12/15/20 04:30 White Blood Count 6.9 K/UL (4.8-10.8) Red Blood Count 5.00 M/UL (4.70-6.10) Hemoglobin 12.5 G/DL (14.2-18.0) L Hematocrit 40.2 % (42.0-52.0) L Mean Corpuscular Volume 80 FL (80-99) Mean Corpuscular Hemoglobin 24.9 PG (27.0-31.0) L Mean Corpuscular Hemoglobin Concent 31.0 G/DL (32.0-36.0) L Red Cell Distribution Width 15.9 % (11.6-14.8) H Platelet Count 152 K/UL (150-450) Mean Platelet Volume 9.3 FL (6.5-10.1) Neutrophils (%) (Auto) 69.8 % (45.0-75.0) Lymphocytes (%) (Auto) 17.8 % (20.0-45.0) L Monocytes (%) (Auto) 8.9 % (1.0-10.0) Eosinophils (%) (Auto) 2.3 % (0.0-3.0) Basophils (%) (Auto) 1.3 % (0.0-2.0) Sodium Level 144 MMOL/L (136-145) Potassium Level 4.1 MMOL/L (3.5-5.1) Chloride Level 109 MMOL/L (98-107) H Carbon Dioxide Level 29 MMOL/L (21-32) Anion Gap 6 mmol/L (5-15) Blood Urea Nitrogen 8 mg/dL (7-18) Creatinine 0.9 MG/DL (0.55-1.30) Estimat Glomerular Filtration Rate > 60 mL/min (>60) Glucose Level 88 MG/DL (74-106) Calcium Level 9.0 MG/DL (8.5-10.1) Total Bilirubin 0.3 MG/DL (0.2-1.0) Aspartate Amino Transf (AST/SGOT) 16 U/L (15-37) Alanine Aminotransferase (ALT/SGPT) 22 U/L (12-78) Alkaline Phosphatase 45 U/L (46-116) L Total Protein 6.2 G/DL (6.4-8.2) L Albumin 3.5 G/DL (3.4-5.0) Globulin 2.7 g/dL Albumin/Globulin Ratio 1.3 (1.0-2.7) Lipase 181 U/L (73-393) Plan Problems: (1) Fever (2) Diarrhea Assessment & Plan: intermittent diarrhea states few weeks no n/v/f/c tolerating diet labs okay ct okay no signs of active infection consider outpatient stool studies and colonoscopy gi input appreciated (3) Umbilical hernia Assessment & Plan: ventral umbilical hernia right upper umbilicus reducible non tender small likely from prior lap site incisional discussed with patient has been asymptomatic and easily reducible if becomes symptomatic will consider surgical repair outpatient f/u (4) Abdominal pain Assessment & Plan: improved feels better no acute intervention planned pneumobilia from ercp stent removal okay for diet (5) Pneumobilia (6) Immunosuppressed status (7) Cholecystitis, acute (8) Diabetes mellitus (9) COPD (chronic obstructive pulmonary disease) (10) BPH (benign prostatic hyperplasia) (11) Pulmonary fibrosis (12) Polymyositis Wil Morse Dec 15, 2020 09:40
[2020-12-15 12:00] VITALS: BP 150/87
--- NOTE | 2020-12-15 12:08 | Internal Med Progress Note ---
Subjective Date of Service: Dec 15, 2020 Physician Name Cirilo Tan Attending Physician Jose Ramos MD Current Medications Medications (Trade) Dose Ordered Sig/Renetta Route PRN Reason Start Time Stop Time Status Last Admin Dose Admin Acetaminophen (Tylenol) 650 mg Q6H PRN ORAL Mild Pain (Pain Scale 1-3) 12/12/20 23:30 01/11/21 23:29 Acetaminophen (Tylenol) 650 mg Q6H PRN ORAL Temp >100.5 12/12/20 23:30 01/11/21 23:29 Acetaminophen/ Hydrocodone Bitart ([place] 5/325) 1 tab Q6H PRN ORAL Moderate Pain (Pain Scale 4-6) 12/12/20 23:30 12/19/20 23:29 Cholestyramine Resin (Questran) 4 gm THREE TIMES A DAY ORAL 12/14/20 13:00 01/13/21 12:59 12/15/20 09:06 Heparin Sodium (Porcine) (Heparin 5000 units/ml) 5,000 units EVERY 8 HOURS SUBQ 12/13/20 06:00 01/27/21 05:59 12/14/20 13:24 Morphine Sulfate (Morphine Sulfate) 2 mg Q4H PRN IVP Severe Pain (Pain Scale 7-10) 12/12/20 23:30 12/19/20 23:29 Ondansetron HCl (Zofran) 4 mg EVERY 4 HOURS PRN IVP Nausea & Vomiting 12/12/20 23:30 01/11/21 23:29 Pantoprazole (Protonix) 40 mg DAILY ORAL 12/13/20 09:00 01/12/21 08:59 12/15/20 09:06 Potassium Chloride/Sodium Chloride 1,000 ml @ 75 mls/hr [id number] IV 12/12/20 23:30 01/11/21 23:29 12/15/20 03:49 Tamsulosin HCl (Flomax) 0.4 mg BEDTIME ORAL 12/13/20 21:00 01/12/21 20:59 12/14/20 20:28 Allergies: Coded Allergies: LEVOFLOXACIN (Unverified Allergy, Mild, Redness, 04/25/20) ROS Limited/Unobtainable: No Constitutional: Reports: no symptoms HEENT: Reports: no symptoms Cardiovascular: Reports: no symptoms Respiratory: Reports: no symptoms Gastrointestinal/Abdominal: Reports: no symptoms Genitourinary: Reports: no symptoms Neurologic/Psychiatric: Reports: no symptoms Subjective 70 YO M S/P ERCP admitted with pneumobilia on CT. Now diarrhea and abdominal pain. Cvoer for Int Jerad-Dr Ramos. Objective Last Vital Signs Date Time Temp Pulse Resp B/P (MAP) Pulse Ox O2 Delivery O2 Flow Rate FiO2 12/15/20 09:00 Room Air 12/15/20 08:00 97.2 75 18 146/92 (110) 96 Laboratory Tests Test 12/15/20 04:30 White Blood Count 6.9 K/UL (4.8-10.8) Red Blood Count 5.00 M/UL (4.70-6.10) Hemoglobin 12.5 G/DL (14.2-18.0) L Hematocrit 40.2 % (42.0-52.0) L Mean Corpuscular Volume 80 FL (80-99) Mean Corpuscular Hemoglobin 24.9 PG (27.0-31.0) L Mean Corpuscular Hemoglobin Concent 31.0 G/DL (32.0-36.0) L Red Cell Distribution Width 15.9 % (11.6-14.8) H Platelet Count 152 K/UL (150-450) Mean Platelet Volume 9.3 FL (6.5-10.1) Neutrophils (%) (Auto) 69.8 % (45.0-75.0) Lymphocytes (%) (Auto) 17.8 % (20.0-45.0) L Monocytes (%) (Auto) 8.9 % (1.0-10.0) Eosinophils (%) (Auto) 2.3 % (0.0-3.0) Basophils (%) (Auto) 1.3 % (0.0-2.0) Sodium Level 144 MMOL/L (136-145) Potassium Level 4.1 MMOL/L (3.5-5.1) Chloride Level 109 MMOL/L (98-107) H Carbon Dioxide Level 29 MMOL/L (21-32) Anion Gap 6 mmol/L (5-15) Blood Urea Nitrogen 8 mg/dL (7-18) Creatinine 0.9 MG/DL (0.55-1.30) Estimat Glomerular Filtration Rate > 60 mL/min (>60) Glucose Level 88 MG/DL (74-106) Calcium Level 9.0 MG/DL (8.5-10.1) Total Bilirubin 0.3 MG/DL (0.2-1.0) Aspartate Amino Transf (AST/SGOT) 16 U/L (15-37) Alanine Aminotransferase (ALT/SGPT) 22 U/L (12-78) Alkaline Phosphatase 45 U/L (46-116) L Total Protein 6.2 G/DL (6.4-8.2) L Albumin 3.5 G/DL (3.4-5.0) Globulin 2.7 g/dL Albumin/Globulin Ratio 1.3 (1.0-2.7) Lipase 181 U/L (73-393) Intake and Output 12/14/20 12/15/20 19:00 07:00 Intake Total 675 ml 870 ml Output Total 300 ml Balance 675 ml 570 ml Intake Oral 120 ml IV Total 75 ml 750 ml Other 600 ml Output Urine Total 300 ml # Voids 2 # Bowel Movements 2 Objective PHYSICAL EXAMINATION: GENERAL: The patient is well-developed and well-nourished male in no apparent distress. HEENT: Eyes, pupils are equal and responsive to light and accommodation. Extraocular movements are intact. NECK: Supple without lymphadenopathy. CHEST: Lungs are clear to auscultation bilaterally without wheezes or rales. CARDIOVASCULAR: Regular rate. S1 and S2 normal without murmurs, rubs, or gallops. ABDOMEN: Soft, diffusely tender with decreased bowel sounds. No evidence of hepatosplenomegaly. Currently, no rebound or guarding noted. EXTREMITIES: Negative for clubbing, cyanosis, or edema. RECTAL/GENITAL: Not performed. NEUROLOGIC: Cranial nerves II through XII are grossly intact without focal deficits. Motor strength is 5/5 bilaterally. Deep tendon reflexes 2+ plantar. Assessment/Plan Assessment/Plan ASSESSMENT: This is a 70-year-old male. 1. Pneumobilia by CT scan. 2. Abdominal pain. 3. Persistent diarrhea. 4. Diabetes type 2. 5. Pulmonary fibrosis. 6. Osteoporosis. 7. Benign prostatic hypertrophy. 8. Chronic liver disease. 9. History of diverticulosis. 10. Benign prostatic hypertrophy. TREATMENT: 1. Diabetes type 2. The patient has been placed on NovoLog sliding scale. 2. Pneumobilia Due to recent ERCP with stent removal 3. abdominal pain/chronic diarrhea. Gastroenterology = Dr. Petey Marquez. Surgery = Dr Morse Await stool studies 4. Pulmonary fibrosis. 5. Osteoporosis. Continue Fosamax as above. 6. Benign prostatic hypertrophy. Continue Flomax as above. 7. Discharge home today Cirilo Tan MD Dec 15, 2020 12:08
--- NOTE | 2020-12-17 10:31 | Discharge Summary ---
Discharge Summary Discharge Summary _ Date of admission: 12/12/2020 Date of discharge: 12/15/[address] Ramos History of Present Illness and Brief Hospital Course Mr. Johnson is a 70-year-old male with past medical history of pulmonary fibrosis, status post ERCP, sphincterectomy, stent placement and removal, and cholecystectomy, who returned to ER for abnormal CT study. Patient complained of colicky cramping abdominal pain and persistent diarrhea for months. He was seen in the ER earlier. CT scan showed chronic findings though on further review, patient was noted to have pneumobilia. Patient was advised to return for reevaluation. His most recent intra-abdominal procedure was stent removal on August 09, 2020. Patient was admitted to the hospital for further evaluation. The pneumobilia on CT abdomen/pelvis was most likely from previous ERCP. Despite few weeks of intermittent diarrhea, patient did not complain of nausea, vomiting, fever, or chills. Patient was tolerating diet and was largely asymptomatic. Patient did not have signs of active infection. Patient was instructed to consider outpatient stool studies and colonoscopy. Patient was also noted to have umbilical hernia which was reducible, and nontender. According to the patient, umbilical hernia was asymptomatic and was easily reducible. Patient was instructed to consider surgical repair if it becomes symptomatic. Patient was medically stable for discharge and was discharged home on 12/15/2020. His diarrhea improved by the time of discharge. Consultants: Surgery Dr. Morse Gastroenterology Dr. Marquez Discharge Condition Stable Final diagnoses Pneumobilia Persistent diarrhea Diabetes type 2 Pulmonary fibrosis Osteoporosis Benign prostatic hypertrophy History of diverticulosis Cholelithiasis History of chronic liver disease Ventral hernia I have been assigned to dictate discharge summary for this account. I was not involved in the patient's management Karri Barakat Dec 17, 2020 10:31
== END 2020-12-15 13:30 | disposition home or self-care (01) | DRG 445 ==
LOC: EMR 21:08 → 4E 21:17 → EDBEDREQ 21:39 → 4E 22:51 → 2E 12-13 14:57
DX: K83.8 Other specified diseases of biliary tract (principal); M33.20 Polymyositis, organ involvement unspecified; J84.10 Pulmonary fibrosis, unspecified; Z88.1 Allergy status to other antibiotic agents; Z79.84 Long term (current) use of oral hypoglycemic drugs; E11.9 Type 2 diabetes mellitus without complications; J44.9 Chronic obstructive pulmonary disease, unspecified; N40.0 Benign prostatic hyperplasia without lower urinary tract symptoms; R50.9 Fever, unspecified; R19.7 Diarrhea, unspecified; K42.9 Umbilical hernia without obstruction or gangrene; R10.9 Unspecified abdominal pain; D89.9 Disorder involving the immune mechanism, unspecified; K57.90 Diverticulosis of intestine, part unspecified, without perforation or abscess without bleeding; M81.0 Age-related osteoporosis without current pathological fracture; Z90.49 Acquired absence of other specified parts of digestive tract; K80.20 Calculus of gallbladder without cholecystitis without obstruction
CPT/HCPCS: 36415; 80053; 81001; 82607; 82728; 82746; 83540; 83550; 83690; 83735; 84100; 84550; 85025; 86140; 87045; 96365; 99285